=== PATIENT | female | born 1945 | race Caucasian/White ===

== ENCOUNTER 2016-09-04 17:59 | Emergency (ER) | payer MEDICARE, MEDICAID ==
[~2016-09-04] VITALS: Ht 154.9 cm; Wt 79.4 kg
[~2016-09-04 17:59] MED LIST: AMIT50TA3 PO; ARIP10TA2 PO; ARPZ10T PO; ASCO500C14 PO; BUDE6HFA IH; BUPR150T6 PO; CA C1TAB79 PO; CHOL200018 PO; CIPR500T4 PO; CITA20TA12 PO; CITRACAL PO; CPR250T PO; CTLP20T PO; DICY10CA26 PO; DIPH25TA82 PO; DOXY100C2 PO; DRNB2.5C PO; FOLI1TAB24 PO; GBPN400C PO; LEVO500T69 PO; LISI10TA2 PO; LISI40TA PO; LNS30CCR; LORA10TA7 PO; LVT.05T PO; MELA3TAB46 PO; MELATONIN PO; METR500T PO; MGX400T PO; MPR22T TOP; MPR22TI TOP; MUPI22OI TP; OMEP20TA2 PO; ONDA-42 PO; ONDN4T PO; OSCAL PO; OXYC-103 PO; OXYC-12 PO; PNT40TEC PO; PROP1TAB2; PROP1TAB77; RIVA1PAT TD; SENN1TAB76 PO; SULF1TAB7; TRAM-21 PO; TRAM50TA2 PO; VITA1CAP21 PO; VITA1TAB13 PO; ZLP10T PO; [UNRECOGNIZED DRUG - OTHER] PO
--- OUTSIDE RECORDS SUMMARY | 2016-09-04 18:04 | XMS REPORT | Continuity of Care Document ---
Author Author [facility] Organization [facility] Address Unknown Phone Unavailable Care Team Providers Care Scrap Drop Engineer Name Role Phone Lis Moreno PCP [phone] Source Comments Some departments are not documenting in the electronic medical record. If you do not see the information that you expected, contact Release of Information in the Health Information Management department at [phone] for further assistance in locating additional records.[facility] Active Allergies and Adverse Reactions Allergen Noted Date Severity Reactions Comments Codeine 08/30/2013 UNKNOWN Penicillins 08/30/2013 UNKNOWN Current Medications Prescription Sig. Disp. Refills Start End Date Status Date budesonide/formoterol Inhale 2 Puffs by mouth Active (SYMBICORT) 160/4.5 mcg twice daily. HFAA inhalation citalopram (CELEXA) 20 mg Take 20 mg by mouth Active tablet daily. levothyroxine (SYNTHROID) Take 50 mcg by mouth Active 50 mcg tablet every morning. vitamins, B complex tab Take 1 Tab by mouth Active daily. traMADol (ULTRAM) 50 mg Take 100 mg by mouth four Active tablet times daily. folic acid (FOLVITE) 1 mg Take 1 Tab by mouth 09/20/19 Active tablet daily. 14 megestrol (MEGACE) 40 Take 10 mL by mouth 1 09/20/19 Active mg/mL oral suspension daily. 14 ascorbic acid (CECON) 500 Take 5 mL by mouth daily. 09/20/19 Active mg/5 mL syrp oral syrup 14 polyethylene glycol 3350 Take 17 g by mouth daily. 09/20/19 Active (GLYCOLAX; MIRALAX) 17 14 gram/dose powder senna/docusate Take 1 Tab by mouth twice 09/20/19 Active (SENOKOT-S) 8.6/50 mg daily. 14 tablet buPROPion (WELLBUTRIN) 75 Take 1 Tab by mouth twice 09/20/19 Active mg tablet daily. [address](+) Take 1 Cap by mouth twice 90 Cap 09/20/19 Active (PRILOSEC) 20 mg capsule daily. 14 oxyCODone-acetaminophen Take 1-2 Tabs by mouth 30 Tab 0 09/20/19 Active (PERCOCET; ENDOCET; every 6 hours as needed 14 ROXICET) 5-325 mg tablet for Pain Earliest Fill Date: 09/20/13 Max 12 tabs/day melatonin 10 mg cap Take 1 Cap by mouth at Active bedtime daily. Active Problems Problem Noted Date Anemia associated with acute blood loss 09/01/2013 Acute lower GI bleeding 09/01/2013 Diverticulitis of colon with perforation 08/30/2013 Anemia 08/30/2013 SEPSIS 08/30/2013 Social History Tobacco Use Types Packs/Day Years Used Date Never Smoker Smokeless Tobacco: Never Used Alcohol Use Drinks/Week oz/Week Comments No Last Filed Vital Signs Vital Sign Reading Time Taken Blood Pressure 140/88 10/04/2013 8:37 AM CDT Pulse 110 10/04/2013 8:37 AM CDT Temperature 36.7 C (98.1 F) 10/04/2013 8:37 AM CDT Respiratory Rate 16 10/04/2013 8:37 AM CDT Height 1.549 m (5' 1") 10/04/2013 8:37 AM CDT Weight 76.204 kg (168 lb) 10/04/2013 8:37 AM CDT Body Mass Index 31.76 10/04/2013 8:37 AM CDT Oxygen Saturation 96% 09/20/2013 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
--- NOTE | 2016-09-04 18:37 | ED Lower Extremity ---
General Chief Complaint: Lower Extremity Stated Complaint: LEFT LEG SWELLING Source: patient, family (DAUGHTER) History of Present Illness Time seen by provider: 18:28 Initial Comments PT C/O SUDDEN ONSET OF LEFT LEG AND FOOT SWELLING AND PAIN ON Friday08/29/16 NO KNOWN INJURY NO PARESTHESIAS OR MOTOR DEFICITS NO CHEST PAIN OR SHORTNESS OF BREATH NO DIZZINESS OR PALPITATIONS PT HAD A DVT IN SAME LEG SEVERAL YEARS AGO AFTER COLON SURGERY. HAS NOT TAKEN ASPIRIN OR BLOOD THINNERS FOR A LONG TIME STATES THIS IS EXACTLY THE SAME SYMPTOMS NO DIFFERENT TODAY SEEN AT [facility] ON FRIDAY, THE DAY BEFORE ONSET OF SYMPTOMS--FOR ROUTINE EXAM HAS NOT ATTEMPTED TO FOLLOW UP WITH THEM SINCE THEN FOR THIS PROBLEM PT LIVES AT [facility] PCP: [facility] Allergies and Home Medications Allergies Coded Allergies: Penicillins (Verified Allergy, Unknown, 10/27/07) codeine (Verified Allergy, Unknown, 10/27/07) Home Medications Aripiprazole 10 Mg Tablet #0 10 MG PO DAILY Prescribed by: CARINA SERRANO on 05/07/14 1334 Budesonide/Formoterol Fumarate 1 Inhaler Aero #0 2 PUFF IH RTBID Prescribed by: CARINA SERRANO on 05/07/14 1334 Ca Carbonate/Vitamin D3/Vit K 1 Each Tab.chew #0 1 EACH PO QID Prescribed by: CARINA SERRANO on 05/07/14 1334 Citalopram Hydrobromide 20 Mg Tablet #0 20 MG PO DAILY Prescribed by: CARINA SERRANO on 05/07/14 1334 Dronabinol 2.5 Mg Cap #0 2.5 MG PO AC Prescribed by: CARINA SERRANO on 05/07/14 1334 Levothyroxine Sodium 50 Mcg Tablet #0 50 MCG PO DAILY Prescribed by: CARINA SERRANO on 05/07/14 1334 Magnesium Oxide 400 Mg Tab #60 400 MG PO BIDPC Prescribed by: ROS MCKAY on 05/09/14 0839 Melatonin 3 Mg Tab.rapdis #0 6 MG PO HS Prescribed by: CARINA SERRANO on 05/07/14 1334 Pantoprazole Sod 40 Mg Tab #0 40 MG PO BID Prescribed by: CARINA SERRANO on 05/07/14 1334 Tramadol Hcl 50 Mg Tablet #0 50 MG PO Q8H PRN PRN PAIN Prescribed by: CARINA SERRANO on 05/07/14 1334 Constitutional: no symptoms reported Respiratory: no symptoms reportedNo dyspnea on exertion, No orthopnea, No short of breath Cardiovascular: No chest pain, edemaNo palpitations, No syncope Gastrointestinal: no symptoms reported Genitourinary: no symptoms reported Musculoskeletal: see HPI Skin: no symptoms reported Psychiatric/Neurological: No Symptoms Reported Past [id number]-[id number]-[id number] Hx Patient Social History Alcohol Use: Denies Use Recreational Drug Use: No Smoking Status: Never a Smoker Recent Foreign Travel: No Contact w/Someone Who Travel: No Recent Hopitalizations: Yes (CHILD , SCOPE OUT PT) Immunizations Up To Date Tetanus Booster (TDap): Unknown PED Vaccines UTD: No Date of Pneumonia Vaccine: May 28, 2011 Date of Influenza Vaccine: May 08, 2016 Seasonal Allergies Seasonal Allergies: No Surgeries HX Surgeries: Yes (TEETH REMOVAL, COLOSTOMY, PEG TUBE W/ TAKEDOWN) Surgeries: Abdominal, Bowel Surgery Respiratory Hx Respiratory Disorders: Yes Respiratory Disorders: Asthma Cardiovascular Hx Cardiac Disorders: Yes (DVT LEFT LEG POST OP AFTER COLON SURGERY) Cardiac Disorders: Deep Vein Thrombosis Neurological Hx Neurological Disorders: Yes Neurological Disorders: Dementia, Parkinson's Disease Reproductive System Hx Reproductive Disorders: No Genitourinary Hx Genitourinary Disorders: Yes (ACUTE KIDNEY FAILURE) Genitourinary Disorders: Bladder Infection, Renal Failure, UTI-Chronic Gastrointestinal Hx Gastrointestinal Disorders: Yes (ISCHEMIC COLITIS, ADULT FAILURE TO THRIVE) Gastrointestinal Disorders: Colitis, Gastroesophageal Reflux, Diverticulosis Musculoskeletal Hx Musculoskeletal Disorders: Yes (CHRONIC PAIN) Musculoskeletal Disorders: Arthritis, Chronic Back Pain Endocrine Hx Endocrine Disorders: Yes Endocrine Disorders: Hypothyroidsim HEENT HX ENT Disorders: Yes (GLASSES) HEENT Disorders: Cataract Hearing Impairment: Denies Cancer Hx Cancer: No Psychosocial Hx Psychiatric Problems: Yes Behavioral Health Disorders: Sleep Difficulties, Bipolar, Depression Integumentary HX Skin/Integumentary Disorder: No Blood Transfusions Hx Blood Disorders: Yes (Anemia) Family Medical History Family Medial History: Congenital disease 19 MOTHER Family history: Arthritis Hypertension 19 MOTHER Malignant neoplasm of lung 09 BROTHER No Family History of: Cancer Seizure disorder Physical Exam Vital Signs Vital Sign - Last 12Hours 09/04/16 18:26 Temp 97.5 Pulse 76 Resp 20 B/P 143/81 Pulse Ox 95 O2 Delivery Room Air Capillary Refill : General Appearance: WD/WN no apparent distress HEENT: PERRL/EOMI other (POOR DENTITION, MULTIPLE MISSING TEETH AND REMAINING TEETH WITH EXTENSIVE DECAY) Neck: normal inspection Cardiovascular: regular rate, rhythm no murmur Respiratory: normal breath sounds no respiratory distress no accessory muscle use Gastrointestinal: non tender soft Back: no CVA tenderness Legs: right leg normal inspection, left leg other (3+ EDEMA TO LEFT LEG AND FOOT AND SLIGHT ERYTHEMA AND WARMTH, AND TENDERNESS IN POPLITEAL AREA. 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 nml as tested no motor/sensory deficits alert normal mood/affect oriented x 3 other (RESTING TREMORS) Skin: normal color warm/dry Progress/Results/Core Measures Results/Orders Lab Results Laboratory Tests Test 09/04/16 18:22 Range/Units Activated Partial Thromboplast Time 32 24-35 SEC Alanine Aminotransferase (ALT/SGPT) 6 0-55 U/L Albumin 4.2 3.2-4.5 G/DL Alkaline Phosphatase 121 40-136 U/L Anion Gap 13 5-14 MMOL/L Aspartate Amino Transf (AST/SGOT) 13 5-34 U/L B-Type Natriuretic Peptide 86.7 <100.0 PG/ML BUN/Creatinine Ratio 20 Basophils # (Auto) 0.0 0.0-0.1 10^3/uL Basophils (%) (Auto) 0 0-10 % Blood Urea Nitrogen 26 H 7-18 MG/DL Calcium Level 8.9 8.5-10.1 MG/DL Carbon Dioxide Level 22 21-32 MMOL/L Chloride Level 108 H 98-107 MMOL/L Creatinine 1.28 0.60-1.30 MG/DL Eosinophils # (Auto) 0.4 H 0.0-0.3 10^3/uL Eosinophils (%) (Auto) 3 0-10 % Estimat Glomerular Filtration Rate 41 Glucose Level 103 70-105 MG/DL Hematocrit 37 35-52 % Hemoglobin 11.9 11.5-16.0 G/DL INR Comment 1.0 0.8-1.4 Lymphocytes # (Auto) 2.2 1.0-4.0 X 10^3 Lymphocytes (%) (Auto) 19 12-44 % Mean Corpuscular Hemoglobin 30 25-34 PG Mean Corpuscular Hemoglobin Concent 32 32-36 G/DL Mean Corpuscular Volume 92 80-99 FL Mean Platelet Volume 11.0 H 7.4-10.4 FL Monocytes # (Auto) 1.1 H 0.0-1.0 X 10^3 Monocytes (%) (Auto) 10 0-12 % Neutrophils # (Auto) 7.9 H 1.8-7.8 X 10^3 Neutrophils (%) (Auto) 68 42-75 % Platelet Count 255 130-400 10^3/uL Potassium Level 4.6 3.6-5.0 MMOL/L Prothrombin Time 12.4 12.2-14.7 SEC Red Blood Count 4.02 L 4.35-5.85 10^6/uL Red Cell Distribution Width 13.6 10.0-14.5 % Sodium Level 143 135-145 MMOL/L Total Bilirubin 0.4 0.1-1.0 MG/DL Total Protein 7.4 6.4-8.2 G/DL White Blood Count 11.7 H 4.3-11.0 10^3/uL My Orders Orders-JAMMIE HAIDER DO Saline Lock/Iv-Start (09/04/16 18:33) Monitor-Rhythm Ecg Trace Only (09/04/16 18:33) BNP (09/04/16 18:33) Cbc With Automated Diff (09/04/16 18:33) Comprehensive Metabolic Panel (09/04/16 18:33) Protime With Inr (09/04/16 18:33) Partial Thromboplastin Time (09/04/16 18:33) Us Venous Lower Ext Lt (09/04/16 18:33) Saline Lock/Iv-Start (09/04/16 19:23) Ns Iv 1000 Ml (Sodium Chloride 0.9%) (09/04/16 19:23) Enoxaparin Injection (Lovenox Injection) (09/04/16 20:00) Medications Given in ED Current Medications Medications Dose Ordered Sig/Jaylen Route Start Time Stop Time Status Last Admin Dose Admin Enoxaparin Sodium 80 mg ONCE ONCE SC 09/04/16 20:00 09/04/16 20:01 DC 09/04/16 20:23 80 MG Sodium Chloride 1,000 ml @ 0 mls/hr Q0M ONCE IV 09/04/16 19:23 09/04/16 19:24 DC 09/04/16 19:31 0 MLS/HR Vital Signs/I&O Vital Sign - Last 12Hours 09/04/16 09/04/16 18:26 20:28 Temp 97.5 Pulse 76 73 Resp 20 18 B/P 143/81 Pulse Ox 95 95 O2 Delivery Room Air Progress Note : Progress Note NO DETERIORATION IN PT'S CONDITION DURING ER STAY Diagnostic Imaging Comments ULTRASOUND/VENOUS DOPPLER--NO DVT, BUT TECH REPORTS SLOW FLOW AT VERY PROXIMAL ASPECT OF STUDY. Departure Communication Progress Notes 1941--SPOKE WITH DR. HERNANDEZ (COVERING FOR [facility] INPATIENTS )--DUE TO LACK OF MEDICAL BEDS, WILL TREAT EMPIRICALLY WITH LOVENOX HERE IN ER, [facility] HAVE [facility] FOR ADDITIONAL LOVENOX, RECHECK LAB/RENAL FUNCTION AND HOPEFULLY WILL BE ABLE TO ORDER OUTPATIENT ABDOMEN/PELVIS CT WITH IV CONTRAST TO EVALUATE STRUCTURES / VESSELS ABOVE LEVEL OF GROIN. 1944--SPOKE WITH DR. TAYLOR, SHE AGREES WITH PLAN OF CARE AND WILL ARRANGE FOR THE ABOVE TO BE DONE. Impression Impression: Primary Impression: Pain and swelling of left lower leg Additional Impression: Renal insufficiency Disposition: 03 XFER SNF Condition: Stable Departure-Patient Inst. Referrals: [facility] Patient Instructions: Deep Vein Thrombosis (Blood Clots in the Legs) (DC) Add. Discharge Instructions: [facility] IN THE MORNING FOR ANOTHER LOVENOX INJECTION AND REPEAT LAB AND ADDITIONAL TESTING RETURN TO ER IF YOU HAVE CHEST PAIN OR SHORTNESS OF BREATH CONTINUE ALL YOUR REGULAR MEDICATIONS All discharge instructions reviewed with patient and/or family. Voiced understanding. JAMMIE HAIDER DO Sep 04, 2016 6:37 pm
[2016-09-04 18:48] LABS: BASOPHILS % (AUTO) 0 % (0-10); EOSINOPHILS # (AUTO) 0.4 10^3/uL (0.0-0.3); EOSINOPHILS % (AUTO) 3 % (0-10); LYMPHOCYTES # (AUTO) 2.2 X 10^3 (1.0-4.0); LYMPHOCYTES % (AUTO) 19 % (12-44); MEAN CORPUSCULAR HEMOGLOBIN 30 PG (25-34); MEAN CORPUSCULAR HGB CONC 32 G/DL (32-36); MEAN CORPUSCULAR VOLUME 92 FL (80-99); MONOCYTES # (AUTO) 1.1 X 10^3 (0.0-1.0); MONOCYTES % (AUTO) 10 % (0-12); NEUTROPHILS # (AUTO) 7.9 X 10^3 (1.8-7.8); NEUTROPHILS % (AUTO) 68 % (42-75); PLATELET COUNT 255 10^3/uL (130-400); RED BLOOD COUNT 4.02 10^6/uL (4.35-5.85); RED CELL DISTRIBUTION WIDTH 13.6 % (10.0-14.5); WHITE BLOOD COUNT 11.7 10^3/uL (4.3-11.0)
[2016-09-04 18:51] LABS: PROTHROMBIN TIME PATIENT 12.4 SEC (12.2-14.7)
[2016-09-04 19:00] LABS: ALBUMIN 4.2 G/DL (3.2-4.5); BILIRUBIN,TOTAL 0.4 MG/DL (0.1-1.0); CALCIUM 8.9 MG/DL (8.5-10.1); CREATININE SERUM 1.28 MG/DL (0.60-1.30); POTASSIUM 4.6 MMOL/L (3.6-5.0); TOTAL PROTEIN 7.4 G/DL (6.4-8.2)
[2016-09-04] MEDS ORDERED: NS IV 1000 ML 1,000 ML IV ONE (19:23)
--- NOTE | 2016-09-04 19:37 | Diagnostic Imaging Report ---
PROCEDURE: US left lower extremity venous. TECHNIQUE: Multiple real-time grayscale images were obtained over the left lower extremity in various projections. Additional duplex Doppler and color Doppler images were also obtained. INDICATION: Left lower extremity swelling, history of DVT in 2014. COMPARISON STUDY: Lower extremity ultrasound from 2014. FINDINGS: Left lower extremity venous Doppler demonstrates resolution of the previous DVT. No areas of stenosis are present. There are no fluid collections. IMPRESSION: There has been interval resolution of the left lower extremity thrombus. Dictated by: Dictated on workstation # [id number]
[2016-09-04] MEDS ORDERED: ENOXAPARIN 80 MG/0.8 ML (LOVENOX) SYR SC ONE (20:00)
[2016-09-04 20:28] VITALS: BP 141/82
== END 2016-09-04 20:28 ==
LOC: EDUNIT# 17:59 → ER 18:01
DX: R22.42 Localized swelling, mass and lump, left lower limb (principal); G20 Parkinson's disease; F03.90 Unspecified dementia, unspecified severity, without behavioral disturbance, psychotic disturbance, mood disturbance, and anxiety; Z79.899 Other long term (current) drug therapy; Z86.718 Personal history of other venous thrombosis and embolism
CPT/HCPCS: 36415; 80053; 83880; 85025; 85610; 85730; 93041; 96365; 96372

== ENCOUNTER 2016-09-05 15:39 | Emergency (ER) | payer MEDICARE, MEDICAID ==
[~2016-09-05] VITALS: Ht 154.9 cm; Wt 79.4 kg
--- OUTSIDE RECORDS SUMMARY | 2016-09-05 15:44 | XMS REPORT | Continuity of Care Document ---
Author Author [facility] Organization [facility] Address Unknown Phone Unavailable Care Team Providers Care Hose Stripper Name Role Phone Lis Moreno PCP [phone] Source Comments Some departments are not documenting in the electronic medical record. 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
--- NOTE | 2016-09-05 15:51 | ED Neurological Problem ---
General Stated Complaint: SYNCOPE Source: patient Exam Limitations: no limitations History of Present Illness Time seen by provider: 15:37 Initial Comments Here by EMS with probable syncopal episode at assisted living facility today. Patient reports that she was lying down on getting up she felt dizzy and then blacked out. She was assisted to the floor. Patient had repeat episode of unresponsiveness and was incontinent of urine. EMS was summoned. They were able to change the patient's clothes by the time EMS arrived and patient was essentially resolved at that time. On EMS arrival, patient had no significant symptoms and negative stroke evaluation per EMS. On presentation to the ER, patient had no complaints. Recently seen for swelling in her legs and has further evaluation set up for tomorrow. Denies current complaint and is answering questions appropriately. She does admit that she is having some weakness on standing especially if moving too fast. Timing/Duration: 1/2 hour Severity: moderate Associated Symptoms: No nausea/vomiting, weakness Allergies and Home Medications Allergies Coded Allergies: Penicillins (Verified Allergy, Unknown, 10/27/07) codeine (Verified Allergy, Unknown, 10/27/07) Home Medications Aripiprazole 10 Mg Tablet #0 10 MG PO DAILY Prescribed by: CARINA SERRANO on 05/07/14 1334 Budesonide/Formoterol Fumarate 1 Inhaler Aero #0 2 PUFF IH RTBID Prescribed by: CARINA SERRANO on 05/07/14 1334 Ca Carbonate/Vitamin D3/Vit K 1 Each Tab.chew #0 1 EACH PO QID Prescribed by: CARINA SERRANO on 05/07/14 1334 Citalopram Hydrobromide 20 Mg Tablet #0 20 MG PO DAILY Prescribed by: CARINA SERRANO on 05/07/14 1334 Dronabinol 2.5 Mg Cap #0 2.5 MG PO AC Prescribed by: CARINA SERRANO on 05/07/14 1334 Levothyroxine Sodium 50 Mcg Tablet #0 50 MCG PO DAILY Prescribed by: CARINA SERRANO on 05/07/14 1334 Magnesium Oxide 400 Mg Tab #60 400 MG PO BIDPC Prescribed by: ROS MCKAY on 05/09/14 0839 Melatonin 3 Mg Tab.rapdis #0 6 MG PO HS Prescribed by: CARINA SERRANO on 05/07/14 1334 Pantoprazole Sod 40 Mg Tab #0 40 MG PO BID Prescribed by: CARINA SERRANO on 05/07/14 1334 Tramadol Hcl 50 Mg Tablet #0 50 MG PO Q8H PRN PRN PAIN Prescribed by: CARINA SERRANO on 05/07/14 1334 Constitutional: see HPINo chills, No fever Eyes: No Symptoms Reported Ears, Nose, Mouth, Throat: no symptoms reported Respiratory: no symptoms reported Cardiovascular: see HPI edemaNo palpitations, syncope Gastrointestinal: No abdominal pain, No nausea, No vomiting Genitourinary: no symptoms reported Musculoskeletal: no symptoms reported Skin: no symptoms reported Psychiatric/Neurological: No Symptoms Reported All Other Systems Reviewed Negative Unless Noted: Yes Past Olliuek-Pgxbsz-Ljldqv Hx Patient Social History Recent Hopitalizations: Yes (CHILD , SCOPE OUT PT) Immunizations Up To Date Tetanus Booster (TDap): Unknown PED Vaccines UTD: No Date of Pneumonia Vaccine: May 28, 2011 Date of Influenza Vaccine: May 08, 2016 Seasonal Allergies Seasonal Allergies: No Surgeries HX Surgeries: Yes (TEETH REMOVAL, COLOSTOMY, PEG TUBE W/ TAKEDOWN) Surgeries: Abdominal, Bowel Surgery Respiratory Hx Respiratory Disorders: Yes Respiratory Disorders: Asthma Cardiovascular Hx Cardiac Disorders: Yes (DVT LEFT LEG POST OP AFTER COLON SURGERY) Cardiac Disorders: Deep Vein Thrombosis Neurological Hx Neurological Disorders: Yes Neurological Disorders: Dementia, Parkinson's Disease Reproductive System Hx Reproductive Disorders: No Genitourinary Hx Genitourinary Disorders: Yes (ACUTE KIDNEY FAILURE) Genitourinary Disorders: Bladder Infection, Renal Failure, UTI-Chronic Gastrointestinal Hx Gastrointestinal Disorders: Yes (ISCHEMIC COLITIS, ADULT FAILURE TO THRIVE) Gastrointestinal Disorders: Colitis, Gastroesophageal Reflux, Diverticulosis Musculoskeletal Hx Musculoskeletal Disorders: Yes (CHRONIC PAIN) Musculoskeletal Disorders: Arthritis, Chronic Back Pain Endocrine Hx Endocrine Disorders: Yes Endocrine Disorders: Hypothyroidsim HEENT HX ENT Disorders: Yes (GLASSES) HEENT Disorders: Cataract Hearing Impairment: Denies Cancer Hx Cancer: No Psychosocial Hx Psychiatric Problems: Yes Behavioral Health Disorders: Sleep Difficulties, Bipolar, Depression Integumentary HX Skin/Integumentary Disorder: No Blood Transfusions Hx Blood Disorders: Yes (Anemia) Reviewed Nursing Assessment Reviewed/Agree w Nursing PMH: Yes Family Medical History Family Medial History: Congenital disease 19 MOTHER Family history: Arthritis Hypertension 19 MOTHER Malignant neoplasm of lung 09 BROTHER Physical Exam Vital Signs Vital Sign - Last 12Hours 09/05/16 15:40 Temp 97.1 Pulse 67 Resp 25 B/P 170/101 Pulse Ox 95 O2 Delivery Room Air Capillary Refill : General Appearance: WD/WN no apparent distress HEENT: PERRL/EOMI pharynx normal Neck: full range of motion supple Respiratory: lungs clear normal breath sounds Cardiovascular: regular rate, rhythm no murmur Gastrointestinal: non tender soft Back: normal inspection no CVA tenderness no vertebral tenderness Extremities: non-tender pedal edema (left lower extremity edema greater than right.) Neurologic/Psychiatric: alert oriented x 3 Crainal Nerves: normal hearing normal speech PERRL Coordination/Gait: normal finger to nose Motor/Sensory: no motor deficit no sensory deficit no pronator drift Skin: normal color warm/dry Progress/Results/Core Measures Results/Orders Lab Results Laboratory Tests Test 09/05/16 16:45 09/05/16 17:37 Range/Units Activated Partial Thromboplast Time 32 24-35 SEC Alanine Aminotransferase (ALT/SGPT) 9 0-55 U/L Albumin 4.0 3.2-4.5 G/DL Alkaline Phosphatase 105 40-136 U/L Anion Gap 6 5-14 MMOL/L Aspartate Amino Transf (AST/SGOT) 13 5-34 U/L BUN/Creatinine Ratio 16 Band Neutrophils 0 % Basophils # (Auto) 0.0 0.0-0.1 10^3/uL Basophils % (Manual) 0 % Basophils (%) (Auto) 0 0-10 % Blood Morphology Comment NORMAL Blood Urea Nitrogen 20 H 7-18 MG/DL Calcium Level 8.8 8.5-10.1 MG/DL Carbon Dioxide Level 26 21-32 MMOL/L Chloride Level 108 H 98-107 MMOL/L Creatinine 1.27 0.60-1.30 MG/DL D-Dimer 0.45 0.00-0.49 UG/ML Eosinophils # (Auto) 0.2 0.0-0.3 10^3/uL Eosinophils % (Manual) 2 % Eosinophils (%) (Auto) 2 0-10 % Estimat Glomerular Filtration Rate 41 Glucose Level 113 H 70-105 MG/DL Hematocrit 35 35-52 % Hemoglobin 11.4 L 11.5-16.0 G/DL INR Comment 1.0 0.8-1.4 Lymphocytes # (Auto) 1.4 1.0-4.0 X 10^3 Lymphocytes % (Manual) 13 % Lymphocytes (%) (Auto) 13 12-44 % Mean Corpuscular Hemoglobin 30 25-34 PG Mean Corpuscular Hemoglobin Concent 32 32-36 G/DL Mean Corpuscular Volume 91 80-99 FL Mean Platelet Volume 10.8 H 7.4-10.4 FL Monocytes # (Auto) 0.9 0.0-1.0 X 10^3 Monocytes % (Manual) 11 % Monocytes (%) (Auto) 9 0-12 % Neutrophils # (Auto) 7.6 1.8-7.8 X 10^3 Neutrophils % (Manual) 74 % Neutrophils (%) (Auto) 75 42-75 % Platelet Count 230 130-400 10^3/uL Potassium Level 4.5 3.6-5.0 MMOL/L Prothrombin Time 12.6 12.2-14.7 SEC Red Blood Count 3.85 L 4.35-5.85 10^6/uL Red Cell Distribution Width 13.5 10.0-14.5 % Sodium Level 140 135-145 MMOL/L Total Bilirubin 0.4 0.1-1.0 MG/DL Total Protein 6.8 6.4-8.2 G/DL Toxic Granulation 1+ Troponin I < 0.30 <0.30 NG/ML White Blood Count 10.1 4.3-11.0 10^3/uL Urine Bacteria NONE /HPF Urine Bilirubin NEGATIVE NEGATIVE Urine Casts NONE /LPF Urine Clarity CLEAR Urine Color YELLOW Urine Crystals NONE /LPF Urine Culture Indicated NO Urine Glucose (UA) NEGATIVE NEGATIVE Urine Ketones NEGATIVE NEGATIVE Urine Leukocyte Esterase 1+ H NEGATIVE Urine Mucus NEGATIVE /LPF Urine Nitrite NEGATIVE NEGATIVE Urine Protein NEGATIVE NEGATIVE Urine RBC NONE /HPF Urine RBC (Auto) NEGATIVE NEGATIVE Urine Specific [place] 1.010 L 1.016-1.022 Urine Squamous Epithelial Cells 0-2 /HPF Urine Urobilinogen NORMAL NORMAL MG/DL Urine WBC 2-5 /HPF Urine pH 8 5-9 My Orders Orders-DILLAN SINGH MD Cbc With Automated Diff (09/05/16 15:44) Protime With Inr (09/05/16 15:44) Partial Thromboplastin Time (09/05/16 15:44) Comprehensive Metabolic Panel (09/05/16 15:44) Fibrin Degradation Products (09/05/16 15:44) Troponin I (09/05/16 15:44) Ua Culture If Indicated (09/05/16:44) Chest 1 View, Ap/Pa Only (09/05/16 15:44) Ekg Tracing (09/05/16 15:44) Nothing By Mouth (09/05/16 Dinner) Accucheck Stat ONCE (09/05/16 15:44) Saline Lock/Iv-Start (09/05/16 15:44) Vital Signs-Stroke Q1H (09/05/16 15:44) Ct Head Wo-R/O Stroke (09/05/16 15:44) O2 (09/05/16 15:44) Intake & Output 06,14,22 (09/05/16 15:44) Monitor-Rhythm Ecg Trace Only (09/05/16 15:44) Dysphagia Screening Tool (09/05/16 15:44) Manual Differential (09/05/16 16:45) Vital Signs/I&O Vital Sign - Last 12Hours 09/05/16 15:40 Temp 97.1 Pulse 67 Resp 25 B/P 170/101 Pulse Ox 95 O2 Delivery Room Air Progress Note : Progress Note Seen and evaluated on arrival by EMS. IV, labs, CTA, EKG and chest x-ray ordered. UA ordered. Stroke scale done by me is 0. Patient has no complaints currently. She states that she has been having some issues with weakness on standing but feels great right now. Patient was seen last night for concerns of swallowing a left leg. That has not changed. She does have evaluation tomorrow for CT scan to evaluate vascular structures. 1820 Overall she is doing well. There is no significant findings and d-dimer is negative. I did discuss at length with the patient and family regarding last night's visit and today's visit. She does have follow-up tomorrow as discussed. She is overall improved now. She was able to get up and transfer to wheelchair and to bathroom without difficulty. In talking with patient and family, they would like to go back to assisted living tonight and continue follow-up as scheduled. This does seem like a reasonable plan given the negative findings currently and no significant adverse events during monitored. At discharge, she was able to transfer to chair without any significant difficulty and only minimal assist. Discharge back to assisted living facility with return precautions. Patient verbalize understanding instructions and agreement with plan. ECG Initial ECG Impression Date: Sep 05, 2016 Initial ECG Impression Time: 15:53 Initial ECG Rate: 76 Initial ECG Rhythm: Normal Sinus Comment Sinus rhythm with leftward axis. No evidence of ST elevation OR. Overall similar appearance to 05/07/14. Interpreted by me. Diagnostic Imaging Diagonstic Imaging: CT Plain Films/CT/US/NM/MRI: head Comments NAME: ALFONSO [facility]GU[facility] REC#: [id number] PT STATUS: REG ER : 1945 PHYSICIAN: DILLAN SINGH MD ADMIT DATE: 09/05/16/ER Signed Date of Exam: 09/05/16 CT HEAD WO-R/O STROKE EXAM: CT head. TECHNIQUE: Noncontrast axial images of the brain were obtained. INDICATION: Unwitnessed fall. FINDINGS: There is no intracranial hemorrhage, edema or mass effect. The brain parenchyma appears unremarkable. No hydrocephalus. The visualized portions of the orbits and paranasal sinuses appear unremarkable. IMPRESSION: Unremarkable study. Dictated by: Dictated on workstation # [id number] Dict: 09/05/16 1629 Trans: 09/05/16 1632 [facility] [id number] Interpreted by: STONE WALLACE MD Electronically signed by:STONE WALLACE MD 09/05/16 1635 Diagonstic Imaging: Xray Plain Films/CT/US/NM/MRI: chest Comments NAME: ALFONSO NGUYEN [facility] REC#: [id number] PT STATUS: REG ER : 1945 PHYSICIAN: DILLAN SINGH MD ADMIT DATE: 09/05/16/ER Signed Date of Exam: 09/05/16 CHEST 1 VIEW, AP/PA ONLY INDICATION: Syncope. EXAMINATION: Single view of the chest was obtained. COMPARISON: 05/07/2014. FINDINGS: Heart size is stable. No focal consolidation. No failure pattern, effusion or pneumothorax. Some minimal atelectatic changes in the medial right lung base. IMPRESSION: Likely slight right basilar atelectasis. No acute cardiopulmonary abnormality identified and no substantial change from priors. Dictated by: Dictated on workstation # [id number] Dict: 09/05/16 1631 Trans: 09/05/16 165 [facility] [id number] Interpreted by: JULIETH RUIZ Electronically signed by:JULIETH RUIZ 09/05/165 Departure Impression Impression: Primary Impression: Syncope Qualified Code: R55 - Syncope and collapse Disposition: 01 HOME, SELF-CARE Condition: Improved Departure-Patient Inst. Decision time for Depature: 18:49 Referrals: [facility] (PCP/Family) Primary Care Physician Patient Instructions: Syncope (Fainting) (DC) Add. Discharge Instructions: Continue home meds as directed. Drink plenty of fluids. Follow-up with your doctor tomorrow for recheck. Keep appointments tomorrow as scheduled. Return for worse pain, fever, vomiting, weakness, breathing problems, chest pain or other concerns as needed. It is very important that you transition slowly from lying to sitting and from sitting to standing. DILLAN SINGH MD Sep 05, 2016 15:51
--- NOTE | 2016-09-05 16:35 | Diagnostic Imaging Report ---
EXAM: CT head. TECHNIQUE: Noncontrast axial images of the brain were obtained. INDICATION: Unwitnessed fall. FINDINGS: There is no intracranial hemorrhage, edema or mass effect. The brain parenchyma appears unremarkable. No hydrocephalus. The visualized portions of the orbits and paranasal sinuses appear unremarkable. IMPRESSION: Unremarkable study. Dictated by: Dictated on workstation # [id number]
--- NOTE | 2016-09-05 16:35 | Diagnostic Imaging Report ---
INDICATION: Syncope. EXAMINATION: Single view of the chest was obtained. COMPARISON: 05/07/2014. FINDINGS: Heart size is stable. No focal consolidation. No failure pattern, effusion or pneumothorax. Some minimal atelectatic changes in the medial right lung base. IMPRESSION: Likely slight right basilar atelectasis. No acute cardiopulmonary abnormality identified and no substantial change from priors. Dictated by: Dictated on workstation # [id number]
[2016-09-05 16:55] LABS: BASOPHILS % (AUTO) 0 % (0-10); EOSINOPHILS # (AUTO) 0.2 10^3/uL (0.0-0.3); EOSINOPHILS % (AUTO) 2 % (0-10); LYMPHOCYTES # (AUTO) 1.4 X 10^3 (1.0-4.0); LYMPHOCYTES % (AUTO) 13 % (12-44); MEAN CORPUSCULAR HEMOGLOBIN 30 PG (25-34); MEAN CORPUSCULAR HGB CONC 32 G/DL (32-36); MEAN CORPUSCULAR VOLUME 91 FL (80-99); MEAN PLATELET VOLUME 10.8 FL (7.4-10.4); MONOCYTES # (AUTO) 0.9 X 10^3 (0.0-1.0); MONOCYTES % (AUTO) 9 % (0-12); NEUTROPHILS # (AUTO) 7.6 X 10^3 (1.8-7.8); NEUTROPHILS % (AUTO) 75 % (42-75); PLATELET COUNT 230 10^3/uL (130-400); RED BLOOD COUNT 3.85 10^6/uL (4.35-5.85); RED CELL DISTRIBUTION WIDTH 13.5 % (10.0-14.5); WHITE BLOOD COUNT 10.1 10^3/uL (4.3-11.0)
[2016-09-05 17:04] LABS: PROTHROMBIN TIME PATIENT 12.6 SEC (12.2-14.7)
[2016-09-05 17:12] LABS: ALANINE AMINOTRANSFERASE 9 U/L (0-55); ANION GAP 6 MMOL/L (5-14); ASPARTATE AMINO TRANSFERASE 13 U/L (5-34); BILIRUBIN,TOTAL 0.4 MG/DL (0.1-1.0); BLOOD UREA NITROGEN 20 MG/DL (7-18); BUN/CREATININE RATIO 16; CALCIUM 8.8 MG/DL (8.5-10.1); CARBON DIOXIDE 26 MMOL/L (21-32); CHLORIDE 108 MMOL/L (98-107); CREATININE SERUM 1.27 MG/DL (0.60-1.30); GFR ESTIMATED 41; GLUCOSE 113 MG/DL (70-105); POTASSIUM 4.5 MMOL/L (3.6-5.0); SODIUM 140 MMOL/L (135-145); TOTAL PROTEIN 6.8 G/DL (6.4-8.2)
[2016-09-05 17:17] LABS: TROPONIN I < 0.30 NG/ML (<0.30)
[2016-09-05 17:25] LABS: NEUTROPHILS % (MANUAL) 74 %
[2016-09-05 17:26] LABS: BAND NEUTROPHILS 0 %; BASOPHILS % (MANUAL) 0 %; EOSINOPHILS % (MANUAL) 2 %; LYMPHOCYTES % (MANUAL) 13 %
[2016-09-05 17:46] LABS: BILIRUBIN,URINE NEGATIVE (NEGATIVE); KETONES,URINE NEGATIVE (NEGATIVE); LEUKOCYTE ESTERASE ,URINE 1+ (NEGATIVE); NITRITE,URINE NEGATIVE (NEGATIVE); PH,URINE 8 (5-9); PROTEIN,URINE NEGATIVE (NEGATIVE); UROBILINOGEN,URINE NORMAL (NORMAL)
[2016-09-05 17:54] LABS: SQUAMOUS EPITHELIAL CELL,UR 0-2 /HPF
[2016-09-05 19:00] VITALS: BP 156/89
== END 2016-09-05 19:00 ==
LOC: EDUNIT# 15:39 → ER 15:40
DX: R55 Syncope and collapse (principal); R53.1 Weakness; G20 Parkinson's disease; F03.90 Unspecified dementia, unspecified severity, without behavioral disturbance, psychotic disturbance, mood disturbance, and anxiety; Z79.899 Other long term (current) drug therapy
CPT/HCPCS: 36415; 70450; 71010; 80053; 81000; 84484; 85007; 85027; 85379; 85610; 85730; 93005; 93041

== ENCOUNTER → 2018-02-11 | Outpatient (CLI) | payer MEDICARE, MEDICAID ==
[~2018-02-11] MED LIST changes: +ALLO100T PO; +ASPI-586 PO; +BUDE10.2 IH; +CALC625T PO; +CARB1TAB PO; +CITA20TA9 PO; +DONE10TA12 PO; +FURO40TA4 PO; +IBUP-1779 PO; +LEVO75TA6 PO; +MAG30ORA2 PO; +MAGN400T39 PO; +MIRA25TA PO; +OMEP20TA33 PO; +POTA-51 PO; +PRAM0.5T2 PO; +ROPI1TAB40 PO; +RPN.25T PO; +SENN1TAB93 PO; +TRAZ-189 PO; +[UNRECOGNIZED DRUG - CODE] PO
--- NOTE | 2018-02-11 12:56 | Diagnostic Imaging Report ---
PROCEDURE: US Abdomen, limited. TECHNIQUE: Multiple realtime grayscale images were obtained over the abdomen in various projections. INDICATION: Epigastric mass. COMPARISON: None available. FINDINGS: In the midline epigastric region, there is a heterogeneous isoechoic mass located beneath the rectus abdominis muscles. This mass may be secondary to abdominal wall hernia containing peritoneal fat. IMPRESSION: Area of palpable concern in the epigastric region may correspond to a fat-containing ventral (epigastric) hernia. CT of the abdomen and pelvis without contrast could better characterize this hernia. Dictated by: Dictated on workstation # [id number]
== END ==
LOC: RAD 11:23
PROVIDERS: ATTEND Nurse Practitioner Family
DX: R19.06 Epigastric swelling, mass or lump (principal)
CPT/HCPCS: 76705

== ENCOUNTER 2018-03-11 13:40 | Outpatient (CLI) | payer MEDICARE, MEDICAID ==
[~2018-03-11] VITALS: Ht 154.9 cm; Wt 91.2 kg
[~2018-03-11 13:40] MED LIST changes: -ALLO100T PO; -ASPI-586 PO; -BUDE10.2 IH; -CALC625T PO; -CARB1TAB PO; -CITA20TA9 PO; -DONE10TA12 PO; -FURO40TA4 PO; -IBUP-1779 PO; -LEVO75TA6 PO; -MAG30ORA2 PO; -MAGN400T39 PO; -MIRA25TA PO; -OMEP20TA33 PO; -POTA-51 PO; -PRAM0.5T2 PO; -ROPI1TAB40 PO; -RPN.25T PO; -SENN1TAB93 PO; -TRAZ-189 PO; -[UNRECOGNIZED DRUG - CODE] PO
[2018-03-11 13:50] VITALS: BP 160/79
[2018-03-11 14:23] LABS: BASOPHILS % (AUTO) 0 % (0-10); EOSINOPHILS # (AUTO) 0.2 10^3/uL (0.0-0.3); EOSINOPHILS % (AUTO) 2 % (0-10); HEMATOCRIT 37 % (35-52); HEMOGLOBIN 11.7 G/DL (11.5-16.0); LYMPHOCYTES # (AUTO) 1.8 X 10^3 (1.0-4.0); LYMPHOCYTES % (AUTO) 20 % (12-44); MEAN CORPUSCULAR HEMOGLOBIN 27 PG (25-34); MEAN CORPUSCULAR HGB CONC 32 G/DL (32-36); MEAN CORPUSCULAR VOLUME 86 FL (80-99); MONOCYTES # (AUTO) 0.8 X 10^3 (0.0-1.0); MONOCYTES % (AUTO) 8 % (0-12); NEUTROPHILS # (AUTO) 6.6 X 10^3 (1.8-7.8); NEUTROPHILS % (AUTO) 70 % (42-75); PLATELET COUNT 282 10^3/uL (130-400); RED BLOOD COUNT 4.27 10^6/uL (4.35-5.85); RED CELL DISTRIBUTION WIDTH 13.9 % (10.0-14.5); WHITE BLOOD COUNT 9.4 10^3/uL (4.3-11.0)
[2018-03-11] MEDS ORDERED: BUDE10.2 IH (14:29)
[2018-03-11] MEDS ORDERED: POTA-51 PO (14:29)
[2018-03-11] MEDS ORDERED: MAGN400T39 PO (14:29)
[2018-03-11] MEDS ORDERED: PRAM0.5T2 PO (14:29)
[2018-03-11] MEDS ORDERED: CARB1TAB PO (14:29)
[2018-03-11] MEDS ORDERED: LEVO75TA6 PO (14:29)
[2018-03-11] MEDS ORDERED: ROPI1TAB40 PO (14:29)
[2018-03-11] MEDS ORDERED: [UNRECOGNIZED DRUG - CODE] PO (14:29)
[2018-03-11] MEDS ORDERED: DONE10TA12 PO (14:29)
[2018-03-11] MEDS ORDERED: FURO40TA4 PO (14:29)
[2018-03-11] MEDS ORDERED: CITA20TA9 PO (14:29)
[2018-03-11] MEDS ORDERED: CALC625T PO (14:29)
[2018-03-11] MEDS ORDERED: TRAM50TA2 PO (14:29)
[2018-03-11] MEDS ORDERED: ASPI-586 PO (14:29)
[2018-03-11] MEDS ORDERED: LORA10TA7 PO (14:29)
[2018-03-11] MEDS ORDERED: ALLO100T PO (14:29)
[2018-03-11] MEDS ORDERED: OMEP20TA33 PO (14:29)
[2018-03-11] MEDS ORDERED: MIRA25TA PO (14:29)
[2018-03-11] MEDS ORDERED: TRAZ-189 PO (14:29)
[2018-03-11] MEDS ORDERED: RPN.25T PO (14:29)
[2018-03-11] MEDS ORDERED: IBUP-1779 PO (14:29)
[2018-03-11] MEDS ORDERED: SENN1TAB93 PO (14:30)
[2018-03-11] MEDS ORDERED: MAG30ORA2 PO (14:30)
[2018-03-11 14:40] LABS: CALCIUM 9.1 MG/DL (8.5-10.1); CREATININE SERUM 1.23 MG/DL (0.60-1.30); POTASSIUM 3.9 MMOL/L (3.6-5.0)
--- NOTE | 2018-03-13 00:16 | OPERATIVE REPORT ---
DATE OF SERVICE: 03/11/2018 ATTENDING PRIMARY CARE PHYSICIAN: Dr. Sheridan. PREOPERATIVE DIAGNOSIS: Ventral abdominal incisional hernia. POSTOPERATIVE DIAGNOSIS: Incarcerated ventral abdominal incisional hernia with small bowel and dense adhesions. PROCEDURE: Exploratory laparotomy, lysis of adhesions, small bowel resection, primary repair of ventral abdominal incisional hernia. SURGEON: Elaine Flores MD. LINEN AIDE: Carl Kc APRN. ANESTHESIA: General endotracheal. ESTIMATED BLOOD LOSS: 400 mL. FINDINGS: Incarcerated ventral abdominal incisional hernia with dense adhesions. During the dissection, two enterotomies were identified, one was large and greater than 50 percent in diameter and another smaller lesion approximately 5 cm distal. There were dense adhesions and we proceeded with lysis of adhesions, resection of the two enterotomies en bloc and primary anastomosis as well as primary repair of the ventral abdominal incisional hernia. DISPOSITION: The patient tolerated the procedure well. INDICATIONS: The patient is a 73-year-old female known to us. She developed abdominal pain and blood per rectum. She has undergone a previous colonoscopy. In 2007, she was found to have some mild inflammatory changes of the descending colon and biopsies were taken consistent with colitis. She was found to have a contained perforation with significant abdominal pain in 06/2013 and underwent an anterior sigmoid colon resection, Sumit's pouch as well as colostomy. Since that time, she had improved and was tolerating a diet. She is a [employer] and does not want to receive any blood products. She wanted to continue with surgery. On 03/20/2014, she underwent a diagnostic laparoscopy, extensive lysis of adhesion. Due to venous bleeding, I was decided to proceed with an open procedure. We also needed to take down the splenic flexure to have enough length to anastomose the rectal stump. She was seen in the office and reported a palpable bulge in the epigastric region to her primary care physician. An ultrasound was performed, which did show a hernia. In the office, she was found to have a significant sized hernia identified, which was tender to palpation. DESCRIPTION OF PROCEDURE: The patient was brought to the operating room, laid supine on the table. After adequate IV pain and sedative medications and general endotracheal intubation, the abdomen was prepped and draped in standard surgical fashion. A 0.5% Marcaine with epinephrine was used to anesthetize the overlying skin in the previous midline laparotomy incision. A vertical skin incision made in the epigastric region using a 15 blade. Subcutaneous tissue was then dissected down using electrocautery until the hernia sac was identified. The hernia sac was then completely dissected out using blunt dissection as well as electrocautery until we reached the fascial edges and cleared off an area of fascia using electrocautery as well as blunt dissection. The hernia sac was quite large. The defect itself was approximately 5 cm in size; however, the hernia sac was larger. The hernia sac was then opened using Metzenbaum scissors. We then proceeded with extensive lysis of adhesions of small bowel that was incarcerated within the hernia sac. There was also small bowel interloop adhesions as well as towards the anterior abdominal wall. During this process of extensive lysis of adhesions to free the small bowel off the abdominal wall, an enterotomy was identified. This was greater than 50% of the circumferential luminal diameter of the small bowel. Another small enterotomy was identified approximately 5 cm distal. These were contained with Yobani clamps and we then proceeded with continued dissection using electrocautery as well as blunt dissection and Metzenbaum scissors. Good hemostasis was observed. We then proceeded with small bowel resection en bloc of the two enterotomy sites. A small opening was made in the mesentery using electrocautery and the proximal and distal ends were stapled and transected using JARRED 55 mm stapler with blue loads. The mesentery was then excised using electrocautery with visualization of good hemostasis. We then proceeded with side to side anastomosis using a JARRED 55 mm stapler. Buttress sutures were placed in the corners using 3-0 silk sutures. The open end was then reapproximated using 3-0 silk sutures and this end was then stapled using the same JARRED 55 mm stapler with a blue load. Good hemostasis was observed. The small bowel was then placed back into the peritoneal cavity. Good hemostasis was observed and the peritoneal cavity was then irrigated with 2 liters of warm saline and suctioned out. We then proceeded with primary repair of the ventral abdominal incisional hernia. We extended the fascial incision inferior. We then proceeded with dissection of the fascia laterally creating bilateral flaps of fascia until there was no tension. We then proceeded with a primary closure of her starting approximately using a #1 looped PDS suture and taking large fascial bites and then proceeding with the same suture inferior and tying this in the middle with no tension identified. Subcutaneous tissue was then reapproximated using 3-0 Vicryl interrupted suture. Skin was closed using trent. Wound was then cleaned and covered with sterile gauze. The patient tolerated the procedure well. We will admit her to the floor. We will proceed with a clear liquid diet as well as DVT prophylaxis with early ambulation, calf SCDs. She is also a [employer] and does not wish any blood products. Once she has more significant bowel function, we will advance her diet as tolerated. We will also proceed with pain control with IV pain medication as well as oral when she is tolerating this. Job ID: [id number] DocumentID: [id number] Dictated Date: 03/12/2018 15:58:[address] Date: 03/13/2018 00:15:58 Dictated By: ELAINE FLORES MD MTDD
== END 2018-03-11 14:20 | disposition home or self-care (01) ==
LOC: PREOP 13:40
PROVIDERS: ATTEND Surgery
DX: Z01.812 Encounter for preprocedural laboratory examination (principal); Z11.2 Encounter for screening for other bacterial diseases; K43.2 Incisional hernia without obstruction or gangrene
CPT/HCPCS: 36415; 80048; 85025; 87081

== ENCOUNTER 2018-03-20 16:26 | Inpatient (IN) | payer MEDICARE, MEDICAID ==
[~2018-03-20] VITALS: Ht 157.5 cm; Wt 90.2 kg
[~2018-03-20 16:26] MED LIST changes: +ALLO100T PO; +ASPI-586 PO; +BUDE10.2 IH; +CALC625T PO; +CARB1TAB PO; +CITA20TA9 PO; +DONE10TA12 PO; +FURO40TA4 PO; +HYDR-34 PO; +IBUP-1779 PO; +LEVO75TA6 PO; +MAG30ORA2 PO; +MAGN400T39 PO; +MIRA25TA PO; +OMEP20TA33 PO; +POTA-51 PO; +PRAM0.5T2 PO; +ROPI1TAB40 PO; +RPN.25T PO; +SENN1TAB93 PO; +TRAZ-189 PO; +[UNRECOGNIZED DRUG - CODE] PO
--- OUTSIDE RECORDS SUMMARY | 2018-03-20 16:32 | XMS REPORT ---
Author Author MARLON NELSON [facility] Address [address] [place] [address] Care Team Providers Care Stitch Bonding Machine Operator Name Role Phone MARLON NELSON Unavailable PROBLEMS Type Condition ICD9-CM Code GFI93-CO Code Onset Dates Condition Status SNOMED Code Problem Acquired hypothyroidism E03.9 Active 446935704 Problem Colostomy status Z93.3 Active 589971716 Problem Seizures R56.9 Active 25972763 Problem Gastroesophageal reflux disease without esophagitis K21.9 Active 891111688 Problem Chronic obstructive pulmonary disease, unspecified COPD type J44.9 Active 77792008 Problem Essential hypertension I10 Active 79704649 Problem Dysthymia F34.1 Active 52509431 Problem Primary insomnia F51.01 Active 4381677 Problem Other chronic pain G89.29 Active 20099258 Problem Dementia without behavioral disturbance, unspecified dementia type F03.90 Active 80790710 Problem Dementia associated with other underlying disease without behavioral disturbance F02.80 Active 516788134 Problem Anxiety F41.9 Active 72484329 Problem Parkinsons disease G20 Active 29289938 ALLERGIES No Information ENCOUNTERS Encounter Location Date Diagnosis [facility] [address] [id number] Feb, [facility] [address], [place] [address] Jan, [facility] [id number], [place] [address] Jan, Other chronic pain G89.29 [facility] [address] [place] [address] Jan, [facility] [address], [place] [address] Jan, [facility] [address], [place] [address] Jan, Epigastric mass R19.06 [facility] [id number] [place] [address] Dec, Other chronic pain G89.29 [facility] [address] [place] [address] November, Other chronic pain G89.29 [facility] [id number] [place] [address] November, [facility] [id number] [place] [address] November, Other chronic pain G89.29 [facility] [address] [place] [address] Oct, Bronchitis J40 and Parkinsons disease G20 [facility] [address] [place] [address] Oct, Bronchitis J40 [facility] [address] [place] [address] Oct, [facility] [id number] [place] [address] Oct, Other chronic pain G89.29 [facility] [id number] [place] [id number] Sep, Other chronic pain G89.29 [facility] [address] [place] [address] Aug, Acute pain of right ear H92.01 [facility] [id number] [place] [id number] Aug, Other chronic pain G89.29 [facility] [address] [place] [address] Jul, Acquired hypothyroidism E03.9 ; Localized edema R60.0 ; Weight gain R63.5 and Primary insomnia F51.01 [facility] [id number] [place] [id number] Jul, Other chronic pain G89.29 [facility] [address] [id number] [id number] Jun, Other chronic pain G89.29 [facility] [address] [id number] [id number] May, Other chronic pain G89.29 [facility] [address] [id number] [id number] Apr, Other chronic pain G89.29 [facility] [address] [id number] [id number] Apr, Bronchitis J40 [facility] [employer] [facility] [address] [facility] [place] [address] 10 Apr, 2017 Callus L84 and Parkinsons disease G20 [facility] [id number] [id number] Apr, [facility] [id number] [id number] Mar, Other chronic pain G89.29 [facility] [address] [id number] [id number] Feb, [facility] [id number] [id number] Feb, Other chronic pain G89.29 [facility] [address] [facility] [id number], [place] [address] Jan, Acquired hypothyroidism E03.9 [facility] [address] [id number] [id number] Jan, Other chronic pain G89.29 [facility] [address] [id number] [id number] Dec, Other chronic pain G89.29 [facility] [id number] [address] Dec, [facility] [id number] [place] [address] Dec, [facility] [address] [place] [address] Dec, Seborrheic keratoses L82.1 and Trochanteric bursitis, right hip M70.61 [facility] [address] [facility] [id number], [place] [address] Dec, [facility] [address] [facility] [id number] [place] [address] Dec, Other chronic pain G89.29 [facility] [address] [facility] [id number], [place] [address] November, [facility] [address] [facility] [id number] [place] [address] November, [facility] [id number] [place] [id number] November, Other chronic pain G89.29 [facility] [id number] [id number] Oct, [facility] [address] [facility] [id number], [place] [address] Oct, Edema, unspecified type R60.9 [facility] [address] [id number] [id number] Oct, Other chronic pain G89.29 [facility] [address] [facility] [id number], [place] [address] Oct, Acquired hypothyroidism E03.9 [facility] [address] [id number] [id number] Sep, [facility] [address] [id number] [id number] Sep, Other chronic pain G89.29 [facility] [address] [place] [address] Sep, Cramp of both lower extremities R25.2 ; Acquired hypothyroidism E03.9 and Parkinsons disease G20 [facility] [address] [id number] [id number] Sep, [facility] [id number] [place] [address] Aug, [facility] [id number] [place] [address] Aug, [facility] [address] [place] [address] Aug, Leg edema, left R60.0 [facility] [id number] [place] [address] Aug, [facility] [id number] [place] [address] Aug, Acute deep vein thrombosis (DVT) of femoral vein, unspecified laterality I82.419 [facility] [id number] [place] [address] Aug, [facility] [id number] [place] [address] Aug, Other chronic pain G89.29 [facility] [id number] [place] [address] Aug, [facility] [id number] [place] [address]96[address] Aug, Bronchitis J40 ; Primary insomnia F51.01 ; Parkinsons disease G20 ; Anxiety F41.9 and Other chronic pain G89.29 [facility] [id number] [place] [id number] Jul, Dementia without behavioral disturbance, unspecified dementia type F03.90 ; Anxiety F41.9 ; Low back pain M54.5 and Other chronic pain G89.29 [facility] [address] [place] [address] Jul, [facility] [id number] [place] [address] Jul, [facility] [place] [facility] [address] [id number] [id number] Jul, [facility] [address] [facility] [id number], [place] [address] Jul, [facility] [address] [facility] [id number], [place] [address] Jun, [facility] [address] [facility] [id number], [place] [address] Jun, [facility] [address] [place] [address] Jun, Parkinsons disease G20 [facility] [address], [place] [address] May, [facility] [address], [place] [address] Apr, [facility] [address], [place] [address] Apr, [facility] [address] [place] [address] Apr, Parkinsons disease G20 [facility] [id number], [place] [address] Mar, [facility] [address] [place] [address] Feb, Dementia without behavioral disturbance, unspecified dementia type F03.90 and Parkinsons disease G20 [facility] [id number], [place] [address] Feb, IMMUNIZATIONS No Known Immunizations SOCIAL HISTORY Never Assessed REASON FOR VISIT Controlled Med Refill 12/24/17 PLAN OF CARE VITAL SIGNS MEDICATIONS Medication Instructions Dosage Frequency Start Date End Date Duration Status Tramadol HCl 50 mg Orally 2 times a day 1 tablet 12h 28 days Active RESULTS No Results PROCEDURES No Known procedures INSTRUCTIONS MEDICATIONS ADMINISTERED No Known Medications MEDICAL (GENERAL) HISTORY Type Description Date Medical History Diverticulosis Medical History Osteoarthritis Medical History GERD Medical History Hypothyroidism Medical History COPD Medical History Hypertension Medical History Depression Medical History Vitamin D deficiency Medical History Parkinsons Disease Medical History Epilepsy Medical History Constipation Medical History Colostomy status Medical History Dysthymia Medical History Essential hypertension Medical History Acquired hypothyroidism Medical History Dementia associated with other underlying disease without behavioral disturbance Medical History Gastroesophageal reflux disease without esophagitis Medical History Seizures Medical History Chronic obstructive pulmonary disease, unspecified COPD type Surgical History cholecystectomy Surgical History colostomy bag Surgical History bowel resection Hospitalization History surgeries
--- OUTSIDE RECORDS SUMMARY | 2018-03-20 16:32 | XMS REPORT | Clinical Summary ---
Author Author [facility] Organization [facility] Address Unknown Phone Unavailable Care Team Providers Care People Greeter Name Role Phone Lis Moreno MD PCP Erma Whitfield RN Unavailable Unavailable Liz Israel DO Unavailable Ruth Ann Ly RN Unavailable Unavailable Irina Ochoa RN Unavailable Unavailable Jc Steve MD Unavailable Source Comments Some departments are not documenting in the electronic medical record. If you do not see the information that you expected, contact Release of Information in the Health Information Management department at [phone] for further assistance in locating additional records.[facility] Allergies Active Allergy Reactions Severity Noted Date Comments Codeine UNKNOWN 08/30/2013 Penicillins UNKNOWN 08/30/2013 Current Medications Prescription Sig. Disp. Refills Start [...] of colon with perforation 08/30/2013 Anemia 08/30/2013 Sepsis 08/30/2013 Family History Medical History Relation Name Comments Diverticulitis Relation Name Status Comments Social History Tobacco Use Types Packs/Day Years Used Date Never Smoker Smokeless Tobacco: Never Used Alcohol Use Drinks/Week oz/Week Comments No Sex Assigned at Date Recorded Not on file Last Filed Vital Signs Vital Sign Reading Time Taken Blood Pressure 140/88 10/04/2013 8:37 AM CDT Pulse 110 10/04/2013 8:37 AM CDT Temperature 36.7 C (98.1 F) 10/04/2013 8:37 AM CDT Respiratory Rate 16 10/04/2013 8:37 AM CDT Oxygen Saturation 96% 09/20/2013 7:30 AM SAFETY PROFESSIONAL Inhaled Oxygen - - Concentration Weight 76.2 kg (168 lb) 10/04/2013 8:37 AM CDT Height 154.9 cm (5' 1") 10/04/2013 8:37 AM CDT Body Mass Index 31.74 10/04/2013 8:37 AM CDT Plan of Treatment Health Maintenance Due Date Last Done Comments PHYSICAL (COMPREHENSIVE) 1950 EXAM PERTUSSIS VACCINE 1954 TETANUS VACCINE 01/30/1960 COLORECTAL CANCER 1993 SCREENING SHINGLES RECOMBINANT 1993 VACCINE (1 of 2) OSTEOPOROSIS SCREENING 01/30/2008 PNEUMONIA (PCV13/PPSV23) 01/30/2008 VACCINES (1 of 2 - PCV13) INFLUENZA VACCINE 04/27/2018 Results Not on filefrom Last 3 Months
--- OUTSIDE RECORDS SUMMARY | 2018-03-20 16:41 | XMS REPORT | Continuity of Care Document ---
Author Author [facility] Organization [facility] Address Unknown Phone Unavailable Allergies Active Description Code Type Severity Reaction Onset Reported/Identified Relationship to Patient Clinical Status Yes codeine [id number] Drug Allergy Unknown N/A 10/27/2007 Yes Penicillins [id number] Drug Allergy Unknown N/A 10/27/2007 Medications There is no data. Problems Date Dx Coded Attending Type Code Diagnosis Diagnosed By 12/13/2009 Ot 455.0 12/13/2009 Ot 455.3 12/13/2009 Ot 569.89 12/13/2009 Ot 789.09 12/13/2009 Ot V16.0 12/13/2009 Ot V64.3 12/21/2010 Ot 721.3 12/21/2010 Ot 722.52 12/21/2010 Ot V57.1 04/08/2013 GABBIE GAYLE DROP HAMMER SETTER UP Ot 276.51 DEHYDRATION 04/08/2013 GABBIE GAYLE DROP HAMMER SETTER UP Ot 535.50 UNSP GASTRITIS GASTRODUODENITIS W/O ME 04/08/2013 GABBIE GAYLE DROP HAMMER SETTER UP Ot 562.11 DIVERTICULITIS COLON (W/O MENT OF HEMORR 04/08/2013 GABBIE GAYLE DROP HAMMER SETTER UP Ot 599.0 URIN TRACT INFECTION NOS 04/08/2013 GABBIE GAYLE DROP HAMMER SETTER UP Ot 787.02 NAUSEA ALONE 04/18/2013 TEJASNDER DO, ROS S Ot 041.19 BACTERIAL INFECTION DUE TO OTHER STAPHYL 04/18/2013 ORENDER DO, ROS S Ot 244.9 HYPOTHYROIDISM NOS 04/18/2013 TEJASNDER DO, ROS S Ot 276.51 DEHYDRATION 04/18/2013 ORENDER DO, ROS S Ot 276.8 HYPOPOTASSEMIA 04/18/2013 TEJASNDJENNIFER CHEN, ROS S Ot 311 DEPRESSIVE DISORDER NEC 04/18/2013 NELY CHEN, ROS S Ot 403.90 HYPTNSV CHR KID DIS, UNSPEC, W CHR KD ST 04/18/2013 ORENDER DO, ROS S Ot 493.00 EXTRINSIC ASTHMA, NOS 04/18/2013 ORENDER DO, ROS S Ot 530.81 ESOPHAGEAL REFLUX 04/18/2013 ORENDER DO, ROS S Ot 562.11 DIVERTICULITIS COLON (W/O MENT OF HEMORR 04/18/2013 ORENDER DO, ROS S Ot 564.1 IRRITABLE BOWEL SYNDROME 04/18/2013 ORENDER DO, ROS S Ot 585.9 CHRONIC KIDNEY DISEASE, UNSPECIFIED 04/18/2013 ORENDER DO, ROS S Ot 593.9 RENAL URETERAL DIS NOS 04/18/2013 ORENDER DO, ROS S Ot 599.0 URIN TRACT INFECTION NOS 04/18/2013 ORENDER DO, ROS S Ot 715.90 OSTEOARTHROS NOS-UNSPEC 04/18/2013 ORENDER DO, ROS S Ot 722.52 LUMB/LUMBOSAC DISC DEGEN 04/18/2013 ORENDER DO, ROS S Ot 780.52 INSOMNIA, UNSPECIFIED 04/18/2013 ORENDER DO, ROS S Ot V12.29 PERSONAL HX OF OTH ENDOCRINE, METABOLIC 08/30/2013 ORENDER DO, ROS S Ot 238.71 ESSENTIAL THROMBOCYTHEMIA 08/30/2013 ORENDER DO, ROS S Ot 244.9 HYPOTHYROIDISM NOS 08/30/2013 ORENDER DO, ROS S Ot 273.8 DIS PLAS PROTEIN MET NEC 08/30/2013 ORENDER DO, ROS S Ot 275.2 DIS MAGNESIUM METABOLISM 08/30/2013 ORENDER DO, ROS S Ot 276.51 DEHYDRATION 08/30/2013 ORENDER DO, ROS S Ot 276.8 HYPOPOTASSEMIA 08/30/2013 ORENDER DO, ROS S Ot 285.9 ANEMIA NOS 08/30/2013 ORENDER DO, ROS S Ot 311 DEPRESSIVE DISORDER NEC 08/30/2013 ORENDER DO, ROS S Ot 403.90 HYPTNSV CHR KID DIS, UNSPEC, W CHR KD ST 08/30/2013 ORENDER DO, ROS S Ot 493.90 ASTHMA, UNSPECIFIED 08/30/2013 ORENDER DO, ROS S Ot 512.1 IATROGENIC PNEUMOTHORAX 08/30/2013 ROS MCKAY DO S Ot 530.81 ESOPHAGEAL REFLUX 08/30/2013 ROS MCKAY DO S Ot 560.9 INTESTINAL OBSTRUCT NOS 08/30/2013 ROS MCKAY DO S Ot 562.11 DIVERTICULITIS COLON (W/O MENT OF HEMORR 08/30/2013 ROS MCKAY DO S Ot 564.00 UNSPEC CONSTIPATION 08/30/2013 ROS MCKAY DO S Ot 564.1 IRRITABLE BOWEL SYNDROME 08/30/2013 ROS MCKAY DO S Ot 569.5 INTESTINAL ABSCESS 08/30/2013 ROS MCKAY DO S Ot 584.5 ACUTE KIDNEY FAILURE WITH LESION OF TUBU 08/30/2013 ROS MCKAY DO S Ot 585.9 CHRONIC KIDNEY DISEASE, UNSPECIFIED 08/30/2013 ROS MCKAY DO S Ot 599.0 URIN TRACT INFECTION NOS 08/30/2013 ROS MCKAY DO S Ot 722.52 LUMB/LUMBOSAC DISC DEGEN 01/05/2014 ROS MCKAY DO S Ot V44.3 COLOSTOMY STATUS 01/05/2014 ROS MCKAY DO S Ot V67.9 FOLLOW-UP EXAM NOS 03/16/2014 JAMMIE HAIDER DO Ot 701.5 ABNORMAL GRANULATION NEC 03/16/2014 JAMMIE HAIDER DO Ot V44.1 GASTROSTOMY STATUS 03/17/2014 JUAN CARLOS PEDRAZA, LAY Bonilla Ot V55.1 ATTEN TO GASTROSTOMY 04/05/2014 ELAINE FLORES MD Ot 244.9 HYPOTHYROIDISM NOS 04/05/2014 ELAINE FLORES MD Ot 276.52 HYPOVOLEMIA 04/05/2014 ELAINE FLORES MD Ot 276.8 HYPOPOTASSEMIA 04/05/2014 ELAINE FLORES MD Ot 285.1 AC POSTHEMORRHAG ANEMIA 04/05/2014 ELAINE FLORES MD Ot 311 DEPRESSIVE DISORDER NEC 04/05/2014 ELAINE FLORES MD Ot 403.90 HYPTNSV CHR KID DIS, UNSPEC, W CHR KD ST 04/05/2014 ELAINE FLORES MD Ot 453.41 ACUTE VENOUS EMBOLISM THROMBOSIS DEEP 04/05/2014 ELAINE FLORES MD Ot 458.29 OTHER IATROGENIC HYPOTENSION 04/05/2014 ELAINE FLORES MD Ot 530.81 ESOPHAGEAL REFLUX 04/05/2014 ELAINE FLORES MD Ot 562.10 DIVERTICULOSIS COLON (W/O MENT OF HEMORR 04/05/2014 ELAINE FLORES MD Ot 568.0 PERITONEAL FEOFEUKNH-VXJI-NB/INF 04/05/2014 ELAINE FLORES MD Ot 585.9 CHRONIC KIDNEY DISEASE, UNSPECIFIED 04/05/2014 ELAINE FLORES MD Ot 716.90 ARTHROPATHY NOS-UNSPEC 04/05/2014 ELAINE FLORES MD Ot 785.0 TACHYCARDIA NOS 04/05/2014 ELAINE FLORES MD Ot V12.3 HX-BLOOD DISEASES 04/05/2014 ELAINE FLORES MD, Ot V45.72 ACQRD ABSENCE INTESTINE - LARGE/SMALL 04/05/2014 ELAINE FLORES MD, Ot V55.3 ATTEN TO COLOSTOMY 04/05/2014 ELAINE FLORES MD Ot V64.41 LAPAROSCOPIC SURGICAL PROC CONVERTED TO 04/20/2014 REMEDIOS MCKAY DOLINE S Ot 244.9 HYPOTHYROIDISM NOS 04/20/2014 REMEDIOS MCKAY DOLINE S Ot 272.4 HYPERLIPIDEMIA NEC/NOS 04/20/2014 ESSIE MCKAY DOQUELINE S Ot 285.9 ANEMIA NOS 04/20/2014 ESSIE MCKAY DOQUELINE S Ot 294.20 DEMENTIA, UNSPECIFIED, WITHOUT BEHAVIORA 04/20/2014 REMEDIOS MCKAY DOLINE S Ot 311 DEPRESSIVE DISORDER NEC 04/20/2014 ESSIE MCKAY DOQUELINE S Ot 403.90 HYPTNSV CHR KID DIS, UNSPEC, W CHR KD ST 04/20/2014 ESSIE MCKAY DOQUELINE S Ot 530.81 ESOPHAGEAL REFLUX 04/20/2014 ESSIE MCKAY DOQUELINE S Ot 536.8 STOMACH FUNCTION DIS NEC 04/20/2014 ESSIE MCKAY DOQUELINE S Ot 585.9 CHRONIC KIDNEY DISEASE, UNSPECIFIED 04/20/2014 ESSIE MCKAY DOQUELINE S Ot 599.0 URIN TRACT INFECTION NOS 04/20/2014 ROS MCKAY DO S Ot 682.2 CELLULITIS OF TRUNK 04/20/2014 ROS MCKAY DO S Ot 716.90 ARTHROPATHY NOS-UNSPEC 04/20/2014 ROS MCKAY DO Ot 783.0 ANOREXIA 04/20/2014 ROS MCKAY DO S Ot V12.51 HX-VENOUS THROMBOSIS EMBOLISM 04/20/2014 ROS MCKAY DO S Ot V57.89 REHABILITATION PROC NEC 04/20/2014 ROS MCKAY DO S Ot V58.75 AFTERCARE POST SURGERY TEETH,ORAL CAVITY 05/09/2014 ROS MCKAY DO S Ot 244.9 HYPOTHYROIDISM NOS 05/09/2014 ROS MCKAY DO S Ot 275.2 DIS MAGNESIUM METABOLISM 05/09/2014 ROS MCKAY DO S Ot 285.9 ANEMIA NOS 05/09/2014 ROS MCKAY DO S Ot 294.20 DEMENTIA, UNSPECIFIED, WITHOUT BEHAVIORA 05/09/2014 ROS MCKAY DO S Ot 296.80 BIPOLAR DISORDER, UNSPECIFIED 05/09/2014 ROS MCKAY DO S Ot 345.90 EPILEPSY UNSPEC W/O MENTION INTRACTABLE 05/09/2014 ROS MCKAY DO S Ot 366.9 CATARACT NOS 05/09/2014 ROS MCKAY DO S Ot 530.81 ESOPHAGEAL REFLUX 05/09/2014 ROS MCKAY DO S Ot 562.10 DIVERTICULOSIS COLON (W/O MENT OF HEMORR 05/09/2014 ROS MCKAY DO S Ot 593.9 RENAL URETERAL DIS NOS 05/09/2014 ROS MCKAY DO S Ot 716.90 ARTHROPATHY NOS-UNSPEC 05/09/2014 ROS MCKAY DO S Ot 724.5 BACKACHE NOS 05/09/2014 ROS MCKAY DO Ot V04.81 ND FOR PROPHYLACTIC VACCIN AND INOCULATI 05/09/2014 ROS MCKAY DO Ot V13.02 PERSONAL HISTORY, URINARY (TRACT) INFECT 06/17/2014 Ot 787.91 06/17/2014 Ot 789.00 06/17/2014 Ot 414.00 06/17/2014 Ot 574.20 06/17/2014 Ot 787.91 06/17/2014 Ot 574.20 06/17/2014 Ot 824.0 06/17/2014 Ot E000.8 06/17/2014 Ot E030 06/17/2014 Ot E887 06/17/2014 Ot 562.10 06/17/2014 Ot 573.8 06/17/2014 Ot 787.91 06/17/2014 Ot V81.5 06/17/2014 Ot 719.46 06/17/2014 Ot 244.9 06/17/2014 Ot 593.9 06/17/2014 Ot 719.45 06/17/2014 Ot 719.45 06/17/2014 Ot 724.2 06/17/2014 Ot 722.52 06/17/2014 Ot 786.2 06/17/2014 Ot 244.9 06/17/2014 Ot 268.9 06/17/2014 Ot 272.4 06/17/2014 Ot 285.9 06/17/2014 Ot 780.4 06/17/2014 Ot 780.79 06/17/2014 Ot 790.29 06/17/2014 Ot 786.2 06/17/2014 Ot 786.2 06/17/2014 Ot 244.9 06/17/2014 Ot 272.4 06/17/2014 Ot 593.9 06/17/2014 Ot 733.90 06/17/2014 ERNAER DOESSIEROS S Ot 433.30 06/17/2014 [facility] DO, ROS S Ot 435.9 06/17/2014 [facility] DO, ROS S Ot 780.4 06/17/2014 [facility] DOESSIEROS S Ot 780.97 06/17/2014 NKECHI MATHIS Ot 786.2 06/17/2014 [facility] DOESSIEROS S Ot 482.9 06/17/2014 [facility] V58.69 06/17/2014 NELY DOESSIEROS S Ot V58.83 06/17/2014 ELAINE FLORES MD Ot 557.9 06/17/2014 ELAINE FLORES MD Ot V72.63 06/17/2014 ELAINE FLORES MD Ot V72.83 06/17/2014 ELAINE FLORES MD Ot V74.8 06/17/2014 [facility] V58.69 06/17/2014 TEJASNDER , ROS S Ot V58.83 11/01/2015 Ot 719.46 11/01/2015 Ot 244.9 11/01/2015 Ot 593.9 11/01/2015 Ot 719.45 11/01/2015 Ot 719.45 11/01/2015 Ot 724.2 11/01/2015 Ot 722.52 11/01/2015 Ot 786.2 11/01/2015 Ot 244.9 11/01/2015 Ot 268.9 11/01/2015 Ot 272.4 11/01/2015 Ot 285.9 11/01/2015 Ot 780.4 11/01/2015 Ot 780.79 11/01/2015 Ot 790.29 11/01/2015 Ot 786.2 11/01/2015 Ot 786.2 11/01/2015 Ot 244.9 11/01/2015 Ot 272.4 11/01/2015 Ot 593.9 11/01/2015 Ot 733.90 11/01/2015 TEJASNDER DO, ROS S Ot 433.30 11/01/2015 [facility] 435.9 [facility]/01/[facility] 780.4 11/01/[facility] 780.97 11/01/2015 NKECHI MATHIS Ot 786.2 11/01/2015 [facility] DO, ROS S Ot 482.9 11/01/2015 [facility] DO, ROS S Ot V58.69 11/01/2015 [facility] DO, ROS S Ot V58.83 11/01/2015 MARK PEDRAZA, ELAINE Ot 557.9 11/01/2015 MARK PEDRAZA, ELAINE Ot V72.63 11/01/2015 MARK PEDRAZA, ELAINE Ot V72.83 11/01/2015 MARK PEDRAZA, ELAINE Ot V74.8 09/04/2016 JAMMIE HAIDER DO Ot F03.90 UNSPECIFIED DEMENTIA WITHOUT BEHAVIORAL 09/04/2016 JAMMIE HAIDER DO Ot G20 PARKINSON'S DISEASE 09/04/2016 MELIZA DO, JAMMIE K Ot R22.42 LOCALIZED SWELLING, MASS AND LUMP, LEFT 09/04/2016 MELIZA JAMMIE CHEN K Ot Z79.899 OTHER [employer]ODUCTION ASSOCIATE (CURRENT) DRUG THERAPY 09/04/2016 MELIZA JAMMIE CHEN K Ot Z86.718 PERSONAL HISTORY OF OTHER VENOUS THROMBO 09/05/2016 MELIZA CLAIR CHENA K Ot F03.90 UNSPECIFIED DEMENTIA WITHOUT BEHAVIORAL 09/05/2016 MELIZA CLAIR CHENA K Ot G20 PARKINSON'S DISEASE 09/05/2016 MELIZA JAMMIE CHEN K Ot R22.42 LOCALIZED SWELLING, MASS AND LUMP, LEFT 09/05/2016 MELIZA JAMMIE CHEN K Ot Z79.899 OTHER [employer] ASSOCIATE (CURRENT) DRUG THERAPY 09/05/2016 MELIZA JAMMIE CHEN K Ot Z86.718 PERSONAL HISTORY OF OTHER VENOUS THROMBO 09/05/2016 DILLAN SINGH MD Ot F03.90 UNSPECIFIED DEMENTIA WITHOUT BEHAVIORAL 09/05/2016 DILLAN SINGH MD, Ot G20 PARKINSON'S DISEASE 09/05/2016 DILLAN SINGH MD Ot R53.1 WEAKNESS 09/05/2016 DILLAN SINGH MD, Ot R55 SYNCOPE AND COLLAPSE 09/05/2016 DILLAN SINGH MD, Ot Z79.899 OTHER [facility] (CURRENT) DRUG THERAPY 09/06/2016 MELIZA DO JAMMIE K Ot F03.90 UNSPECIFIED DEMENTIA WITHOUT BEHAVIORAL 09/06/2016 MELIZA CLAIR CHENA K Ot G20 PARKINSON'S DISEASE 09/06/2016 MELIZA JAMMIE CHEN K Ot R22.42 LOCALIZED SWELLING, MASS AND LUMP, LEFT 09/06/2016 MELIZA CLAIR CHENA K Ot Z79.899 OTHER [employer] ASSOCIATE (CURRENT) DRUG THERAPY 09/06/2016 MELIZA DO JAMMIE K Ot Z86.718 PERSONAL HISTORY OF OTHER VENOUS THROMBO 09/06/2016 DILLAN SINGH MD Ot F03.90 UNSPECIFIED DEMENTIA WITHOUT BEHAVIORAL 09/06/2016 DILLAN SINGH MD Ot G20 PARKINSON'S DISEASE 09/06/2016 DILLAN SINGH MD Ot R53.1 WEAKNESS 09/06/2016 DILLAN SINGH MD Ot R55 SYNCOPE AND COLLAPSE 09/06/2016 DILLAN SINGH MD, Ot Z79.899 OTHER [facility] (CURRENT) DRUG THERAPY 09/06/2016 DILLAN SINGH MD Ot F03.90 UNSPECIFIED DEMENTIA WITHOUT BEHAVIORAL 09/06/2016 DILLAN SINGH MD, Ot G20 PARKINSON'S DISEASE 09/06/2016 DILLAN SINGH MD Ot R53.1 WEAKNESS 09/06/2016 DILLAN SINGH MD, Ot R55 SYNCOPE AND COLLAPSE 09/06/2016 DILLAN SINGH MD, Ot Z79.899 OTHER [facility] (CURRENT) DRUG THERAPY 09/11/2016 MELIZA DO JAMMIE K Ot F03.90 UNSPECIFIED DEMENTIA WITHOUT BEHAVIORAL 09/11/2016 MELIZA JAMMIE K Ot G20 PARKINSON'S DISEASE 09/11/2016 MELIZA JAMMIE K Ot R22.42 LOCALIZED SWELLING, MASS AND LUMP, LEFT 09/11/2016 MELIZA DO JAMMIE K Ot Z79.899 OTHER [employer] ASSOCIATE (CURRENT) DRUG THERAPY 09/11/2016 MELIZA CHEN JAMMIE K Ot Z86.718 PERSONAL HISTORY OF OTHER VENOUS THROMBO 09/11/2016 DILLAN SINGH MD Ot F03.90 UNSPECIFIED DEMENTIA WITHOUT BEHAVIORAL 09/11/2016 DILLAN SINGH MD, Ot G20 PARKINSON'S DISEASE 09/11/2016 DILLAN SINGH MD, Ot R53.1 WEAKNESS 09/11/2016 DILLAN SINGH MD, Ot R55 SYNCOPE AND COLLAPSE 09/11/2016 DILLAN SINGH MD, Ot Z79.899 OTHER [facility] (CURRENT) DRUG THERAPY 06/18/2017 MORIS RUFFIN 296.33 MAJOR DEPRESSIVE DISORDER, RECURRENT EPISODE, SEVERE DEGREE, WITHOUT MENTION OF PSYCHOTIC BEHAVIOR 06/18/2017 MORIS RUFFIN F33.2 MAJOR DEPRESSV DISORDER, RECURRENT SEVERE W/O PSYCH FEATURES 02/11/2018 ROS MCKAY DO Ot 433.30 MULT BILTRAL ARTERY OCCLUSION WO CEREBRA 02/11/2018 ROS MCKAY DO Ot 435.9 TRANS CEREB ISCHEMIA NOS 02/11/2018 ROS MCKAY DO Ot 780.4 DIZZINESS AND GIDDINESS 02/11/2018 ROS MCKAY DO Ot 780.97 ALTERED MENTAL STATUS 02/11/2018 NKECHI MATHIS REPORT PROGRAMMER Ot 786.2 COUGH 02/11/2018 ORENDER DO, ROS S Ot 482.9 BACTERIAL PNEUMONIA NOS 02/11/2018 ORENDER DO, ROS S Ot V58.69 OTH MED,LT,CURRENT USE 02/11/2018 ORENDER DO, ROS S Ot V58.83 ENCOUNTER FOR THERAPEUTIC DRUG MONITORIN 02/11/2018 ELAINE FLORES MD Ot 557.9 VASC INSUFF INTEST NOS 02/11/2018 ELAINE FLORES MD Ot V72.63 PRE-PROCEDURAL LABORATORY EXAMINATION 02/11/2018 ELAINE FLORES MD Ot V72.83 EXAM PRE-OPERATIVE NEC 02/11/2018 ELAINE FLORES MD Ot V74.8 SCREEN-BACTERIAL DIS NEC 02/12/2018 АНДРЕЙ SINGH APRN Ot R19.06 EPIGASTRIC SWELLING, MASS OR LUMP 03/11/2018 Ot K43.2 INCISIONAL HERNIA WITHOUT OBSTRUCTION OR 03/11/2018 Ot Z01.812 ENCOUNTER FOR PREPROCEDURAL LABORATORY E 03/11/2018 Ot Z11.2 ENCOUNTER FOR SCREENING FOR OTHER BACTER Procedures Code Description Performed By Performed On 34.04 INSERT INTERCOSTAL CATH 08/18/2013 38.93 VENOUS CATHETERIZATION NEC 08/18/2013 45.75 OPEN AND OTHER LEFT HEMICOLECTOMY 08/18/2013 46.10 COLOSTOMY NOS 08/18/2013 99.15 PARENTERAL INFUSION OF CONCENTRATED NUT. 08/18/2013 38.93 VENOUS CATHETERIZATION NEC 03/24/2014 46.52 LG BOWEL STOMA CLOSURE 03/24/2014 54.51 LAPAROSCOP LYSIS-PERITONEAL ADHES 03/24/2014 38.7 PLICATION OF VENA CAVA 04/01/2014 Results Test Result Range Complete blood count (CBC) with automated white blood cell (WBC) differential - 09/04/16 18:22 Blood leukocytes automated count (number/volume) 11.7 10*3/uL 4.3-11.0 Blood erythrocytes automated count (number/volume) 4.02 10*6/uL 4.35-5.85 Venous blood hemoglobin measurement (mass/volume) 11.9 g/dL 11.5-16.0 Blood hematocrit (volume fraction) 37 % 35-52 Automated erythrocyte mean corpuscular volume 92 [foz_us] 80-99 Automated erythrocyte mean corpuscular hemoglobin (mass per erythrocyte) 30 pg 25-34 Automated erythrocyte mean corpuscular hemoglobin concentration measurement ( mass/volume) 32 g/dL 32-36 Automated erythrocyte distribution width ratio 13.6 % 10.0-14.5 Automated blood platelet count (count/volume) 255 10*3/uL 130-400 Automated blood platelet mean volume measurement 11.[address] [[address] [facility]_us] 7.4-10.4 Automated blood neutrophils/100 leukocytes 68 % 42-75 Automated blood lymphocytes/100 leukocytes 19 % 12-44 Blood monocytes/100 leukocytes 10 % 0-12 Automated blood eosinophils/100 leukocytes 3 % 0-10 Automated blood basophils/100 leukocytes 0 % 0-10 Blood neutrophils automated count (number/volume) 7.9 10*3 1.8-7.8 Blood lymphocytes automated count (number/volume) 2.2 10*3 1.0-4.0 Blood monocytes automated count (number/volume) 1.1 10*3 0.0-1.0 Automated eosinophil count 0.4 10*3/uL 0.0-0.3 Automated blood basophil count (count/volume) 0.0 10*3/uL 0.0-0.1 PT panel in platelet poor plasma by coagulation assay - 09/04/16 18:22 Prothrombin time (PT) in platelet poor plasma by coagulation assay 12.4 s 12.2-14.7 INR in platelet poor plasma or blood by coagulation assay 1.0 0.8-1.4 Activated partial thromboplastin time (aPTT) in platelet poor plasma bycoagulation assay - 09/04/16 18:22 Activated partial thromboplastin time (aPTT) in platelet poor plasma bycoagulation assay 32 s 24-35 Comprehensive metabolic panel - 09/04/16 18:22 Serum or plasma sodium measurement (moles/volume) 143 mmol/L 135-145 Serum or plasma potassium measurement (moles/volume) 4.6 mmol/L 3.6-5.0 Serum or plasma chloride measurement (moles/volume) 108 mmol/L 98-107 Carbon dioxide 22 mmol/L 21-32 Serum or plasma anion gap determination (moles/volume) 13 mmol/L 5-14 Serum or plasma urea nitrogen measurement (mass/volume) 26 mg/dL 7-18 Serum or plasma creatinine measurement (mass/volume) 1.28 mg/dL 0.60-1.30 Serum or plasma urea nitrogen/creatinine mass ratio 20 NRG Serum or plasma creatinine measurement with calculation of estimated glomerular filtration rate 41 NRG Serum or plasma glucose measurement (mass/volume) 103 mg/dL 70-105 Serum or plasma calcium measurement (mass/volume) 8.9 mg/dL 8.5-10.1 Serum or plasma total bilirubin measurement (mass/volume) 0.4 mg/dL 0.1-1.0 Serum or plasma alkaline phosphatase measurement (enzymatic activity/volume) 121 U/L 40-136 Serum or plasma aspartate aminotransferase measurement (enzymatic activity/ volume) 13 U/L 5-34 Serum or plasma alanine aminotransferase measurement (enzymatic activity/volume ) 6 U/L 0-55 Serum or plasma protein measurement (mass/volume) 7.4 g/dL 6.4-8.2 Serum or plasma albumin measurement (mass/volume) 4.2 g/dL 3.2-4.5 Serum or plasma lithium measurement (moles/volume) - 09/04/16 18:22 BNP level 86.7 pg/mL <100.0 Complete blood count (CBC) with automated white blood cell (WBC) differential - 09/05/16 16:45 Blood leukocytes automated count (number/volume) 10.1 10*3/uL 4.3-11.0 Blood erythrocytes automated count (number/volume) 3.85 10*6/uL 4.35-5.85 Venous blood hemoglobin measurement (mass/volume) 11.4 g/dL 11.5-16.0 Blood hematocrit (volume fraction) 35 % 35-52 Automated erythrocyte mean corpuscular volume 91 [foz_us] 80-99 Automated erythrocyte mean corpuscular hemoglobin (mass per erythrocyte) 30 pg 25-34 Automated erythrocyte mean corpuscular hemoglobin concentration measurement ( mass/volume) 32 g/dL 32-36 Automated erythrocyte distribution width ratio 13.5 % 10.0-14.5 Automated blood platelet count (count/volume) 230 10*3/uL 130-400 Automated blood platelet mean volume measurement 10.8 [foz_us] 7.4-10.4 Automated blood neutrophils/100 leukocytes 75 % 42-75 Automated blood lymphocytes/100 leukocytes 13 % 12-44 Blood monocytes/100 leukocytes 9 % 0-12 Automated blood eosinophils/100 leukocytes 2 % 0-10 Automated blood basophils/100 leukocytes 0 % 0-10 Blood neutrophils automated count (number/volume) 7.6 10*3 1.8-7.8 Blood lymphocytes automated count (number/volume) 1.4 10*3 1.0-4.0 Blood monocytes automated count (number/volume) 0.9 10*3 0.0-1.0 Automated eosinophil count 0.2 10*3/uL 0.0-0.3 Automated blood basophil count (count/volume) 0.0 10*3/uL 0.0-0.1 PT panel in platelet poor plasma by coagulation assay - 09/05/16 16:45 Prothrombin time (PT) in platelet poor plasma by coagulation assay 12.6 s 12.2-14.7 INR in platelet poor plasma or blood by coagulation assay 1.0 0.8-1.4 Activated partial thromboplastin time (aPTT) in platelet poor plasma bycoagulation assay - 09/05/16 16:45 Activated partial thromboplastin time (aPTT) in platelet poor plasma bycoagulation assay 32 s 24-35 Fibrin D-dimer FEU measurement in platelet poor plasma (mass/volume) - 16:45 Fibrin D-dimer FEU measurement in platelet poor plasma (mass/volume) 0.45 ug/mL 0.00-0.49 Comprehensive metabolic panel - 09/05/16 16:45 Serum or plasma sodium measurement (moles/volume) 140 mmol/L 135-145 Serum or plasma potassium measurement (moles/volume) 4.5 mmol/L 3.6-5.0 Serum or plasma chloride measurement (moles/volume) 108 mmol/L 98-107 Carbon dioxide 26 mmol/L 21-32 Serum or plasma anion gap determination (moles/volume) 6 mmol/L 5-14 Serum or plasma urea nitrogen measurement (mass/volume) 20 mg/dL 7-18 Serum or plasma creatinine measurement (mass/volume) 1.27 mg/dL 0.60-1.30 Serum or plasma urea nitrogen/creatinine mass ratio 16 NRG Serum or plasma creatinine measurement with calculation of estimated glomerular filtration rate 41 NRG Serum or plasma glucose measurement (mass/volume) 113 mg/dL 70-105 Serum or plasma calcium measurement (mass/volume) 8.8 mg/dL 8.5-10.1 Serum or plasma total bilirubin measurement (mass/volume) 0.4 mg/dL 0.1-1.0 Serum or plasma alkaline phosphatase measurement (enzymatic activity/volume) 105 U/L 40-136 Serum or plasma aspartate aminotransferase measurement (enzymatic activity/ volume) 13 U/L 5-34 Serum or plasma alanine aminotransferase measurement (enzymatic activity/volume ) 9 U/L 0-55 Serum or plasma protein measurement (mass/volume) 6.8 g/dL 6.4-8.2 Serum or plasma albumin measurement (mass/volume) 4.0 g/dL 3.2-4.5 Serum or plasma troponin i.cardiac measurement (mass/volume) - 09/05/16 16:45 Serum or plasma troponin i.cardiac measurement (mass/volume) < ng/ mL <0.30 Blood manual differential performed detection - 09/05/16 16:45 Blood monocytes/100 leukocytes 11 % NRG Manual blood segmented neutrophils/100 leukocytes 74 % NRG Blood band neutrophils/100 leukocytes 0 % NRG Manual blood lymphocytes/100 leukocytes 13 % NRG Manual eosinophils/100 leukocytes in nose 2 % NRG Manual blood basophils/100 leukocytes 0 % NRG Blood erythrocyte morphology finding identification NORMAL NRG Blood toxic granules detection by light microscopy 1+ NRG Complete urinalysis with reflex to culture - 09/05/16 17:37 Urine color determination YELLOW NRG Urine clarity determination CLEAR NRG Urine pH measurement by test strip 8 5-9 Specific gravity of urine by test strip 1.010 1.016- 1.022 Urine protein assay by test strip, semi-quantitative NEGATIVE NEGATIVE Urine glucose detection by automated test strip NEGATIVE NEGATIVE Erythrocytes detection in urine sediment by light microscopy NEGATIVE NEGATIVE Urine ketones detection by automated test strip NEGATIVE NEGATIVE Urine nitrite detection by test strip NEGATIVE NEGATIVE Urine total bilirubin detection by test strip NEGATIVE NEGATIVE Urine urobilinogen measurement by automated test strip (mass/volume) NORMAL NORMAL Urine leukocyte esterase detection by dipstick 1+ NEGATIVE Automated urine sediment erythrocyte count by microscopy (number/high power field) NONE NRG Automated urine sediment leukocyte count by microscopy (number/high power field ) [HPF] NRG Bacteria detection in urine sediment by light microscopy NONE NRG Squamous epithelial cells detection in urine sediment by light microscopy 0-2 NRG Crystals detection in urine sediment by light microscopy NONE NRG Casts detection in urine sediment by light microscopy NONE NRG Mucus detection in urine sediment by light microscopy NEGATIVE NRG Complete urinalysis with reflex to culture NO NRG Encounters ACCT No. Visit Date/Time Discharge Status Pt. Type Provider Facility Loc./Unit Complaint [id number] 02/11/2018 11:23:00 02/11/2018 23:59:59 CLS Outpatient АНДРЕЙ SINGH APRN [facility] RAD EPIGASTRIC MASS [id number] 09/05/2016 15:40:00 09/05/2016 19:00:00 DIS Emergency DILLAN SINGH MD [facility] ER SYNCOPE [id number] 09/04/2016 18:01:00 09/04/2016 20:28:00 DIS Emergency JAMMIE HAIDER DO [facility] ER LEFT LEG SWELLING [id number] 05/07/2014 03:40:00 05/09/2014 13:10:00 DIS Inpatient ROS MCKAY DO [facility] 4TH NEW ONSET SEIZURE; SEVERE HYPOMAGNESEMIA;RENAL INSU [id number] 04/05/2014 08:44:00 04/20/2014 13:30:00 DIS Inpatient ROS MCKAY DO [facility] SURGICAL SWB-OSTOMY REVERSAL,DVT, ANEMIA [id number] 03/24/2014 05:57:00 04/05/2014 08:39:00 DIS Inpatient ELAINE FLORES MD [facility] SURGICAL ISCHEMIC COLITIS [id number] 03/17/2014 19:48:00 03/17/2014 23:15:00 DIS Emergency LAY RANGEL MD [facility] ER PEG TUBE FELL OUT [id number] 03/16/2014 00:01:00 03/16/2014 00:50:00 DIS Emergency JAMMIE HAIDER DO [facility] ER FEEDING TUBE RUBING ON SKIN,SORE-PAINFUL [id number] 03/15/2014 11:12:00 03/15/2014 23:59:59 CLS Outpatient ELAINE FLORES MD [facility] PREOP ISCHEMIC COLITIS [id number] 01/05/2014 12:45:00 01/05/2014 13:50:00 DIS Outpatient ROS MCKAY DO Mariely [facility] WOUNDCARE STOMA CARE [id number] 09/30/2013 08:34:00 09/30/2013 23:59:59 CLS Outpatient ROS MCKAY DO [facility] VANCO TREATMENT [id number] 09/23/2013 09:15:00 09/23/2013 23:59:59 CLS Outpatient NELY CHEN ROS Schuster [facility] VANCOMYACIN THERAPY [id number] 07/27/2013 20:10:00 08/30/2013 00:10:00 DIS Inpatient NELY CHEN ROS Mariely [facility] SURGICAL ACUTE DIVERTICULITIS [id number] 06/29/2013 10:28:00 06/29/2013 23:59:59 CLS Outpatient NKECHI MATHIS [facility] RAD COUGH [id number] 06/02/2013 09:58:00 06/02/2013 23:59:59 CLS Outpatient NELY CHEN ROS Schuster [facility] RAD DIZZINESS,MENTAL STATUS CHANGE, TIA [id number] 04/14/2013 15:38:00 04/18/2013 17:00:00 DIS Inpatient NELY CHEN ROS S [facility] SURGICAL UTI,DEHYDRATION [id number] 04/08/2013 11:35:00 04/08/2013 15:17:00 DIS Emergency GABBIE GAYLE APRN [facility] ER NAUSEA/ACID REFLUX [id number] 03/13/2018 08:45:00 ACT Inpatient ELAINE FLORES MD [facility] 4TH ABDOMINAL VENTRAL INCISIONAL HERNIA [id number] 03/11/2018 13:40:00 Document Registration [id number] 06/17/2014 08:23:00 Document Registration [id number] 06/17/2014 08:23:00 Document Registration [id number] 06/17/2014 08:23:00 Document Registration [id number] 08/07/2012 07:50:00 Document Registration [id number] 07/29/2012 16:14:00 Document Registration [id number] 06/30/2012 11:46:00 Document Registration [id number] 02/06/2012 07:51:00 Document Registration [id number] 01/04/2011 13:43:00 Document Registration [id number] 12/21/2010 10:47:00 Document Registration [id number] 11/14/2010 09:56:00 Document Registration [id number] 11/07/2010 13:41:00 Document Registration [id number] 10/08/2010 08:18:00 Document Registration [id number] 06/26/2010 08:43:00 Document Registration [id number] 01/04/2010 08:33:00 Document Registration [id number] 12/13/2009 06:45:00 Document Registration [id number] 06/01/2009 09:10:00 Document Registration [id number] 01/26/2009 08:43:00 Document Registration [id number] 01/25/2009 07:27:00 Document Registration [id number] 01/24/2009 16:54:00 Document Registration [id number] 02/11/2018 10:10:00 02/11/2018 23:59:59 CLS Outpatient MARLON NELSON APRN [facility] [id number] 02/03/2017 09:39:00 06/18/2017 14:29:00 DIS Outpatient MORIS RUFFIN
[2018-03-20] MEDS ORDERED: ONDANSETRON 4 MG/2 ML (SDV) Z0FRAN IVP ONE (16:45)
[2018-03-20 16:52] LABS: BASOPHILS # (AUTO) 0.1 10^3/uL (0.0-0.1); BASOPHILS % (AUTO) 0 % (0-10); EOSINOPHILS # (AUTO) 0.2 10^3/uL (0.0-0.3); EOSINOPHILS % (AUTO) 1 % (0-10); HEMATOCRIT 26 % (35-52); HEMOGLOBIN 8.5 G/DL (11.5-16.0); LYMPHOCYTES # (AUTO) 1.3 X 10^3 (1.0-4.0); LYMPHOCYTES % (AUTO) 5 % (12-44); MEAN CORPUSCULAR HEMOGLOBIN 29 PG (25-34); MEAN CORPUSCULAR HGB CONC 32 G/DL (32-36); MEAN CORPUSCULAR VOLUME 88 FL (80-99); MEAN PLATELET VOLUME 10.4 FL (7.4-10.4); MONOCYTES # (AUTO) 1.9 X 10^3 (0.0-1.0); MONOCYTES % (AUTO) 7 % (0-12); NEUTROPHILS % (AUTO) 88 % (42-75); PLATELET COUNT 473 10^3/uL (130-400); RED BLOOD COUNT 2.97 10^6/uL (4.35-5.85); RED CELL DISTRIBUTION WIDTH 13.9 % (10.0-14.5); WHITE BLOOD COUNT 28.4 10^3/uL (4.3-11.0)
--- NOTE | 2018-03-20 16:56 | ED General ---
General Chief Complaint: General Problems/Pain Stated Complaint: POST OP/NOT EATING OR DRINKING Source of Information: Patient Exam Limitations: No Limitations History of Present Illness Date Seen by Provider: Mar 20, 2018 Time Seen by Provider: 16:53 Initial Comments To ER with reports of poor food and fluid intake since surgery. She had incarcerated ventral hernia surgery with bowel resection on 03/13/18. She was in the hospital for 3 days and discharged on 03/16/18. She was noted to be a bit anemic on discharge hemoglobin of 7.6, however she is Mandaeism and does not want blood transfusion. She does report nausea and persistent pain in the abdomen. She has had a bowel movement this been a bit looser than she would expect. She reports fever up to 100 today. She's had a little bit of shortness of breath and cough. Timing/Duration: 3-4 Days Severity: Moderate Associated Systoms: Cough, Fever/Chills (100 max), Loss of Appetite, Nausea/ Vomiting (nausea but no vomiting) Allergies and Home Medications Allergies Coded Allergies: Penicillins (Verified Allergy, Unknown, 10/27/07) codeine (Verified Allergy, Unknown, 10/27/07) Home Medications Allopurinol 100 Mg Tablet, 100 MG PO DAILY, (Reported) Aspirin 81 Mg Tablet.dr, 81 MG PO DAILY, (Reported) Budesonide/Formoterol Fumarate 10.2 Gm Hfa.aer.ad, 2 PUFF IH BID, (Reported) Calcium Polycarbophil 625 Mg Tablet, 2 TAB PO BID, (Reported) Carbidopa/Levodopa 1 Each Tablet.er, 1 TAB PO 0800,1700, (Reported) Citalopram Hydrobromide 20 Mg Tablet, 20 MG PO DAILY, (Reported) Donepezil HCl 10 Mg Tablet, 10 MG PO HS, (Reported) Furosemide 40 Mg Tablet, 40 MG PO DAILY, (Reported) Guaifenesin/Dextromethorphan 177 Ml Liquid, 20 ML PO Q4H PRN for COUGH, ( Reported) Hydrocodone Bit/Acetaminophen 1 Ea Tablet, 1-2 EA PO Q4H PRN for PAIN-MODERATE Prescribed by: KATI HERNANDEZ on 03/16/18 1010 Levothyroxine Sodium 75 Mcg Tablet, 75 MCG PO DAILY, (Reported) Loratadine 10 Mg Tablet, 10 MG PO DAILY, (Reported) Mag Hydrox/Al Hydrox/Simeth 30 Ml Oral.susp, 10 ML PO Q12H PRN for INDIGESTION, (Reported) Magnesium Oxide 400 Mg Tablet, 400 MG PO BID, (Reported) Mirabegron 25 Mg Tab.er.24h, 25 MG PO DAILY, (Reported) Omeprazole Magnesium 20 Mg Tablet.dr, 20 MG PO DAILY, (Reported) Potassium Chloride 20 Meq Tablet.er, 20 MEQ PO DAILY, (Reported) Pramipexole Di-HCl 0.5 Mg Tablet, 0.5 MG PO BID, (Reported) Ropinirole HCl 1 Mg Tablet, 1 MG PO 0800,1200,2000, (Reported) Ropinirole HCl 0.25 Mg Tab, 0.25 MG PO HS, (Reported) TAKES ALONG WITH 1MG TABLET Sennosides/Docusate Sodium 1 Each Tablet, 1 EACH PO DAILY PRN for CONSTIPATION- 1ST LINE, (Reported) Tramadol HCl 50 Mg Tablet, 50 MG PO BID, (Reported) Trazodone HCl 50 Mg Tablet, 25 MG PO HS, (Reported) take 1/2 of 50mg tab Patient Home Medication List Home Medication List Reviewed: Yes Review of Systems Review of Systems Constitutional: see HPI, fever, malaise, weakness EENTM: see HPI Respiratory: no symptoms reported Cardiovascular: no symptoms reported Gastrointestinal: abdominal pain, nausea Genitourinary: no symptoms reported Musculoskeletal: no symptoms reported Skin: no symptoms reported Psychiatric/Neurological: No Symptoms Reported Past Kxbbcdr-Gkaguf-Espler Hx Patient Social History Alcohol Use: Denies Use Number of Drinks Today: Alcohol Beverage of Choice: Wine Recreational Drug Use: No Smoking Status: Never a Smoker 2nd Hand Smoke Exposure: No Recent Hopitalizations: No Immunizations Up To Date Tetanus Booster (TDap): Unknown PED Vaccines UTD: No Date of Pneumonia Vaccine: May 28, 2011 Date of Influenza Vaccine: Apr 27, 2017 Seasonal Allergies Seasonal Allergies: No Past Medical History Surgeries: Yes (TEETH REMOVAL, COLOSTOMY, PEG TUBE W/ TAKEDOWN HERNIA) Abdominal, Bowel Surgery Respiratory: Yes Asthma Cardiac: Yes (DVT LEFT LEG POST OP AFTER COLON SURGERY) Deep Vein Thrombosis Neurological: Yes Dementia, Parkinson's Disease Reproductive Disorders: No Bladder Infection, Renal Failure, UTI-Chronic Gastrointestinal: Yes (ISCHEMIC COLITIS, ADULT FAILURE TO THRIVE) Abdominal Hernia, Colitis, Gastroesophageal Reflux, Diverticulosis Musculoskeletal: Yes Arthritis, Chronic Back Pain Endocrine: Yes Hypothyroidsim Cataract Hearing Impairment: Denies Cancer: No Psychosocial: Yes Sleep Difficulties, Bipolar, Depression Integumentary: No Blood Disorders: Yes (Anemia) Family Medical History Congenital disease 19 MOTHER Family history: Arthritis Hypertension 19 MOTHER Malignant neoplasm of lung 09 BROTHER No Family History of: Cancer Seizure disorder Physical Exam Vital Signs Vital Signs - First Documented 03/20/18 16:26 Temp 97.6 Pulse 95 Resp 18 B/P (MAP) 131/64 (86) Pulse Ox 90 O2 Delivery Room Air Capillary Refill : Height, Weight, BMI Height: 5'1.00" Weight: 201lbs. 0.0oz. 91.355398rg; 38.0 BMI Method:Estimated General Appearance: No Apparent Distress, WD/WN Eyes: Bilateral Eye Normal Inspection, Bilateral Eye PERRL, Bilateral Eye EOMI HEENT: PERRL/EOMI, TMs Normal Neck: Full Range of Motion, Normal Inspection Respiratory: No Accessory Muscle Use, No Respiratory Distress, Decreased Breath Sounds (a bit diminished throughout) Cardiovascular: Regular Rate, Rhythm, Normal Peripheral Pulses Gastrointestinal: Normal Bowel Sounds, Non Tender, Soft, Other (midline abdominal incision without surrounding erythema or ecchymosis. There is a dressing in place with half-dollar sized area saturated with blood.) Extremity: Normal Capillary Refill, Normal Inspection, Other (1-2+ pitting edema bilateral lower extremities which the patient and her daughter states is unchanged from baseline) Neurologic/Psychiatric: Alert, Oriented x3 Skin: Normal Color, Warm/Dry Focused Exam Lactate Level 03/20/18 18:19: Lactic Acid Level Laboratory Tests Test 03/20/18 18:19 Progress/Results/Core Measures Suspected Sepsis SIRS Temperature: Pulse: Respiratory Rate: Laboratory Tests 03/20/18 16:43: White Blood Count 28.4H Blood Pressure / Mean: 03/20/18 18:19: Laboratory Tests 03/20/18 16:43: Creatinine 1.14, Platelet Count 473H, Total Bilirubin 1.1H Results/Orders Lab Results Laboratory Tests Test 03/20/18 16:43 03/20/18 17:44 03/20/18 18:19 Range/Units White Blood Count 28.4 H 4.3-11.0 10^3/uL Red Blood Count 2.97 L 4.35-5.85 10^6/uL Hemoglobin 8.5 L 11.5-16.0 G/DL Hematocrit 26 L 35-52 % Mean Corpuscular Volume 88 80-99 FL Mean Corpuscular Hemoglobin 29 25-34 PG Mean Corpuscular Hemoglobin Concent 32 32-36 G/DL Red Cell Distribution Width 13.9 10.0-14.5 % Platelet Count 473 H 130-400 10^3/uL Mean Platelet Volume 10.4 7.4-10.4 FL Neutrophils (%) (Auto) 88 H 42-75 % Lymphocytes (%) (Auto) 5 L 12-44 % Monocytes (%) (Auto) 7 0-12 % Eosinophils (%) (Auto) 1 0-10 % Basophils (%) (Auto) 0 0-10 % Neutrophils # (Auto) 25.0 H 1.8-7.8 X 10^3 Lymphocytes # (Auto) 1.3 1.0-4.0 X 10^3 Monocytes # (Auto) 1.9 H 0.0-1.0 X 10^3 Eosinophils # (Auto) 0.2 0.0-0.3 10^3/uL Basophils # (Auto) 0.1 0.0-0.1 10^3/uL Neutrophils % (Manual) 87 % Lymphocytes % (Manual) 11 % Monocytes % (Manual) 1 % Eosinophils % (Manual) 1 % Basophils % (Manual) 0 % Band Neutrophils 0 % Anisocytosis SLIGHT Spherocytes SLIGHT Sodium Level 137 135-145 MMOL/L Potassium Level 3.9 3.6-5.0 MMOL/L Chloride Level 97 L 98-107 MMOL/L Carbon Dioxide Level 28 21-32 MMOL/L Anion Gap 12 5-14 MMOL/L Blood Urea Nitrogen 14 7-18 MG/DL Creatinine 1.14 0.60-1.30 MG/DL Estimat Glomerular Filtration Rate 46 BUN/Creatinine Ratio 12 Glucose Level 183 H 70-105 MG/DL Calcium Level 8.7 8.5-10.1 MG/DL Corrected Calcium 9.3 8.5-10.1 MG/DL Total Bilirubin 1.1 H 0.1-1.0 MG/DL Aspartate Amino Transf (AST/SGOT) 13 5-34 U/L Alanine Aminotransferase (ALT/SGPT) 12 0-55 U/L Alkaline Phosphatase 89 40-136 U/L B-Type Natriuretic Peptide 282.5 H <100.0 PG/ML Total Protein 6.7 6.4-8.2 GM/DL Albumin 3.2 3.2-4.5 GM/DL Lipase 24 8-78 U/L Urine Color YELLOW Urine Clarity SLIGHTLY CLOUDY Urine pH 6.5 5-9 Urine Specific [place] 1.010 L 1.016-1.022 Urine Protein 2+ H NEGATIVE Urine Glucose (UA) NEGATIVE NEGATIVE Urine Ketones NEGATIVE NEGATIVE Urine Nitrite POSITIVE H NEGATIVE Urine Bilirubin 1+ H NEGATIVE Urine Urobilinogen 4 H NORMAL MG/DL Urine Leukocyte Esterase 3+ H NEGATIVE Urine RBC (Auto) 4+ H NEGATIVE Urine RBC 2-5 H /HPF Urine WBC TNTC H /HPF Urine Squamous Epithelial Cells 2-5 /HPF Urine Crystals NONE /LPF Urine Bacteria LARGE H /HPF Urine Casts NONE /LPF Urine Mucus NEGATIVE /LPF Urine Culture Indicated YES My Orders Orders - GABBIE GAYLE [address] [employer] Cbc With Automated Diff (03/20/18 16:45) Comprehensive Metabolic Panel (03/20/18 16:45) Lipase (03/20/18 16:45) Ua Culture If Indicated (03/20/18 16:45) Iv Heplock-Insert (Order) (03/20/18 16:45) Ondansetron Injection (Zofran Injectio (03/20/18 16:45) Ekg Tracing (03/20/18 16:52) BNP (03/20/18 16:52) Chest 1 View, Ap/Pa Only (03/20/18 16:52) Fentanyl Injection (Sublimaze Injection (03/20/18 17:00) Manual Differential (03/20/18 16:43) Ns Iv 500 Ml (Sodium Chloride 0.9%) (03/20/18 17:00) Ct Abdomen/Pelvis W (03/20/18 17:03) Blood Culture (03/20/18 17:10) Lactic Acid Analyzer (03/20/18 17:10) Iohexol Injection (Omnipaque 350 Mg/Ml 1 (03/20/18 17:15) Sodium Chloride Flush (Catheter Flush Sy (03/20/18 17:15) Ns (Ivpb) (Sodium Chloride 0.9%) (03/20/18 17:15) Pharmacy Communication (Pharmacy Communi (03/20/18 17:15) Urine Culture (03/20/18 17:44) Ceftriaxone For Iv Use (Rocephin For I (03/20/18 18:15) Medications Given in ED Current Medications Medications Dose Ordered Sig/Jaylen Route Start Time Stop Time Status Last Admin Dose Admin Fentanyl Citrate 50 mcg ONCE ONCE IVP 03/20/18 17:00 03/20/18 17:01 DC 03/20/18 17:52 50 MCG Iohexol 100 ml ONCE ONCE IV 03/20/18 17:15 03/20/18 17:16 DC 03/20/18 17:26 100 ML Ondansetron HCl 4 mg ONCE ONCE IVP 03/20/18 16:45 03/20/18 16:47 DC 03/20/18 17:49 4 MG Sodium Chloride 10 ml NEEDED PRN IV 03/20/18 17:15 03/20/18 17:26 10 ML Sodium Chloride 250 ml ONCE ONCE IV 03/20/18 17:15 03/20/18 17:16 DC 03/20/18 17:26 80 ML Vital Signs/I&O 03/20/18 16:26 Temp 97.6 Pulse 95 Resp 18 B/P (MAP) 131/64 (86) Pulse Ox 90 O2 Delivery Room Air Capillary Refill : Diagnostic Imaging Diagonstic Imaging: Xray Plain Films/CT/US/NM/MRI: chest Comments NAME: ALFONSO NGUYEN [facility] REC#: [id number] PT STATUS: REG ER : 1945 PHYSICIAN: GABBIE GAYLE APRN ADMIT DATE: 03/20/18/ER Draft Date of Exam:03/20/18 CHEST 1 VIEW, AP/PA ONLY INDICATION: Chest pain. COMPARISON: 09/05/2016. EXAMINATION: Single frontal view of the chest was obtained. FINDINGS: Normal heart size and pulmonary vascularity. The lungs show low inspiratory volumes, but otherwise clear. No large pleural effusion or pneumothorax is seen. The visualized osseous structures show no acute abnormalities. IMPRESSION: No acute cardiopulmonary process. Dictated on workstation # [id number] Dict: 03/20/181722 Trans: 03/20/[address] [facility] [id number] Interpreted by: LUCINA ASKEW MD Electronically signed by: NAME: ALFONSO NGUYEN [facility] REC#: [id number] PT STATUS: REG ER : 1945 PHYSICIAN: GABBIE GAYLE APRN ADMIT DATE: 03/20/18/ER Signed Date of Exam:03/20/18 CT ABDOMEN/PELVIS W PROCEDURE: CT abdomen and pelvis with contrast. TECHNIQUE: Multiple contiguous axial images were obtained through the abdomen and pelvis after administration of intravenous contrast. INDICATION: Abdominal pain, anorexia after hernia repair. FINDINGS: Lung bases are clear. Liver appears normal. Gallbladder is surgically absent. There is a small amount of fluid over the dome of the liver. The pancreas appears normal. There is some small calcified granulomas in the spleen. Kidneys and adrenals appear normal. There is an IVC filter in place. Uterus is present. There are postop changes from anastomotic bowel surgery at the rectosigmoid junction. There are postop changes from a ventral hernia repair with induration in the subcutaneous fat and some gas bubbles in the subcutaneous fat as well. The integrity of the hernia repair is inconclusive from these images. IMPRESSION: There is some gas in the subcutaneous soft tissues beneath the ventral abdominal incision. There is no discrete abscess. Dictated by: Dictated on workstation # [id number] Dict: 03/20/18 1732 Trans: 03/20/18 1749 [id number] Interpreted by: DILLAN SWANSON MD Electronically signed by: DILLAN SWANSON MD 03/20/18 1749 Departure Communication (Admissions) Time/Spoke to Admitting Phy: 18:[address] Page who is ribbon tier for [facility]. Will admit, rocephin, and consult to Dr Chen. Time/Spoke to Consulting Phy: 18:33 I was unable to contact Dr. Chen. I did contact Dr. Moya who is actually on- call for surgery this weekend. He can see her tomorrow. Her vitals are stable and we do have IV access. I believe this to be sepsis from UTI rather than postoperative complication I discussed CODE STATUS with the patient and her daughter. She does not want to be intubated or on a ventilator or have CPR or defibrillation this is necessary We will make her DO NOT RESUSCITATE status. Impression Primary Impression: Urinary tract infection Additional Impression: Sepsis Disposition: ADMITTED INPATIENT Condition: Improved Admissions Decision to Admit Reason: Admit from ER (General) Decision to Admit/Date: Mar 20, 2018 Time/Decision to Admit Time: 18:14 Departure-Patient Inst. Referrals: CHRISTIAN CHAVEZ MD (PCP/Family) Primary Care Physician GABBIE GAYLE APRN Mar 20, 2018 16:56
[2018-03-20] MEDS ORDERED: fentaNYL INJECTION 100 MCG/2 ML AMP IVP ONE (17:00)
[2018-03-20] MEDS ORDERED: NS IV 500 ML 500 ML IV SCH (17:00)
[2018-03-20 17:07] LABS: BAND NEUTROPHILS 0 %; BASOPHILS % (MANUAL) 0 %; EOSINOPHILS % (MANUAL) 1 %; LYMPHOCYTES % (MANUAL) 11 %; MONOCYTES % (MANUAL) 1 %; NEUTROPHILS % (MANUAL) 87 %
[2018-03-20 17:08] LABS: ANISOCYTOSIS SLIGHT; SPHEROCYTES SLIGHT
[2018-03-20 17:12] LABS: ALBUMIN 3.2 GM/DL (3.2-4.5); BILIRUBIN,TOTAL 1.1 MG/DL (0.1-1.0); CALCIUM 8.7 MG/DL (8.5-10.1); CREATININE SERUM 1.14 MG/DL (0.60-1.30); POTASSIUM 3.9 MMOL/L (3.6-5.0); TOTAL PROTEIN 6.7 GM/DL (6.4-8.2)
[2018-03-20] MEDS ORDERED: IOHEXOL 350 MG/ML 100 ML (OMNIPAQUE 350) VIAL IV ONE (17:15)
[2018-03-20] MEDS ORDERED: NS 250 ML (IVPB) BAG IV ONE (17:15)
[2018-03-20] MEDS ORDERED: CATHETER FLUSH 10 ML SYR IV PRN ×2 (17:15→19:15)
--- NOTE | 2018-03-20 17:25 | Diagnostic Imaging Report ---
INDICATION: Chest pain. COMPARISON: 09/05/2016. EXAMINATION: Single frontal view of the chest was obtained. FINDINGS: Normal heart size and pulmonary vascularity. The lungs show low inspiratory volumes, but otherwise clear. No large pleural effusion or pneumothorax is seen. The visualized osseous structures show no acute abnormalities. IMPRESSION: No acute cardiopulmonary process. Dictated by: Dictated on workstation # [id number]
--- NOTE | 2018-03-20 17:49 | Diagnostic Imaging Report ---
PROCEDURE: CT abdomen and pelvis with contrast. TECHNIQUE: Multiple contiguous axial images were obtained through the abdomen and pelvis after administration of intravenous contrast. INDICATION: Abdominal pain, anorexia after hernia repair. FINDINGS: Lung bases are clear. Liver appears normal. Gallbladder is surgically absent. There is a small amount of fluid over the dome of the liver. The pancreas appears normal. There is some small calcified granulomas in the spleen. Kidneys and adrenals appear normal. There is an IVC filter in place. Uterus is present. There are postop changes from anastomotic bowel surgery at the rectosigmoid junction. There are postop changes from a ventral hernia repair with induration in the subcutaneous fat and some gas bubbles in the subcutaneous fat as well. The integrity of the hernia repair is inconclusive from these images. IMPRESSION: There is some gas in the subcutaneous soft tissues beneath the ventral abdominal incision. There is no discrete abscess. Dictated by: Dictated on workstation # [id number]
[2018-03-20 17:51] LABS: CLARITY,URINE SLIGHTLY CLOUDY; COLOR,URINE YELLOW; GLUCOSE, URINE (UA) NEGATIVE (NEGATIVE); KETONES,URINE NEGATIVE (NEGATIVE); LEUKOCYTE ESTERASE ,URINE 3+ (NEGATIVE); NITRITE,URINE POSITIVE (NEGATIVE); PH,URINE 6.5 (5-9); PROTEIN,URINE 2+ (NEGATIVE); UROBILINOGEN,URINE 4 MG/DL (NORMAL)
[2018-03-20 17:58] LABS: BILIRUBIN,URINE 1+ (NEGATIVE)
[2018-03-20 18:00] LABS: BACTERIA,URINE LARGE /HPF; WBC,URINE TNTC /HPF
[2018-03-20] MEDS ORDERED: cefTRIAXone FOR IV USE 1,000 MG in NS (IVPB) 50 ML IV ONE (18:15)
[2018-03-20 19:10] VITALS: BP 149/77
[2018-03-20] MEDS ORDERED: RECEIVED CONTRAST (Hold Metformin) IV SCH (19:30)
[2018-03-20] MEDS: metroNIDAZOLE 500 MG/100 ML IVPB (PRE-MIX) IV SCH (20:04)
[2018-03-20] MEDS: NS IV 1000 ML 1,000 ML IV SCH (20:04)
[2018-03-21] VITALS: BP 132/61
[2018-03-21] MEDS: metroNIDAZOLE 500 MG/100 ML IVPB (PRE-MIX) IV SCH ×3 (03:49→19:00)
[2018-03-21 04:00] VITALS: BP 120/60
[2018-03-21] MEDS ORDERED: TRAM50TA2 PO (04:43)
[2018-03-21] MEDS ORDERED: ONDA4TAB10 SL (05:11)
[2018-03-21 05:49] LABS: BASOPHILS % (AUTO) 0 % (0-10); EOSINOPHILS # (AUTO) 0.4 10^3/uL (0.0-0.3); EOSINOPHILS % (AUTO) 2 % (0-10); HEMATOCRIT 22 % (35-52); LYMPHOCYTES # (AUTO) 1.2 X 10^3 (1.0-4.0); LYMPHOCYTES % (AUTO) 5 % (12-44); MEAN CORPUSCULAR HEMOGLOBIN 28 PG (25-34); MEAN CORPUSCULAR HGB CONC 32 G/DL (32-36); MEAN CORPUSCULAR VOLUME 89 FL (80-99); MEAN PLATELET VOLUME 10.1 FL (7.4-10.4); MONOCYTES # (AUTO) 1.9 X 10^3 (0.0-1.0); MONOCYTES % (AUTO) 8 % (0-12); NEUTROPHILS # (AUTO) 18.9 X 10^3 (1.8-7.8); NEUTROPHILS % (AUTO) 85 % (42-75); PLATELET COUNT 376 10^3/uL (130-400); RED BLOOD COUNT 2.49 10^6/uL (4.35-5.85); RED CELL DISTRIBUTION WIDTH 13.9 % (10.0-14.5); WHITE BLOOD COUNT 22.3 10^3/uL (4.3-11.0)
[2018-03-21 06:16] LABS: ALBUMIN 2.7 GM/DL (3.2-4.5); BILIRUBIN,TOTAL 0.8 MG/DL (0.1-1.0); CALCIUM 8.1 MG/DL (8.5-10.1); POTASSIUM 3.5 MMOL/L (3.6-5.0); TOTAL PROTEIN 5.4 GM/DL (6.4-8.2)
[2018-03-21 08:00] VITALS: BP 126/58
[2018-03-21] MEDS: cefTRIAXone 1 GM/NS 50 ML IVPB IV SCH ×2 (08:16)
[2018-03-21 12:00] VITALS: BP 128/59
--- NOTE | 2018-03-21 13:51 | Consultation ---
History of Present Illness History of Present Illness Patient Consulted On(henrique/time) 03/21/18 13:50 Time Seen by Provider: 12:08 History of Present Illness Surgery asked to consult regarding abdominal pain and recent surgery. HPI per ED: To ER with reports of poor food and fluid intake since surgery. She had incarcerated ventral hernia surgery with bowel resection on 03/13/18. She was in the hospital for 3 days and discharged on 03/16/18. She was noted to be a bit anemic on discharge hemoglobin of 7.6, however she is Alevism and does not want blood transfusion. She does report nausea and persistent pain in the abdomen. She has had a bowel movement this been a bit looser than she would expect. She reports fever up to 100 today. She's had a little bit of shortness of breath and cough. Timing/Duration: 3-4 Days Severity: Moderate Associated Systoms: Cough, Fever/Chills (100 max), Loss of Appetite, Nausea/ Vomiting (nausea but no vomiting) When seen today she has a food tray in front of her but has not eaten much. She describes abdominal pain; mostly at incision site and rates it as a 5-6 out of 10. She states she is not really hungry and this has been going on probably since her surgery. Allergies and Home Medications Allergies Coded Allergies: Penicillins (Verified Allergy, Unknown, Pt has received Cefazolin & Ceftriaxone in the past w/o issu, 03/20/18) codeine (Verified Allergy, Unknown, Pt has received Lortab in the past, ) Home Medications Allopurinol 100 Mg Tablet, 100 MG PO DAILY, (Reported) Aspirin 81 Mg Tablet.dr, 81 MG PO DAILY, (Reported) Budesonide/Formoterol Fumarate 10.2 Gm Hfa.aer.ad, 2 PUFF IH BID, (Reported) Calcium Polycarbophil 625 Mg Tablet, 2 TAB PO BID, (Reported) Carbidopa/Levodopa 1 Each Tablet.er, 1 TAB PO 0800,1700, (Reported) Citalopram Hydrobromide 20 Mg Tablet, 20 MG PO DAILY, (Reported) Donepezil HCl 10 Mg Tablet, 10 MG PO HS, (Reported) Furosemide 40 Mg Tablet, 40 MG PO DAILY, (Reported) Guaifenesin/Dextromethorphan 177 Ml Liquid, 20 ML PO Q4H PRN for COUGH, ( Reported) Levothyroxine Sodium 75 Mcg Tablet, 75 MCG PO DAILY, (Reported) Loratadine 10 Mg Tablet, 10 MG PO DAILY, (Reported) Mag Hydrox/Al Hydrox/Simeth 30 Ml Oral.susp, 10 ML PO Q12H PRN for INDIGESTION, (Reported) Magnesium Oxide 400 Mg Tablet, 400 MG PO BID, (Reported) Mirabegron 25 Mg Tab.er.24h, 25 MG PO DAILY, (Reported) Omeprazole Magnesium 20 Mg Tablet.dr, 20 MG PO DAILY, (Reported) Ondansetron HCl 4 Mg Tablet, 4 MG SL Q8H PRN for NAUSEA/VOMITING, (Reported) Potassium Chloride 20 Meq Tablet.er, 20 MEQ PO DAILY, (Reported) Pramipexole Di-HCl 0.5 Mg Tablet, 0.5 MG PO BID, (Reported) Ropinirole HCl 1 Mg Tablet, 1 MG PO 0800,1200,2000, (Reported) Ropinirole HCl 0.25 Mg Tab, 0.25 MG PO HS, (Reported) TAKES ALONG WITH 1MG TABLET Sennosides/Docusate Sodium 1 Each Tablet, 1 EACH PO DAILY PRN for CONSTIPATION- 1ST LINE, (Reported) Tramadol HCl 50 Mg Tablet, 50 MG PO BID, (Reported) Tramadol HCl 50 Mg Tablet, 50 MG PO Q6H PRN for PAIN-BREAKTHROUGH, (Reported) Trazodone HCl 50 Mg Tablet, 25 MG PO HS, (Reported) take 1/2 of 50mg tab Patient Home Medication List Home Medication List Reviewed: Yes Past [id number]-Fqvkxv Hx Patient Social History Alcohol Use: Denies Use Number of Drinks Today: Recreational Drug Use: No Smoking Status: Never a Smoker 2nd Hand Smoke Exposure: No Recent Foreign Travel: No Contact w/Someone Who Travel: No Recent Infectious Disease Expo: No Recent Hopitalizations: No Physical Abuse Screen: No Sexual Abuse: No Immunizations Up To Date Tetanus Booster (TDap): Unknown PED Vaccines UTD: No Date of Pneumonia Vaccine: May 28, 2011 Date of Influenza Vaccine: Apr 27, 2017 Seasonal Allergies Seasonal Allergies: No Surgeries History of Surgeries: Yes (TEETH REMOVAL, COLOSTOMY, PEG TUBE W/ TAKEDOWN HERNIA) Surgeries: Abdominal, Bowel Surgery Respiratory History of Respiratory Disorde: Yes Respiratory Disorders: Asthma Cardiovascular History of Cardiac Disorders: Yes (DVT LEFT LEG POST OP AFTER COLON SURGERY) Cardiac Disorders: Deep Vein Thrombosis Neurological History of Neurological Disord: Yes Neurological Disorders: Dementia, Parkinson's Disease Reproductive System Hx Reproductive Disorders: No Genitourinary Genitourinary Disorders: Bladder Infection, Renal Failure, UTI-Chronic Gastrointestinal History of Gastrointestinal Di: Yes (ISCHEMIC COLITIS, ADULT FAILURE TO THRIVE) Gastrointestinal Disorders: Abdominal Hernia, Colitis, Gastroesophageal Reflux , Diverticulosis Musculoskeletal History of Musculoskeletal Dis: Yes Musculoskeletal Disorders: Arthritis, Chronic Back Pain Endocrine History of Endocrine Disorders: Yes Endocrine Disorders: Hypothyroidsim HEENT HEENT Disorders: Cataract Hearing Impairment: Denies Cancer History of Cancer: No Psychosocial History of Psychiatric Problem: Yes Behavioral Health Disorders: Sleep Difficulties, Bipolar, Depression Integumentary History of Skin or Integumenta: No Blood Transfusions History of Blood Disorders: Yes (Anemia) Family Medical History Significant Family History: Hypertension Family Medial History: Congenital disease 19 MOTHER Family history: Arthritis Hypertension 19 MOTHER Malignant neoplasm of lung 09 BROTHER No Family History of: Cancer Seizure disorder Review of Systems-General Constitutional: chills, diaphoresis, malaise, weakness EENTM: No blurred vision, No double vision, No mouth pain, No mouth swelling, No epistaxis Respiratory: cough, dyspnea on exertion; No hemoptysis, No phlegm Gastrointestinal: abdominal pain; No jaundice; loss of appetite, nausea; No vomiting Genitourinary: dysuria, frequency; No hematuria; incontinence : No Musculoskeletal: back pain, joint pain, muscle pain, muscle stiffness Skin: No change in color, No change in hair/nails Psychiatric/Neurological: Depressed, Emotional Problems, Tremors Other pt denies history of abnormal bruising or bleeding, she does have history of DVT Physical Exam-General Problems Physical Exam Vital Signs Vital Signs - First Documented 03/20/18 03/20/18 16:26 19:05 Temp 97.6 Pulse 95 Resp 18 B/P (MAP) 131/64 (86) Pulse Ox 90 O2 Delivery Room Air O2 Flow Rate 2.00 Capillary Refill : Less Than 3 Seconds General Appearance: mild distress, obese Eyes: Bilateral Eye PERRL, Bilateral Eye EOMI HEENT: pharynx normal; No scleral icterus (R), No scleral icterus (L) Neck: supple, normal inspection Respiratory: chest non-tender, lungs clear, normal breath sounds, no respiratory distress, no accessory muscle use Cardiovascular: regular rate, rhythm, no murmur Gastrointestinal: soft, abnormal bowel sounds (decreased), guarding (voluntary) , tenderness (diffusely, but mostly at incision) Extremities: no pedal edema, no calf tenderness, normal capillary refill Neurologic/Psychiatric: audiology assistant II-XII nml as tested, alert, depressed affect Skin: normal color, warm/dry Lymphatic: no adenopathy (neck, axilla or groin) Data Review Labs Laboratory Tests 03/20/18 16:43: White Blood Count 28.4H, Red Blood Count 2.97L, Hemoglobin 8.5L, Hematocrit 26L , Mean Corpuscular Volume 88, Mean Corpuscular Hemoglobin 29, Mean Corpuscular Hemoglobin Concent 32, Red Cell Distribution Width 13.9, Platelet Count 473H, Mean Platelet Volume 10.4, Neutrophils (%) (Auto) 88H, Lymphocytes (%) (Auto) 5L , Monocytes (%) (Auto) 7, Eosinophils (%) (Auto) 1, Basophils (%) (Auto) 0, Neutrophils # (Auto) 25.0H, Lymphocytes # (Auto) 1.3, Monocytes # (Auto) 1.9H, Eosinophils # (Auto) 0.2, Basophils # (Auto) 0.1, Neutrophils % (Manual) 87, Lymphocytes % (Manual) 11, Monocytes % (Manual) 1, Eosinophils % (Manual) 1, Basophils % (Manual) 0, Band Neutrophils 0, Anisocytosis SLIGHT, Spherocytes SLIGHT, Sodium Level 137, Potassium Level 3.9, Chloride Level 97L, Carbon Dioxide Level 28, Anion Gap 12, Blood Urea Nitrogen 14, Creatinine 1.14, Estimat Glomerular Filtration Rate 46, BUN/Creatinine Ratio 12, Glucose Level 183H, Calcium Level 8.7, Corrected Calcium 9.3, Total Bilirubin 1.1H, Aspartate Amino Transf (AST/SGOT) 13, Alanine Aminotransferase (ALT/SGPT) 12, Alkaline Phosphatase 89, B-Type Natriuretic Peptide 282.5H, Total Protein 6.7, Albumin 3.2, Lipase 24 03/20/18 17:44: Urine Color YELLOW, Urine Clarity SLIGHTLY CLOUDY, Urine pH 6.5, Urine Specific [place] 1.010L, Urine Protein 2+H, Urine Glucose (UA) NEGATIVE, Urine Ketones NEGATIVE, Urine Nitrite POSITIVEH, Urine Bilirubin 1+H, Urine Urobilinogen 4H, Urine Leukocyte Esterase 3+H, Urine RBC (Auto) 4+H, Urine RBC 2-5H, Urine WBC TNTCH, Urine Squamous Epithelial Cells 2-5, Urine Crystals NONE, Urine Bacteria LARGEH, Urine Casts NONE, Urine Mucus NEGATIVE, Urine Culture Indicated YES 03/20/18 18:19: Lactic Acid Level 1.29 03/21/18 05:32: White Blood Count 22.3H, Red Blood Count 2.49L, Hemoglobin 7.0L, Hematocrit 22L , Mean Corpuscular Volume 89, Mean Corpuscular Hemoglobin 28, Mean Corpuscular Hemoglobin Concent 32, Red Cell Distribution Width 13.9, Platelet Count 376, Mean Platelet Volume 10.1, Neutrophils (%) (Auto) 85H, Lymphocytes (%) (Auto) 5L , Monocytes (%) (Auto) 8, Eosinophils (%) (Auto) 2, Basophils (%) (Auto) 0, Neutrophils # (Auto) 18.9H, Lymphocytes # (Auto) 1.2, Monocytes # (Auto) 1.9H, Eosinophils # (Auto) 0.4H, Basophils # (Auto) 0.0, Sodium Level 137, Potassium Level 3.5L, Chloride Level 101, Carbon Dioxide Level 27, Anion Gap 9, Blood Urea Nitrogen 13, Creatinine 1.00, Estimat Glomerular Filtration Rate 54, BUN/ Creatinine Ratio 13, Glucose Level 136H, Calcium Level 8.1L, Corrected Calcium 9.1, Total Bilirubin 0.8, Aspartate Amino Transf (AST/SGOT) 9, Alanine Aminotransferase (ALT/SGPT) 7, Alkaline Phosphatase 82, Total Protein 5.4L, Albumin 2.7L Assessment/Plan Assessment/Plan Assessment/Plan Malnutrition with probable Dehydration secondary to decreased appetite Hypokalemia Anemia Leukocytosis UTI - ?? cause of leukocytosis Plan is K+ replacement, encourage PO and place on Ensure to increase protein. Will await blood and urine cultures; for now appears to be on appropriate ABX. CT did show some fluid in the abdomen and she has some subcutaneous air; but this is most likely post-surgical, no discrete abscess identified. Will monitor labs. Maximum medical care; nothing surgical at this time, but I will follow along closely. Pt is also getting IV fluids for dehydration. Clinical Quality Measures DVT/VTE Risk/Contraindication: Risk Factor Score Per Nursin RFS Level Per Nursing on Admit: 4+=Very High GIOVANNI SHAFER DO Mar 21, 2018 13:51
[2018-03-21] MEDS: HYDROcodone/APAP 5 MG/325 MG (LORTAB) TAB PO PRN (14:14)
[2018-03-21] MEDS: POTASSIUM CL 10MEQ/50ML IVPB 50 ML IV SCH ×2 (14:24→15:46)
[2018-03-21] MEDS: NS IV 1000 ML 1,000 ML IV SCH ×2 (14:25→20:46)
[2018-03-21 16:00] VITALS: BP 120/58
[2018-03-21] MEDS ORDERED: ANTACID SUSP 30 ML UDC (MYLANTA) PO PRN (17:15)
[2018-03-21] MEDS: MAGNESIUM OXIDE (MAG-OX)400 MG TAB PO SCH (19:00)
[2018-03-21] MEDS: SINEMET CR 50/200 (CARBIDOPA/LEVODOPA SA) TAB PO SCH (19:00)
[2018-03-21] MEDS ORDERED: RT-ADVAIR HFA 115/21 MCG PER PUFF IH SCH (20:00)
[2018-03-21 20:15] VITALS: BP 114/53
[2018-03-21] MEDS: rOPINIRole 0.25 MG (REQUIP) TAB PO SCH (20:33)
[2018-03-21] MEDS: rOPINIRole 1 MG (REQUIP) TABLET PO SCH (20:33)
[2018-03-21] MEDS: PRAMIPEXOLE 0.5 MG TAB (MIRAPEX) PO SCH (20:34)
[2018-03-21] MEDS: DONEPEZIL 10 MG (ARICEPT) TAB PO SCH (20:34)
[2018-03-21] MEDS: traZODone 50 MG (DESYREL) TAB PO SCH (20:34)
[2018-03-21] MEDS: ENOXAPARIN 40 MG/0.4 ML (LOVENOX) SYR SQ SCH (20:36)
--- NOTE | 2018-03-21 21:46 | History & Physicial (CHS) ---
HPI History of Present Illness: This is a 73 yo female admitted with complaints of abdominal pain and poor oral intake. Pt had ventral hernia repair and bowel resection by Dr. Chen on . Pt reports since GA on 03/16 she has had poor oral intake and abdominal pain. Pt is a poor historian and unable to obtain additional details at this time. Source: patient Exam Limitations: clinical condition Date seen by provider: Mar 21, 2018 Time Seen by Provider: 11:30 Attending Physician Natalie Page DO PCP Alon Sheridan MD Consult Date of Admission Mar 21, 2018 at 15:30 Home Medications Home Medications Reviewed patient Home Medication Reconciliation performed by pharmacy medication reconciliations medic technician and/or nursing. Patients Allergies have been reviewed. Allergies Coded Allergies: Penicillins (Verified Allergy, Unknown, Pt has received Cefazolin & Ceftriaxone in the past w/o issu, 03/20/18) codeine (Verified Allergy, Unknown, Pt has received Lortab in the past, ) PDC-Hpekkd-Dohemm Hx Patient Social History Alcohol Use: Denies Use Recreational Drug Use: No Smoking Status: Never a Smoker 2nd Hand Smoke Exposure: No Recent Foreign Travel: No Contact w/other who traveled: No Recent Hopitalizations: No Recent Infectious Disease Expo: No Physical Abuse Screen: No Sexual Abuse: No Immunizations Up To Date Tetanus Booster (TDap): Unknown Date of Pneumonia Vaccine: May 28, 2011 Date of Influenza Vaccine: Apr 27, 2017 Past Medical History Parkinsons Disease Anxiety COPD Dementia HTN Hypothyroidism Chronic Pain Insomnia GERD Seizure Disorder Family Medical History Significant Family History: Hypertension Family History: Congenital disease 19 MOTHER Family history: Arthritis Hypertension 19 MOTHER Malignant neoplasm of lung 09 BROTHER No Family History of: Cancer Seizure disorder Review of Systems (CHC) Constitutional: see HPI Reviewed Test Results Reviewed Test Results Lab Laboratory Tests 03/20/18 16:43: White Blood Count 28.4H, Red Blood Count 2.97L, Hemoglobin 8.5L, Hematocrit 26L , Mean Corpuscular Volume 88, Mean Corpuscular Hemoglobin 29, Mean Corpuscular Hemoglobin Concent 32, Red Cell Distribution Width 13.9, Platelet Count 473H, Mean Platelet Volume 10.4, Neutrophils (%) (Auto) 88H, Lymphocytes (%) (Auto) 5L , Monocytes (%) (Auto) 7, Eosinophils (%) (Auto) 1, Basophils (%) (Auto) 0, Neutrophils # (Auto) 25.0H, Lymphocytes # (Auto) 1.3, Monocytes # (Auto) 1.9H, Eosinophils # (Auto) 0.2, Basophils # (Auto) 0.1, Neutrophils % (Manual) 87, Lymphocytes % (Manual) 11, Monocytes % (Manual) 1, Eosinophils % (Manual) 1, Basophils % (Manual) 0, Band Neutrophils 0, Anisocytosis SLIGHT, Spherocytes SLIGHT, Sodium Level 137, Potassium Level 3.9, Chloride Level 97L, Carbon Dioxide Level 28, Anion Gap 12, Blood Urea Nitrogen 14, Creatinine 1.14, Estimat Glomerular Filtration Rate 46, BUN/Creatinine Ratio 12, Glucose Level 183H, Calcium Level 8.7, Corrected Calcium 9.3, Total Bilirubin 1.1H, Aspartate Amino Transf (AST/SGOT) 13, Alanine Aminotransferase (ALT/SGPT) 12, Alkaline Phosphatase 89, B-Type Natriuretic Peptide 282.5H, Total Protein 6.7, Albumin 3.2, Lipase 24 03/20/18 17:44: Urine Color YELLOW, Urine Clarity SLIGHTLY CLOUDY, Urine pH 6.5, Urine Specific [place] 1.010L, Urine Protein 2+H, Urine Glucose (UA) NEGATIVE, Urine Ketones NEGATIVE, Urine Nitrite POSITIVEH, Urine Bilirubin 1+H, Urine Urobilinogen 4H, Urine Leukocyte Esterase 3+H, Urine RBC (Auto) 4+H, Urine RBC 2-5H, Urine WBC TNTCH, Urine Squamous Epithelial Cells 2-5, Urine Crystals NONE, Urine Bacteria LARGEH, Urine Casts NONE, Urine Mucus NEGATIVE, Urine Culture Indicated YES 03/20/18 18:19: Lactic Acid Level 1.29 03/21/18 05:32: White Blood Count 22.3H, Red Blood Count 2.49L, Hemoglobin 7.0L, Hematocrit 22L , Mean Corpuscular Volume 89, Mean Corpuscular Hemoglobin 28, Mean Corpuscular Hemoglobin Concent 32, Red Cell Distribution Width 13.9, Platelet Count 376, Mean Platelet Volume 10.1, Neutrophils (%) (Auto) 85H, Lymphocytes (%) (Auto) 5L , Monocytes (%) (Auto) 8, Eosinophils (%) (Auto) 2, Basophils (%) (Auto) 0, Neutrophils # (Auto) 18.9H, Lymphocytes # (Auto) 1.2, Monocytes # (Auto) 1.9H, Eosinophils # (Auto) 0.4H, Basophils # (Auto) 0.0, Sodium Level 137, Potassium Level 3.5L, Chloride Level 101, Carbon Dioxide Level 27, Anion Gap 9, Blood Urea Nitrogen 13, Creatinine 1.00, Estimat Glomerular Filtration Rate 54, BUN/ Creatinine Ratio 13, Glucose Level 136H, Calcium Level 8.1L, Corrected Calcium 9.1, Total Bilirubin 0.8, Aspartate Amino Transf (AST/SGOT) 9, Alanine Aminotransferase (ALT/SGPT) 7, Alkaline Phosphatase 82, Total Protein 5.4L, Albumin 2.7L Physical Exam-([facility]) Physical Exam Vital Signs VS - Last 72 Hours, by Label 03/20/18 03/20/18 03/20/18 03/20/18 16:26 18:54 19:05 19:10 Temp 97.6 98.7 Pulse 95 88 88 Resp 18 18 18 B/P (MAP) 131/64 (86) 137/59 149/77 (101) Pulse Ox 90 98 97 O2 Delivery Room Air Nasal Cannula Nasal Cannula O2 Flow Rate 2.00 1.00 03/20/18 03/20/18 03/20/18 03/20/18 19:10 19:41 19:46 19:48 Temp 98.7 Pulse 88 90 Resp 18 B/P (MAP) 149/77 (101) Pulse Ox 97 91 O2 Delivery Nasal Cannula Room Air Room Air O2 Flow Rate 1.00 03/21/18 03/21/18 03/21/18 03/21/18 00:00 01:00 04:00 07:00 Temp 99.3 99.3 Pulse 97 95 92 83 Resp 18 20 B/P (MAP) 132/61 (84) 120/60 (80) Pulse Ox 87 94 O2 Delivery Nasal Cannula Nasal Cannula O2 Flow Rate 2.00 03/21/18 03/21/18 03/21/18 03/21/18 08:00 08:00 12:00 13:00 Temp 98.4 98.3 Pulse 91 91 89 Resp 20 20 B/P (MAP) 126/58 (80) 128/59 (82) Pulse Ox 93 92 O2 Delivery Nasal Cannula Nasal Cannula Nasal Cannula O2 Flow Rate 2.00 0.50 0.50 03/21/18 03/21/18 16:00 19:00 Temp 99.8 Pulse 90 87 Resp 20 B/P (MAP) 120/58 (78) Pulse Ox 91 O2 Delivery Nasal Cannula O2 Flow Rate 0.50 Capillary Refill : Less Than 3 Seconds General Appearance: WD/WN, no apparent distress Respiratory: lungs clear, normal breath sounds Cardiovascular: regular rate, rhythm Gastrointestinal: abnormal bowel sounds (decreased), distended; No guarding, No rebound Neurologic/Psychiatric: alert, normal mood/affect Skin: normal color, warm/dry Assessment/Plan Assessment/Plan Admission Status: Inpatient Order (span 2 midnights) Reason for Inpatient Admission: Poor oral intake and UTI w/ multiple co-morbid conditions will require more than 2 midnights to treat Assessment & Plan 1. Malnutrition with probable Dehydration secondary to decreased po intake since recent abdominal surgery; s/p ventral hernia repair w/ bowel resection of incarcerated bowel on 03/13/18 - Surgery consults - see by Dr. Moya - no evidence of abscess - currently on Rocephin and Flagyl 2. Hypokalemia 3. 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 Leukocytosis - secondary to UTI vs recent surgery 5. UTI - urine culture pending; currently on Rocephin Clinical Quality Measures DVT/VTE Risk/Contraindication: Risk Factor Score Per Nursin RFS Level Per Nursing on Admit: 4+=Very High NATALIE PAGE DO Mar 21, 2018 21:46
[2018-03-22] VITALS: BP 113/55
[2018-03-22] MEDS: metroNIDAZOLE 500 MG/100 ML IVPB (PRE-MIX) IV SCH ×2 (03:12→11:44)
[2018-03-22] MEDS: NS IV 1000 ML 1,000 ML IV SCH ×2 (03:12→20:10)
[2018-03-22 04:42] VITALS: BP 128/62
[2018-03-22] MEDS: HYDROcodone/APAP 5 MG/325 MG (LORTAB) TAB PO PRN (04:56)
[2018-03-22 06:20] LABS: BASOPHILS % (AUTO) 0 % (0-10); EOSINOPHILS % (AUTO) 5 % (0-10); HEMATOCRIT 22 % (35-52); LYMPHOCYTES # (AUTO) 1.5 X 10^3 (1.0-4.0); LYMPHOCYTES % (AUTO) 7 % (12-44); MEAN CORPUSCULAR HGB CONC 32 G/DL (32-36); MEAN CORPUSCULAR VOLUME 90 FL (80-99); MEAN PLATELET VOLUME 10.7 FL (7.4-10.4); MONOCYTES # (AUTO) 1.9 X 10^3 (0.0-1.0); MONOCYTES % (AUTO) 9 % (0-12); NEUTROPHILS # (AUTO) 17.2 X 10^3 (1.8-7.8); NEUTROPHILS % (AUTO) 79 % (42-75); PLATELET COUNT 356 10^3/uL (130-400); RED BLOOD COUNT 2.41 10^6/uL (4.35-5.85); RED CELL DISTRIBUTION WIDTH 13.9 % (10.0-14.5); WHITE BLOOD COUNT 21.7 10^3/uL (4.3-11.0)
[2018-03-22 06:23] LABS: MEAN CORPUSCULAR HEMOGLOBIN 29 PG (25-34)
[2018-03-22 06:41] LABS: ALANINE AMINOTRANSFERASE < 6 U/L (0-55); ALBUMIN 2.5 GM/DL (3.2-4.5); ALKALINE PHOSPHATASE 83 U/L (40-136); BILIRUBIN,TOTAL 0.5 MG/DL (0.1-1.0); BUN/CREATININE RATIO 12; CALCIUM 7.9 MG/DL (8.5-10.1); CARBON DIOXIDE 23 MMOL/L (21-32); CHLORIDE 103 MMOL/L (98-107); CREATININE SERUM 0.93 MG/DL (0.60-1.30); GFR ESTIMATED 59; GLUCOSE 116 MG/DL (70-105); POTASSIUM 3.6 MMOL/L (3.6-5.0); SODIUM 137 MMOL/L (135-145); TOTAL PROTEIN 5.4 GM/DL (6.4-8.2)
[2018-03-22] MEDS: LEVOTHYROXINE 75 MCG (LEVOTHROID) TABLET PO SCH (06:47)
[2018-03-22] MEDS: FUROSEMIDE 40 MG (LASIX) TAB PO SCH (06:47)
[2018-03-22] MEDS: KCL 20 MEQ TAB (K-DUR) PO SCH (06:47)
[2018-03-22] MEDS: PANTOPRAZOLE 20 MG TABLET (PROTONIX) PO SCH (06:47)
[2018-03-22 08:00] VITALS: BP 125/58
[2018-03-22] MEDS ORDERED: NON-FORMULARY MEDICATION 1 EA EA (Mirabegron (Myrbetriq) 25 MG) PO SCH (09:00)
[2018-03-22] MEDS: PRAMIPEXOLE 0.5 MG TAB (MIRAPEX) PO SCH ×2 (09:50→20:10)
[2018-03-22] MEDS: SINEMET CR 50/200 (CARBIDOPA/LEVODOPA SA) TAB PO SCH ×2 (09:50→17:09)
[2018-03-22] MEDS: ALLOPURINOL 100 MG (ZYLOPRIM) TAB PO SCH (09:51)
[2018-03-22] MEDS: ASPIRIN 81 MG CHEW (CHILDREN'S ASA) PO SCH (09:51)
[2018-03-22] MEDS: MAGNESIUM OXIDE (MAG-OX)400 MG TAB PO SCH ×2 (09:51→17:09)
[2018-03-22] MEDS: LORATADINE (CLARITIN) 10 MG TAB PO SCH (09:51)
[2018-03-22] MEDS: rOPINIRole 1 MG (REQUIP) TABLET PO SCH ×3 (09:51→20:10)
[2018-03-22] MEDS: cefTRIAXone 1 GM/NS 50 ML IVPB IV SCH ×2 (09:51)
[2018-03-22 11:38] VITALS: BP 127/59
--- NOTE | 2018-03-22 11:41 | Progress Note (SOAP) ---
Subjective Subjective/Events-last exam Pt more alert this am; sitting up in chair, asking about DC. Reports a little improvement in appetite and abdominal pain. Review of Systems Date Seen by Provider: Mar 22, 2018 Time Seen by Provider: 10:55 Focused Exam Lactate Level 03/20/18 18:19: Lactic Acid Level 1.29 Objective Exam Last Set of Vital Signs Vital Signs Date Time Temp Pulse Resp B/P (MAP) Pulse Ox O2 Delivery O2 Flow Rate FiO2 03/22/18 09:40 Nasal Cannula 2.00 03/22/18 08:00 97.8 74 20 125/58 (80) 97 Capillary Refill : Less Than 3 SecondsLess Than 3 Seconds I&O Intake and Output 03/22/18 00:00 Intake Total 930 ml Balance 930 ml Intake Oral 780 ml IV Total 150 ml # Voids 1 # Bowel Movements 3 General: Alert, Oriented X3, Cooperative Lungs: Clear to Auscultation Heart: Regular Rate Abdomen: Normal Bowel Sounds, Other (mild ttp) Psych/Mental Status: Mood NL Results/Procedures Lab Laboratory Tests 03/22/18 05:49: Glucometer 130H 03/22/18 05:50: White Blood Count 21.7H, Red Blood Count 2.41L, Hemoglobin 7.0L, Hematocrit 22L , Mean Corpuscular Volume 90, Mean Corpuscular Hemoglobin 29, Mean Corpuscular Hemoglobin Concent 32, Red Cell Distribution Width 13.9, Platelet Count 356, Mean Platelet Volume 10.7H, Neutrophils (%) (Auto) 79H, Lymphocytes (%) (Auto) 7L, Monocytes (%) (Auto) 9, Eosinophils (%) (Auto) 5, Basophils (%) (Auto) 0, Neutrophils # (Auto) 17.2H, Lymphocytes # (Auto) 1.5, Monocytes # (Auto) 1.9H, Eosinophils # (Auto) 1.0H, Basophils # (Auto) 0.0, Sodium Level 137, Potassium Level 3.6, Chloride Level 103, Carbon Dioxide Level 23, Anion Gap 11, Blood Urea Nitrogen 11, Creatinine 0.93, Estimat Glomerular Filtration Rate 59, BUN/ Creatinine Ratio 12, Glucose Level 116H, Calcium Level 7.9L, Corrected Calcium 9.1, Total Bilirubin 0.5, Aspartate Amino Transf (AST/SGOT) 9, Alanine Aminotransferase (ALT/SGPT) < 6, Alkaline Phosphatase 83, Total Protein 5.4L, Albumin 2.5L Microbiology 03/20/18 Blood Culture - Preliminary, Resulted No growth 03/20/18 Urine Culture - Final, Complete Klebsiella pneumoniae Assessment/Plan Assessment/Plan Assessment & Plan 1. Malnutrition with probable Dehydration secondary to decreased po intake since recent abdominal surgery; s/p ventral hernia repair w/ bowel resection of incarcerated bowel on 03/13/18 - Surgery consult - seen by Dr. Moya - no evidence of abscess - currently on Rocephin and Flagyl 03/22 - taking Ensure shake 2. Hypokalemia RESOLVED 3. Anemia - Hb 7.0 - Pt is Anabaptism and declines blood products 03/22 - Hb stable 4. Leukocytosis - secondary to UTI vs recent surgery 03/22 - wbc slowly trending down today 21.7 5. UTI - urine culture pending; currently on Rocephin 03/22 - urine culture growing Klebsiella - sensitive to Rocephin; blood cx negative - hx of VRE in 2013 - no evidence on current urine culture, can remove isolation Disp: anticipate DC home on po antibiotics tomorrow or next day if continued clinical improvement Clinical Quality Measures DVT/VTE Risk/Contraindication: Risk Factor Score Per Nursin RFS Level Per Nursing on Admit: 4+=Very High DAMON CHÁVEZ DO Mar 22, 2018 11:41
--- NOTE | 2018-03-22 14:10 | Progress Note ---
Subjective Time Seen by Provider: 12:26 Subjective/Events-last exam Pt seen and examined, she looks much better than yesterday. She states she feels better and she is eating today. She reports that her pain is controlled and denies N/V. Review of Systems General: No Chills, No Night Sweats Pulmonary: No Dyspnea, No Cough Cardiovascular: No: Chest Pain Gastrointestinal: Abdominal Pain (minimal); No: Nausea, Vomiting Focused Exam Lactate Level 03/20/18 18:19: Lactic Acid Level 1.29 Objective Exam Vital Signs Date Time Temp Pulse Resp B/P (MAP) Pulse Ox O2 Delivery O2 Flow Rate FiO2 03/22/18 13:00 82 03/22/18 11:38 97.6 71 18 127/59 (81) 97 Nasal Cannula 2.00 03/22/18 09:40 Nasal Cannula 2.00 03/22/18 08:00 Nasal Cannula 2.00 03/22/18 08:00 97.8 74 20 125/58 (80) 97 Nasal Cannula 2.00 03/22/18 07:00 74 03/22/18 06:20 97.1 03/22/18 04:56 100.5 03/22/18 04:42 100.5 81 18 128/62 (84) 96 Nasal Cannula 2.00 03/22/18 01:00 81 03/22/18 00:00 98.5 82 18 113/55 (74) 94 Nasal Cannula 2.00 03/21/18 20:30 Nasal Cannula 2.00 03/21/18 20:15 98.9 91 24 114/53 (73) 90 Nasal Cannula 0.50 03/21/18 19:00 87 03/21/18 16:00 99.8 90 20 120/58 (78) 91 Nasal Cannula 0.50 I & O 03/22/18 07:00 Intake Total 1980 ml Balance 1980 ml Capillary Refill : Less Than 3 SecondsLess Than 3 Seconds General Appearance: No Apparent Distress, WD/WN HEENT: PERRL/EOMI, TMs Normal Neck: Full Range of Motion, Normal Inspection Respiratory: No Accessory Muscle Use, No Respiratory Distress, Decreased Breath Sounds (a bit diminished throughout) Cardiovascular: Regular Rate, Rhythm, Normal Peripheral Pulses Gastrointestinal: abnormal bowel sounds (decreased); No guarding, No rebound; other (incision is c/d/i) Extremity: Normal Capillary Refill, Normal Inspection, Other (1-2+ pitting edema bilateral lower extremities which the patient and her daughter states is unchanged from baseline) Neurologic/Psychiatric: Alert, Oriented x3 Skin: Normal Color, Warm/Dry Results Lab Laboratory Tests 03/22/18 05:49: Glucometer 130H 03/22/18 05:50: White Blood Count 21.7H, Red Blood Count 2.41L, Hemoglobin 7.0L, Hematocrit 22L , Mean Corpuscular Volume 90, Mean Corpuscular Hemoglobin 29, Mean Corpuscular Hemoglobin Concent 32, Red Cell Distribution Width 13.9, Platelet Count 356, Mean Platelet Volume 10.7H, Neutrophils (%) (Auto) 79H, Lymphocytes (%) (Auto) 7L, Monocytes (%) (Auto) 9, Eosinophils (%) (Auto) 5, Basophils (%) (Auto) 0, Neutrophils # (Auto) 17.2H, Lymphocytes # (Auto) 1.5, Monocytes # (Auto) 1.9H, Eosinophils # (Auto) 1.0H, Basophils # (Auto) 0.0, Sodium Level 137, Potassium Level 3.6, Chloride Level 103, Carbon Dioxide Level 23, Anion Gap 11, Blood Urea Nitrogen 11, Creatinine 0.93, Estimat Glomerular Filtration Rate 59, BUN/ Creatinine Ratio 12, Glucose Level 116H, Calcium Level 7.9L, Corrected Calcium 9.1, Total Bilirubin 0.5, Aspartate Amino Transf (AST/SGOT) 9, Alanine Aminotransferase (ALT/SGPT) < 6, Alkaline Phosphatase 83, Total Protein 5.4L, Albumin 2.5L Microbiology 03/20/18 Blood Culture - Preliminary, Resulted No growth 03/20/18 Urine Culture - Final, Complete Klebsiella pneumoniae Assessment/Plan Assessment/Plan Assessment/Plan Malnutrition with probable Dehydration secondary to decreased appetite Hypokalemia -resolved Anemia Leukocytosis - slowly improving UTI - ?? cause of leukocytosis Will continue to encourage PO and place on Ensure to increase protein. Blood cultures were negative, Urine came back positive for K. Pneumonia - sensitive to the Rocephin. CT did show some fluid in the abdomen and she has some subcutaneous air; but this is most likely post-surgical, no discrete abscess identified. Will monitor labs. Maximum medical care; nothing surgical at this time, but I will follow along closely. Pt is also getting IV fluids for dehydration. Pt looks like she is improving because she is alert and talkative with more color today. Clinical Quality Measures DVT/VTE Risk/Contraindication: Risk Factor Score Per Nursin RFS Level Per Nursing on Admit: 4+=Very High GIOVANNI SHAFER DO Mar 22, 2018 14:10
[2018-03-22] MEDS: ONDANSETRON 4 MG/2 ML (SDV) Z0FRAN IV PRN ×2 (15:45→20:20)
[2018-03-22 16:00] VITALS: BP 135/60
[2018-03-22] MEDS: ADVAIR HFA 115/21 MCG INHALER 8 GM IH SCH (19:13)
[2018-03-22] MEDS: rOPINIRole 0.25 MG (REQUIP) TAB PO SCH (20:10)
[2018-03-22] MEDS: DONEPEZIL 10 MG (ARICEPT) TAB PO SCH (20:10)
[2018-03-22] MEDS: traZODone 50 MG (DESYREL) TAB PO SCH (20:10)
[2018-03-22 20:23] VITALS: BP 139/63
[2018-03-22] MEDS: ENOXAPARIN 40 MG/0.4 ML (LOVENOX) SYR SQ SCH (20:37)
[2018-03-23] VITALS (7 sets, daily range): BP systolic 111–134; BP diastolic 53–63
[2018-03-23 05:48] LABS: BASOPHILS # (AUTO) 0.1 10^3/uL (0.0-0.1); BASOPHILS % (AUTO) 0 % (0-10); EOSINOPHILS # (AUTO) 1.4 10^3/uL (0.0-0.3); EOSINOPHILS % (AUTO) 7 % (0-10); HEMATOCRIT 23 % (35-52); LYMPHOCYTES # (AUTO) 1.4 X 10^3 (1.0-4.0); LYMPHOCYTES % (AUTO) 7 % (12-44); MEAN CORPUSCULAR HGB CONC 31 G/DL (32-36); MEAN CORPUSCULAR VOLUME 90 FL (80-99); MEAN PLATELET VOLUME 10.5 FL (7.4-10.4); MONOCYTES % (AUTO) 9 % (0-12); NEUTROPHILS # (AUTO) 16.3 X 10^3 (1.8-7.8); NEUTROPHILS % (AUTO) 77 % (42-75); PLATELET COUNT 397 10^3/uL (130-400); RED BLOOD COUNT 2.52 10^6/uL (4.35-5.85); RED CELL DISTRIBUTION WIDTH 13.9 % (10.0-14.5); WHITE BLOOD COUNT 21.1 10^3/uL (4.3-11.0)
[2018-03-23 05:50] LABS: MEAN CORPUSCULAR HEMOGLOBIN 28 PG (25-34)
[2018-03-23 06:10] LABS: BAND NEUTROPHILS 12 %; BUN/CREATININE RATIO 12; CARBON DIOXIDE 25 MMOL/L (21-32); CHLORIDE 102 MMOL/L (98-107); CREATININE SERUM 0.86 MG/DL (0.60-1.30); EOSINOPHILS % (MANUAL) 5 %; GFR ESTIMATED > 60; GLUCOSE 104 MG/DL (70-105); LYMPHOCYTES % (MANUAL) 10 %; METAMYELOCYTES % 2 %; MONOCYTES % (MANUAL) 4 %; NEUTROPHILS % (MANUAL) 67 %; POTASSIUM 3.7 MMOL/L (3.6-5.0); SODIUM 135 MMOL/L (135-145)
[2018-03-23 06:11] LABS: ANISOCYTOSIS MODERATE; HYPOCHROMASIA MODERATE; POLYCHROMASIA SLIGHT; TEAR DROP CELLS SLIGHT
[2018-03-23] MEDS: ONDANSETRON 4 MG/2 ML (SDV) Z0FRAN IV PRN (06:26)
[2018-03-23] MEDS: LEVOTHYROXINE 75 MCG (LEVOTHROID) TABLET PO SCH (06:26)
[2018-03-23] MEDS: KCL 20 MEQ TAB (K-DUR) PO SCH (06:26)
[2018-03-23] MEDS: FUROSEMIDE 40 MG (LASIX) TAB PO SCH (06:26)
[2018-03-23] MEDS: PANTOPRAZOLE 20 MG TABLET (PROTONIX) PO SCH (06:26)
[2018-03-23] MEDS: cefTRIAXone 1 GM/NS 50 ML IVPB IV SCH ×2 (08:24)
[2018-03-23] MEDS: PRAMIPEXOLE 0.5 MG TAB (MIRAPEX) PO SCH ×2 (08:24→20:28)
[2018-03-23] MEDS: ASPIRIN 81 MG CHEW (CHILDREN'S ASA) PO SCH (08:25)
[2018-03-23] MEDS: rOPINIRole 1 MG (REQUIP) TABLET PO SCH ×3 (08:25→20:28)
[2018-03-23] MEDS: LORATADINE (CLARITIN) 10 MG TAB PO SCH (08:25)
[2018-03-23] MEDS: SINEMET CR 50/200 (CARBIDOPA/LEVODOPA SA) TAB PO SCH ×2 (08:25→17:24)
[2018-03-23] MEDS: MAGNESIUM OXIDE (MAG-OX)400 MG TAB PO SCH ×2 (08:25→17:24)
[2018-03-23] MEDS: ALLOPURINOL 100 MG (ZYLOPRIM) TAB PO SCH (08:25)
[2018-03-23] MEDS: NS IV 1000 ML 1,000 ML IV SCH ×2 (08:26→23:21)
[2018-03-23] MEDS ORDERED: OMEP20CA12 PO (09:18)
[2018-03-23] MEDS: ADVAIR HFA 115/21 MCG INHALER 8 GM IH SCH ×2 (10:48→20:10)
[2018-03-23 11:32] LABS: BILIRUBIN,URINE NEGATIVE (NEGATIVE); CLARITY,URINE CLEAR; COLOR,URINE YELLOW; GLUCOSE, URINE (UA) NEGATIVE (NEGATIVE); KETONES,URINE NEGATIVE (NEGATIVE); LEUKOCYTE ESTERASE ,URINE 3+ (NEGATIVE); NITRITE,URINE NEGATIVE (NEGATIVE); PH,URINE 7 (5-9); PROTEIN,URINE NEGATIVE (NEGATIVE); UROBILINOGEN,URINE NORMAL (NORMAL)
[2018-03-23 11:45] LABS: BACTERIA,URINE NEGATIVE /HPF; RBC,URINE 0-2 /HPF
--- NOTE | 2018-03-23 12:07 | Progress Note (SOAP) ---
Subjective Subjective/Events-last exam Patient states that she is feeling better this AM. Improved appetite. + bowel movements. More drainage thru wound today Review of Systems Date Seen by Provider: Mar 23, 2018 Time Seen by Provider: 10:00 Pulmonary: No Dyspnea Cardiovascular: No: Chest Pain, Palpitations Gastrointestinal: No: Nausea, Vomiting Genitourinary: No Dysuria, No Frequency Focused Exam Lactate Level 03/20/18 18:19: Lactic Acid Level 1.29 Objective Exam Last Set of Vital Signs Vital Signs Date Time Temp Pulse Resp B/P (MAP) Pulse Ox O2 Delivery O2 Flow Rate FiO2 03/23/18 10:48 94 Nasal Cannula 2.00 03/23/18 08:00 98.1 75 20 125/60 (81) Capillary Refill : Less Than 3 SecondsLess Than 3 Seconds I&O Intake and Output 03/23/18 00:00 Intake Total 4550 ml Balance 4550 ml Intake Oral 2300 ml IV Total 2250 ml # Voids 4 General: Alert, Oriented X3 HEENT: Atraumatic Lungs: Clear to Auscultation, Normal Air Movement Heart: Regular Rate, No Murmurs Abdomen: Normal Bowel Sounds, Soft, No Tenderness, No Hepatosplenomegaly, No Masses Extremities: No Edema, No Tenderness/Swelling Skin: Other (+ erythema and purulent drainage) Results/Procedures Lab Laboratory Tests 03/23/18 05:05: White Blood Count 21.1H, Red Blood Count 2.52L, Hemoglobin 7.0L, Hematocrit 23L , Mean Corpuscular Volume 90, Mean Corpuscular Hemoglobin 28, Mean Corpuscular Hemoglobin Concent 31L, Red Cell Distribution Width 13.9, Platelet Count 397, Mean Platelet Volume 10.5H, Neutrophils (%) (Auto) 77H, Lymphocytes (%) (Auto) 7L, Monocytes (%) (Auto) 9, Eosinophils (%) (Auto) 7, Basophils (%) (Auto) 0, Neutrophils # (Auto) 16.3H, Lymphocytes # (Auto) 1.4, Monocytes # (Auto) 2.0H, Eosinophils # (Auto) 1.4H, Basophils # (Auto) 0.1, Neutrophils % (Manual) 67, Lymphocytes % (Manual) 10, Monocytes % (Manual) 4, Eosinophils % (Manual) 5, Metamyelocytes % 2, Band Neutrophils 12, Polychromasia SLIGHT, Hypochromasia MODERATE, Anisocytosis MODERATE, Tear Drop Cells SLIGHT, Sodium Level 135, Potassium Level 3.7, Chloride Level 102, Carbon Dioxide Level 25, Anion Gap 8, Blood Urea Nitrogen 10, Creatinine 0.86, Estimat Glomerular Filtration Rate > 60 , BUN/Creatinine Ratio 12, Glucose Level 104, Calcium Level 8.0L 03/23/18 11:20: Urine Color YELLOW, Urine Clarity CLEAR, Urine pH 7, Urine Specific [place] 1.005L, Urine Protein NEGATIVE, Urine Glucose (UA) NEGATIVE, Urine Ketones NEGATIVE, Urine Nitrite NEGATIVE, Urine Bilirubin NEGATIVE, Urine Urobilinogen NORMAL, Urine Leukocyte Esterase 3+H, Urine RBC (Auto) 1+H, Urine RBC 0-2, Urine WBC 5-10H, Urine Squamous Epithelial Cells 5-10, Urine Crystals NONE, Urine Bacteria NEGATIVE, Urine Casts NONE, Urine Mucus NEGATIVE, Urine Culture Indicated YES Microbiology 03/20/18 Blood Culture - Preliminary, Resulted No growth 03/20/18 Urine Culture - Final, Complete Klebsiella pneumoniae Assessment/Plan Assessment/Plan Assessment & Plan 1. Malnutrition with probable Dehydration secondary to decreased po intake since recent abdominal surgery; s/p ventral hernia repair w/ bowel resection of incarcerated bowel on 03/13/18 - Surgery consult - seen by Dr. Moya - no evidence of abscess - currently on Rocephin and Flagyl 03/22 - taking Ensure shake 03/23: Appetite improving, Continue to encourage PO diet 2. Hypokalemia RESOLVED 3. Anemia - Hb 7.0 - Pt is Yarsanism and declines blood products 03/22 - Hb stable 03/23: Consider IV iron 4. Leukocytosis - secondary to UTI vs recent surgery 03/22 - wbc slowly trending down today 21.7 5. 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 Debility 03/23: IRF Consult Disp: Will get IRF referral Clinical Quality Measures DVT/VTE Risk/Contraindication: Risk Factor Score Per Nursin RFS Level Per Nursing on Admit: 4+=Very High MEKA CROWE MD Mar 23, 2018 12:07
--- NOTE | 2018-03-23 17:44 | Progress Note (SOAP) ---
Subjective Date Seen by Provider: Mar 23, 2018 Time Seen by Provider: 17:00 Subjective/Events-last exam doing better today. wound opened with large liquefied hematoma/seroma. fascia intact. wound packed. Focused Exam Lactate Level 03/20/18 18:19: Lactic Acid Level 1.29 Objective Exam Vital Signs Date Time Temp Pulse Resp B/P (MAP) Pulse Ox O2 Delivery O2 Flow Rate FiO2 03/23/18 15:47 96.9 70 16 134/63 (86) 91 03/23/18 13:00 70 03/23/18 12:00 97.5 71 20 123/60 (81) 95 Nasal Cannula 2.00 03/23/18 10:48 94 Nasal Cannula 2.00 03/23/18 08:25 Nasal Cannula 2.00 03/23/18 08:00 98.1 75 20 125/60 (81) 94 Nasal Cannula 2.00 03/23/18 07:00 75 03/23/18 03:37 98.2 72 18 128/59 (82) 96 Nasal Cannula 2.00 03/23/18 01:00 72 03/23/18 00:26 97.8 78 20 121/53 (75) 96 Nasal Cannula 2.00 03/22/18 20:23 98.9 77 20 139/63 (88) 96 Nasal Cannula 2.00 03/22/18 20:10 Nasal Cannula 2.00 03/22/18 19:16 93 Nasal Cannula 2.00 03/22/18 19:01 89 I & O 03/23/18 07:00 Intake Total 3280 ml Balance 3280 ml Capillary Refill : Less Than 3 SecondsLess Than 3 Seconds General Appearance: No Apparent Distress HEENT: PERRL/EOMI Neck: Full Range of Motion Respiratory: Chest Non Tender, Lungs Clear, Normal Breath Sounds Cardiovascular: Regular Rate, Rhythm Gastrointestinal: normal bowel sounds, soft, other (wound opened with large hematoma/seroma, intact fascia) Extremity: Normal Capillary Refill Neurologic/Psychiatric: Alert, Oriented x3 Skin: Normal Color Lymphatic: No Adenopathy Results Lab Laboratory Tests 03/23/18 05:05: White Blood Count 21.1H, Red Blood Count 2.52L, Hemoglobin 7.0L, Hematocrit 23L , Mean Corpuscular Volume 90, Mean Corpuscular Hemoglobin 28, Mean Corpuscular Hemoglobin Concent 31L, Red Cell Distribution Width 13.9, Platelet Count 397, Mean Platelet Volume 10.5H, Neutrophils (%) (Auto) 77H, Lymphocytes (%) (Auto) 7L, Monocytes (%) (Auto) 9, Eosinophils (%) (Auto) 7, Basophils (%) (Auto) 0, Neutrophils # (Auto) 16.3H, Lymphocytes # (Auto) 1.4, Monocytes # (Auto) 2.0H, Eosinophils # (Auto) 1.4H, Basophils # (Auto) 0.1, Neutrophils % (Manual) 67, Lymphocytes % (Manual) 10, Monocytes % (Manual) 4, Eosinophils % (Manual) 5, Metamyelocytes % 2, Band Neutrophils 12, Polychromasia SLIGHT, Hypochromasia MODERATE, Anisocytosis MODERATE, Tear Drop Cells SLIGHT, Sodium Level 135, Potassium Level 3.7, Chloride Level 102, Carbon Dioxide Level 25, Anion Gap 8, Blood Urea Nitrogen 10, Creatinine 0.86, Estimat Glomerular Filtration Rate > 60 , BUN/Creatinine Ratio 12, Glucose Level 104, Calcium Level 8.0L 03/23/18 11:20: Urine Color YELLOW, Urine Clarity CLEAR, Urine pH 7, Urine Specific [place] 1.005L, Urine Protein NEGATIVE, Urine Glucose (UA) NEGATIVE, Urine Ketones NEGATIVE, Urine Nitrite NEGATIVE, Urine Bilirubin NEGATIVE, Urine Urobilinogen NORMAL, Urine Leukocyte Esterase 3+H, Urine RBC (Auto) 1+H, Urine RBC 0-2, Urine WBC 5-10H, Urine Squamous Epithelial Cells 5-10, Urine Crystals NONE, Urine Bacteria NEGATIVE, Urine Casts NONE, Urine Mucus NEGATIVE, Urine Culture Indicated YES Microbiology 03/20/18 Blood Culture - Preliminary, Resulted No growth 03/23/18 Urine Culture - Preliminary, Resulted Sent To [facility] Assessment/Plan Assessment/Plan Assess & Plan/Chief Complaint s/p ventral abdominal incisional hernia repair with dehydration and UTI. wound opened and explored with intact fascia, large liquefied hematoma/seroma identified and evacuated and packed. continue abx and wound care. SS for placement Clinical Quality Measures DVT/VTE Risk/Contraindication: Risk Factor Score Per Nursin RFS Level Per Nursing on Admit: 4+=Very High ELAINE FLORES MD Mar 23, 2018 5:44 pm
[2018-03-23] MEDS: DONEPEZIL 10 MG (ARICEPT) TAB PO SCH (20:28)
[2018-03-23] MEDS: rOPINIRole 0.25 MG (REQUIP) TAB PO SCH (20:28)
[2018-03-23] MEDS: ENOXAPARIN 40 MG/0.4 ML (LOVENOX) SYR SQ SCH (20:29)
[2018-03-23] MEDS: traZODone 50 MG (DESYREL) TAB PO SCH (20:29)
[2018-03-24 04:00] VITALS: BP 120/58
[2018-03-24] MEDS: FUROSEMIDE 40 MG (LASIX) TAB PO SCH (06:01)
[2018-03-24] MEDS: KCL 20 MEQ TAB (K-DUR) PO SCH (06:01)
[2018-03-24] MEDS: PANTOPRAZOLE 20 MG TABLET (PROTONIX) PO SCH (06:01)
[2018-03-24] MEDS: LEVOTHYROXINE 75 MCG (LEVOTHROID) TABLET PO SCH (06:01)
[2018-03-24 06:14] LABS: BASOPHILS % (AUTO) 0 % (0-10); EOSINOPHILS # (AUTO) 1.3 10^3/uL (0.0-0.3); EOSINOPHILS % (AUTO) 7 % (0-10); HEMATOCRIT 22 % (35-52); LYMPHOCYTES # (AUTO) 1.4 X 10^3 (1.0-4.0); LYMPHOCYTES % (AUTO) 8 % (12-44); MEAN CORPUSCULAR HEMOGLOBIN 28 PG (25-34); MEAN CORPUSCULAR HGB CONC 31 G/DL (32-36); MEAN CORPUSCULAR VOLUME 89 FL (80-99); MEAN PLATELET VOLUME 10.6 FL (7.4-10.4); MONOCYTES # (AUTO) 1.7 X 10^3 (0.0-1.0); MONOCYTES % (AUTO) 9 % (0-12); NEUTROPHILS # (AUTO) 13.8 X 10^3 (1.8-7.8); NEUTROPHILS % (AUTO) 76 % (42-75); PLATELET COUNT 424 10^3/uL (130-400); RED BLOOD COUNT 2.52 10^6/uL (4.35-5.85); RED CELL DISTRIBUTION WIDTH 13.6 % (10.0-14.5); WHITE BLOOD COUNT 18.2 10^3/uL (4.3-11.0)
[2018-03-24 06:33] LABS: ALANINE AMINOTRANSFERASE < 6 U/L (0-55); ALBUMIN 2.5 GM/DL (3.2-4.5); ALKALINE PHOSPHATASE 74 U/L (40-136); BILIRUBIN,TOTAL 0.4 MG/DL (0.1-1.0); BUN/CREATININE RATIO 10; CALCIUM 7.9 MG/DL (8.5-10.1); CARBON DIOXIDE 24 MMOL/L (21-32); CHLORIDE 102 MMOL/L (98-107); CREATININE SERUM 0.91 MG/DL (0.60-1.30); GFR ESTIMATED 60; GLUCOSE 126 MG/DL (70-105); POTASSIUM 3.8 MMOL/L (3.6-5.0); SODIUM 136 MMOL/L (135-145); TOTAL PROTEIN 5.3 GM/DL (6.4-8.2)
[2018-03-24] MEDS: ADVAIR HFA 115/21 MCG INHALER 8 GM IH SCH ×2 (07:28→19:01)
[2018-03-24 08:00] VITALS: BP 135/65
[2018-03-24] MEDS: ALLOPURINOL 100 MG (ZYLOPRIM) TAB PO SCH (08:08)
[2018-03-24] MEDS: ASPIRIN 81 MG CHEW (CHILDREN'S ASA) PO SCH (08:08)
[2018-03-24] MEDS: MAGNESIUM OXIDE (MAG-OX)400 MG TAB PO SCH ×2 (08:08→17:12)
[2018-03-24] MEDS: LORATADINE (CLARITIN) 10 MG TAB PO SCH (08:08)
[2018-03-24] MEDS: rOPINIRole 1 MG (REQUIP) TABLET PO SCH ×3 (08:08→20:30)
[2018-03-24] MEDS: SINEMET CR 50/200 (CARBIDOPA/LEVODOPA SA) TAB PO SCH ×2 (08:09→17:12)
[2018-03-24] MEDS: cefTRIAXone 1 GM/NS 50 ML IVPB IV SCH ×2 (08:09)
[2018-03-24] MEDS: PRAMIPEXOLE 0.5 MG TAB (MIRAPEX) PO SCH ×2 (08:14→20:30)
--- NOTE | 2018-03-24 11:41 | Progress Note (SOAP) ---
Subjective Subjective/Events-last exam States that she is doing better. Tolerating PO diet. + BM overnight and this AM. Denies any N/V. Review of Systems Date Seen by Provider: Mar 24, 2018 Time Seen by Provider: 10:15 Pulmonary: Dyspnea; No Cough Cardiovascular: No: Chest Pain, Palpitations Gastrointestinal: Abdominal Pain; No: Nausea, Vomiting Genitourinary: Frequency Objective Exam Last Set of Vital Signs Vital Signs Date Time Temp Pulse Resp B/P (MAP) Pulse Ox O2 Delivery O2 Flow Rate FiO2 03/24/18 08:00 90 Room Air 1.00 03/24/18 08:00 97.7 68 16 135/65 (88) Capillary Refill : Less Than 3 SecondsLess Than 3 Seconds I&O Intake and Output 03/24/18 00:00 Intake Total 3340 ml Output Total 1350 ml Balance 1990 ml Intake Oral 1340 ml IV Total 2000 ml Output Urine Total 1350 ml # Voids 1 # Bowel Movements 3 General: Alert, Oriented X3 HEENT: Mucous Memb Moist/[place] Lungs: Clear to Auscultation, Normal Air Movement Heart: Regular Rate, No Murmurs Abdomen: Normal Bowel Sounds, Soft, Other (Mild ttp around wound, minimal drainage) Extremities: No Tenderness/Swelling Neuro: Normal Speech, Cranial Nerves 3-12 NL Results/Procedures Lab Laboratory Tests 03/24/18 05:44: White Blood Count 18.2H, Red Blood Count 2.52L, Hemoglobin 7.0L, Hematocrit 22L , Mean Corpuscular Volume 89, Mean Corpuscular Hemoglobin 28, Mean Corpuscular Hemoglobin Concent 31L, Red Cell Distribution Width 13.6, Platelet Count 424H, Mean Platelet Volume 10.6H, Neutrophils (%) (Auto) 76H, Lymphocytes (%) (Auto) 8L, Monocytes (%) (Auto) 9, Eosinophils (%) (Auto) 7, Basophils (%) (Auto) 0, Neutrophils # (Auto) 13.8H, Lymphocytes # (Auto) 1.4, Monocytes # (Auto) 1.7H, Eosinophils # (Auto) 1.3H, Basophils # (Auto) 0.0, Sodium Level 136, Potassium Level 3.8, Chloride Level 102, Carbon Dioxide Level 24, Anion Gap 10, Blood Urea Nitrogen 9, Creatinine 0.91, Estimat Glomerular Filtration Rate 60, BUN/ Creatinine Ratio 10, Glucose Level 126H, Calcium Level 7.9L, Corrected Calcium 9.1, Total Bilirubin 0.4, Aspartate Amino Transf (AST/SGOT) 9, Alanine Aminotransferase (ALT/SGPT) < 6, Alkaline Phosphatase 74, Total Protein 5.3L, Albumin 2.5L Microbiology 03/20/18 Blood Culture - Preliminary, Resulted No growth 03/23/18 Urine Culture - Final, Complete Yeast species Assessment/Plan Assessment/Plan Assessment & Plan 1. Malnutrition with probable Dehydration secondary to decreased po intake since recent abdominal surgery; s/p ventral hernia repair w/ bowel resection of incarcerated bowel on 03/13/18 - Surgery consult - seen by Dr. Moya - no evidence of abscess - currently on Rocephin and Flagyl 03/22 - taking Ensure shake 03/23: Appetite improving, Continue to encourage PO diet 03/24: Tolerating PO diet 2. Hypokalemia RESOLVED 3. Anemia - Hb 7.0 - Pt is Denominational and declines blood products 03/22 - Hb stable 03/23: Consider IV iron 4. Leukocytosis - secondary to UTI vs recent surgery 03/22 - wbc slowly trending down today 21.7 03/24: Improving 5. 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 Debility 03/23: IRF Consult Disp: Awaiting IRF consult, SNF placement if not candidate, patient agrees and would like [facility] Clinical Quality Measures DVT/VTE Risk/Contraindication: Risk Factor Score Per Nursin RFS Level Per Nursing on Admit: 4+=Very High MEKA CROWE MD Mar 24, 2018 11:40
[2018-03-24] MEDS: NS IV 1000 ML 1,000 ML IV SCH (11:52)
[2018-03-24 12:00] VITALS: BP 130/60
[2018-03-24] MEDS ORDERED: FLUCONAZOLE 200 MG/100 ML 100 ML IV NR (12:00)
--- NOTE | 2018-03-24 12:52 | Progress Note (SOAP) ---
Subjective Date Seen by Provider: Mar 24, 2018 Time Seen by Provider: 12:00 Subjective/Events-last exam doing well. wound clean/dry with good granulation bed and intact fascia. tolerating diet. Objective Exam Vital Signs Date Time Temp Pulse Resp B/P (MAP) Pulse Ox O2 Delivery O2 Flow Rate FiO2 03/24/18 08:00 90 Room Air 1.00 03/24/18 08:00 97.7 68 16 135/65 (88) 90 Room Air 03/24/18 07:28 98 Nasal Cannula 1.00 03/24/18 07:00 69 03/24/18 04:00 97.3 74 20 120/58 (78) 95 Nasal Cannula 2.00 03/24/18 01:00 71 03/23/18 23:21 97.0 76 18 111/56 (74) 95 Nasal Cannula 2.00 03/23/18 20:11 94 Nasal Cannula 2.00 03/23/18 19:53 97.4 78 18 131/60 (83) 96 Nasal Cannula 2.00 03/23/18 18:59 75 03/23/18 15:47 96.9 70 16 134/63 (86) 91 03/23/18 13:00 70 I & O 03/24/18 07:00 Intake Total 3490 ml Output Total 1550 ml Balance 1940 ml Capillary Refill : Less Than 3 SecondsLess Than 3 Seconds General Appearance: No Apparent Distress HEENT: PERRL/EOMI Neck: Full Range of Motion Respiratory: Chest Non Tender, Lungs Clear, Normal Breath Sounds Cardiovascular: Regular Rate, Rhythm Gastrointestinal: normal bowel sounds, non tender, soft Extremity: Normal Capillary Refill Neurologic/Psychiatric: Alert, Oriented x3 Skin: Normal Color Lymphatic: No Adenopathy Results Lab Laboratory Tests 03/24/18 05:44: White Blood Count 18.2H, Red Blood Count 2.52L, Hemoglobin 7.0L, Hematocrit 22L , Mean Corpuscular Volume 89, Mean Corpuscular Hemoglobin 28, Mean Corpuscular Hemoglobin Concent 31L, Red Cell Distribution Width 13.6, Platelet Count 424H, Mean Platelet Volume 10.6H, Neutrophils (%) (Auto) 76H, Lymphocytes (%) (Auto) 8L, Monocytes (%) (Auto) 9, Eosinophils (%) (Auto) 7, Basophils (%) (Auto) 0, Neutrophils # (Auto) 13.8H, Lymphocytes # (Auto) 1.4, Monocytes # (Auto) 1.7H, Eosinophils # (Auto) 1.3H, Basophils # (Auto) 0.0, Sodium Level 136, Potassium Level 3.8, Chloride Level 102, Carbon Dioxide Level 24, Anion Gap 10, Blood Urea Nitrogen 9, Creatinine 0.91, Estimat Glomerular Filtration Rate 60, BUN/ Creatinine Ratio 10, Glucose Level 126H, Calcium Level 7.9L, Corrected Calcium 9.1, Total Bilirubin 0.4, Aspartate Amino Transf (AST/SGOT) 9, Alanine Aminotransferase (ALT/SGPT) < 6, Alkaline Phosphatase 74, Total Protein 5.3L, Albumin 2.5L Microbiology 03/20/18 Blood Culture - Preliminary, Resulted No growth 03/23/18 Urine Culture - Final, Complete Yeast species Assessment/Plan Assessment/Plan Assess & Plan/Chief Complaint s/p ventral abdominal incisional hernia repair with dehydration and UTI. wound opened and explored with intact fascia, large liquefied hematoma/seroma identified and evacuated and packed. continue abx and wound care. added diflucan for yeast. SS for placement Clinical Quality Measures DVT/VTE Risk/Contraindication: Risk Factor Score Per Nursin RFS Level Per Nursing on Admit: 4+=Very High ELAINE FLORES MD Mar 24, 2018 12:51 pm
[2018-03-24] MEDS ORDERED: PIPERACILLIN/TAZO 4.5 GM/D5W 100 ML IV NR ×2 (13:15)
--- NOTE | 2018-03-24 15:03 | Physical Therapy Evaluation ---
PT Evaluation-General Medical Diagnosis Admission Date Mar 21, 2018 at 15:30 Medical Diagnosis: UTI/s/p ventral hernia repair, dehydration Onset Date: Mar 21, 2018 Therapy Diagnosis Therapy Diagnosis: generalized weakness/debility Height/Weight Height (Feet): 5 Height (Inches): 2.00 Weight (Pounds): 198 Weight (Ounces): 12.8 Precautions Precautions/Isolations: Fall Prevention, Standard Precautions Weight Bear Status Right Lower Extremity: Right Full Weight Bearing Left Lower Extremity: Left Full Weight Bearing Referral Physician: Gwendolyn Reason for Referral: Evaluation/Treatment Medical History Pertinent Medical History: COPD, Dementia, GERD, HTN, Hypothroidism, Parkinson' s Current History s/p hernia repair 03/13/18/poor appetite Social History Home: Assisted Living Prior/[facility] Prior Level of Function Functional [place] Measure 0=Not Assessed/NA 4=Minimal Assistance 1=Total Assistance 5=Supervision or Setup 2=Maximal Assistance 6=Modified [place] 3=Moderate Assistance 7=Complete [place] Bed Mobility: 6 Transfers (B,C,W/C) (FIM): 6 Gait: 6 PT Evaluation-Current Subjective Patient agrees to PT. No c/o Pain Numeric Pain Scale: 0-No Pain Location: No Pain Reported Objective Patient Orientation: Person, Time, Situation Problem Solving: Fair Attachments: IV ROM/Strength ROM Lower Extremities bilateral LE WNL Strength Lower Extremities 4-/5 grossly bilaterally Integumentary/Posture Integumentary refer to nursing notes Bowel Incontinence: No Bladder Incontinence: Yes Posture WFL Neuromuscular (Tone, Coordination, Reflexes) grossly intact Sensory Vision: Wears Glasses Hearing: Impaired Sensation Right Lower Extremit: Impaired Sensation Left Lower Extremity: Impaired Transfers Functional [place] Measure 0=Not Assessed/NA 4=Minimal Assistance 1=Total Assistance 5=Supervision or Setup 2=Maximal Assistance 6=Modified [place] 3=Moderate Assistance 7=Complete [place] Transfers (B, C, W/C) (FIM): 5 Scootin Rollin Supine to/from Sit: 5 Sit to/from Stand: 5 Gait Mode of Locomotion: Walk Anticipated Mode of Locomotion: Walk Gait (FIM): 5 Distance (FIM): 3=150 ft Distance: 250' Gait Level of Assist: 5 Gait Assistive Device: FWW Comments/Gait Description slow, steady, functional Balance Sitting Static: Normal Sitting Dynamic: Normal Standing Static: Normal Standing Dynamic: Normal Assessment/Needs 73 y.o. female, will be seen short term by skilled PT to address functional strength and mobility to improve current LOF. Patient plans on returning to [place] from hospital. Rehab Potential: Fair PT Price Clerk Goals Residential Goals PT Residential Goals Time Frame: Apr 04, 2018 Transfers (B,C,W/C) (FIM): 6 Gait (FIM): 6 Gait distance (FIM): 3=150 ft Gait Level of Assist: 6 Gait Assistive Device: FWW PT Plan Problem List Problem List: Activity Tolerance Treatment/Plan Treatment Plan: Continue Plan of Care Treatment Plan: Bed Mobility, Education, Functional Activity Long, Functional Strength, Gait, Safety, Therapeutic Exercise, Transfers Treatment Duration: Apr 04, 2018 Frequency: 6 times per week Estimated Hrs Per Day: .25 hour per day Patient and/or Family Agrees t: Yes Discharge Recommendations Therapy D/C Recommendations: Physical Therapy Home Care Time/GCodes Time In: 1401 Time Out: 1424 Total Billed Treatment Time: 23 Total Billed Treatment 1 visit EVModC 23 min G Codes Necessary: No SANDHYA SULLIVAN PT Mar 24, 2018 15:03
[2018-03-24 16:00] VITALS: BP 132/62
[2018-03-24 16:33] VITALS: BP 132/62
[2018-03-24] MEDS: PIPERACILLIN SODIUM/TAZOBACTAM 4.5 GM in D5W 100 ML IVPB 100 ML IV SCH (18:13)
[2018-03-24 19:44] VITALS: BP 114/56
[2018-03-24] MEDS: rOPINIRole 0.25 MG (REQUIP) TAB PO SCH (20:30)
[2018-03-24] MEDS: ENOXAPARIN 40 MG/0.4 ML (LOVENOX) SYR SQ SCH (20:30)
[2018-03-24] MEDS: traZODone 50 MG (DESYREL) TAB PO SCH (20:31)
[2018-03-24] MEDS: DONEPEZIL 10 MG (ARICEPT) TAB PO SCH (20:31)
[2018-03-25 00:05] VITALS: BP 115/56
[2018-03-25] MEDS: NS IV 1000 ML 1,000 ML IV SCH (03:30)
[2018-03-25] MEDS: PIPERACILLIN SODIUM/TAZOBACTAM 4.5 GM in D5W 100 ML IVPB 100 ML IV SCH ×2 (03:30→12:19)
[2018-03-25 04:55] VITALS: BP 128/64
[2018-03-25] MEDS: PANTOPRAZOLE 20 MG TABLET (PROTONIX) PO SCH (06:29)
[2018-03-25] MEDS: LEVOTHYROXINE 75 MCG (LEVOTHROID) TABLET PO SCH (06:29)
[2018-03-25] MEDS: FUROSEMIDE 40 MG (LASIX) TAB PO SCH (06:30)
[2018-03-25] MEDS: KCL 20 MEQ TAB (K-DUR) PO SCH (06:30)
[2018-03-25] MEDS: ADVAIR HFA 115/21 MCG INHALER 8 GM IH SCH (07:35)
[2018-03-25] MEDS: ONDANSETRON 4 MG/2 ML (SDV) Z0FRAN IV PRN (07:40)
[2018-03-25 08:00] VITALS: BP 156/70
[2018-03-25] MEDS: SINEMET CR 50/200 (CARBIDOPA/LEVODOPA SA) TAB PO SCH (08:59)
[2018-03-25] MEDS: ASPIRIN 81 MG CHEW (CHILDREN'S ASA) PO SCH (08:59)
[2018-03-25] MEDS: LORATADINE (CLARITIN) 10 MG TAB PO SCH (08:59)
[2018-03-25] MEDS: PRAMIPEXOLE 0.5 MG TAB (MIRAPEX) PO SCH (08:59)
[2018-03-25] MEDS: rOPINIRole 1 MG (REQUIP) TABLET PO SCH ×2 (08:59→12:23)
[2018-03-25] MEDS: ALLOPURINOL 100 MG (ZYLOPRIM) TAB PO SCH (08:59)
[2018-03-25] MEDS: MAGNESIUM OXIDE (MAG-OX)400 MG TAB PO SCH (08:59)
[2018-03-25] MEDS ORDERED: FLUCONAZOLE 100 MG/50 ML IVPB IV SCH ×2 (09:00)
--- NOTE | 2018-03-25 11:33 | Physical Therapy Daily Note ---
PT Daily Note-Current Subjective Pt in recliner pre tx, agrees to PT, pain 4/10 in abdomen. Appearance Pt in bed post tx, w/ phone, call light, and tray all needs met Mental Status Patient Orientation: Person, Place, Time Attachments: IV Transfers Functional [place] Measure 0=Not Assessed/NA 4=Minimal Assistance 1=Total Assistance 5=Supervision or Setup 2=Maximal Assistance 6=Modified [place] 3=Moderate Assistance 7=Complete IndependenceIRFPAI Quality Coding Scale 6 Independent with activity with or without an assistive device 5 Patient requires set up or clean up by helper. Patient completes activity by themselves 4 Supervision or touching assist (CGA). Theodore provide cues , steadying assist 3 The helper provides less than half the effort to complete the activity 2 The helper provides more than half the effort to complete the activity 1 Dependent. The helper does all the effort to complete an activity 7 Patient refused to complete or attempt activity 9 The patient did not perform the activity before the current illness or injury 88 Not attempted due to Medical conditions or safety concerns Transfers (B, C, W/C) (FIM): 3 Scootin Supine to/from Sit: 3 Sit to/from Stand: 4 sit<->stand CGA, supine->sit Supa w/ getting legs into bed Weight Bearing Right Lower Extremity: Right Full Weight Bearing Left Lower Extremity: Left Full Weight Bearing Gait Training Gait (FIM): 5 Distance: 400' Gait Level of Assist: 5 Gait Persons Needed: 1 Gait Assistive Device: FWW Pt ambulates 400' slowly but safely w/ SBA using FWW. Exercises Seated Therapy Exercises: Ankle pumps, Long arc quads, Hip flexion Seated Reps: 20 Treatments gait training and mobility, functional strengthening Assessment Current Status: Fair Progress increased endurance and ambulation distance from 250' to 400' PT Insurance Administrator Goals Fdc Goals PT Insurance Administrator Goals Time Frame: Apr 04, 2018 Transfers (B,C,W/C) (FIM): 6 Gait (FIM): 6 Gait distance (FIM): 3=150 ft Gait Level of Assist: 6 Gait Assistive Device: FWW PT Plan Problem List Problem List: Activity Tolerance, Functional Strength, Safety, Balance, Gait, Transfer, Bed Mobility Treatment/Plan Treatment Plan: Continue Plan of Care Treatment Plan: Bed Mobility, Education, Functional Activity Long, Functional Strength, Gait, Safety, Therapeutic Exercise, Transfers Treatment Duration: Apr 04, 2018 Frequency: 6 times per week Estimated Hrs Per Day: .25 hour per day Patient and/or Family Agrees t: Yes Safety Risks/Education Patient Education: Gait Training, Transfer Techniques, Correct Positioning, Safety Issues Teaching Recipient: Patient Teaching Methods: Demonstration, Discussion Response to Teaching: Reinforcement Needed Time/GCodes Time In: 1110 Time Out: 1130 Total Billed Treatment Time: 20 Total Billed Treatment 1 visit GT 15' EX 5' LESIA WELLS PT Mar 25, 2018 11:33
--- NOTE | 2018-03-25 13:57 | Discharge Summary ---
Diagnosis/Chief Complaint Date of Admission Mar 21, 2018 at 3:30 pm Date of Discharge 03/25/18 Admission Diagnosis Admission Diagnosis Malnutrition Hypokalemia Leukocytosis UTI Debility s/p Ventral hernia repair Discharge Diagnosis See Above Chief Complaint/HPI Chief Complaint/HPI This is a 73 yo female admitted with complaints of abdominal pain and poor oral intake. Pt had ventral hernia repair and bowel resection by Dr. Chen on . Pt reports since DC on 03/16 she has had poor oral intake and abdominal pain. Pt is a poor historian and unable to obtain additional details at this time. Discharge Summary-Simple/Stand Consultations General Surgery: Dr Chen Discharge Physical Examination Allergies: Coded Allergies: Penicillins (Verified Allergy, Unknown, Pt has received Cefazolin & Ceftriaxone in the past w/o issu, 03/20/18) codeine (Verified Allergy, Unknown, Pt has received Lortab in the past, ) Vitals & I&Os Vital Sign - Last 12Hours Date Time Temp Pulse Resp B/P (MAP) Pulse Ox O2 Delivery O2 Flow Rate FiO2 03/25/18 08:10 93 Room Air 03/25/18 08:00 98.1 78 18 156/70 (98) 03/24/18 20:00 2.00 Intake and Output 03/25/18 00:00 Intake Total 1142 ml Output Total 1500 ml Balance -358 ml General Appearance: Alert, Oriented X3 HEENT: Mucous Memb Moist/[place] Respiratory: Clear to Auscultation Cardiovascular: Regular Rate, No Murmurs Abdominal: Normal Bowel Sounds, Other (mild ttp, incisional pain) Extremities: Other (1+ edema bilaterally) Psych/Mental Status: Mental Status NL, Mood NL Hospital Course See final discharge diagnosis. Discussion & Recommendations 73 yo F that was admitted for malnutrition and UTI following ventral hernia repair. Patient was started on fluids and antibiotics. Dr Chen followed patient throughout admission. Patient tolerated PO diet when following bland diet. It was recommended that she go to SNF to recover from surgery and patient agreed with discharge plan. Discharge Condition at discharge Stable Instructions to patient/family Please see electronic discharge instructions given to patient. Discharge Medications Reviewed and agree with Discharge Medication list on patient's Discharge Instruction sheet Clinical Quality Measures DVT/VTE Risk/Contraindication: Risk Factor Score Per Nursin RFS Level Per Nursing on Admit: 4+=Very High GAULT,MEKA R MD Mar 25, 2018 13:57
[2018-03-25] MEDS ORDERED: CLIN300C11 PO (14:02)
--- NOTE | 2018-03-25 14:06 | Discharge Inst-Skilled Nursing ---
Discharge Inst-Skilled NF Patient Instructions Patient Problems: Malnutrition Dehydration UTI Normocytic Anemia Goal: - Improve nutrition - Decrease fall risk - Improve ambulation Consult/Follow Up/Orders Follow up appt.: Lianna Whyte will see you at [facility] Skilled NF Admit to: Via [facility]dugo Certifications SNF I certify that SNF services are required to be given on an inpatient basis because of the above named patient's need for senior care care on a continuing basis for the conditions(s) for which he/she was receiving inpatient hospital services prior to his/her transfer to the SNF. Usp Facility Order: Nursing Services, [employer] V[employer] Supervisor-Evaluate & Treat, Physical Therapy-Evaluate & Treat, Wound Care-Eval/Treat Discharge Diet: ADA Diet Daily Activity as Tolerated: Yes New & Resume Previous Orders New & Resume Previous Orders - Wound care per Dr Chen Discharge Medications New, Converted or Re-Newed RX: Other New Medications: Clindamycin HCl (Clindamycin HCl) 300 Mg Capsule 300 MG PO BID, #14 CAP Continued Medications: Allopurinol (Allopurinol) 100 Mg Tablet 100 MG PO DAILY, TAB Aspirin (Aspir 81) 81 Mg Tablet.dr 81 MG PO DAILY, TAB Budesonide/Formoterol Fumarate (Symbicort 160-4.5 Mcg Inhaler) 10.2 Gm Hfa.aer.ad 2 PUFF IH BID, INHALER Calcium Polycarbophil (Fibercon) 625 Mg Tablet 2 TAB PO BID, TAB Carbidopa/Levodopa (Sinemet Cr 50-200 Tablet) 1 Each Tablet.er 1 TAB PO 0800,1700, TAB Citalopram Hydrobromide (Citalopram HBr) 20 Mg Tablet 20 MG PO DAILY, TAB Donepezil HCl (Aricept) 10 Mg Tablet 10 MG PO HS, TAB Furosemide (Furosemide) 40 Mg Tablet 40 MG PO DAILY, TAB Guaifenesin/Dextromethorphan (Mucus Relief Dm Max Liquid) 177 Ml Liquid 20 ML PO Q4H PRN for COUGH, EA Levothyroxine Sodium (Levothyroxine Sodium) 75 Mcg Tablet 75 MCG PO DAILY, TAB Loratadine (Loratadine) 10 Mg Tablet 10 MG PO DAILY, TAB Mag Hydrox/Al Hydrox/Simeth (Mylanta Suspension) 30 Ml Oral.susp 10 ML PO Q12H PRN for INDIGESTION, ML Magnesium Oxide (Magnesium) 400 Mg Tablet 400 MG PO BID, TAB Mirabegron (Myrbetriq) 25 Mg Tab.er.24h 25 MG PO DAILY, TAB Omeprazole (Omeprazole) 20 Mg Capsule.dr 20 MG PO DAILY, CAP Ondansetron HCl (Ondansetron HCl) 4 Mg Tablet 4 MG SL Q8H PRN for NAUSEA/VOMITING-1ST LINE Potassium Chloride (Potassium Chloride) 20 Meq Tablet.er 20 MEQ PO DAILY, TAB Pramipexole Di-HCl (Mirapex) 0.5 Mg Tablet 0.5 MG PO BID, TAB Ropinirole HCl (Requip) 1 Mg Tablet 1 MG PO 0800,1200,2000, TAB Ropinirole HCl (Requip) 0.25 Mg Tab 0.25 MG PO HS, TAB TAKES ALONG WITH 1MG TABLET Sennosides/Docusate Sodium (Senna-Docusate Sodium Tablet) 1 Each Tablet 1 TAB PO DAILY PRN for CONSTIPATION-1ST LINE, TAB Trazodone HCl (Trazodone HCl) 50 Mg Tablet 25 MG PO HS, TAB take 1/2 of 50mg tab Discontinued Medications: Tramadol HCl (Tramadol HCl) 50 Mg Tablet 50 MG PO BID, TAB Tramadol HCl (Tramadol HCl) 50 Mg Tablet 50 MG PO Q6H PRN for PAIN-BREAKTHROUGH Meka Crowe Mar 25, 2018 14:04 MEKA CROWE MD Mar 25, 2018 2:06 pm
[2018-03-25 15:00] VITALS: BP 156/70
--- NOTE | 2018-03-27 11:43 | Physician Query Clarification ---
PQ-Debridement Admission/Discharge Admission Date: Mar 21, 2018 at 15:30 Discharge Date: Mar 25, 2018 at 14:52 PHYSICIAN RESPONSE QUESTION: Please clarify the depth of the hematoma Please clarify if the hematoma was drained or removed PQ Debridement : Date of debridement: Mar 23, 2018 Level: Subcutaneous Tissue Type: Excisional In responding to this query, please exercise your independent professional judgment. The purpose of this communication is to more accurately reflect the complexity of your patients condition. The fact that a question is asked does not imply that any particular answer is desired or expected. Thank you for your timely response to this clarification. Requestors name: Anya Yen THIS PHYSICIAN QUERY FORM IS A PERMANENT PART OF THE MEDICAL RECORD KIMMY YEN Mar 27, 2018 11:43 ELAINE FLORES MD Mar 27, 2018 13:38
--- NOTE | 2018-03-31 10:59 | Physician Query Clarification ---
PQ-Link Manifestation-Etiology Admission/Discharge Admission Date: Mar 21, 2018 at 15:30 Discharge Date: Mar 25, 2018 at 14:52 The medical record reflects the following clinical scenario: History/Risk Factors: s/p abdominal surgery, UTI Clinical Findings: pain at incision, UTI due to klebsiella and lee Treatment: IV Rocephin, IV Diflucan, Evacuation liquifying hematoma/seroma Question: Can you specify if the abdominal pain is due to/associated with postop hematoma/seroma or the UTI? Please document a response below PHYSICIAN RESPONSE Manifestation due to/assoic: Yes Explanation of clincal finding Abdominal pain was likely due to seroma In responding to this query, please exercise your independent professional judgment. The purpose of this communication is to more accurately reflect the complexity of your patients condition. The fact that a question is asked does not imply that any particular answer is desired or expected. Thank you for your timely response to this clarification. Requestors name: Charlene THIS PHYSICIAN QUERY FORM IS A PERMANENT PART OF THE MEDICAL RECORD CHARLENE STARK Mar 31, 2018 10:59 MEKA CROWE MD Apr 08, 2018 15:28
== END 2018-03-25 14:52 | DRG 920 ==
LOC: EDUNIT# 16:26 → ER 16:27 → UNDOADMOB 18:44 → 4TH 18:44 → INTOOBSV 03-21 15:30 → OBSVTOIN 03-21 15:30 → 4TH 03-23 15:46 → UNDODISIN 03-25 14:52
PROVIDERS: ADMIT Family Medicine; ATTEND Family Medicine
PROC: 0JC80ZZ Extirpation of Matter from Abdomen Subcutaneous Tissue and Fascia, Open Approach (ICD-10-PCS; principal; 2018-03-23)
DX: K91.872 Postprocedural seroma of a digestive system organ or structure following a digestive system procedure (principal); K91.870 Postprocedural hematoma of a digestive system organ or structure following a digestive system procedure; E46 Unspecified protein-calorie malnutrition; E86.0 Dehydration; B37.49 Other urogenital candidiasis; N39.0 Urinary tract infection, site not specified; B96.1 Klebsiella pneumoniae [K. pneumoniae] as the cause of diseases classified elsewhere; E87.6 Hypokalemia; D64.9 Anemia, unspecified; R62.7 Adult failure to thrive; Z66 Do not resuscitate; I10 Essential (primary) hypertension; J44.9 Chronic obstructive pulmonary disease, unspecified; G20 Parkinson's disease; F03.90 Unspecified dementia, unspecified severity, without behavioral disturbance, psychotic disturbance, mood disturbance, and anxiety; K21.9 Gastro-esophageal reflux disease without esophagitis; K57.90 Diverticulosis of intestine, part unspecified, without perforation or abscess without bleeding; M19.91 Primary osteoarthritis, unspecified site; M54.9 Dorsalgia, unspecified; E03.9 Hypothyroidism, unspecified; F31.9 Bipolar disorder, unspecified; F41.9 Anxiety disorder, unspecified; G47.00 Insomnia, unspecified; G40.909 Epilepsy, unspecified, not intractable, without status epilepticus; G89.29 Other chronic pain; R53.81 Other malaise; Z87.19 Personal history of other diseases of the digestive system; Z98.890 Other specified postprocedural states; Z86.718 Personal history of other venous thrombosis and embolism
CPT/HCPCS: 36415; 71045; 74177; 80048; 80053; 81000; 82962; 83605; 83690; 83880; 85007; 85025; 85027; 87040; 87077; 87088; 87186; 93005; 94640; 94664; 94760; 96361; 96374; 96375; G0378

== ENCOUNTER → 2018-04-06 | Outpatient (CLI) | payer MEDICARE, MEDICAID ==
[~2018-04-06] MED LIST changes: +CLIN300C11 PO; +OMEP20CA12 PO; +ONDA4TAB10 SL
== END ==
LOC: WOUNDCARE 08:18
PROVIDERS: ATTEND Surgery
DX: L98.492 Non-pressure chronic ulcer of skin of other sites with fat layer exposed (principal); T81.31XA Disruption of external operation (surgical) wound, not elsewhere classified, initial encounter; L03.311 Cellulitis of abdominal wall; E66.01 Morbid (severe) obesity due to excess calories; F03.90 Unspecified dementia, unspecified severity, without behavioral disturbance, psychotic disturbance, mood disturbance, and anxiety
CPT/HCPCS: 11042

== ENCOUNTER → 2018-04-13 | Outpatient (CLI) | payer MEDICARE, MEDICAID | LOC: WOUNDCARE 08:26 | PROVIDERS: ATTEND Surgery | DX: L98.492 Non-pressure chronic ulcer of skin of other sites with fat layer exposed (principal); T81.31XA Disruption of external operation (surgical) wound, not elsewhere classified, initial encounter; L03.311 Cellulitis of abdominal wall; F03.90 Unspecified dementia, unspecified severity, without behavioral disturbance, psychotic disturbance, mood disturbance, and anxiety; E66.01 Morbid (severe) obesity due to excess calories; Z68.37 Body mass index [BMI] 37.0-37.9, adult | CPT/HCPCS: 11042; 87070; 87075; 87077; 87186; 87205 ==

== ENCOUNTER → 2018-04-20 | Outpatient (CLI) | payer MEDICARE, MEDICAID | LOC: WOUNDCARE 08:31 | PROVIDERS: ATTEND Surgery | DX: T81.31XA Disruption of external operation (surgical) wound, not elsewhere classified, initial encounter (principal); L98.492 Non-pressure chronic ulcer of skin of other sites with fat layer exposed; L03.311 Cellulitis of abdominal wall; F03.90 Unspecified dementia, unspecified severity, without behavioral disturbance, psychotic disturbance, mood disturbance, and anxiety; E66.01 Morbid (severe) obesity due to excess calories; Z68.37 Body mass index [BMI] 37.0-37.9, adult | CPT/HCPCS: 15271 ==

== ENCOUNTER → 2018-04-27 | Outpatient (CLI) | payer MEDICARE, MEDICAID | LOC: WOUNDCARE 08:32 | PROVIDERS: ATTEND Surgery | DX: L98.492 Non-pressure chronic ulcer of skin of other sites with fat layer exposed (principal); T81.31XA Disruption of external operation (surgical) wound, not elsewhere classified, initial encounter; E66.01 Morbid (severe) obesity due to excess calories | CPT/HCPCS: 15271 ==

== ENCOUNTER → 2018-05-04 | Outpatient (CLI) | payer MEDICARE, MEDICAID | LOC: WOUNDCARE 08:41 | PROVIDERS: ATTEND Surgery | DX: L98.492 Non-pressure chronic ulcer of skin of other sites with fat layer exposed (principal); T81.31XA Disruption of external operation (surgical) wound, not elsewhere classified, initial encounter; E66.01 Morbid (severe) obesity due to excess calories; Z68.37 Body mass index [BMI] 37.0-37.9, adult | CPT/HCPCS: 15271 ==

== ENCOUNTER → 2018-05-11 | Outpatient (CLI) | payer MEDICARE, MEDICAID | LOC: WOUNDCARE 08:27 | PROVIDERS: ATTEND Surgery | DX: L98.492 Non-pressure chronic ulcer of skin of other sites with fat layer exposed (principal); T81.31XA Disruption of external operation (surgical) wound, not elsewhere classified, initial encounter; E66.01 Morbid (severe) obesity due to excess calories; Z68.37 Body mass index [BMI] 37.0-37.9, adult | CPT/HCPCS: 99212 ==

== ENCOUNTER 2018-06-02 17:01 | Emergency (ER) | payer MEDICARE, MEDICAID ==
[~2018-06-02] VITALS: Ht 154.9 cm; Wt 82.1 kg
[2018-06-02] MEDS ORDERED: LACTATED RINGERS 1,000 ML IV ONE (18:06)
--- NOTE | 2018-06-02 18:27 | ED Abdominal Pain ---
General Chief Complaint: Abdominal/GI Problems Stated Complaint: ABD PAIN Nursing Triage Note: PT AMBULATES INTO THE ED, STATES SHE HAS HAD ABDOMINAL PAIN FOR THE LAST 2-3 DAYS THAT INCREASES WITH MEALS. STATES HER LAST BM WAS THIS AM AND THAT IT WAS VERY HARD IN CONSISTENCY Sepsis Screen: No Definite Risk Source of Information: Patient, Family (DAUGHTER) History of Present Illness Date Seen by Provider: Jun 02, 2018 Time Seen by Provider: 17:55 Initial Comments PT ARRIVES VIA POV FROM [facility] C/O DIFFUSE UPPER ABDOMINAL PAIN AND BLOATING FOR A COUPLE OF DAYS PAIN IS CONSTANT AND IS MUCH WORSE WITH EATING NO PROBLEMS DRINKING LIQUIDS ATE BREAKFAST AT 0700 TODAY, BUT DOES NOT REMEMBER WHAT SHE ATE. NO PROBLEMS URINATING AND IS VOIDING A NORMAL AMOUNT HAS HAD NAUSEA AND VOMITED A COUPLE OF TIMES, IS NOT NAUSEATED NOW HAS HAD CONSTIPATION AND HAD A HARD STOOL THIS AM NO FEVER HAD VENTRAL INCISIONAL HERNIA REPAIR IN FEBRUARY, THEN RE-HOSPITALIZED FOR UTI PCP: DR. CHAVEZ SURGEON: DR. FLORES Allergies and Home Medications Allergies Coded Allergies: Penicillins (Verified Allergy, Unknown, Pt has received Cefazolin & Ceftriaxone in the past w/o issu, 03/20/18) codeine (Verified Allergy, Unknown, Pt has received Lortab in the past, ) Home Medications Allopurinol 100 Mg Tablet, 100 MG PO DAILY, (Reported) Aspirin 81 Mg Tablet.dr, 81 MG PO DAILY, (Reported) Budesonide/Formoterol Fumarate 10.2 Gm Hfa.aer.ad, 2 PUFF IH BID, (Reported) Calcium Polycarbophil 625 Mg Tablet, 2 TAB PO BID, (Reported) Carbidopa/Levodopa 1 Each Tablet.er, 1 TAB PO 0800,1700, (Reported) Citalopram Hydrobromide 20 Mg Tablet, 20 MG PO DAILY, (Reported) Clindamycin HCl 300 Mg Capsule, 300 MG PO BID Prescribed by: MEKA CROWE on 03/25/18 1402 Donepezil HCl 10 Mg Tablet, 10 MG PO HS, (Reported) Furosemide 40 Mg Tablet, 40 MG PO DAILY, (Reported) Guaifenesin/Dextromethorphan 177 Ml Liquid, 20 ML PO Q4H PRN for COUGH, ( Reported) Levothyroxine Sodium 75 Mcg Tablet, 75 MCG PO DAILY, (Reported) Loratadine 10 Mg Tablet, 10 MG PO DAILY, (Reported) Mag Hydrox/Al Hydrox/Simeth 30 Ml Oral.susp, 10 ML PO Q12H PRN for INDIGESTION, (Reported) Magnesium Oxide 400 Mg Tablet, 400 MG PO BID, (Reported) Mirabegron 25 Mg Tab.er.24h, 25 MG PO DAILY, (Reported) Omeprazole 20 Mg Capsule.dr, 20 MG PO DAILY, (Reported) Ondansetron HCl 4 Mg Tablet, 4 MG SL Q8H PRN for NAUSEA/VOMITING-1ST LINE, ( Reported) Potassium Chloride 20 Meq Tablet.er, 20 MEQ PO DAILY, (Reported) Pramipexole Di-HCl 0.5 Mg Tablet, 0.5 MG PO BID, (Reported) Ropinirole HCl 1 Mg Tablet, 1 MG PO 0800,1200,1999, (Reported) Ropinirole HCl 0.25 Mg Tab, 0.25 MG PO HS, (Reported) TAKES ALONG WITH 1MG TABLET Sennosides/Docusate Sodium 1 Each Tablet, 1 TAB PO DAILY PRN for CONSTIPATION- 1ST LINE, (Reported) Trazodone HCl 50 Mg Tablet, 25 MG PO HS, (Reported) take 1/2 of 50mg tab Patient Home Medication List Home Medication List Reviewed: Yes Review of Systems Review of Systems Constitutional: no symptoms reported; No chills, No diaphoresis, No fever Respiratory: No Symptoms Reported Cardiovascular: No Symptoms Reported Gastrointestinal: See HPI, Abdominal Pain, Constipated, Nausea, Vomiting Genitourinary: No Symptoms Reported Musculoskeletal: no symptoms reported; No back pain Skin: no symptoms reported Psychiatric/Neurological: No Symptoms Reported Endocrine: No Symptoms Reported Hematologic/Lymphatic: No Symptoms Reported Past [id number] Hx Patient Social History Alcohol Use: Denies Use Number of Drinks Today: Recreational Drug Use: No Smoking Status: Never a Smoker 2nd Hand Smoke Exposure: No Recent Foreign Travel: No Contact w/Someone Who Travel: No Recent Infectious Disease Expo: No Recent Hopitalizations: Yes (FEBRUARY 2018 FOR HERNIA REPAIR AND UTI) Immunizations Up To Date Tetanus Booster (TDap): Unknown PED Vaccines UTD: No Date of Pneumonia Vaccine: May 28, 2011 Date of Influenza Vaccine: Apr 27, 2017 Seasonal Allergies Seasonal Allergies: No Past Medical History Surgeries: Yes (TEETH REMOVAL, COLOSTOMY, PEG TUBE W/ TAKEDOWN; VENTRAL / INCISIONAL HERNIA REPAIR 02/2018) Abdominal, Bowel Surgery, Gallbladder Respiratory: Yes Asthma Cardiac: Yes (DVT LEFT LEG POST OP AFTER COLON SURGERY) Deep Vein Thrombosis Neurological: Yes (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) Dementia, Parkinson's Disease : No Reproductive Disorders: No 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 BUYER History: Menopausal Genitourinary: Yes (OVERACTIVE BLADDER, INCONTINENCE) Bladder Infection, Renal Failure, UTI-Chronic Gastrointestinal: Yes (ISCHEMIC COLITIS, ADULT FAILURE TO THRIVE; HERNIA REPAIR ) Abdominal Hernia, Colitis, Gastroesophageal Reflux, Diverticulosis Musculoskeletal: Yes (RESTLESS LEGS) Arthritis, Chronic Back Pain, Gout Endocrine: Yes (HYPOMAGNESEMIA) Hypothyroidsim HEENT: Yes Cataract Hearing Impairment: Denies Cancer: No Psychosocial: Yes Sleep Difficulties, Anxiety, Bipolar, Depression Integumentary: No Blood Disorders: Yes (ANEMIA) Family Medical History Congenital disease 19 MOTHER Family history: Arthritis Hypertension 19 MOTHER Malignant neoplasm of lung 09 BROTHER No Family History of: Cancer Seizure disorder Hypertension Physical Exam Vital Signs Vital Signs - First Documented 06/02/18 17:18 Temp 96.9 Pulse 84 Resp 20 B/P (MAP) 151/71 (97) Pulse Ox 94 O2 Delivery Room Air Capillary Refill : Less Than 3 Seconds Height/Weight/BMI Height: 5'1.00" Weight: 181lbs. 12.8oz. 82.742818vg; 36.4 BMI Method:Stated General Appearance: WD/WN, no apparent distress HEENT: other (POOR DENTITION--MSSING TEETH AND REMAINING TEETH WITH EXTENSIVE DECAY) Neck: normal inspection Respiratory: normal breath sounds, no respiratory distress, no accessory muscle use Cardiovascular: regular rate, rhythm, no murmur Gastrointestinal: normal bowel sounds, soft, no organomegaly, no pulsatile mass ; No distended, No guarding, No rebound; tenderness (DIFFUSE UPPER ABDOMINAL TENDERNESS), hernia (VENTRAL HERNIA) Extremities: normal inspection, normal capillary refill Back: no CVA tenderness Neurologic/Psychiatric: 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 NO SURROUNDING INFLAMMATION. ) Progress/Results/Core Measures Results/Orders Lab Results Laboratory Tests Test 06/02/18 18:20 06/02/18 18:55 Range/Units White Blood Count 11.6 H 4.3-11.0 10^3/uL Red Blood Count 4.28 L 4.35-5.85 10^6/uL Hemoglobin 11.2 L 11.5-16.0 G/DL Hematocrit 36 35-52 % Mean Corpuscular Volume 85 80-99 FL Mean Corpuscular Hemoglobin 26 25-34 PG Mean Corpuscular Hemoglobin Concent 31 L 32-36 G/DL Red Cell Distribution Width 14.4 10.0-14.5 % Platelet Count 327 130-400 10^3/uL Mean Platelet Volume 10.4 7.4-10.4 FL Neutrophils (%) (Auto) 68 42-75 % Lymphocytes (%) (Auto) 20 12-44 % Monocytes (%) (Auto) 8 0-12 % Eosinophils (%) (Auto) 4 0-10 % Basophils (%) (Auto) 0 0-10 % Neutrophils # (Auto) 8.0 H 1.8-7.8 X 10^3 Lymphocytes # (Auto) 2.3 1.0-4.0 X 10^3 Monocytes # (Auto) 0.9 0.0-1.0 X 10^3 Eosinophils # (Auto) 0.5 H 0.0-0.3 10^3/uL Basophils # (Auto) 0.0 0.0-0.1 10^3/uL Prothrombin Time 14.0 12.2-14.7 SEC INR Comment 1.1 0.8-1.4 Activated Partial Thromboplast Time 31 24-35 SEC Sodium Level 138 135-145 MMOL/L Potassium Level 4.4 3.6-5.0 MMOL/L Chloride Level 103 98-107 MMOL/L Carbon Dioxide Level 23 21-32 MMOL/L Anion Gap 12 5-14 MMOL/L Blood Urea Nitrogen 31 H 7-18 MG/DL Creatinine 1.56 H 0.60-1.30 MG/DL Estimat Glomerular Filtration Rate 32 BUN/Creatinine Ratio 20 Glucose Level 109 H 70-105 MG/DL Calcium Level 9.6 8.5-10.1 MG/DL Corrected Calcium 9.5 8.5-10.1 MG/DL Magnesium Level 2.1 1.8-2.4 MG/DL Total Bilirubin 0.4 0.1-1.0 MG/DL Aspartate Amino Transf (AST/SGOT) 14 5-34 U/L Alanine Aminotransferase (ALT/SGPT) < 6 0-55 U/L Alkaline Phosphatase 116 40-136 U/L Total Protein 7.8 6.4-8.2 GM/DL Albumin 4.1 3.2-4.5 GM/DL Amylase Level 104 25-125 U/L Lipase 141 H 8-78 U/L Urine Color YELLOW Urine Clarity CLEAR Urine pH 5 5-9 Urine Specific [place] 1.015 L 1.016-1.022 Urine Protein NEGATIVE NEGATIVE Urine Glucose (UA) NEGATIVE NEGATIVE Urine Ketones NEGATIVE NEGATIVE Urine Nitrite NEGATIVE NEGATIVE Urine Bilirubin NEGATIVE NEGATIVE Urine Urobilinogen NORMAL NORMAL MG/DL Urine Leukocyte Esterase 2+ H NEGATIVE Urine RBC (Auto) NEGATIVE NEGATIVE Urine RBC NONE /HPF Urine WBC 5-10 H /HPF Urine Squamous Epithelial Cells RARE /HPF Urine Crystals NONE /LPF Urine Bacteria FEW H /HPF Urine Casts NONE /LPF Urine Mucus NO /LPF Urine Culture Indicated YES My Orders Orders - JAMMIE HAIDER DO Saline Lock/Iv-Start (06/02/18 18:06) Amylase (06/02/18 18:06) Cbc With Automated Diff (06/02/18 18:06) Comprehensive Metabolic Panel (06/02/18 18:06) Lipase (06/02/18 18:06) Protime With Inr (06/02/18 18:06) Partial Thromboplastin Time (06/02/18 18:06) Ua Culture If Indicated (06/02/18 18:06) Saline Lock/Iv-Start (06/02/18 18:06) Lactated Ringers (Lr 1000 Ml Iv Solution (06/02/18 18:06) Magnesium (06/02/18 18:09) Ct Abdomen/Pelvis Wo (06/02/18 18:51) Acute Abd Series (06/02/18 18:51) Urine Culture (06/02/18 18:55) Dicyclomine Capsule (Bentyl Capsule) (06/02/18 19:45) Hyoscyamine Sl Tablet (Levsin Sl Tablet) (06/02/18 19:45) Pantoprazole Injection (Protonix Injecti (06/02/18 19:45) Rocephin 1g/Ns Iv (06/02/18 19:45) Medications Given in ED Current Medications Medications Dose Ordered Sig/Jaylen Route Start Time Stop Time Status Last Admin Dose Admin Lactated Ringer's 1,000 ml @ 0 mls/hr Q0M ONCE IV 06/02/18 18:06 06/02/18 18:08 DC 06/02/18 19:24 0 MLS/HR Vital Signs/I&O 06/02/18 17:18 Temp 96.9 Pulse 84 Resp 20 B/P (MAP) 151/71 (97) Pulse Ox 94 O2 Delivery Room Air Blood Pressure Mean: 97 Diagnostic Imaging Comments ACUTE ABDOMEN XRAYS--MODERATE AMOUNT OF STOOL IN DESCENDING COLON AND RECTUM, BUT NO OBSTRUCTION/TRANSITION POINT CT ABDOMEN/PELVIS--CONTINUED PROTRUSION OF ANTERIOR ABDOMINAL WALL /VENTRAL HERNIA WITHOUT INCARCERATION OR OBSTRUCTION. PER RADIOLOGIST REPORTS AT 1935 Reviewed: Reviewed by Me Departure Impression Primary Impression: Urinary tract infection Additional Impressions: Upper abdominal pain Recurrent ventral hernia Mild dehydration Disposition: HOME, SELF-CARE Condition: Stable Departure-Patient Inst. Referrals: CHRISTIAN CHAVEZ MD (PCP/Family) Primary Care Physician ELAINE FLORES MD Patient Instructions: Abdominal Hernia (DC), Acute Abdomen (Belly Pain), Adult (DC), Dehydration, Adult (DC), Urinary Tract Infection, Adult (DC) Add. Discharge Instructions: CLEAR LIQUIDS--WATER, BROTH, JELLO, GATORADE BLAND DIET--TOAST, SALINES, RICE, APPLESAUCE TAKE YOUR REGULAR MEDICATIONS PRESCRIBED, EXCEPT INCREASE YOUR OMEPRAZOLE TO 40 MG DAILY TAKE STOOL SOFTENER TWICE A DAY EVERY DAY FOLLOW UP WITH DR. FLORES THIS WEEK FOR ABDOMINAL PAIN AND HERNIA FOLLOW UP WITH YOUR FAMILY THIS WEEK TO RECHECK URINE. RETURN TO ER IF SYMPTOMS WORSEN All discharge instructions reviewed with patient and/or family. Voiced understanding. Scripts Nitrofurantoin Monohyd/M-Cryst (Macrobid 100 mg Capsule) 100 Mg Capsule 100 MG PO BID, #20 CAP Prov: MELIZACLAIRA K DO 06/02/18 Hyoscyamine Sulfate (Levsin-Sl) 0.125 Mg Tab.subl 1-2 TAB SL Q4H for Abdominal Pain, #10 TAB Prov: MELIZACLAIRA K DO 06/02/18 Dicyclomine HCl (Dicyclomine HCl) 10 Mg Capsule 10 MG PO Q6H for Abdominal Pain, #20 CAP Prov: JAMMIE HAIDER DO 06/02/18 Sucralfate (Carafate) 1 Gm Tablet 1 GM PO QIDACHS, #60 TAB Prov: JAMMIE HAIDER DO 06/02/18 JAMMIE HAIDER DO Jun 02, 2018 18:27
[2018-06-02 18:28] LABS: BASOPHILS % (AUTO) 0 % (0-10); EOSINOPHILS # (AUTO) 0.5 10^3/uL (0.0-0.3); EOSINOPHILS % (AUTO) 4 % (0-10); HEMATOCRIT 36 % (35-52); HEMOGLOBIN 11.2 G/DL (11.5-16.0); LYMPHOCYTES # (AUTO) 2.3 X 10^3 (1.0-4.0); LYMPHOCYTES % (AUTO) 20 % (12-44); MEAN CORPUSCULAR HEMOGLOBIN 26 PG (25-34); MEAN CORPUSCULAR HGB CONC 31 G/DL (32-36); MEAN CORPUSCULAR VOLUME 85 FL (80-99); MEAN PLATELET VOLUME 10.4 FL (7.4-10.4); MONOCYTES # (AUTO) 0.9 X 10^3 (0.0-1.0); MONOCYTES % (AUTO) 8 % (0-12); NEUTROPHILS % (AUTO) 68 % (42-75); PLATELET COUNT 327 10^3/uL (130-400); RED BLOOD COUNT 4.28 10^6/uL (4.35-5.85); RED CELL DISTRIBUTION WIDTH 14.4 % (10.0-14.5); WHITE BLOOD COUNT 11.6 10^3/uL (4.3-11.0)
[2018-06-02 18:37] LABS: INR 1.1 (0.8-1.4)
[2018-06-02 18:47] LABS: ALANINE AMINOTRANSFERASE < 6 U/L (0-55); ALBUMIN 4.1 GM/DL (3.2-4.5); ALKALINE PHOSPHATASE 116 U/L (40-136); AMYLASE 104 U/L (25-125); BILIRUBIN,TOTAL 0.4 MG/DL (0.1-1.0); BUN/CREATININE RATIO 20; CALCIUM 9.6 MG/DL (8.5-10.1); CARBON DIOXIDE 23 MMOL/L (21-32); CHLORIDE 103 MMOL/L (98-107); CREATININE SERUM 1.56 MG/DL (0.60-1.30); GFR ESTIMATED 32; GLUCOSE 109 MG/DL (70-105); LIPASE 141 U/L (8-78); MAGNESIUM 2.1 MG/DL (1.8-2.4); POTASSIUM 4.4 MMOL/L (3.6-5.0); SODIUM 138 MMOL/L (135-145); TOTAL PROTEIN 7.8 GM/DL (6.4-8.2)
[2018-06-02 19:08] LABS: BILIRUBIN,URINE NEGATIVE (NEGATIVE); CLARITY,URINE CLEAR; COLOR,URINE YELLOW; GLUCOSE, URINE (UA) NEGATIVE (NEGATIVE); KETONES,URINE NEGATIVE (NEGATIVE); LEUKOCYTE ESTERASE ,URINE 2+ (NEGATIVE); NITRITE,URINE NEGATIVE (NEGATIVE); PH,URINE 5 (5-9); PROTEIN,URINE NEGATIVE (NEGATIVE); UROBILINOGEN,URINE NORMAL (NORMAL)
[2018-06-02 19:17] LABS: BACTERIA,URINE FEW /HPF; SQUAMOUS EPITHELIAL CELL,UR RARE /HPF
--- NOTE | 2018-06-02 19:23 | Diagnostic Imaging Report ---
PROCEDURE: CT abdomen and pelvis without contrast. TECHNIQUE: Multiple contiguous axial images were obtained through the abdomen and pelvis without the use of intravenous contrast. INDICATION: Left upper quadrant abdominal pain with nausea and emesis for [address] images of the abdomen and pelvis are obtained with comparison made to study of 03/20/2018. Unenhanced images of the liver and spleen reveal occasional calcified granulomas without other focal lesion. Gallbladder surgically absent. There is no evidence of pancreatic or adrenal gland lesion. There is fluid distention of the duodenum with questionable mild mural thickening. There has been reduction in fluid and inflammation in the anterior abdomen including anterior abdominal wall. There is continued protrusion of the anterior abdominal wall with omentum and small and large bowel extending into the defect, however, there is no evidence of obstruction or incarceration. Surgical anastomosis in the left midabdomen is not significantly changed. Unenhanced images of the bladder are unremarkable. The appendix is nonvisualized and likely surgically absent. No organized fluid collection is seen to represent an abscess. There is lumbar spondylosis and inferior vena caval filter is in place. IMPRESSION: Continued protrusion of the anterior abdominal wall without eric incarceration or obstruction. There is no significant small or large bowel dilatation apart from the descending duodenum which is nonspecific. Otherwise no acute abnormality is seen. Dictated by: Dictated on workstation # [id number]
--- NOTE | 2018-06-02 19:32 | Diagnostic Imaging Report ---
INDICATION: Abdominal pain with nausea and emesis Supine and upright views of the abdomen are obtained with single view of the chest. Comparison is made to the study of 03/20/2018. Heart size is at upper limits of normal with probable mild atelectasis and/or scarring in the lingula. There are surgical clips in the upper abdomen with inferior vena cava filter noted. Overall bowel gas pattern is unremarkable. Surgical suture is seen in the left midabdomen and near the rectum. There is moderate amount of stool in the distal colon and rectum. Note is made of chronic appearing compression fracture of L2 vertebral body. IMPRESSION: Moderate amount of stool at the distal colon and rectum, however, no definite transition point is seen to indicate an obstruction. Otherwise, no acute abnormality is detected. Dictated by: Dictated on workstation # [id number]
[2018-06-02] MEDS ORDERED: PANTOPRAZOLE 40 MG (PROTONIX) VIAL IV ONE (19:45)
[2018-06-02] MEDS ORDERED: cefTRIAXone FOR IV USE 1,000 MG in NS (IVPB) 50 ML IV ONE (19:45)
[2018-06-02] MEDS ORDERED: DICYCLOMINE 10 MG (BENTYL) CAP PO ONE (19:45)
[2018-06-02] MEDS ORDERED: HYOSCYAMINE 0.125 MG (LEVSIN) TAB PO ONE (19:45)
[2018-06-02] MEDS ORDERED: NITR-65 PO (19:48)
[2018-06-02] MEDS ORDERED: DICY10CA12 PO (19:48)
[2018-06-02] MEDS ORDERED: SUCR1TAB36 PO (19:48)
[2018-06-02] MEDS ORDERED: HYOS0.1283 SL (19:48)
[2018-06-02 21:09] VITALS: BP 147/75
== END 2018-06-02 21:12 | disposition home or self-care (01) ==
LOC: EDUNIT# 17:01 → ER 17:02
DX: N39.0 Urinary tract infection, site not specified (principal); K43.2 Incisional hernia without obstruction or gangrene; E86.0 Dehydration; J45.909 Unspecified asthma, uncomplicated; G20 Parkinson's disease; F02.80 Dementia in other diseases classified elsewhere, unspecified severity, without behavioral disturbance, psychotic disturbance, mood disturbance, and anxiety; K21.9 Gastro-esophageal reflux disease without esophagitis; E03.9 Hypothyroidism, unspecified; F31.9 Bipolar disorder, unspecified; F41.9 Anxiety disorder, unspecified; Z80.1 Family history of malignant neoplasm of trachea, bronchus and lung; Z86.718 Personal history of other venous thrombosis and embolism; Z88.0 Allergy status to penicillin; Z88.5 Allergy status to narcotic agent; Z79.82 Long term (current) use of aspirin; Z93.3 Colostomy status; Z98.890 Other specified postprocedural states
CPT/HCPCS: 36415; 74022; 74176; 80053; 81000; 82150; 83690; 83735; 85025; 85610; 85730; 87077; 87088; 87186; 96361; 96365; 96375

== ENCOUNTER 2018-08-05 05:31 | Outpatient (CLI) | payer MEDICARE, MEDICAID ==
[~2018-08-05] VITALS: Ht 154.9 cm; Wt 82.1 kg
[~2018-08-05 05:31] MED LIST changes: +DICY10CA12 PO; +HYOS0.1283 SL; +NITR-65 PO; +SUCR1TAB36 PO
[2018-08-05] MEDS ORDERED: OMEP40CA36 PO (13:13)
[2018-08-05] MEDS ORDERED: OXYC-471 PO (13:13)
[2018-08-05] MEDS ORDERED: OXYC1TAB16 PO (13:13)
[2018-08-05] MEDS ORDERED: TRAM50TA2 PO (13:13)
== END 2018-08-05 11:03 | disposition home or self-care (01) ==
LOC: PREOP 05:31
PROVIDERS: ATTEND Surgery
DX: Z01.818 Encounter for other preprocedural examination (principal)

== ENCOUNTER 2018-08-06 11:23 | Day surgery (SDC) | payer MEDICARE, MEDICAID ==
--- NOTE | 2018-08-05 13:22 | NUR ---
UPDATED MED REC WITH ORDERS REPORT FROM [place]
[~2018-08-06] VITALS: Ht 154.9 cm; Wt 82.1 kg
[~2018-08-06 11:23] MED LIST changes: +OMEP40CA36 PO; +OXYC-471 PO; +OXYC1TAB16 PO
--- OUTSIDE RECORDS SUMMARY | 2018-08-06 11:28 | XMS REPORT ---
Author Author MARLON NELSON [facility] Address [address] [place] [address] Care Team Providers Care Ordnance Equipment Worker Name Role Phone MARLON NELSNO Unavailable PROBLEMS Type Condition ICD9-CM Code DPN73-GE Code Onset Dates Condition Status SNOMED Code Problem Colostomy status Z93.3 Active 215229424 Problem Parkinsons disease G20 Active 18426744 Problem Dementia associated with other underlying disease without behavioral disturbance F02.80 Active 916274112 Problem Full incontinence of feces R15.9 Active 27771672 Problem Unspecified urinary incontinence R32 Active 91855514 Problem Other chronic pain G89.29 Active 53908619 Problem Anxiety F41.9 Active 69944881 Problem Poor appetite R63.0 Active 80101903 Problem Primary insomnia F51.01 Active 2756642 Problem Gastroesophageal reflux disease without esophagitis K21.9 Active 443709330 Problem Essential hypertension I10 Active 37364248 Problem Dysthymia F34.1 Active 17178710 Problem Chronic obstructive pulmonary disease, unspecified COPD type J44.9 Active 75995534 Problem Acquired hypothyroidism E03.9 Active 214561360 Problem Major depression, recurrent, chronic F33.9 Active 03710298 Problem Seizures R56.9 Active 13386199 ALLERGIES No Information ENCOUNTERS Encounter Location Date Diagnosis [facility] [address] [address] May, Other chronic pain G89.29 [facility] [address] [place] [address] May, Acute cystitis without hematuria N30.00 and Recurrent ventral hernia K43.2 [facility] [address], [place] [address] May, [facility] [address], [place] [address] Apr, [facility] [id number] [place] [address]68- 3[address] Apr, Other chronic pain G89.29 [facility] [address] [place] [address] 16 Apr, 2018 Full incontinence of feces R15.9 and Unspecified urinary incontinence R32 [facility] [id number] [place] [address]- [address]2 Apr, [facility] [id number] [place] [address] 76775- 4796 Apr, [facility] [id number] [place] [address] 82839- 5173 Mar, [facility] [id number] [place] [address] 53266- 6531 Mar, [facility] [id number] [place] [address] 11442- 8032 Mar, [facility] [id number] [place] [address] 14144- 8411 Mar, Other chronic pain G89.29 [facility] [id number] [place] [address] 86665- 6515 Mar, [facility] [id number] [place] [address] 21411- 1739 Mar, [facility] [id number] [place] [address] 30232- 5572 Mar, [facility] [address] [place] [id number] Mar, Personal history of other diseases of the digestive system Z87.19 ; Other specified postprocedural states Z98.890 ; Weakness R53.1 and Poor appetite R63.0 [facility] [id number] [place] [address] 40857[address] 7283 Feb, [facility] [id number] [place] [address] 81155- 0612 Feb, Other chronic pain G89.29 [facility] [id number] [place] [address] 11064- 9329 Feb, [facility] [id number] [place] [address] 88712- 7514 Feb, [facility] [id number] [place] [address] 13615- 2412 Feb, [facility] [address] [address] Feb, Other chronic pain G89.29 [facility] [address] [address] Feb, Personal history of other diseases of the digestive system Z87.19 ; Other specified postprocedural states Z98.890 and Nausea R11.0 [facility] [id number] [place] [id number] Feb, Dental examination Z01.20 [facility] [id number] [place] [address] 63486- 2664 Jan, [facility] [id number] [place] [address] 29314- 0389 Jan, Other chronic pain G89.29 [facility] [id number] [place] [address] 89540- 5248 Jan, [facility] [id number] [place] [address] 33390- 2431 Jan, [facility] [id number] [place] [address]87 [address]8585 Jan, Epigastric mass R19.06 [facility] [id number] [place] [address] 04371- 0649 Dec, Other chronic pain G89.29 [facility] [id number] [place] [address] 42161- 9543 November, Other chronic pain G89.29 [facility] [address] [facility] [id number] [address] November, [facility] [address] [facility] [id number] November, Other chronic pain G89.29 [employer] [address] [place] [address] Oct, Bronchitis J40 and Parkinsons disease G20 [facility] [address] [place] [address] Oct, Bronchitis J40 [facility] [address] [facility] [id number], [place] [address] Oct, [facility] [address], [place] [address] Oct, Other chronic pain G89.29 [facility] [id number] [id number] Sep, Other chronic pain G89.29 [facility] [address] [place] [address] Aug, Acute pain of right ear H92.01 [facility] [id number] [id number] Aug, Other chronic pain G89.29 [facility] [address] [place] [address] Jul, Acquired hypothyroidism E03.9 ; Localized edema R60.0 ; Weight gain R63.5 and Primary insomnia F51.01 [facility] [address] [id number] [id number] Jul, Other chronic pain G89.29 [facility] [id number] [id number] Jun, Other chronic pain G89.29 [facility] [address] [id number] [id number] May, Other chronic pain G89.29 [facility] [address] [id number][place] [id number] 18 Apr, 2017 Other chronic pain G89.29 [facility] [address] [id number] [id number] 16 Apr, 2017 Bronchitis J40 [facility] [address] [place] [address] 10 Apr, 2017 Callus L84 and Parkinsons disease G20 [facility] [address] [id number] [id number] Apr, [facility] [address] [id number][place] [id number] Mar, Other chronic pain G89.29 [facility] [address] [id number][place] [id number] Feb, [facility] [id number] [id number] Feb, Other chronic pain G89.29 [facility] [address] [facility] [id number], [place] [address] Jan, Acquired hypothyroidism E03.9 [facility] [address] [id number] [id number] Jan, Other chronic pain G89.29 [facility] [address] [id number], [place] [id number] Dec, Other chronic pain G89.29 [facility] [address] [facility] [id number], [place] [address] 14 Dec, 2016 [facility] [address] [facility] [id number], [place] [address] 13 Dec, 2016 [facility] [address] [place] [address] 08 Dec, 2016 Seborrheic keratoses L82.1 and Trochanteric bursitis, right hip M70.61 [facility] [address] [facility] [id number][place] 07 Dec, 2016 [facility] [address] [id number], [place] [address] Dec, Other chronic pain G89.29 [facility] [address] [facility] [id number][place] [address] November, [facility] [address] [facility] [id number], [place] [address] November, [facility] [id number] [id number] November, Other chronic pain G89.29 [facility] [id number], [place] [id number] Oct, [facility] [address] [address] Oct, Edema, unspecified type R60.9 [facility] [address] [id number] [id number] Oct, Other chronic pain G89.29 [facility] [address] [id number], [place] [address] 4989 Oct, Acquired hypothyroidism E03.9 [facility] [id number], [place] [id number] Sep, [facility] [id number], [place] [id number] Sep, Other chronic pain G89.29 [facility] [address] [place] [address] Sep, Cramp of both lower extremities R25.2 ; Acquired hypothyroidism E03.9 and Parkinsons disease G20 [facility] [address] [id number], [place] [id number] Sep, [facility] [address] [facility] [id number], [place] [address] Aug, [facility] [address] [id number] Aug, [facility] [address] [place] [address] Aug, Leg edema, left R60.0 [facility] [id number] [place] [address] 25285- 0291 Aug, [facility] [id number] [place] [address] 86060- 0422 Aug, Acute deep vein thrombosis (DVT) of femoral vein, unspecified laterality I82.419 [facility] [id number] [place] [address] 43622- 7520 Aug, [facility] [id number] [place] [address] 76872- 3217 Aug, Other chronic pain G89.29 [facility] [id number] [place] [address] 25181- 1443 Aug, [facility] [id number] [place] [address] 76160- 8585 Aug, Bronchitis J40 ; Primary insomnia F51.01 ; Parkinsons disease G20 ; Anxiety F41.9 and Other chronic pain G89.29 [facility] [id number] [place] [id number] Jul, Dementia without behavioral disturbance, unspecified dementia type F03.90 ; Anxiety F41.9 ; Low back pain M54.5 and Other chronic pain G89.29 [facility] [id number] [place] [address] 90936- 2555 Jul, [facility] [id number] [place] [address] 68148- 1826 Jul, [facility] [id number] [place] [address] [id number] Jul, [facility] [id number] [place] [address] 71510- 3130 Jul, [facility] [id number] [place] [address] 46591- 6285 Jun, [facility] [address] [facility] [id number], [place] [address]- 8846 Jun, [facility] [address] [place] [address] Jun, Parkinsons disease G20 [facility] [address] [facility] [id number], [place] [address]- 0454 May, [facility] [address] [facility] [id number], [place] [address]- 3217 Apr, [facility] [address] [facility] [id number], [place] [address]- 6721 Apr, [facility] [address] [place] [address] Apr, Parkinsons disease G20 [facility] [address] [facility] [id number], [place] [address]- 4227 Mar, [facility] [address] [place] [address] Feb, Dementia without behavioral disturbance, unspecified dementia type F03.90 and Parkinsons disease G20 [facility] [address] [id number], [place] [address]46 Feb, IMMUNIZATIONS No Known Immunizations SOCIAL HISTORY Never Assessed REASON FOR VISIT Controlled Med Refill 06/17 PLAN OF CARE VITAL SIGNS MEDICATIONS Medication [...] Chronic obstructive pulmonary disease, unspecified COPD type Medical History Back trouble Surgical History cholecystectomy Surgical History colostomy bag Surgical History bowel resection Hospitalization History surgeries
--- OUTSIDE RECORDS SUMMARY | 2018-08-06 11:28 | XMS REPORT ---
Author Author MARLON NELSON [facility] Address [address] [place] [address] Care Team Providers Care Vacuum Frame Operator Name Role Phone MARLON NELSON Unavailable PROBLEMS Type Condition ICD9-CM Code [id number] Code Onset Dates Condition Status SNOMED Code Problem Colostomy status Z93.3 Active 028342890 Problem Parkinsons disease G20 Active 60191077 Problem Dementia associated with other underlying disease without behavioral disturbance F02.80 Active 573653313 Problem Full incontinence of feces R15.9 Active 15381479 Problem Unspecified urinary incontinence R32 Active 53507096 Problem Other chronic pain G89.29 Active 07547571 Problem Anxiety F41.9 Active 48821250 Problem Poor appetite R63.0 Active 50004155 Problem Primary insomnia F51.01 Active 5885419 Problem Gastroesophageal reflux disease without esophagitis K21.9 Active 644859514 Problem Essential hypertension I10 Active 39377256 Problem Dysthymia F34.1 Active 28925017 Problem Chronic obstructive pulmonary disease, unspecified COPD type J44.9 Active 12871028 Problem Acquired hypothyroidism E03.9 Active 787885899 Problem Major depression, recurrent, chronic F33.9 Active 13037104 Problem Seizures R56.9 Active 87925826 ALLERGIES No Information ENCOUNTERS Encounter Location Date Diagnosis [facility] [place] [id number] [address] May, [facility] [place] [address] [id number], [place] [address] May, Other chronic pain G89.29 [facility] [address] [place] [address] 13 May, 2018 Acute cystitis without hematuria N30.00 and Recurrent ventral hernia K43.2 [facility] [place] [address] [address] May, [facility] [place] [address] [place] [address] Apr, [facility] [place] [id number] [place] [address] Apr, Other chronic pain G89.29 [facility] [address] [place] [address] Apr, Full incontinence of feces R15.9 and Unspecified urinary incontinence R32 [facility] [place] [id number] [place] [address] Apr, [facility] [place] [id number] [place] [address] Apr, [facility] [place] [id number] [place] [address] Mar, [facility] [place] [id number] [place] [address] 32[address] Mar, [facility] [place] [id number] [place] [address] Mar, [facility] [place] [id number] [place] [address]99[address] Mar, Other chronic pain G89.29 [facility] [place] [id number] [place] [address]40[address] Mar, [facility] [place] [address] [place] [address] Mar, [facility] [place] [address] [place] [address] Mar, [email or web address] [address] [place] [id number] 04 Mar, 2018 Personal history of other diseases of the digestive system Z87.19 ; Other specified postprocedural states Z98.890 ; Weakness R53.1 and Poor appetite R63.0 [facility] [place] [address] [place] [address]79[address] Feb, [facility] [place] [address] [place] [address] 95[address] Feb, Other chronic pain G89.29 [facility] [place] [id number] [place] [address] 39[address] Feb, [facility] [place] [id number] [place] [address] 88722[address] 67[address] Feb, [facility] [place] [id number] [place] [address] 03452[address] 48[address] Feb, [facility] [place] [id number] [place] [address]897[address] 64[address] Feb, Other chronic pain G89.29 [facility] [place] [id number] [place] [address]85[address] Feb, Personal history of other diseases of the digestive system Z87.19 ; Other specified postprocedural states Z98.890 and Nausea R11.0 [facility] [address] [place] [id number] Feb, Dental examination Z01.20 [facility] [place] [id number] [place] [address] Jan, [facility] [place] [address] [place] [address]70[address] 4[address] Jan, Other chronic pain G89.29 [facility] [place] [id number] [place] [address]86[address] 25[address] Jan, [facility] [place] [id number] [place] [address]10[address] 8977 Jan, [facility] [id number] [place] [address] Jan, Epigastric mass R19.06 [facility] [place] [address] [place] [address] 91641- 5[address] Dec, Other chronic pain G89.29 [facility] [place] [address] [facility] [id number] [address] November, Other chronic pain G89.29 [facility] [place] [address], [place] [address] November, [facility] [place] [address], [place] [address] November, Other chronic pain G89.29 [facility] [address] [place] [address] Oct, Bronchitis J40 and Parkinsons disease G20 [facility] [address] [place] [address] Oct, Bronchitis J40 [facility] [place] [address], [place] [address] Oct, [facility] [place] [address] [place] [address]1992[address] 9[address] Oct, Other chronic pain G89.29 [facility] [id number] [place] [id number] Sep, Other chronic pain G89.29 [facility] [address] [place] [address] Aug, Acute pain of right ear H92.01 [facility] [id number] [address] Aug, Other chronic pain G89.29 [facility] [address] [place] [address] Jul, Acquired hypothyroidism E03.9 ; Localized edema R60.0 ; Weight gain R63.5 and Primary insomnia F51.01 [facility] [id number] [id number] Jul, Other chronic pain G89.29 [facility] [id number] [id number] Jun, Other chronic pain G89.29 [facility] [id number] [address] May, Other chronic pain G89.29 [facility] [address] [id number] [id number] Apr, Other chronic pain G89.29 [facility] [address] [id number] [address] Apr, Bronchitis J40 [facility] [address] [place] [address] 10 Apr, 2017 Callus L84 and Parkinsons disease G20 [facility] [address] [id number] [id number] Apr, [facility] [id number] [address] Mar, Other chronic pain G89.29 [facility] [id number] [id number] Feb, [facility] [id number] [address] Feb, Other chronic pain G89.29 [facility] [place] [address] [facility] [id number], [place] [address] Jan, Acquired hypothyroidism E03.9 [facility] [id number] [address] Jan, Other chronic pain G89.29 [facility] [address] [id number] [address] Dec, Other chronic pain G89.29 [facility] [place] [address] [facility] [id number], [place] [address] Dec, [facility] [place] [address] [id number], [place] [address] Dec, [facility] [address] [place] [address] 08 Dec, 2016 Seborrheic keratoses L82.1 and Trochanteric bursitis, right hip M70.61 [facility] [place] [address], [place] [address] Dec, [facility] [place] [address] [place] [address]100[address] 5546 Dec, Other chronic pain G89.29 [facility] [place] [address] [address] November, [facility] [place] [address] [place] [address] 214807- 7905 November, [facility] [id number] [place] [address] [id number] November, Other chronic pain G89.29 [facility] [id number] [place] [address] [id number] Oct, [facility] [place] [id number] [place] [address] [id number][address] 1188 Oct, Edema, unspecified type R60.9 [facility] [id number] [place] [id number] Oct, Other chronic pain G89.29 [facility] [place] [address] [place] [address] 45897[address] 7368 Oct, Acquired hypothyroidism E03.9 [facility] [address] [id number] [id number] Sep, [facility] [id number] [place] [address] [id number] Sep, Other chronic pain G89.29 [facility] [address] [place] [address] Sep, Cramp of both lower extremities R25.2 ; Acquired hypothyroidism E03.9 and Parkinsons disease G20 [facility] [id number] [id number] Sep, [facility] [place] [address] [address] Aug, [facility] [place] [address] [id number], [place] [address] Aug, [facility] [address] [place] [address] Aug, Leg edema, left R60.0 [facility] [place] [id number] [place] [address] 77397- 7266 Aug, [facility] [place] [id number] [place] [address] 76487- 7124 Aug, Acute deep vein thrombosis (DVT) of femoral vein, unspecified laterality I82.419 [facility] [place] [id number] [place] [address] 92451- 6212 Aug, [facility] [place] [id number] [place] [address] 45300- 6981 Aug, Other chronic pain G89.29 [facility] [place] [id number] [place] [address] 30861- 8445 Aug, [facility] [place] [id number] [place] [address] 43761- 4361 Aug, Bronchitis J40 ; Primary insomnia F51.01 ; Parkinsons disease G20 ; Anxiety F41.9 and Other chronic pain G89.29 [facility] [id number] [place] [address] [id number] Jul, Dementia without behavioral disturbance, unspecified dementia type F03.90 ; Anxiety F41.9 ; Low back pain M54.5 and Other chronic pain G89.29 [facility] [place] [address] [place] [address] 78580- 8314 Jul, [facility] [place] [id number] [place] [address] 56800- 2756 Jul, [facility] [id number] [place] [address] [id number] Jul, [facility] [place] [id number] [place] [address] 37031- 6604 Jul, [facility] [place] [address] [facility] [id number], [place] [address] Jun, [facility] [place] [address] [facility] [id number], [place] [address] Jun, [facility] [address] [place] [address] Jun, Parkinsons disease G20 [facility] [place] [address] [facility] [id number], [place] [address] May, [facility] [place] [address] [facility] [id number], [place] [address] Apr, [facility] [place] [address] [facility] [id number], [place] [address] Apr, [facility] [address] [place] [address] Apr, Parkinsons disease G20 [facility] [place] [address], [place] [address] Mar, [facility] [address] [place] [address] Feb, Dementia without behavioral disturbance, unspecified dementia type F03.90 and Parkinsons disease G20 [facility] [place] [address] [facility] [id number], [place] [address] Feb, IMMUNIZATIONS No Known Immunizations SOCIAL HISTORY Never Assessed REASON FOR VISIT Refill request PLAN OF CARE VITAL SIGNS MEDICATIONS Unknown Medications RESULTS No Results PROCEDURES No Known procedures [...]
--- OUTSIDE RECORDS SUMMARY | 2018-08-06 11:28 | XMS REPORT | Clinical Summary ---
Author Author [facility] Organization [facility] Address Unknown Phone Unavailable Care Team Providers Care Commercial Trailer Truck Driver Name Role Phone Lis Moreno MD PCP [...] in the Health Information Management department at [phone] for further assistance in locating additional records.[facility] Allergies Comments Active Allergy Reactions Severity Noted Date Codeine UNKNOWN 08/30/2013 Penicillins UNKNOWN 08/30/2013 Medications End Date Status Medication Sig Dispensed Refills Start Date Active budesonide/formoterol Inhale 2 0 (SYMBICORT) 160/4.5 mcg Puffs by HFAA inhalation mouth twice daily. Active citalopram (CELEXA) 20 mg Take 20 mg by 0 tablet mouth daily. Active levothyroxine (SYNTHROID) Take 50 mcg 0 50 mcg tablet by mouth every morning. Active vitamins, B complex tab Take 1 Tab by 0 mouth daily. Active traMADol (ULTRAM) 50 mg Take 100 mg 0 tablet by mouth four times daily. Active folic acid (FOLVITE) 1 mg Take 1 Tab by 0 tablet mouth daily. 4 Active megestrol (MEGACE) 40 Take 10 mL by 1 02/24/201 mg/mL oral suspension mouth daily. 4 Active ascorbic acid (CECON) 500 Take 5 mL by 0 mg/5 mL syrp oral syrup mouth daily. 4 Active polyethylene glycol 3350 Take 17 g by 0 (GLYCOLAX; MIRALAX) 17 mouth daily. 4 gram/dose powder Active senna/docusate Take 1 Tab by 0 (SENOKOT-S) 8.6/50 mg mouth twice 4 tablet daily. Active buPROPion (WELLBUTRIN) 75 Take 1 Tab by 0 mg tablet mouth twice [address] daily[address] Active [address](+) Take 1 Cap by 90 Cap 0 (PRILOSEC) 20 mg capsule mouth twice 4 daily. Active oxyCODone-acetaminophen Take 1-2 Tabs 30 Tab 0 (PERCOCET; ENDOCET; by mouth 4 ROXICET) 5-325 mg tablet every 6 hours as needed for Pain Earliest Fill Date: 09/20/13 Max 12 tabs/day Active melatonin 10 mg cap Take 1 Cap by 0 mouth at bedtime daily. Active Problems Problem Noted Date Anemia associated with acute blood loss 09/01/2013 Acute lower GI bleeding 09/01/2013 Diverticulitis of colon with perforation 08/30/2013 Anemia 08/30/2013 Sepsis 08/30/2013 Family History Medical History Relation Name Comments Diverticulitis Relation Name Status Comments Social History Date Tobacco Use Types Packs/Day Years Used Never Smoker Smokeless Tobacco: Never Used Alcohol Use Drinks/Week oz/Week Comments No Sex Assigned at Date Recorded Not on file Industry Job Start Date Occupation Not on file Not on file Not on file Travel End Travel History Travel Start No recent travel history available. Last Filed Vital Signs Time Taken Vital Sign Reading 10/04/2013 8:37 AM CDT Blood Pressure 140/88 10/04/2013 8:37 AM CDT Pulse 110 10/04/2013 8:37 AM CDT Temperature 36.7 C (98.1 F) 10/04/2013 8:37 AM CDT Respiratory Rate 16 09/20/2013 7:30 AM [employer] Oxygen Saturation 96% - Inhaled Oxygen - Concentration 10/04/2013 8:37 AM CDT Weight 76.2 kg (168 lb) 10/04/2013 8:37 AM CDT Height 154.9 cm (5' 1") 10/04/2013 8:37 AM CDT Body Mass Index 31.74 Plan of Treatment Health Maintenance Due Date Last Done Comments PHYSICAL (COMPREHENSIVE) 1950 EXAM DTAP/TDAP VACCINES (1 - 1961 Tdap) COLORECTAL CANCER 1993 SCREENING SHINGLES RECOMBINANT 1993 VACCINE (1 of 2) OSTEOPOROSIS 01/30/2008 SCREENING/MONITORING PNEUMONIA (PCV13/PPSV23) 01/30/2008 VACCINES (1 of 2 - PCV13) INFLUENZA VACCINE 02/25/2018 Results Not on filefrom Last 3 Months Insurance Payer Benefit Subscriber ID Type Phone Address Plan / Group MEDICARE MEDICARE xxxxxxxxxx Medicare PART A AND B Advance Directives Patient has advance care planning documents, and code status on file. For more information, please contact: [facility] [address] [place] [address] Date Inactivated Comments Code Status Date Activated 09/20/2013 12:40 PM Full Code 08/30/2013 1:26 AM Provider has discussed Code Status No, more discussion w/Patient or Family? needed
--- OUTSIDE RECORDS SUMMARY | 2018-08-06 11:29 | XMS REPORT ---
Author Author MARLON NELSON [facility] Address [address] [place] [address] Care Team Providers Care Skin Care Technician Name Role Phone MARLON NELSON Unavailable PROBLEMS Type Condition ICD9-CM Code GNP31-ZV Code Onset Dates Condition Status SNOMED Code Problem Colostomy status Z93.3 Active 230888671 Problem Parkinsons disease G20 Active 87044508 Problem Dementia associated with other underlying disease without behavioral disturbance F02.80 Active 678205440 Problem Full incontinence of feces R15.9 Active 03773788 Problem Unspecified urinary incontinence R32 Active 47726381 Problem Other chronic pain G89.29 Active 29426643 Problem Anxiety F41.9 Active 66210273 Problem Poor appetite R63.0 Active 31333324 Problem Primary insomnia F51.01 Active 0116794 Problem Gastroesophageal reflux disease without esophagitis K21.9 Active 567558674 Problem Essential hypertension I10 Active 36409143 Problem Dysthymia F34.1 Active 32525157 Problem Chronic obstructive pulmonary disease, unspecified COPD type J44.9 Active 87431228 Problem Acquired hypothyroidism E03.9 Active 310590781 Problem Major depression, recurrent, chronic F33.9 Active 36209213 Problem Seizures R56.9 Active 82423893 ALLERGIES No Information ENCOUNTERS Encounter Location Date Diagnosis [facility] [id number] [address] Apr, [facility] [address] [id number], [place] [address] Apr, Other chronic pain G89.29 [facility] [address] [place] [address] 16 Apr, 2018 Full incontinence of feces R15.9 and Unspecified urinary incontinence R32 [facility] [address] [id number], [place] [address] Apr, [facility] [address] [address] Apr, [facility] [id number] [place] [address]204- 5901 Mar, [facility] [id number] [place] [address] 11898- 2707 Mar, [facility] [id number] [place] [address]01- 7947 Mar, [facility] [id number] [place] [address] 37118- 6807 Mar, Other chronic pain G89.29 [facility] [id number] [place] [address] 00590- 7727 Mar, [facility] [id number] [place] [address] 41401- 7064 Mar, [facility] [id number] [place] [address] 72070- 0593 Mar, [facility] [address] [place] [id number] Mar, Personal history of other diseases of the digestive system Z87.19 ; Other specified postprocedural states Z98.890 ; Weakness R53.1 and Poor appetite R63.0 [facility] [address] [address] Feb, [facility] [id number] [place] [address]37[address] 4470 Feb, Other chronic pain G89.29 [facility] [id number] [place] [address] 00468- 6273 Feb, [facility] [id number] [place] [address] 02517- 0026 Feb, [facility] [address] [address] Feb, [facility] [id number] [place] [address] 09783- 1264 Feb, Other chronic pain G89.29 [facility] [id number] [place] [address] 33721- 0603 Feb, Personal history of other diseases of the digestive system Z87.19 ; Other specified postprocedural states Z98.890 and Nausea R11.0 [facility] [id number] [place] [id number] Feb, Dental examination Z01.20 [facility] [id number] [place] [address] 00135[address] 3292 Jan, [facility] [id number] [place] [address] 41234- 4276 Jan, Other chronic pain G89.29 [facility] [id number] [place] [address] 75506- 1685 Jan, [facility] [id number] [place] [address] 08995- 1727 Jan, [facility] [id number] [place] [address] 47942 [address]2693 Jan, Epigastric mass R19.06 [facility] [id number] [place] [address] 94031- 8771 Dec, Other chronic pain G89.29 [facility] [id number] [place] [address] 00226- 6263 November, Other chronic pain G89.29 [facility] [id number] [place] [address] 08250- 8662 November, [facility] [address] [address] November, Other chronic pain G89.29 [facility] [address] [place] [address] Oct, Bronchitis J40 and Parkinsons disease G20 [facility] [address] [place] [address] Oct, Bronchitis J40 [facility] [address] [id number] [address] Oct, [facility] [address] [id number] [address] Oct, Other chronic pain G89.29 [facility] [address] [id number] [id number] Sep, Other chronic pain G89.29 [facility] [address] [place] [address] Aug, Acute pain of right ear H92.01 [facility] [address] [id number] [id number] Aug, Other chronic pain G89.29 [facility] [address] [place] [address] Jul, Acquired hypothyroidism E03.9 ; Localized edema R60.0 ; Weight gain R63.5 and Primary insomnia F51.01 [facility] [address] [id number] [id number] Jul, Other chronic pain G89.29 [facility] [address] [id number] [id number] Jun, Other chronic pain G89.29 [facility] [address] [id number] [id number] May, Other chronic pain G89.29 [facility] [address] [id number] [id number] Apr, Other chronic pain G89.29 [facility] [address] [id number] [id number] Apr, Bronchitis J40 [facility] [address] [place] [address] Apr, Callus L84 and Parkinsons disease G20 [facility] [address] [id number][place] [id number] Apr, [facility] [address] [id number][place] [id number] Mar, Other chronic pain G89.29 [facility] [address] [id number] [id number] Feb, [facility] [id number] [id number] Feb, Other chronic pain G89.29 [facility] [address] [id number], [place] [address] Jan, Acquired hypothyroidism E03.9 [facility] [id number] [place] [id number] Jan, Other chronic pain G89.29 [facility] [address] [id number] [address] Dec, Other chronic pain G89.29 [facility] [address], [place] [address] Dec, [facility] [address], [place] [address] Dec, [facility] [employer] [address] [place] [address] Dec, Seborrheic keratoses L82.1 and Trochanteric bursitis, right hip M70.61 [facility] [address]65[address], [place] [address] Dec, [facility] [address] [id number], [place] [address] 16[address] Dec, Other chronic pain G89.29 [facility] [address], [place] [address] November, [facility] [address] [id number], [place] [address] November, [facility] [id number] [id number] November, Other chronic pain G89.29 [facility] [id number] [id number] Oct, [facility] [address], [place] [address] Oct, Edema, unspecified type R60.9 [facility] [address] [id number] [id number] Oct, Other chronic pain G89.29 [facility] [address], [place] [address] Oct, Acquired hypothyroidism E03.9 [facility] [id number] [place] [address] [id number] Sep, [facility] [id number] [place] [address] [id number] Sep, Other chronic pain G89.29 [facility] [address] [place] [address] Sep, Cramp of both lower extremities R25.2 ; Acquired hypothyroidism E03.9 and Parkinsons disease G20 [facility] [id number] [id number] Sep, [facility] [address] [address] Aug, [facility] [address] [address] Aug, [facility] [address] [place] [address] Aug, Leg edema, left R60.0 [facility] [address] [address] Aug, [facility] [address] [address] Aug, Acute deep vein thrombosis (DVT) of femoral vein, unspecified laterality I82.419 [facility] [id number] [place] [address] 39842- 6442 Aug, [facility] [id number] [place] [address] 24110- 1886 Aug, Other chronic pain G89.29 [facility] [id number] [place] [address] 84777- 5731 Aug, [facility] [id number] [place] [address] 00022- 8823 Aug, Bronchitis J40 ; Primary insomnia F51.01 ; Parkinsons disease G20 ; Anxiety F41.9 and Other chronic pain G89.29 [facility] [id number] [place] [id number] Jul, Dementia without behavioral disturbance, unspecified dementia type F03.90 ; Anxiety F41.9 ; Low back pain M54.5 and Other chronic pain G89.29 [facility] [id number] [place] [address] 81987- 1207 Jul, [facility] [id number] [place] [address] 88042- 3223 Jul, [facility] [id number] [place] [address] [id number] Jul, [facility] [id number] [place] [address] 21001- 0790 Jul, [facility] [id number] [place] [address] 12029- 1340 Jun, [facility] [id number] [place] [address] 26023- 1838 Jun, [facility] [address] [place] [address] Jun, Parkinsons disease G20 [facility] [address], [place] [address]12 May, [facility] [id number] [place] [address] [id number]- 6546 Apr, [facility] [address] [id number] [place] [address] Apr, [facility] [address] [place] [address] Apr, Parkinsons disease G20 [facility] [address] [id number], [place] [address]40 Mar, [facility] [address] [place] [address] Feb, Dementia without behavioral disturbance, unspecified dementia type F03.90 and Parkinsons disease G20 [facility] [address] [id number] [address] 8[address] Feb, IMMUNIZATIONS No Known Immunizations SOCIAL HISTORY Never Assessed REASON FOR VISIT Controlled Med Refill PLAN OF CARE VITAL SIGNS MEDICATIONS Medication [...]
--- OUTSIDE RECORDS SUMMARY | 2018-08-06 11:29 | XMS REPORT ---
Author Author MARLON NELSON [facility] Address [address] [place] [address] Care Team Providers Care Scarf And Anneal Operator Name Role Phone MARLON NELSNO Unavailable PROBLEMS Type Condition ICD9-CM Code NHY68-HM Code Onset Dates Condition Status SNOMED Code Problem Colostomy status Z93.3 Active 681319057 Problem Parkinsons disease G20 Active 68367612 Problem Dementia associated with other underlying disease without behavioral disturbance F02.80 Active 112393287 Problem Full incontinence of feces R15.9 Active 78728183 Problem Unspecified urinary incontinence R32 Active 24476902 Problem Other chronic pain G89.29 Active 06802482 Problem Anxiety F41.9 Active 34413720 Problem Poor appetite R63.0 Active 10143963 Problem Primary insomnia F51.01 Active 7305845 Problem Gastroesophageal reflux disease without esophagitis K21.9 Active 374891363 Problem Essential hypertension I10 Active 75243922 Problem Dysthymia F34.1 Active 05497537 Problem Chronic obstructive pulmonary disease, unspecified COPD type J44.9 Active 50136006 Problem Acquired hypothyroidism E03.9 Active 480589039 Problem Major depression, recurrent, chronic F33.9 Active 85872819 Problem Seizures R56.9 Active 45801732 ALLERGIES No Information ENCOUNTERS Encounter Location Date Diagnosis [facility] [address] [id number] [address] Apr, [facility] [address] [facility] [id number], [place] [address] Apr, Other chronic pain G89.29 [employer] [facility] [address] [place] [address] 16 Apr, 2018 Full incontinence of feces R15.9 and Unspecified urinary incontinence R32 [facility] [address] [facility] [id number], [place] [address] Apr, [facility] [address], [place] [address] Apr, [facility] [id number] [place] [address] 2749 Mar, [facility] [id number] [place] [address]160- 3872 Mar, [facility] [id number] [place] [address] 4570 Mar, [facility] [id number] [place] [address]180[address] 6110 Mar, Other chronic pain G89.29 [facility] [id number] [place] [address] 7720 Mar, [facility] [id number] [place] [address]- 0313 Mar, [facility] [id number] [place] [address] 1897 Mar, [employer] [facility] [address] [place] [id number] Mar, Personal history of other diseases of the digestive system Z87.19 ; Other specified postprocedural states Z98.890 ; Weakness R53.1 and Poor appetite R63.0 [facility] [address], [place] [address] Feb, [facility] [id number] [place] [address]54- 4853 Feb, Other chronic pain G89.29 [facility] [id number] [place] [address]02- 2965 Feb, [facility] [id number] [place] [address]78- 5013 Feb, [facility] [address], [place] [address] Feb, [facility] [id number] [place] [address]95- 5406 Feb, Other chronic pain G89.29 [facility] [id number] [place] [address] 93548- 1817 Feb, Personal history of other diseases of the digestive system Z87.19 ; Other specified postprocedural states Z98.890 and Nausea R11.0 [facility] [id number] [place] [id number] Feb, Dental examination Z01.20 [facility] [id number] [place] [address] 55838- 2479 Jan, [facility] [id number] [place] [address] 03359- 7619 Jan, Other chronic pain G89.29 [facility] [id number] [place] [address]- 1962 Jan, [facility] [id number] [place] [address] 58448- 9861 Jan, [facility] [id number] [place] [address]9 Jan, Epigastric mass R19.06 [facility] [id number] [place] [address] 08708- 5241 Dec, Other chronic pain G89.29 [facility] [id number] [place] [address]27- 0442 November, Other chronic pain G89.29 [facility] [id number] [place] [address] 88115- 9423 November, [facility] [address] [address] November, Other chronic pain G89.29 [employer] [address] [place] [address] Oct, Bronchitis J40 and Parkinsons disease G20 [facility] [address] [place] [address] Oct, Bronchitis J40 [facility] [address] [facility] [id number] [address] Oct, [facility] [address] [facility] [id number] [address] Oct, Other chronic pain G89.29 [facility] [address] [id number] [id number] Sep, Other chronic pain G89.29 [facility] [address] [place] [address] Aug, Acute pain of right ear H92.01 [facility] [address] [id number] [id number] Aug, Other chronic pain G89.29 [facility] [address] [place] [address] Jul, Acquired hypothyroidism E03.9 ; Localized edema R60.0 ; Weight gain R63.5 and Primary insomnia F51.01 [facility] [address] [id number] [id number] Jul, Other chronic pain G89.29 [facility] [address] [id number] [id number] Jun, Other chronic pain G89.29 [facility] [address] [id number][place] [id number] May, Other chronic pain G89.29 [facility] [address] [id number] [id number] Apr, Other chronic pain G89.29 [facility] [address] [id number][place] [id number] Apr, Bronchitis J40 [employer] [address] [place] [address] Apr, Callus L84 and Parkinsons disease G20 [facility] [address] [id number] [id number] Apr, [facility] [address] [id number][place] [id number] Mar, Other chronic pain G89.29 [facility] [address] [id number], [place] [id number] Feb, [facility] [id number] [id number] Feb, Other chronic pain G89.29 [facility] [address] [facility] [id number], [place] [address] Jan, Acquired hypothyroidism E03.9 [facility] [id number] [place] [id number] Jan, Other chronic pain G89.29 [facility] [address] [id number] [id number] Dec, Other chronic pain G89.29 [facility] [address], [place] [address] Dec, [facility] [address], [place] [address] Dec, [facility] [employer] [facility] [address] [place] [address] Dec, Seborrheic keratoses L82.1 and Trochanteric bursitis, right hip M70.61 [facility] [address], [place] [address] Dec, [facility] [address] [id number], [place] [address] Dec, Other chronic pain G89.29 [facility] [address], [place] [address] November, [facility] [address] [facility] [id number], [place] [address] November, [facility] [id number] [id number] November, Other chronic pain G89.29 [facility] [id number], [place] [id number] Oct, [facility] [address], [place] [address] Oct, Edema, unspecified type R60.9 [facility] [address] [id number] [address] Oct, Other chronic pain G89.29 [facility] [address], [place] [address] Oct, Acquired hypothyroidism E03.9 [facility] [id number] [place] [address] [id number] Sep, [facility] [id number] [place] [id number] Sep, Other chronic pain G89.29 [employer] [facility] [address] [place] [address] Sep, Cramp of both lower extremities R25.2 ; Acquired hypothyroidism E03.9 and Parkinsons disease G20 [facility] [id number] [id number] Sep, [facility] [address]100[place] [address] Aug, [facility] [address] [address] Aug, [employer] [facility] [address] [place] [address] Aug, Leg edema, left R60.0 [facility] [address] [address] Aug, [facility] [address] [address] Aug, Acute deep vein thrombosis (DVT) of femoral vein, unspecified laterality I82.419 [facility] [id number] [place] [address] 10714- 0117 Aug, [facility] [id number] [place] [address] 97694- 7788 Aug, Other chronic pain G89.29 [facility] [id number] [place] [address] 22379- 6416 Aug, [facility] [id number] [place] [address] 28357- 2018 Aug, Bronchitis J40 ; Primary insomnia F51.01 ; Parkinsons disease G20 ; Anxiety F41.9 and Other chronic pain G89.29 [facility] [id number] [place] [id number] Jul, Dementia without behavioral disturbance, unspecified dementia type F03.90 ; Anxiety F41.9 ; Low back pain M54.5 and Other chronic pain G89.29 [facility] [id number] [place] [address] 99695- 5999 Jul, [facility] [id number] [place] [address] 73879- 5832 Jul, [facility] [id number] [place] [address] [id number] Jul, [facility] [id number] [place] [address] 39746- 5407 Jul, [facility] [id number] [place] [address] 91033- 7597 Jun, [facility] [id number] [place] [address] 64998- 8648 Jun, [facility] [address] [place] [address] Jun, Parkinsons disease G20 [facility] [address], [place] [address] May, [facility] [id number] [place] [address] [id number]- 7436 Apr, [facility] [address] [facility] [id number] [place] [address]- 8[address] Apr, [employer] [facility] [address] [place] [address] Apr, Parkinsons disease G20 [facility] [address] [facility] [id number], [place] [address] Mar, [employer] [address] [place] [address] Feb, Dementia without behavioral disturbance, unspecified dementia type F03.90 and Parkinsons disease G20 [facility] [address] [facility] [id number] [address] Feb, IMMUNIZATIONS No Known Immunizations SOCIAL HISTORY Never Assessed REASON FOR VISIT PLAN OF CARE VITAL SIGNS MEDICATIONS Unknown [...]
--- OUTSIDE RECORDS SUMMARY | 2018-08-06 11:29 | XMS REPORT ---
Author Author MARLON NELSON [facility] Address [address] [place] [address] Care Team Providers Care Field Appraiser Name Role Phone MARLON NELSON Unavailable PROBLEMS Type Condition ICD9-CM Code FUE64-UK Code Onset Dates Condition Status SNOMED Code Problem Dementia associated with other underlying disease without behavioral disturbance F02.80 Active 258637595 Problem Dementia without behavioral disturbance, unspecified dementia type F03.90 Active 09514879 Problem Parkinsons disease G20 Active 57773949 Problem Full incontinence of feces R15.9 Active 15894818 Problem Unspecified urinary incontinence R32 Active 11907964 Problem Other chronic pain G89.29 Active 92969135 Problem Anxiety F41.9 Active 75792808 Problem Poor appetite R63.0 Active 59682769 Problem Primary insomnia F51.01 Active 4660912 Problem Colostomy status Z93.3 Active 697020544 Problem Essential hypertension I10 Active 51721968 Problem Dysthymia F34.1 Active 64120749 Problem Gastroesophageal reflux disease without esophagitis K21.9 Active 920148143 Problem Acquired hypothyroidism E03.9 Active 372618405 Problem Chronic obstructive pulmonary disease, unspecified COPD type J44.9 Active 20229842 Problem Seizures R56.9 Active 56989614 ALLERGIES No Information ENCOUNTERS Encounter Location Date Diagnosis On License Of [facility] [address] [place] [address] Apr, Full incontinence of feces R15.9 and Unspecified urinary incontinence R32 [facility] [address] [facility] [id number] [address] Apr, [facility] [address], [place] [address] Apr, [facility] [address] [id number], [place] [address] Mar, [facility] [address], [place] [address] Mar, [facility] [id number] [place] [address] Mar, [facility] [id number] [place] [address] 7566 Mar, Other chronic pain G89.29 [facility] [id number] [place] [address]9740- 9298 Mar, [facility] [id number] [place] [address]46[address] 8408 Mar, [facility] [id number] [place] [address]7469- 0184 Mar, [facility] [address] [place] [id number] Mar, Personal history of other diseases of the digestive system Z87.19 ; Other specified postprocedural states Z98.890 ; Weakness R53.1 and Poor appetite R63.0 [facility] [address] [place] [address]186 Feb, [facility] [id number] [place] [address] 79808- 2566 Feb, Other chronic pain G89.29 [facility] [address], [place] [address] Feb, [facility] [address], [place] [address] Feb, [facility] [address], [place] [address] Feb, [facility] [address] [place] [address] 0106 Feb, Other chronic pain G89.29 [facility] [address] [place] [address] 74239[address] 3677 Feb, Personal history of other diseases of the digestive system Z87.19 ; Other specified postprocedural states Z98.890 and Nausea R11.0 [facility] [id number] [place] [id number] Feb, Dental examination Z01.20 [facility] [id number] [place] [address] Jan, [facility] [address] [address] Jan, Other chronic pain G89.29 [facility] [address] [address] Jan, [facility] [address] [address] Jan, [facility] [id number] [place] [address] Jan, Epigastric mass R19.06 [facility] [id number] [place] [address] 04606[address] 8877 Dec, Other chronic pain G89.29 [facility] [id number] [place] [address] 78524- 4068 November, Other chronic pain G89.29 [facility] [id number] [place] [address] 81712- 6158 November, [facility] [id number] [place] [address] 09845- 7961 November, Other chronic pain G89.29 [facility] [address] [place] [address] Oct, Bronchitis J40 and Parkinsons disease G20 [facility] [address] [place] [address] Oct, Bronchitis J40 [facility] [id number] [place] [address] 51104- 1191 Oct, [facility] [address] [id number], [place] [address] Oct, Other chronic pain G89.29 [facility] [address] [id number] [id number] Sep, Other chronic pain G89.29 [facility] [address] [place] [address] Aug, Acute pain of right ear H92.01 [facility] [address] [id number] [id number] Aug, Other chronic pain G89.29 [facility] [address] [place] [address] Jul, Acquired hypothyroidism E03.9 ; Localized edema R60.0 ; Weight gain R63.5 and Primary insomnia F51.01 [facility] [address] [id number] [id number] Jul, Other chronic pain G89.29 [facility] [address] [id number] [id number] Jun, Other chronic pain G89.29 [facility] [address] [id number] [id number] May, Other chronic pain G89.29 [facility] [address] [id number] [id number] Apr, Other chronic pain G89.29 [facility] [address] [id number] [address] Apr, Bronchitis J40 [facility] [address] [place] [address] Apr, Callus L84 and Parkinsons disease G20 [facility] [address] [id number] [id number] Apr, [facility] [address] [id number] [id number] Mar, Other chronic pain G89.29 [facility] [address] [id number][place] [id number] Feb, [facility] [address] [id number] [id number] Feb, Other chronic pain G89.29 [facility] [address], [place] [address] Jan, Acquired hypothyroidism E03.9 [facility] [id number] [place] [address] [id number] Jan, Other chronic pain G89.29 [facility] [address] [id number] [id number] Dec, Other chronic pain G89.29 [facility] [id number] [place] [address] 13418- 6556 Dec, [facility] [id number] [place] [address] 457816- 1498 Dec, [facility] [address] [place] [address] Dec, Seborrheic keratoses L82.1 and Trochanteric bursitis, right hip M70.61 [facility] [address] Dec, [facility] [address] [address] Dec, Other chronic pain G89.29 [facility] [address], [place] [address] November, [facility] [address] [id number], [place] [address] November, [facility] [id number] [place] [id number] November, Other chronic pain G89.29 [facility] [address] [id number][place] [id number] Oct, [facility] [id number] [place] [address] [id number]- 6913 Oct, Edema, unspecified type R60.9 [facility] [id number] [id number] Oct, Other chronic pain G89.29 [facility] [address], [place] [address] Oct, Acquired hypothyroidism E03.9 [facility] [id number][place] [id number] Sep, [facility] [address] [id number] [id number] Sep, Other chronic pain G89.29 [facility] [address] [place] [address] Sep, Cramp of both lower extremities R25.2 ; Acquired hypothyroidism E03.9 and Parkinsons disease G20 [facility] [id number] [id number] Sep, [facility] [address], [place] [address] Aug, [facility] [id number] [place] [address] 33905- 6686 Aug, [facility] [address] [place] [address] Aug, Leg edema, left R60.0 [facility] [address], [place] [address] Aug, [facility] [address] [id number], [place] [address] 3958 Aug, Acute deep vein thrombosis (DVT) of femoral vein, unspecified laterality I82.419 [facility] [address], [place] [address] 0365 Aug, [facility] [address] [id number], [place] [address] 8210 Aug, Other chronic pain G89.29 [facility] [address] [facility] [id number], [place] [address]- [address]29 Aug, [facility] [id number] [place] [address] 34888- 2161 Aug, Bronchitis J40 ; Primary insomnia F51.01 ; Parkinsons disease G20 ; Anxiety F41.9 and Other chronic pain G89.29 [facility] [id number] [place] [address] [id number] Jul, Dementia without behavioral disturbance, unspecified dementia type F03.90 ; Anxiety F41.9 ; Low back pain M54.5 and Other chronic pain G89.29 [facility] [id number] [place] [address] 63942- 2294 Jul, [facility] [id number] [place] [address] 42526- 4519 Jul, [facility] [id number] [place] [address] [id number] Jul, [facility] [id number] [place] [address] 41825- 9727 Jul, [facility] [id number] [place] [address] 84162- 8606 Jun, [facility] [id number] [place] [address] 00610- 9442 Jun, [facility] [address] [facility] [place] [place] [address] Jun, Parkinsons disease G20 [facility] [address], [place] [address] May, [facility] [id number] [place] [address] 65033- 8940 Apr, [facility] [address], [place] [address]- [address]31 Apr, [facility] [address] [place] [address] Apr, Parkinsons disease G20 [facility] [address] [facility] [id number] [place] [address]- [address] Mar, [facility] [address] [place] [address] Feb, Dementia without behavioral disturbance, unspecified dementia type F03.90 and Parkinsons disease G20 [facility] [address] [facility] [id number] [place] [address]- 8592 Feb, IMMUNIZATIONS No Known Immunizations SOCIAL HISTORY Never Assessed REASON FOR VISIT Requests return call PLAN OF CARE VITAL SIGNS MEDICATIONS No Known Medications RESULTS No Results PROCEDURES No Known [...]
--- OUTSIDE RECORDS SUMMARY | 2018-08-06 11:29 | XMS REPORT ---
Author Author CHRISTIAN CHAVEZ [facility] Address [address] [place] [address] Care Team Providers Care Car Sales Consultant Name Role Phone CHRISTIAN CHAVEZ Unavailable PROBLEMS Type Condition ICD9-CM Code HEJ80-UO Code Onset Dates Condition Status SNOMED Code Problem Colostomy status Z93.3 Active 949485452 Problem Parkinsons disease G20 Active 71996295 Problem Dementia associated with other underlying disease without behavioral disturbance F02.80 Active 280438333 Problem Full incontinence of feces R15.9 Active 53770009 Problem Unspecified urinary incontinence R32 Active 03070369 Problem Other chronic pain G89.29 Active 59504430 Problem Anxiety F41.9 Active 08794156 Problem Poor appetite R63.0 Active 94465559 Problem Primary insomnia F51.01 Active 3185699 Problem Gastroesophageal reflux disease without esophagitis K21.9 Active 915021377 Problem Essential hypertension I10 Active 27459852 Problem Dysthymia F34.1 Active 99555322 Problem Chronic obstructive pulmonary disease, unspecified COPD type J44.9 Active 24898015 Problem Acquired hypothyroidism E03.9 Active 140425705 Problem Major depression, recurrent, chronic F33.9 Active 19467501 Problem Seizures R56.9 Active 02857410 ALLERGIES No Information ENCOUNTERS Encounter Location Date Diagnosis [facility] [address] [facility] [id number] [address] May, [facility] [address] [facility] [id number] [address] Apr, [place] [address] [facility] [id number] [address] Apr, Other chronic pain G89.29 [facility] [address] [place] [address] Apr, Full incontinence of feces R15.9 and Unspecified urinary incontinence R32 [facility] [address] [place] [address]32 Apr, [facility] [id number] [place] [address] 23509- 0549 Apr, [facility] [id number] [place] [address] 79516- 0345 Mar, [facility] [address] [address] Mar, [facility] [id number] [place] [address] 93360- 1993 Mar, [facility] [address] [address] Mar, Other chronic pain G89.29 [facility] [id number] [place] [address] 54182- 1019 Mar, [facility] [id number] [place] [address] 79348- 7711 Mar, [facility] [id number] [place] [address] 48436- 2024 Mar, [facility] [address] [place] [id number] Mar, Personal history of other diseases of the digestive system Z87.19 ; Other specified postprocedural states Z98.890 ; Weakness R53.1 and Poor appetite R63.0 [facility] [address] [place] [address]74[address] 8055 Feb, [facility] [id number] [place] [address] 42690- 7167 Feb, Other chronic pain G89.29 [facility] [id number] [place] [address] 09793- 5526 Feb, [facility] [id number] [place] [address] 26021- 8451 Feb, [facility] [address] [address] Feb, [facility] [id number] [place] [address] 67483- 7521 Feb, Other chronic pain G89.29 [facility] [id number] [place] [address] 29561- 2972 Feb, Personal history of other diseases of the digestive system Z87.19 ; Other specified postprocedural states Z98.890 and Nausea R11.0 [facility] [id number] [place] [id number] Feb, Dental examination Z01.20 [facility] [id number] [place] [address] 80476- 0940 Jan, [facility] [id number] [place] [address] 24305- 9885 Jan, Other chronic pain G89.29 [facility] [id number] [place] [address] 42512- 5297 Jan, [facility] [id number] [place] [address] 70154- 7987 Jan, [facility] [id number] [place] [address] 18288 -3416 Jan, Epigastric mass R19.06 [facility] [id number] [place] [address] 55654- 0801 Dec, Other chronic pain G89.29 [facility] [id number] [place] [address] 97646- 6562 November, Other chronic pain G89.29 [facility] [id number] [place] [address] 87192- 2866 November, [facility] [address] [place] [address] 74331- 9535 November, Other chronic pain G89.29 [facility] [address] [place] [address] Oct, Bronchitis J40 and Parkinsons disease G20 [facility] [address] [place] [address] Oct, Bronchitis J40 [facility] [address] [facility] [id number] [address] Oct, [facility] [address] [facility] [id number] [address] Oct, Other chronic pain G89.29 [facility] [address] [id number] [place] [id number] Sep, Other chronic pain G89.29 [facility] [address] [address] Aug, Acute pain of right ear H92.01 [facility] [address] [id number] [place] [id number] Aug, Other chronic pain G89.29 [facility] [address] [address] Jul, Acquired hypothyroidism E03.9 ; Localized edema R60.0 ; Weight gain R63.5 and Primary insomnia F51.01 [facility] [address] [id number] [place] [id number] Jul, Other chronic pain G89.29 [facility] [address] [id number] [place] [id number] Jun, Other chronic pain G89.29 [facility] [address] [id number] [place] [id number] May, Other chronic pain G89.29 [facility] [address] [id number] [place] [id number] Apr, Other chronic pain G89.29 [facility] [address] [id number] [place] [id number] Apr, Bronchitis J40 [facility] [address] [address] Apr, Callus L84 and Parkinsons disease G20 [facility] [address] [id number] [place] [id number] Apr, [facility] [address] [id number] [place] [id number] Mar, Other chronic pain G89.29 [facility] [address] [id number] [place] [id number] Feb, [facility] [address] [id number] [place] [id number] Feb, Other chronic pain G89.29 [facility] [address] [facility] [id number] [place] [address] Jan, Acquired hypothyroidism E03.9 [facility] [id number] [place] [id number] Jan, Other chronic pain G89.29 [facility] [id number] [place] [id number] Dec, Other chronic pain G89.29 [facility] [address]100[place] [address] 235[address] Dec, [facility] [address]100[place] [address] Dec, [facility] [address] [address] Dec, Seborrheic keratoses L82.1 and Trochanteric bursitis, right hip M70.61 [facility] [address] [place] [id number] [address] Dec, [facility] [address] [id number] [address] 1402 Dec, Other chronic pain G89.29 [facility] [address] [id number] [address] 1995 November, [facility] [address]100[place] [address] November, [facility] [address] [id number] [place] [id number] November, Other chronic pain G89.29 [facility] [address] [id number] [place] [id number] Oct, [facility] [address]100[place] [address] Oct, Edema, unspecified type R60.9 [facility] [address] [id number] [place] [id number] Oct, Other chronic pain G89.29 [facility] [address] [address] Oct, Acquired hypothyroidism E03.9 [facility] [id number] [id number] Sep, [facility] [id number] [place] [id number] Sep, Other chronic pain G89.29 [facility] [address] [place] [address] Sep, Cramp of both lower extremities R25.2 ; Acquired hypothyroidism E03.9 and Parkinsons disease G20 [facility] [id number] [place] [id number] Sep, [facility] [address] [id number] [address]- 2673 Aug, [facility] [address] [id number] [address]- 1404 Aug, [facility] [address] [place] [address] Aug, Leg edema, left R60.0 [facility] [address] [id number] [address]- 8707 Aug, [facility] [address] [id number] [address] 5066 Aug, Acute deep vein thrombosis (DVT) of femoral vein, unspecified laterality I82.419 [facility] [id number] [place] [address] 99098- 7140 Aug, [facility] [id number] [place] [address] 61854- 5067 Aug, Other chronic pain G89.29 [facility] [address] [address]- [address]236 Aug, [facility] [id number] [place] [address] 09997- 3643 Aug, Bronchitis J40 ; Primary insomnia F51.01 ; Parkinsons disease G20 ; Anxiety F41.9 and Other chronic pain G89.29 [facility] [address] [id number] Jul, Dementia without behavioral disturbance, unspecified dementia type F03.90 ; Anxiety F41.9 ; Low back pain M54.5 and Other chronic pain G89.29 [facility] [id number] [place] [address] 76434- 5835 Jul, [facility] [id number] [place] [address] 08361- 5567 Jul, [facility] [id number] [place] [address] [id number] Jul, [facility] [id number] [place] [address] 12715- 2316 Jul, [facility] [id number] [place] [address] 06176- 9437 Jun, [facility] [id number] [place] [address] 33383- 8603 Jun, [facility] [address] [place] [address] Jun, Parkinsons disease G20 [facility] [id number] [place] [address] 25342- 8217 May, [facility] [address] [facility] [id number] [place] [address]- 1253 Apr, [facility] [address] [facility] [id number] [place] [address] Apr, [facility] [address] [place] [address] Apr, Parkinsons disease G20 [place] [address] [facility] [id number] [place] [address] Mar, [facility] [address] [place] [address] Feb, Dementia without behavioral disturbance, unspecified dementia type F03.90 and Parkinsons disease G20 [place] [address] [facility] [id number] [place] [address] 4781 Feb, IMMUNIZATIONS No Known Immunizations SOCIAL HISTORY Never Assessed REASON FOR VISIT Order request PLAN OF CARE VITAL SIGNS MEDICATIONS [...]
--- OUTSIDE RECORDS SUMMARY | 2018-08-06 11:30 | XMS REPORT ---
Author Author MARLON NELSON [facility] Address [address] [place] [address] Care Team Providers Care Neon Sign Erector Name Role Phone MARLON NELSON Unavailable PROBLEMS Type Condition ICD9-CM Code UOE65-SD Code Onset Dates Condition Status SNOMED Code Problem Seizures R56.9 Active 60414584 Problem Dementia associated with other underlying disease without behavioral disturbance F02.80 Active 188486023 Problem Colostomy status Z93.3 Active 785408527 Problem Poor appetite R63.0 Active 97573030 Problem Primary insomnia F51.01 Active 2777303 Problem Dementia without behavioral disturbance, unspecified dementia type F03.90 Active 85271773 Problem Parkinsons disease G20 Active 41513091 Problem Other chronic pain G89.29 Active 69945855 Problem Anxiety F41.9 Active 47448957 Problem Chronic obstructive pulmonary disease, unspecified COPD type J44.9 Active 64448172 Problem Essential hypertension I10 Active 34667509 Problem Dysthymia F34.1 Active 61920753 Problem Gastroesophageal reflux disease without esophagitis K21.9 Active 686487330 Problem Acquired hypothyroidism E03.9 Active 622953252 ALLERGIES No Information ENCOUNTERS Encounter Location Date Diagnosis [facility] [address] [address] Apr, [facility] [id number] [place] [address]71[address] 6037 Mar, [facility] [id number] [place] [address] 10624- 9140 Mar, [facility] [id number] [place] [address]3690- 7808 Mar, [facility] [id number] [place] [address] 22033- 0666 Mar, Other chronic pain G89.29 [facility] [address], [place] [address] Mar, [facility] [id number] [place] [address]271- 1481 Mar, [facility] [id number] [place] [address] 87639- 6188 Mar, Via [facility] [address] [place] [id number] Mar, Personal history of other diseases of the digestive system Z87.19 ; Other specified postprocedural states Z98.890 ; Weakness R53.1 and Poor appetite R63.0 [facility] [id number] [place] [address] 16372- 7408 Feb, [facility] [id number] [place] [address] 05601- 3762 Feb, Other chronic pain G89.29 [facility] [id number] [place] [address] 03937- 7145 Feb, [facility] [id number] [place] [address] 21254- 7941 Feb, [facility] [id number] [place] [address] 88222- 9757 Feb, [facility] [address] [place] [address] 60655- 4379 Feb, Other chronic pain G89.29 [facility] [address] [place] [address] 02618- 7047 Feb, Personal history of other diseases of the digestive system Z87.19 ; Other specified postprocedural states Z98.890 and Nausea R11.0 [facility] [address] [id number] Feb, Dental examination Z01.20 [facility] [address] [place] [address]18- 0465 Jan, [facility] [address], [place] [address] Jan, Other chronic pain G89.29 [facility] [address], [place] [address] Jan, [facility] [address], [place] [address] Jan, [facility] [id number] [place] [address] 94057 [address] Jan, Epigastric mass R19.06 [facility] [id number] [place] [address] 26103- 8335 Dec, Other chronic pain G89.29 [facility] [id number] [place] [address] 84628- 0441 November, Other chronic pain G89.29 [facility] [id number] [place] [address] 53876- 7144 November, [facility] [id number] [place] [address] 88165- 6356 November, Other chronic pain G89.29 [facility] [address] [place] [address] Oct, Bronchitis J40 and Parkinsons disease G20 [facility] [address] [place] [address] Oct, Bronchitis J40 [facility] [address] [place] [address] 99251- 8235 Oct, [facility] [address] [place] [address] 71361- 6062 Oct, Other chronic pain G89.29 [facility] [id number] [place] [id number] Sep, Other chronic pain G89.29 [facility] [address] [place] [address] Aug, Acute pain of right ear H92.01 [facility] [address] [id number] [id number] Aug, Other chronic pain G89.29 [facility] [address] [place] [address] Jul, Acquired hypothyroidism E03.9 ; Localized edema R60.0 ; Weight gain R63.5 and Primary insomnia F51.01 [facility] [address] [id number] [id number] Jul, Other chronic pain G89.29 [facility] [address] [id number] [id number] Jun, Other chronic pain G89.29 [facility] [address] [id number] [id number] May, Other chronic pain G89.29 [facility] [address] [id number] [id number] Apr, Other chronic pain G89.29 [facility] [address] [id number] [id number] Apr, Bronchitis J40 [facility] [address] [place] [address] Apr, Callus L84 and Parkinsons disease G20 [facility] [address] [id number] [id number] Apr, [facility] [address] [id number] [id number] Mar, Other chronic pain G89.29 [facility] [address] [id number] [id number] Feb, [facility] [address] [id number] [id number] Feb, Other chronic pain G89.29 [facility] [address] [facility] [id number], [place] [address] Jan, Acquired hypothyroidism E03.9 [facility] [address] [id number] [address] Jan, Other chronic pain G89.29 [facility] [id number] [place] [id number] Dec, Other chronic pain G89.29 [facility] [address], [place] [address] 14 Dec, 2016 [facility] [id number] [place] [address] 50463- 5842 13 Dec, 2016 [facility] [address] [place] [address] Dec, Seborrheic keratoses L82.1 and Trochanteric bursitis, right hip M70.61 [facility] [address] [address] Dec, [facility] [address] [place] [address] 14247- 3737 Dec, Other chronic pain G89.29 [facility] [address], [place] [address] November, [facility] [id number] [place] [address] [id number]- 8316 November, [facility] [id number] [place] [address] [id number] November, Other chronic pain G89.29 [facility] [id number] [place] [id number] Oct, [facility] [address] [address] Oct, Edema, unspecified type R60.9 [facility] [id number] [place] [id number] Oct, Other chronic pain G89.29 [facility] [address] [address] Oct, Acquired hypothyroidism E03.9 [facility] [id number] [id number] Sep, [facility] [id number] [place] [address] [id number] Sep, Other chronic pain G89.29 [facility] [address] [place] [address] Sep, Cramp of both lower extremities R25.2 ; Acquired hypothyroidism E03.9 and Parkinsons disease G20 [facility] [id number] [place] [address] [id number] Sep, [facility] [id number] [place] [address] 66954- 3243 Aug, [facility] [id number] [place] [address] 52212- 1999 Aug, [facility] [address] [place] [address] Aug, Leg edema, left R60.0 [facility] [id number] [place] [address] 52669- 0253 Aug, [facility] [id number] [place] [address] 77504- 2496 Aug, Acute deep vein thrombosis (DVT) of femoral vein, unspecified laterality I82.419 [facility] [id number] [place] [address] 09938- 4715 Aug, [facility] [id number] [place] [address] 51355- 4689 Aug, Other chronic pain G89.29 [facility] [id number] [place] [address] 60054- 2965 Aug, [facility] [id number] [place] [address] 52920- 7097 Aug, Bronchitis J40 ; Primary insomnia F51.01 ; Parkinsons disease G20 ; Anxiety F41.9 and Other chronic pain G89.29 [facility] [address] [id number] [id number] Jul, Dementia without behavioral disturbance, unspecified dementia type F03.90 ; Anxiety F41.9 ; Low back pain M54.5 and Other chronic pain G89.29 [facility] [address] [facility] [id number], [place] [address] Jul, [facility] [address] [facility] [id number], [place] [address] 4839 Jul, [facility] [address] [id number][place] [id number] Jul, [facility] [address] [facility] [id number], [place] [address] Jul, [facility] [address] [facility] [id number], [place] [address]- 9358 Jun, [facility] [address] [facility] [id number], [place] [address]- 99[address] Jun, [facility] [address] [place] [address] Jun, Parkinsons disease G20 [facility] [address] [facility] [id number], [place] [address]- 6006 May, [facility] [address] [facility] [id number], [place] [address] 9552 Apr, [facility] [address] [facility] [id number], [place] [address]- 4185 Apr, [facility] [address] [place] [address] Apr, Parkinsons disease G20 [facility] [address] [facility] [id number], [place] [address]- 1495 Mar, [facility] [address] [place] [address] Feb, Dementia without behavioral disturbance, unspecified dementia type F03.90 and Parkinsons disease G20 [facility] [address] [facility] [id number] [place] [address] 1394 Feb, IMMUNIZATIONS No Known Immunizations SOCIAL HISTORY Never Assessed REASON FOR VISIT Treatment Update PLAN OF CARE VITAL SIGNS MEDICATIONS Unknown [...]
--- OUTSIDE RECORDS SUMMARY | 2018-08-06 11:30 | XMS REPORT ---
Author Author MARLON NELSON [facility] Address [address] [place] [address] Care Team Providers Care Impregnator Electrolytic Capacitors Name Role Phone MARLON NELSON Unavailable PROBLEMS Type Condition ICD9-CM Code BTL26-QC Code Onset Dates Condition Status SNOMED Code Problem Seizures R56.9 Active 57310996 Problem Dementia associated with other underlying disease without behavioral disturbance F02.80 Active 468172158 Problem Colostomy status Z93.3 Active 535429116 Problem Poor appetite R63.0 Active 27885877 Problem Primary insomnia F51.01 Active 6751901 Problem Dementia without behavioral disturbance, unspecified dementia type F03.90 Active 21478109 Problem Parkinsons disease G20 Active 39974335 Problem Other chronic pain G89.29 Active 73000809 Problem Anxiety F41.9 Active 23693930 Problem Chronic obstructive pulmonary disease, unspecified COPD type J44.9 Active 62445429 Problem Essential hypertension I10 Active 63259911 Problem Dysthymia F34.1 Active 56126971 Problem Gastroesophageal reflux disease without esophagitis K21.9 Active 311868875 Problem Acquired hypothyroidism E03.9 Active 793236454 ALLERGIES No Information ENCOUNTERS Encounter Location Date Diagnosis [facility] [address], [place] [address] Apr, [facility] [id number] [place] [address] 90587- 1178 Mar, [facility] [id number] [place] [address] 58757- 4447 Mar, [facility] [id number] [place] [address] 77257- 4102 Mar, [facility] [address] [place] [address] 22422- 9016 Mar, Other chronic pain G89.29 [facility] [address], [place] [address] 3333 Mar, [facility] [address] [place] [address] 45729- 2076 Mar, [facility] [address] [place] [address] 73557- 3231 Mar, [facility] [address] [place] [id number] Mar, Personal history of other diseases of the digestive system Z87.19 ; Other specified postprocedural states Z98.890 ; Weakness R53.1 and Poor appetite R63.0 [facility] [id number] [place] [address] 79977- 2971 Feb, [facility] [id number] [place] [address] 74393- 3114 Feb, Other chronic pain G89.29 [facility] [id number] [place] [address] 71386- 5966 Feb, [facility] [id number] [place] [address] 15221- 7427 Feb, [facility] [address] [place] [address] 74848- 1830 Feb, [facility] [address] [place] [address] 04210- 1338 Feb, Other chronic pain G89.29 [facility] [address] [place] [address] 09827- 3926 Feb, Personal history of other diseases of the digestive system Z87.19 ; Other specified postprocedural states Z98.890 and Nausea R11.0 [facility] [address] [address] Feb, Dental examination Z01.20 [facility] [address] [place] [address] 98867- 4494 Jan, [facility] [address], [place] [address] 7815 Jan, Other chronic pain G89.29 [facility] [address], [place] [address] 8719 Jan, [facility] [address], [place] [address] 2808 Jan, [facility] [address] [place] [address] 22385 -8314 Jan, Epigastric mass R19.06 [facility] [id number] [place] [address] 36420- 4379 Dec, Other chronic pain G89.29 [facility] [address] [place] [address] 14677- 8932 November, Other chronic pain G89.29 [facility] [address] [place] [address] 36010- 1260 November, [facility] [address] [place] [address] 44132- 2847 November, Other chronic pain G89.29 [facility] [address] [place] [address] Oct, Bronchitis J40 and Parkinsons disease G20 [facility] [address] [place] [address] Oct, Bronchitis J40 [facility] [address] [place] [address] 76344- 6760 Oct, [facility] [address] [place] [address] 25400- 2548 Oct, Other chronic pain G89.29 [facility] [id number] [place] [address] [id number] Sep, Other chronic pain G89.29 [facility] [address] [place] [address] Aug, Acute pain of right ear H92.01 [facility] [address] [id number] [id number] Aug, Other chronic pain G89.29 [facility] [address] [place] [address] Jul, Acquired hypothyroidism E03.9 ; Localized edema R60.0 ; Weight gain R63.5 and Primary insomnia F51.01 [facility] [address] [id number] [id number] Jul, Other chronic pain G89.29 [facility] [address] [id number] [address] Jun, Other chronic pain G89.29 [facility] [address] [id number] [address] May, Other chronic pain G89.29 [facility] [address] [id number] [address] Apr, Other chronic pain G89.29 [facility] [address] [id number] [address] Apr, Bronchitis J40 [facility] [address] [place] [address] Apr, Callus L84 and Parkinsons disease G20 [facility] [address] [id number] [id number] Apr, [facility] [address] [id number] [address] Mar, Other chronic pain G89.29 [facility] [address] [id number] [address] Feb, [facility] [address] [id number] [address] Feb, Other chronic pain G89.29 [facility] [address] [facility] [id number], [place] [address] 0[address] Jan, Acquired hypothyroidism E03.9 [facility] [address] [id number] [id number] Jan, Other chronic pain G89.29 [facility] [id number] [place] [address] [id number] Dec, Other chronic pain G89.29 [facility] [address], [place] [address] 3[address] 14 Dec, 2016 [facility] [id number] [place] [address] 73207- 2635 13 Dec, 2016 [facility] [address] [place] [address] Dec, Seborrheic keratoses L82.1 and Trochanteric bursitis, right hip M70.61 [facility] [address] [address] 9406 Dec, [facility] [address] [place] [address] 16611- 7882 Dec, Other chronic pain G89.29 [facility] [address], [place] [address] 4125 November, [facility] [address] [place] [address] [id number]- 3746 November, [facility] [id number] [place] [address] [id number] November, Other chronic pain G89.29 [facility] [id number] [place] [address] [id number] Oct, [facility] [address] [address] 9802 Oct, Edema, unspecified type R60.9 [facility] [id number] [place] [address] [id number] Oct, Other chronic pain G89.29 [facility] [address] [address] 8501 Oct, Acquired hypothyroidism E03.9 [facility] [id number] [id number] Sep, [facility] [id number] [place] [address] [id number] Sep, Other chronic pain G89.29 [facility] [address] [place] [address] Sep, Cramp of both lower extremities R25.2 ; Acquired hypothyroidism E03.9 and Parkinsons disease G20 [facility] [id number] [place] [address] [id number] Sep, [facility] [id number] [place] [address] 05971- 2707 Aug, [facility] [id number] [place] [address] 27897- 0428 Aug, [facility] [address] [place] [address] Aug, Leg edema, left R60.0 [facility] [id number] [place] [address] 18273- 3445 Aug, [facility] [id number] [place] [address] 48317- 5802 Aug, Acute deep vein thrombosis (DVT) of femoral vein, unspecified laterality I82.419 [facility] [id number] [place] [address] 32272- 8363 Aug, [facility] [id number] [place] [address] 37989- 3029 Aug, Other chronic pain G89.29 [facility] [id number] [place] [address] 40373- 1946 Aug, [facility] [id number] [place] [address] 81000- 1221 Aug, Bronchitis J40 ; Primary insomnia F51.01 ; Parkinsons disease G20 ; Anxiety F41.9 and Other chronic pain G89.29 [facility] [address] [id number][place] [id number] Jul, Dementia without behavioral disturbance, unspecified dementia type F03.90 ; Anxiety F41.9 ; Low back pain M54.5 and Other chronic pain G89.29 [facility] [address] [facility] [id number], [place] [address]- 3595 Jul, [facility] [address] [facility] [id number], [place] [address]- 5712 Jul, [facility] [address] [id number][place] [id number] Jul, [facility] [address] [facility] [id number], [place] [address]- 5231 Jul, [facility] [address] [facility] [id number], [place] [address]- 4662 Jun, [facility] [address] [facility] [id number], [place] [address]- 5396 Jun, [facility] [address] [place] [address] Jun, Parkinsons disease G20 [facility] [address] [facility] [id number], [place] [address]- 2524 May, [facility] [address] [facility] [id number], [place] [address]- 0057 Apr, [facility] [address] [facility] [id number], [place] [address]- 8722 Apr, [facility] [address] [place] [address] Apr, Parkinsons disease G20 [facility] [address] [facility] [id number], [place] [address]- 4435 Mar, [facility] [address] [place] [address] Feb, Dementia without behavioral disturbance, unspecified dementia type F03.90 and Parkinsons disease G20 [facility] [address] [facility] [id number] [place] [address]- 2583 Feb, IMMUNIZATIONS No Known Immunizations SOCIAL HISTORY Never Assessed REASON FOR VISIT PT recert PLAN OF CARE VITAL SIGNS MEDICATIONS Unknown [...]
--- OUTSIDE RECORDS SUMMARY | 2018-08-06 11:30 | XMS REPORT ---
Author Author MARLON NELSON [facility] Address [address] [place] [address] Care Team Providers Care Machine Repairman Name Role Phone MARLON NELSON Unavailable PROBLEMS Type Condition ICD9-CM Code NAS43-GO Code Onset Dates Condition Status SNOMED Code Problem Seizures R56.9 Active 39106452 Problem Dementia associated with other underlying disease without behavioral disturbance F02.80 Active 269538251 Problem Colostomy status Z93.3 Active 020382682 Problem Poor appetite R63.0 Active 39989566 Problem Primary insomnia F51.01 Active 6671711 Problem Dementia without behavioral disturbance, unspecified dementia type F03.90 Active 69987695 Problem Parkinsons disease G20 Active 37458156 Problem Other chronic pain G89.29 Active 55207134 Problem Anxiety F41.9 Active 34786471 Problem Chronic obstructive pulmonary disease, unspecified COPD type J44.9 Active 14260142 Problem Essential hypertension I10 Active 64070512 Problem Dysthymia F34.1 Active 88619392 Problem Gastroesophageal reflux disease without esophagitis K21.9 Active 545635452 Problem Acquired hypothyroidism E03.9 Active 096298033 ALLERGIES No Information ENCOUNTERS Encounter Location Date Diagnosis [facility] [address], [place] [address] 7[address] Apr, [facility] [id number] [place] [address] 90087- 4002 Mar, [facility] [id number] [place] [address] 52359- 2412 Mar, [facility] [id number] [place] [address] 50302- 6284 Mar, [facility] [id number] [place] [address] 17129- 2980 Mar, Other chronic pain G89.29 [facility] [address], [place] [address]- 8594 Mar, [facility] [id number] [place] [address] 07985- 6591 Mar, [facility] [address] [place] [address] 08827- 1120 Mar, [facility] [address] [place] [id number] Mar, Personal history of other diseases of the digestive system Z87.19 ; Other specified postprocedural states Z98.890 ; Weakness R53.1 and Poor appetite R63.0 [facility] [id number] [place] [address] 39485- 9075 Feb, [facility] [id number] [place] [address] 46551- 3647 Feb, Other chronic pain G89.29 [facility] [id number] [place] [address] 31035- 2324 Feb, [facility] [id number] [place] [address] 07920- 8805 Feb, [facility] [id number] [place] [address] 63152- 4721 Feb, [facility] [id number] [place] [address] 69091- 0009 Feb, Other chronic pain G89.29 [facility] [address] [place] [address] 83287- 5153 Feb, Personal history of other diseases of the digestive system Z87.19 ; Other specified postprocedural states Z98.890 and Nausea R11.0 [facility] [address] [id number] Feb, Dental examination Z01.20 [facility] [address] [place] [address] 06609- 4539 Jan, [facility] [address], [place] [address]- 6538 Jan, Other chronic pain G89.29 [facility] [address], [place] [address]- 8879 Jan, [facility] [address], [place] [address]- 7935 Jan, [facility] [id number] [place] [address] 13770 -5363 Jan, Epigastric mass R19.06 [facility] [id number] [place] [address] 57114- 2817 Dec, Other chronic pain G89.29 [facility] [id number] [place] [address] 91984- 0175 November, Other chronic pain G89.29 [facility] [address] [place] [address] 80400- 5105 November, [facility] [id number] [place] [address] 84427- 6714 November, Other chronic pain G89.29 [facility] [facility] [facility] [address] [place] [address] Oct, Bronchitis J40 and Parkinsons disease G20 [facility] [address] [place] [address] Oct, Bronchitis J40 [facility] [id number] [place] [address] 75091- 1131 Oct, [facility] [id number] [place] [address] 58739- 6994 Oct, Other chronic pain G89.29 [facility] [id number] [place] [address] [id number] Sep, Other chronic pain G89.29 [facility] [address] [place] [address] Aug, Acute pain of right ear H92.01 [facility] [address] [id number] [address] Aug, Other chronic pain G89.29 [facility] [address] [place] [address] Jul, Acquired hypothyroidism E03.9 ; Localized edema R60.0 ; Weight gain R63.5 and Primary insomnia F51.01 [facility] [address] [id number] [id number] Jul, Other chronic pain G89.29 [facility] [address] [id number] [address] Jun, Other chronic pain G89.29 [facility] [address] [id number], [place] [address] May, Other chronic pain G89.29 [facility] [address] [id number], [place] [address] Apr, Other chronic pain G89.29 [facility] [address] [id number], [place] [id number] Apr, Bronchitis J40 [facility] [address] [place] [address] Apr, Callus L84 and Parkinsons disease G20 [facility] [address] [id number], [place] [address] Apr, [facility] [address] [id number], [place] [address] Mar, Other chronic pain G89.29 [facility] [address] [id number], [place] [id number] Feb, [facility] [address] [id number][place] [id number] Feb, Other chronic pain G89.29 [facility] [address] [facility] [id number], [place] [address]- 1247 Jan, Acquired hypothyroidism E03.9 [facility] [address] [id number] [address] Jan, Other chronic pain G89.29 [facility] [id number] [place] [address] [id number] Dec, Other chronic pain G89.29 [facility] [address], [place] [address]- 2390 14 Dec, 2016 [facility] [id number] [place] [address] 22515- 9488 13 Dec, 2016 [facility] [address] [place] [address] Dec, Seborrheic keratoses L82.1 and Trochanteric bursitis, right hip M70.61 [facility] [address] [address]- 1719 Dec, [facility] [address] [place] [address] 19924- 2079 Dec, Other chronic pain G89.29 [facility] [address]100[place], [place] [address]- 9404 November, [facility] [id number] [place] [address] [id number]- 4546 November, [facility] [id number] [place] [address] [id number] November, Other chronic pain G89.29 [facility] [id number] [place] [address] [id number] Oct, [facility] [address] [address]- 4607 Oct, Edema, unspecified type R60.9 [facility] [id number] [place] [address] [id number] Oct, Other chronic pain G89.29 [facility] [address] [address]- 4197 Oct, Acquired hypothyroidism E03.9 [facility] [id number][place] [id number] Sep, [facility] [id number] [place] [address] [id number] Sep, Other chronic pain G89.29 [facility] [address] [place] [address] Sep, Cramp of both lower extremities R25.2 ; Acquired hypothyroidism E03.[address] G20 [facility] [id number] [place] [address] [id number] Sep, [facility] [id number] [place] [address] 50210- 1140 Aug, [facility] [id number] [place] [address] 57227- 7095 Aug, [facility] [address] [place] [address] Aug, Leg edema, left R60.0 [facility] [id number] [place] [address] 92666- 0531 Aug, [facility] [id number] [place] [address] 58771- 0575 Aug, Acute deep vein thrombosis (DVT) of femoral vein, unspecified laterality I82.419 [facility] [id number] [place] [address] 50822- 5428 Aug, [facility] [id number] [place] [address] 32412- 3048 Aug, Other chronic pain G89.29 [facility] [id number] [place] [address] 33872- 1677 Aug, [facility] [id number] [place] [address]82 Aug, Bronchitis J40 ; Primary insomnia F51.01 ; Parkinsons disease G20 ; Anxiety F41.9 and Other chronic pain G89.29 [facility] [address] [id number] [id number] Jul, Dementia without behavioral disturbance, unspecified dementia type F03.90 ; Anxiety F41.9 ; Low back pain M54.5 and Other chronic pain G89.29 [facility] [address] [facility] [id number], [place] [address] Jul, [facility] [address] [facility] [id number], [place] [address] Jul, [facility] [address] [id number] [id number] Jul, [facility] [address] [facility] [id number], [place] [address] Jul, [facility] [address] [facility] [id number], [place] [address] Jun, [facility] [address] [facility] [id number], [place] [address] Jun, [facility] [address] [place] [address] Jun, Parkinsons disease G20 [facility] [address] [facility] [id number], [place] [address] May, [facility] [address] [facility] [id number], [place] [address] Apr, [facility] [address] [facility] [id number], [place] [address] Apr, [facility] [address] [place] [address] Apr, Parkinsons disease G20 [facility] [address] [facility] [id number], [place] [address] Mar, [facility] [address] [place] [address] Feb, Dementia without behavioral disturbance, unspecified dementia type F03.90 and Parkinsons disease G20 [facility] [address] [facility] [id number] [place] [address] Feb, IMMUNIZATIONS No Known Immunizations SOCIAL HISTORY Never Assessed REASON FOR VISIT Incontinence Order PLAN OF CARE VITAL SIGNS MEDICATIONS Unknown [...]
--- OUTSIDE RECORDS SUMMARY | 2018-08-06 11:30 | XMS REPORT ---
Author Author MARLON NELSON [facility] Address [address] [place] [address] Care Team Providers Care Embossing Tool Setter Name Role Phone MARLON NELSON Unavailable PROBLEMS Type Condition ICD9-CM Code SGK25-HY Code Onset Dates Condition Status SNOMED Code Problem Seizures R56.9 Active 01710816 Problem Dementia associated with other underlying disease without behavioral disturbance F02.80 Active 676573882 Problem Colostomy status Z93.3 Active 545392476 Problem Poor appetite R63.0 Active 54930739 Problem Primary insomnia F51.01 Active 9754058 Problem Dementia without behavioral disturbance, unspecified dementia type F03.90 Active 71196908 Problem Parkinsons disease G20 Active 85790980 Problem Other chronic pain G89.29 Active 04667628 Problem Anxiety F41.9 Active 04562530 Problem Chronic obstructive pulmonary disease, unspecified COPD type J44.9 Active 65609275 Problem Essential hypertension I10 Active 02485669 Problem Dysthymia F34.1 Active 04282993 Problem Gastroesophageal reflux disease without esophagitis K21.9 Active 490037601 Problem Acquired hypothyroidism E03.9 Active 632058173 ALLERGIES No Information ENCOUNTERS Encounter Location Date Diagnosis [facility] [address] [address] Apr, [facility] [id number] [place] [address]- 2935 Mar, [facility] [id number] [place] [address]- 5692 Mar, [facility] [id number] [place] [address] 10873- 5325 Mar, [facility] [id number] [place] [address]15- 1978 Mar, Other chronic pain G89.29 [facility] [address], [place] [address] Mar, [facility] [id number] [place] [address] 57428- [address]692 Mar, [facility] [id number] [place] [address] 91346- 3554 Mar, [facility] [address] [place] [id number] Mar, Personal history of other diseases of the digestive system Z87.19 ; Other specified postprocedural states Z98.890 ; Weakness R53.1 [address] [facility] [id number] [place] [address] 68[address] Feb, [facility] [id number] [place] [address] 62090- 2916 Feb, Other chronic pain G89.29 [facility] [id number] [place] [address] 15121- 5969 Feb, [facility] [id number] [place] [address]70- 6314 Feb, [facility] [id number] [place] [address] 00696- 9534 Feb, [facility] [id number] [place] [address] 95696- 9385 Feb, Other chronic pain G89.29 [facility] [address] [place] [address] 11571- 9819 Feb, Personal history of other diseases of the digestive system Z87.19 ; Other specified postprocedural states Z98.890 and Nausea R11.0 [facility] [address] [id number] Feb, Dental examination Z01.20 [facility] [id number] [place] [address] 34471- 3141 Jan, [facility] [address], [place] [address] Jan, Other chronic pain G89.29 [facility] [address], [place] [address] Jan, [facility] [address], [place] [address] Jan, [facility] [id number] [place] [address] 23357 -5651 Jan, Epigastric mass R19.06 [facility] [id number] [place] [address] 14049- 7658 Dec, Other chronic pain G89.29 [facility] [id number] [place] [address] 07913- 0833 November, Other chronic pain G89.29 [facility] [id number] [place] [address] 92101- 2509 November, [facility] [id number] [place] [address] 45864- 5907 November, Other chronic pain G89.29 [employer] [address] [place] [address] Oct, Bronchitis J40 and Parkinsons disease G20 [employer] [address] [place] [address] Oct, [address] [facility] [id number] [place] [address] 29937- 0512 Oct, [facility] [id number] [place] [address] 76210- 4568 Oct, Other chronic pain G89.29 [facility] [id number] [place] [address] [id number] Sep, Other chronic pain G89.29 [employer] [address] [place] [address] Aug, Acute pain of right ear H92.01 [facility] [address] [id number] [id number] Aug, Other chronic pain G89.29 [employer] [address] [place] [address] Jul, Acquired hypothyroidism E03.9 ; Localized edema R60.0 ; Weight gain R63.5 and Primary insomnia F51.01 [facility] [address] [id number] [id number] Jul, Other chronic pain G89.29 [facility] [address] [id number] [id number] Jun, Other chronic pain G89.29 [facility] [address] [id number] [id number] May, Other chronic pain G89.29 [facility] [address] [id number] [address] Apr, Other chronic pain G89.29 [facility] [address] [id number] [id number] Apr, Bronchitis J40 [facility] [address] [place] [address] Apr, Callus L84 and Parkinsons disease G20 [facility] [address] [id number] [id number] Apr, [facility] [address] [id number] [id number] Mar, Other chronic pain G89.29 [facility] [address] [id number] [id number] Feb, [facility] [address] [id number] [id number] Feb, Other chronic pain G89.29 [facility] [address] [facility] [id number], [place] [address] Jan, Acquired hypothyroidism E03.9 [facility] [address] [id number] [id number] Jan, Other chronic pain G89.29 [facility] [id number] [place] [id number] Dec, Other chronic pain G89.29 [facility] [address]65[address], [place] [address] 14 Dec, 2016 [facility] [id number] [place] [address] 81878- 1388 13 Dec, 2016 [employer] [address] [place] [address] Dec, Seborrheic keratoses L82.1 and Trochanteric bursitis, right hip M70.61 [facility] [address] [address] Dec, [facility] [id number] [place] [address] 47979- 4515 Dec, Other chronic pain G89.29 [facility] [address], [place] [address] November, [facility] [id number] [place] [address] 48000533- 5936 November, [facility] [id number] [place] [address] [id number] November, Other chronic pain G89.29 [facility] [id number] [place] [address] [id number] Oct, [facility] [address] [address] Oct, Edema, unspecified type R60.9 [facility] [id number] [place] [address] [id number] Oct, Other chronic pain G89.29 [facility] [address] [address] Oct, Acquired hypothyroidism E03.9 [facility] [id number] [id number] Sep, [facility] [id number] [place] [address] [id number] Sep, Other chronic pain G89.29 [employer] [address] [place] [address] Sep, Cramp of both lower extremities R25.2 ; Acquired hypothyroidism E03.9 and Parkinsons disease G20 [facility] [id number] [place] [address] [id number], [facility] [id number] [place] [address] 93274- 3894 Aug, [facility] [id number] [place] [address] 10788- 5828 Aug, [employer] [address] [place] [address] Aug, Leg edema, left R60.0 [facility] [id number] [place] [address] 53497- 7755 Aug, [facility] [id number] [place] [address] 40514- 5224 Aug, Acute deep vein thrombosis (DVT) of femoral vein, unspecified laterality I82.419 [facility] [id number] [place] [address] 30401- 9593 Aug, [facility] [id number] [place] [address] 28275- 3510 Aug, Other chronic pain G89.29 [facility] [id number] [place] [address] 25954- 9640 Aug, [facility] [id number] [place] [address] 82179- 8700 Aug, Bronchitis J40 ; Primary insomnia F51.01 ; Parkinsons disease G20 ; Anxiety F41.9 and Other chronic pain G89.29 [facility] [address] [id number] [id number] Jul, Dementia without behavioral disturbance, unspecified dementia type F03.90 ; Anxiety F41.9 ; Low back pain M54.5 and Other chronic pain G89.29 [facility] [address] [facility] [id number], [place] [address] Jul, [facility] [address] [facility] [id number], [place] [address] Jul, [facility] [address] [id number] [id number] Jul, [facility] [address] [facility] [id number], [place] [address] [address] Jul, [facility] [address] [facility] [id number], [place] [address] Jun, [facility] [address] [facility] [id number], [place] [address]- [address] Jun, [employer] [address] [place] [address] Jun, Parkinsons disease G20 [facility] [address] [facility] [id number], [place] [address] May, [facility] [address] [facility] [id number], [place] [address] [address] Apr, [facility] [address] [facility] [id number], [place] [address] Apr, [employer] [address] [place] [address] Apr, Parkinsons disease G20 [facility] [address] [facility] [id number], [place] [address] 6[address] Mar, [employer] [address] [place] [address] Feb, Dementia without behavioral disturbance, unspecified dementia type F03.90 [address]20 [facility] [address] [facility] [id number] [place] [address] Feb, IMMUNIZATIONS No Known Immunizations SOCIAL HISTORY Never Assessed REASON FOR VISIT Medication refill request PLAN OF CARE VITAL SIGNS MEDICATIONS [...]
--- OUTSIDE RECORDS SUMMARY | 2018-08-06 11:31 | XMS REPORT ---
Author Author MARLON NELSON [facility] Address [address] [place] [address] Care Team Providers Care Aws Consultant Name Role Phone MARLON NELSON Unavailable PROBLEMS Type Condition ICD9-CM Code [id number] Code Onset Dates Condition Status SNOMED Code Problem Seizures R56.9 Active 88007618 Problem Dementia associated with other underlying disease without behavioral disturbance F02.80 Active 903517320 Problem Colostomy status Z93.3 Active 752362465 Problem Poor appetite R63.0 Active 71324732 Problem Primary insomnia F51.01 Active 0376501 Problem Dementia without behavioral disturbance, unspecified dementia type F03.90 Active 27371504 Problem Parkinsons disease G20 Active 86764119 Problem Other chronic pain G89.29 Active 78835643 Problem Anxiety F41.9 Active 82156611 Problem Chronic obstructive pulmonary disease, unspecified COPD type J44.9 Active 42709292 Problem Essential hypertension I10 Active 52900605 Problem Dysthymia F34.1 Active 80991494 Problem Gastroesophageal reflux disease without esophagitis K21.9 Active 970471270 Problem Acquired hypothyroidism E03.9 Active 221533454 ALLERGIES No Information ENCOUNTERS Encounter Location Date Diagnosis [facility] [id number] [address] Mar, [facility] [id number] [place] [address] 29640[address] 0143 Mar, [facility] [id number] [place] [address] 25223- 4695 Mar, [facility] [id number] [place] [address] 97829- 2079 Mar, Other chronic pain G89.29 [facility] [id number] [place] [address] 20725- 7814 Mar, [facility] [id number] [place] [address] 79452- 8747 Mar, [facility] [id number] [place] [address] 14225- 8520 Mar, [facility] [address] [place] [id number] Mar, Personal history of other diseases of the digestive system Z87.19 ; Other specified postprocedural states Z98.890 ; Weakness R53.1 and Poor appetite R63.0 [facility] [id number] [place] [address] 94480- 4307 Feb, [facility] [id number] [place] [address] 88128- 8752 Feb, Other chronic pain G89.29 [facility] [id number] [place] [address] 58007- 3609 Feb, [facility] [id number] [place] [address] 23861- 5404 Feb, [facility] [id number] [place] [address] 50657- 7399 Feb, [facility] [id number] [place] [address] 78954- 8972 Feb, Other chronic pain G89.29 [facility] [id number] [place] [address] 17037- 2949 Feb, Personal history of other diseases of the digestive system Z87.19 ; Other specified postprocedural states Z98.890 and Nausea R11.0 [facility] [id number] [place] [address] [id number] Feb, Dental examination Z01.20 [facility] [id number] [place] [address] 57628- 6524 Jan, [facility] [id number] [place] [address] 14110- 2159 Jan, Other chronic pain G89.29 [facility] [address], [place] [address] Jan, [facility] [address], [place] [address] Jan, [facility] [address], [place] [address] Jan, Epigastric mass R19.06 [facility] [id number] [place] [address] 64375- 3815 Dec, Other chronic pain G89.29 [facility] [id number] [place] [address] 01484- 6849 November, Other chronic pain G89.29 [facility] [id number] [place] [address] 69884- 0483 November, [facility] [id number] [place] [address] 11521- 6052 November, Other chronic pain G89.29 [employer] [facility] [address] [place] [address] Oct, Bronchitis J40 and Parkinsons disease G20 [employer] [facility] [address] [place] [address] Oct, Bronchitis J40 [facility] [address], [place] [address] Oct, [facility] [id number] [place] [address] 64851- 9656 Oct, Other chronic pain G89.29 [facility] [id number] [place] [address] [id number] Sep, Other chronic pain G89.29 [employer] [facility] [address] [place] [address] Aug, Acute pain of right ear H92.01 [facility] [id number] [place] [address] [id number] Aug, Other chronic pain G89.29 [employer] [address] [place] [address] Jul, Acquired hypothyroidism E03.9 ; Localized edema R60.0 ; Weight gain R63.5 and Primary insomnia F51.01 [facility] [address] [id number] [id number] Jul, Other chronic pain G89.29 [facility] [address] [id number] [id number] Jun, Other chronic pain G89.29 [facility] [address] [id number] [id number] May, Other chronic pain G89.29 [facility] [address] [id number] [id number] Apr, Other chronic pain G89.29 [facility] [address] [id number] [id number] Apr, Bronchitis J40 [employer] [address] [place] [address] Apr, Callus L84 and Parkinsons disease G20 [facility] [address] [id number] [id number] Apr, [facility] [address] [id number] [id number] Mar, Other chronic pain G89.29 [facility] [address] [id number] [id number] Feb, [facility] [address] [id number] [id number] Feb, Other chronic pain G89.29 [facility] [address] [facility] [id number], [place] [address] Jan, Acquired hypothyroidism E03.9 [facility] [address] [id number] [id number] Jan, Other chronic pain G89.29 [facility] [id number] [id number] Dec, Other chronic pain G89.29 [facility] [address], [place] [address] 14 Dec, 2016 [facility] [address], [place] [address] 13 Dec, 2016 [facility] [address] [place] [address] Dec, Seborrheic keratoses L82.1 and Trochanteric bursitis, right hip M70.61 [facility] [address], [place] [address] Dec, [facility] [address], [place] [address] 1664 Dec, Other chronic pain G89.29 [facility] [address], [place] [address] 4[address] November, [facility] [address], [place] [address] 8[address] November, [facility] [id number] [place] [address] [id number] November, Other chronic pain G89.29 [facility] [id number] [id number] Oct, [facility] [address], [place] [address] Oct, Edema, unspecified type R60.9 [facility] [id number] [id number] Oct, Other chronic pain G89.29 [facility] [id number] [address] Oct, Acquired hypothyroidism E03.9 [facility] [id number] [id number] Sep, [facility] [id number] [place] [address] [id number] Sep, Other chronic pain G89.29 [employer] [address] [place] [address] Sep, Cramp of both lower extremities R25.2 ; Acquired hypothyroidism E03.9 and Parkinsons disease G20 [facility] [id number] [place] [address] [id number] Sep, [facility] [id number] [place] [address] 45953- 2414 Aug, [facility] [id number] [place] [address] 34574- 1634 Aug, [employer] [address] [place] [address] Aug, Leg edema, left R60.0 [facility] [id number] [place] [address] 87605- 4756 Aug, [facility] [id number] [place] [address] 62712- 2763 Aug, Acute deep vein thrombosis (DVT) of femoral vein, unspecified laterality I82.419 [facility] [id number] [place] [address] 83003- 6947 Aug, [facility] [id number] [place] [address] 91850- 6619 Aug, Other chronic pain G89.29 [facility] [id number] [place] [address] 65584- 0421 Aug, [facility] [id number] [place] [address] 09888- 5958 Aug, Bronchitis J40 ; Primary insomnia F51.01 ; Parkinsons disease G20 ; Anxiety F41.9 and Other chronic pain G89.29 [facility] [id number] [id number] Jul, Dementia without behavioral disturbance, unspecified dementia type F03.90 ; Anxiety F41.9 ; Low back pain M54.5 and Other chronic pain G89.29 [facility] [address] [facility] [id number], [place] [address] Jul, [facility] [address] [facility] [id number], [place] [address] Jul, [facility] [id number] [place] [address] [id number] Jul, [facility] [address] [facility] [id number], [place] [address] 0[address] Jul, [facility] [address] [facility] [id number] [place] [address] 45939- 8511 Jun, [facility] [address] [facility] [id number], [place] [address] Jun, [employer] [address] [place] [address] Jun, Parkinsons disease G20 [facility] [address] [facility] [id number], [place] [address] 0099 May, [facility] [address], [place] [address] Apr, [facility] [id number], [place] [address] 9514 Apr, [employer] [address] [place] [address] Apr, Parkinsons disease G20 [facility] [address] [facility] [id number], [place] [address] 78[address] Mar, [employer] [address] [place] [address] Feb, Dementia without behavioral disturbance, unspecified dementia type F03.90 and Parkinsons disease G20 [facility] [address] [facility] [id number], [place] [address] 0091 Feb, IMMUNIZATIONS No Known Immunizations SOCIAL HISTORY Never Assessed REASON FOR VISIT Wound PLAN OF CARE VITAL SIGNS MEDICATIONS Unknown [...]
--- OUTSIDE RECORDS SUMMARY | 2018-08-06 11:31 | XMS REPORT ---
Author Author MARLON NELSON [facility] Address [address] [place] [address] Care Team Providers Care Record Pressman Name Role Phone MARLON NELSON Unavailable PROBLEMS Type Condition ICD9-CM Code OUL56-BF Code Onset Dates Condition Status SNOMED Code Problem Seizures R56.9 Active 06742677 Problem Dementia associated with other underlying disease without behavioral disturbance F02.80 Active 688680180 Problem Colostomy status Z93.3 Active 000250796 Problem Poor appetite R63.0 Active 74654263 Problem Primary insomnia F51.01 Active 2404606 Problem Dementia without behavioral disturbance, unspecified dementia type F03.90 Active 24599165 Problem Parkinsons disease G20 Active 03224842 Problem Other chronic pain G89.29 Active 85022015 Problem Anxiety F41.9 Active 46948247 Problem Chronic obstructive pulmonary disease, unspecified COPD type J44.9 Active 78445532 Problem Essential hypertension I10 Active 53820769 Problem Dysthymia F34.1 Active 47586124 Problem Gastroesophageal reflux disease without esophagitis K21.9 Active 041743406 Problem Acquired hypothyroidism E03.9 Active 846426796 ALLERGIES No Information ENCOUNTERS Encounter Location Date Diagnosis [facility] [address], [place] [address] Apr, [facility] [id number] [place] [address]1422- 4818 Mar, [facility] [id number] [place] [address] 56891- 4976 Mar, [facility] [id number] [place] [address] 98553- 2698 Mar, [facility] [address] [place] [address] 23768- 5757 Mar, Other chronic pain G89.29 [facility] [address], [place] [address] Mar, [facility] [address] [place] [address] 51138- 9258 Mar, [facility] [address] [place] [address] 69085- 0566 Mar, Via [facility] [address] [place] [id number] Mar, Personal history of other diseases of the digestive system Z87.19 ; Other specified postprocedural states Z98.890 ; Weakness R53.1 and Poor appetite R63.0 [facility] [id number] [place] [address] 75438- 2507 Feb, [facility] [id number] [place] [address] 65288- 5681 Feb, Other chronic pain G89.29 [facility] [id number] [place] [address] 18214- 7239 Feb, [facility] [id number] [place] [address] 05278- 8884 Feb, [facility] [address] [place] [address] 88414- 9797 Feb, [facility] [address] [place] [address] 11152- 8489 Feb, Other chronic pain G89.29 [facility] [address] [place] [address] 15918- 2946 Feb, Personal history of other diseases of the digestive system Z87.19 ; Other specified postprocedural states Z98.890 and Nausea R11.0 [facility] [address] [id number] Feb, Dental examination Z01.20 [facility] [address] [place] [address] 54527- 0050 Jan, [facility] [address], [place] [address] Jan, Other chronic pain G89.29 [facility] [address], [place] [address] Jan, [facility] [address], [place] [address] Jan, [facility] [address] [place] [address] 36107 -7409 Jan, Epigastric mass R19.06 [facility] [id number] [place] [address] 09361- 0246 Dec, Other chronic pain G89.29 [facility] [address] [place] [address] 04191- 3798 November, Other chronic pain G89.29 [facility] [address] [place] [address] 77390- 7522 November, [facility] [address] [place] [address] 48446- 0901 November, Other chronic pain G89.29 [facility] [address] [place] [address] Oct, Bronchitis J40 and Parkinsons disease G20 [facility] [address] [place] [address] Oct, Bronchitis J40 [facility] [address] [place] [address] 48129- 0977 Oct, [facility] [address] [place] [address] 77824- 7803 Oct, Other chronic pain G89.29 [facility] [id number] [place] [id number] Sep, Other chronic pain G89.29 [facility] [address] [place] [address] Aug, Acute pain of right ear H92.01 [facility] [address] [id number] [id number] Aug, Other chronic pain G89.29 [facility] [address] [place] [address] Jul, Acquired hypothyroidism E03.9 ; Localized edema R60.0 ; Weight gain R63.5 and Primary insomnia F51.01 [facility] [address] [id number] [id number] Jul, Other chronic pain G89.29 [facility] [address] [id number] [id number] Jun, Other chronic pain G89.29 [facility] [address] [id number] [id number] May, Other chronic pain G89.29 [facility] [address] [id number] [id number] Apr, Other chronic pain G89.29 [facility] [address] [id number] [id number] Apr, Bronchitis J40 [facility] [address] [place] [address] Apr, Callus L84 and Parkinsons disease G20 [facility] [address] [id number] [id number] Apr, [facility] [address] [id number] [id number] Mar, Other chronic pain G89.29 [facility] [address] [id number] [id number] Feb, [facility] [address] [id number] [id number] Feb, Other chronic pain G89.29 [facility] [address] [facility] [id number], [place] [address] Jan, Acquired hypothyroidism E03.9 [facility] [address] [id number] [id number] Jan, Other chronic pain G89.29 [facility] [id number] [place] [id number] Dec, Other chronic pain G89.29 [facility] [address], [place] [address] 14 Dec, 2016 [facility] [id number] [place] [address] 07705- 4599 13 Dec, 2016 [facility] [address] [place] [address] Dec, Seborrheic keratoses L82.1 and Trochanteric bursitis, right hip M70.61 [facility] [address] [address] Dec, [facility] [address] [place] [address] 38814- 9450 Dec, Other chronic pain G89.29 [facility] [address], [place] [address] 4[address] November, [facility] [address] [place] [address] [id number]- [phone] November, [facility] [id number] [place] [address] [id number] November, Other chronic pain G89.29 [facility] [id number] [place] [address] [id number] Oct, [facility] [address] [address] Oct, Edema, unspecified type R60.9 [facility] [id number] [place] [address] [id number] Oct, Other chronic pain G89.29 [facility] [address] [address] Oct, Acquired hypothyroidism E03.9 [facility] [id number] [id number] Sep, [facility] [id number] [place] [address] [id number] Sep, Other chronic pain G89.29 [facility] [address] [place] [address] Sep, Cramp of both lower extremities R25.2 ; Acquired hypothyroidism E03.9 and Parkinsons disease G20 [facility] [id number] [place] [address] [id number] Sep, [facility] [id number] [place] [address] 99196- 4027 Aug, [facility] [id number] [place] [address] 42178- 4966 Aug, [facility] [address] [place] [address] Aug, Leg edema, left R60.0 [facility] [address] [place] [address] 71501- 2389 Aug, [facility] [id number] [place] [address] 57331- 7184 Aug, Acute deep vein thrombosis (DVT) of femoral vein, unspecified laterality I82.419 [facility] [id number] [place] [address] 29817- 3036 Aug, [facility] [id number] [place] [address] 25163- 7209 Aug, Other chronic pain G89.29 [facility] [id number] [place] [address] 93368- 7076 Aug, [facility] [id number] [place] [address] 83937- 7156 Aug, Bronchitis J40 ; Primary insomnia F51.01 ; Parkinsons disease G20 ; Anxiety F41.9 and Other chronic pain G89.29 [facility] [address] [id number] [id number] Jul, Dementia without behavioral disturbance, unspecified dementia type F03.90 ; Anxiety F41.9 ; Low back pain M54.5 and Other chronic pain G89.29 [facility] [address] [facility] [id number], [place] [address] Jul, [facility] [address] [facility] [id number], [place] [address] 0869 Jul, [facility] [address] [id number] [id number] Jul, [facility] [address] [facility] [id number], [place] [address] 6530 Jul, [facility] [address] [facility] [id number], [place] [address] 8240 Jun, [facility] [address] [facility] [id number], [place] [address] 1311 Jun, [facility] [address] [place] [address] Jun, Parkinsons disease G20 [facility] [address] [facility] [id number], [place] [address]- 9412 May, [facility] [address] [facility] [id number], [place] [address]- 0763 Apr, [facility] [address] [facility] [id number], [place] [address] 2026 Apr, [facility] [address] [place] [address] Apr, Parkinsons disease G20 [facility] [address] [facility] [id number], [place] [address]- 4900 Mar, [facility] [address] [place] [address] Feb, Dementia without behavioral disturbance, unspecified dementia type F03.90 and Parkinsons disease G20 [facility] [address] [facility] [id number] [place] [address] 4[address] Feb, IMMUNIZATIONS No Known Immunizations SOCIAL HISTORY Never Assessed REASON FOR VISIT med list update PLAN OF CARE VITAL SIGNS MEDICATIONS Medication Instructions Dosage Frequency Start Date End Date Duration Status Magnesium Oxide 400 Orally 2 times a day 1 tablet with food 12h Active Mirapex 0.5 Orally 2 times a day 1 tablet 12h Active Symbicort 160-4.5 MCG/ACT Inhalation Twice a day 2 puffs 12h Active Lasix 40 MG Orally Once a day 1 tablet 24h Active Sinemet CR 50-200 Orally Twice a day 1 tablet 12h Active Requip 0.25 Orally Once a day at bedtime. Give with 1mg tab 1 tablet Active Senna Laxative 8.6 MG Orally Once a day 2 tablets at bedtime as needed 24h Active Allopurinol 100 Orally Once a day 1 tablet 24h Active Mucus Relief DM Max 20-400 MG/20ML Orally every 4 hrs 10 ml 4h 30 day (s) Active Loratadine 10 MG Orally Once a day 1 tablet 24h Active Trazodone HCl 50 MG Orally Once a day 0.5 tablet at bedtime 24h Active FiberCon 625 MG Orally twice a day 2 tablets 12h Active Tramadol HCl 50 mg Orally 2 times a day 1 tablet 12h 28 days Active Aspirin EC 81 MG Orally Once a day 1 tablet 24h Active Aricept 10 MG Orally Once a day 1 tablet at bedtime 24h Active Klor-Con M20 20 MEQ Orally Once a day 1 tablet with food 24h 30 day(s ) Active Myrbetriq 25 MG Orally Once a day 1 tablet 24h Active Celexa 20 Orally Once a day 1 tablet 24h Active Synthroid 75 mcg Orally Once a day 1 tablet on an empty stomach in the morning 24h Active Requip 1 Orally Three times a day 1 tablet 8h Active Prilosec 20 TAKE ONE CAPSULE BY MOUTH DAILY 30 Active Ondansetron HCl 4 MG Orally every 8 hours, PRN 1 tablets Feb, Active Mylanta Double-Strength by oral route every 12 hrs as needed 10ml Active RESULTS No Results PROCEDURES No Known [...]
--- OUTSIDE RECORDS SUMMARY | 2018-08-06 11:31 | XMS REPORT ---
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 Name Role Phone MARLON NELSON Unavailable PROBLEMS Type Condition ICD9-CM Code JTC48-QE Code Onset Dates Condition Status SNOMED Code Problem Seizures R56.9 Active 91946103 Problem Dementia associated with other underlying disease without behavioral disturbance F02.80 Active 531576051 Problem Colostomy status Z93.3 Active 338028812 Problem Poor appetite R63.0 Active 85305104 Problem Primary insomnia F51.01 Active 4251472 Problem Dementia without behavioral disturbance, unspecified dementia type F03.90 Active 62979424 Problem Parkinsons disease G20 Active 12204435 Problem Other chronic pain G89.29 Active 24230390 Problem Anxiety F41.9 Active 92116347 Problem Chronic obstructive pulmonary disease, unspecified COPD type J44.9 Active 18810553 Problem Essential hypertension I10 Active 92878140 Problem Dysthymia F34.1 Active 98714321 Problem Gastroesophageal reflux disease without esophagitis K21.9 Active 114505197 Problem Acquired hypothyroidism E03.9 Active 453844732 ALLERGIES No Information ENCOUNTERS Encounter Location Date Diagnosis [facility] [address], [place] [address] Apr, [facility] [id number] [place] [address] 85414- 4417 Mar, [facility] [id number] [place] [address] 93787- 2003 Mar, [facility] [id number] [place] [address] 56567- 2699 Mar, [facility] [id number] [place] [address] 58633- 8862 Mar, Other chronic pain G89.29 [facility] [address], [place] [address] Mar, [facility] [id number] [place] [address] 42342- 7431 Mar, [facility] [address] [place] [address] 69411- 7968 Mar, [facility] [address] [place] [id number] Mar, Personal history of other diseases of the digestive system Z87.19 ; Other specified postprocedural states Z98.890 ; Weakness R53.1 and Poor appetite R63.0 [facility] [id number] [place] [address] 98330- 5210 Feb, [facility] [id number] [place] [address] 99742- 6012 Feb, Other chronic pain G89.29 [facility] [id number] [place] [address] 69647- 0383 Feb, [facility] [id number] [place] [address] 36136- 4571 Feb, [facility] [address] [place] [address] 96848- 3811 Feb, [facility] [address] [place] [address] 49188- 9156 Feb, Other chronic pain G89.29 [facility] [address] [place] [address] 36570- 0588 Feb, Personal history of other diseases of the digestive system Z87.19 ; Other specified postprocedural states Z98.890 and Nausea R11.0 [facility] [address] [id number] Feb, Dental examination Z01.20 [facility] [address] [place] [address] 63143- 3776 Jan, [facility] [address], [place] [address] Jan, Other chronic pain G89.29 [facility] [address], [place] [address] Jan, [facility] [address], [place] [address] Jan, [facility] [address] [place] [address] 06412 -2443 Jan, Epigastric mass R19.06 [facility] [id number] [place] [address] 21690- 1845 Dec, Other chronic pain G89.29 [facility] [address] [place] [address] 06042- 8313 November, Other chronic pain G89.29 [facility] [address] [place] [address] 20866- 5561 November, [facility] [address] [place] [address] 71471- 4677 November, Other chronic pain G89.29 [employer] [address] [place] [address] Oct, Bronchitis J40 and Parkinsons disease G20 [employer] [address] [place] [address] Oct, Bronchitis J40 [facility] [address] [place] [address] 06910- 5739 Oct, [facility] [address] [place] [address] 78225- 6186 Oct, Other chronic pain G89.29 [facility] [id number] [place] [id number] Sep, Other chronic pain G89.29 [employer] [address] [place] [address] Aug, Acute pain of right ear H92.01 [facility] [address] [id number] [id number] Aug, Other chronic pain G89.29 [employer] [address] [place] [address] Jul, Acquired hypothyroidism E03.9 ; Localized edema R60.0 ; Weight gain R63.5 and Primary insomnia F51.01 [facility] [address] [id number] [id number] Jul, Other chronic pain G89.29 [facility] [address] [id number] [id number] Jun, Other chronic pain G89.29 [facility] [address] [id number] [address] May, Other chronic pain G89.29 [facility] [address] [id number] [id number] Apr, Other chronic pain G89.29 [facility] [address] [id number] [id number] Apr, Bronchitis J40 [employer] [address] [place] [address] Apr, Callus L84 and Parkinsons disease G20 [facility] [address] [id number] [id number] Apr, [facility] [address] [id number] [id number] Mar, Other chronic pain G89.29 [facility] [address] [id number] [id number] Feb, [facility] [address] [id number] [id number] Feb, Other chronic pain G89.29 [facility] [address] [facility] [id number], [place] [address] Jan, Acquired hypothyroidism E03.9 [facility] [address] [id number] [id number] Jan, Other chronic pain G89.29 [facility] [id number] [place] [id number] Dec, Other chronic pain G89.29 [facility] [address], [place] [address] 14 Dec, 2016 [facility] [id number] [place] [address] 39286- 4936 13 Dec, 2016 [employer] [address] [place] [address] Dec, Seborrheic keratoses L82.1 and Trochanteric bursitis, right hip M70.61 [facility] [address] [address] Dec, [facility] [address] [place] [address] 70648- 4449 Dec, Other chronic pain G89.29 [facility] [address], [place] [address] 7952 November, [facility] [address] [place] [address] [id number]- 5396 November, [facility] [id number] [place] [address] [id number] November, Other chronic pain G89.29 [facility] [id number] [place] [address] [id number] Oct, [facility] [address] [address] Oct, Edema, unspecified type R60.9 [facility] [id number] [place] [address] [id number] Oct, Other chronic pain G89.29 [facility] [address] [address] Oct, Acquired hypothyroidism E03.9 [facility] [id number] [id number] Sep, [facility] [id number] [place] [address] [id number] Sep, Other chronic pain G89.29 [employer] [address] [place] [address] Sep, Cramp of both lower extremities R25.2 ; Acquired hypothyroidism E03.9 and Parkinsons disease G20 [facility] [id number] [place] [address] [id number] Sep, [facility] [id number] [place] [address] 53783- 9748 Aug, [facility] [id number] [place] [address] 87014- 0338 Aug, [employer] [address] [place] [address] Aug, Leg edema, left R60.0 [facility] [address] [place] [address] 02845- 8753 Aug, [facility] [id number] [place] [address] 98390- 7197 Aug, Acute deep vein thrombosis (DVT) of femoral vein, unspecified laterality I82.419 [facility] [id number] [place] [address] 98411- 6908 Aug, [facility] [id number] [place] [address] 29328- 0392 Aug, Other chronic pain G89.29 [facility] [id number] [place] [address] 92064- 7496 Aug, [facility] [id number] [place] [address] 56200- 7305 Aug, Bronchitis J40 ; Primary insomnia F51.01 ; Parkinsons disease G20 ; Anxiety F41.9 and Other chronic pain G89.29 [facility] [address] [id number] [id number] Jul, Dementia without behavioral disturbance, unspecified dementia type F03.90 ; Anxiety F41.9 ; Low back pain M54.5 and Other chronic pain G89.29 [facility] [address] [facility] [id number], [place] [address] Jul, [facility] [address] [facility] [id number], [place] [address] 6916 Jul, [facility] [address] [id number][place] [id number] Jul, [facility] [address] [facility] [id number], [place] [address]23 Jul, [facility] [address] [facility] [id number], [place] [address] 5600 Jun, [facility] [address] [facility] [id number], [place] [address]- 8271 Jun, [employer] [address] [place] [address] Jun, Parkinsons disease G20 [facility] [address] [facility] [id number], [place] [address] 3[address] May, [facility] [address] [facility] [id number], [place] [address]- 0580 Apr, [facility] [address] [facility] [id number], [place] [address]- 9502 Apr, [employer] [address] [place] [address] Apr, Parkinsons disease G20 [facility] [address] [facility] [id number], [place] [address]- 0265 Mar, [employer] [address] [place] [address] Feb, Dementia without behavioral disturbance, unspecified dementia type F03.90 and Parkinsons disease G20 [facility] [address] [facility] [id number] [place] [address] 8028 Feb, IMMUNIZATIONS No Known Immunizations SOCIAL HISTORY Never Assessed REASON FOR VISIT Medication refill request PLAN OF CARE VITAL SIGNS MEDICATIONS Medication Instructions Dosage Frequency Start Date End Date Duration Status Ondansetron HCl 4 MG Orally every 8 hours, PRN 1 tablets Active RESULTS No Results PROCEDURES No Known [...]
--- OUTSIDE RECORDS SUMMARY | 2018-08-06 11:31 | XMS REPORT ---
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 Role Phone MARLON NELSON Unavailable PROBLEMS Type Condition ICD9-CM Code MGE99-ZV Code Onset Dates Condition Status SNOMED Code Problem Seizures R56.9 Active 65195917 Problem Dementia associated with other underlying disease without behavioral disturbance F02.80 Active 189391665 Problem Colostomy status Z93.3 Active 332649786 Problem Poor appetite R63.0 Active 81807803 Problem Primary insomnia F51.01 Active 3141687 Problem Dementia without behavioral disturbance, unspecified dementia type F03.90 Active 58676333 Problem Parkinsons disease G20 Active 37783930 Problem Other chronic pain G89.29 Active 95244714 Problem Anxiety F41.9 Active 24685075 Problem Chronic obstructive pulmonary disease, unspecified COPD type J44.9 Active 50581016 Problem Essential hypertension I10 Active 39984453 Problem Dysthymia F34.1 Active 81441703 Problem Gastroesophageal reflux disease without esophagitis K21.9 Active 585649805 Problem Acquired hypothyroidism E03.9 Active 712755622 ALLERGIES No Information ENCOUNTERS Encounter Location Date Diagnosis [facility] [address] [address] Apr, [facility] [id number] [place] [address] 84183- 4225 Mar, [facility] [id number] [place] [address] 53709- 1398 Mar, [facility] [id number] [place] [address] 27804- 5559 Mar, [facility] [id number] [place] [address] 28396- 7817 Mar, Other chronic pain G89.29 [facility] [address] [address] Mar, [facility] [id number] [place] [address] 66131- 8041 Mar, [facility] [id number] [place] [address] 73894- 7812 Mar, Via [facility] [address] [place] [id number] Mar, Personal history of other diseases of the digestive system Z87.19 ; Other specified postprocedural states Z98.890 ; Weakness R53.1 and Poor appetite R63.0 [facility] [id number] [place] [address] 87733- 6127 Feb, [facility] [id number] [place] [address] 56174- 2201 Feb, Other chronic pain G89.29 [facility] [id number] [place] [address] 40350- 5651 Feb, [facility] [id number] [place] [address] 87155- 4438 Feb, [facility] [id number] [place] [address] 87988- 1041 Feb, [facility] [id number] [place] [address] 80563- 6131 Feb, Other chronic pain G89.29 [facility] [id number] [place] [address] 03156- 8956 Feb, Personal history of other diseases of the digestive system Z87.19 ; Other specified postprocedural states Z98.890 and Nausea R11.0 [facility] [address] [id number] Feb, Dental examination Z01.20 [facility] [id number] [place] [address] 03121- 5531 Jan, [facility] [address] [address] Jan, Other chronic pain G89.29 [facility] [address] [address] Jan, [facility] [address] [address] Jan, [facility] [id number] [place] [address] 55143 -1709 Jan, Epigastric mass R19.06 [facility] [id number] [place] [address] 16209- 3674 Dec, Other chronic pain G89.29 [facility] [id number] [place] [address] 97338- 9999 November, Other chronic pain G89.29 [facility] [id number] [place] [address] 25281- 7099 November, [facility] [id number] [place] [address] 27357- 9664 November, Other chronic pain G89.29 [employer] [address] [place] [address] Oct, Bronchitis J40 and Parkinsons disease G20 [employer] [address] [place] [address] Oct, Bronchitis J40 [facility] [id number] [place] [address] 44826- 4638 Oct, [facility] [id number] [place] [address] 98952- 7569 Oct, Other chronic pain G89.29 [facility] [id number] [place] [id number] Sep, Other chronic pain G89.29 [employer] [address] [place] [address] Aug, Acute pain of right ear H92.01 [facility] [id number] [id number] Aug, Other chronic pain G89.29 [employer] [address] [place] [address] Jul, Acquired hypothyroidism E03.9 ; Localized edema R60.0 ; Weight gain R63.5 and Primary insomnia F51.01 [facility] [id number] [id number] Jul, Other chronic pain G89.29 [facility] [id number] [id number] Jun, Other chronic pain G89.29 [facility] [id number] [id number] May, Other chronic pain G89.29 [facility] [id number] [id number] Apr, Other chronic pain G89.29 [facility] [id number] [id number] Apr, Bronchitis J40 [employer] [address] [place] [address] Apr, Callus L84 and Parkinsons disease G20 [facility] [id number] [id number] Apr, [facility] [id number] [id number] Mar, Other chronic pain G89.29 [facility] [id number] [id number] Feb, [facility] [id number] [id number] Feb, Other chronic pain G89.29 [facility] [address] [facility] [id number] [place] [address] Jan, Acquired hypothyroidism E03.9 [facility] [id number] [address] Jan, Other chronic pain G89.29 [facility] [id number] [place] [address] [id number] Dec, Other chronic pain G89.29 [facility] [address] [address] 18[address] 14 Dec, 2016 [facility] [id number] [place] [address] 96184- 7015 13 Dec, 2016 [employer] [address] [place] [address] Dec, Seborrheic keratoses L82.1 and Trochanteric bursitis, right hip M70.61 [facility] [address] [address] Dec, [facility] [id number] [place] [address] 47362- 4783 Dec, Other chronic pain G89.29 [facility] [address] [address] 8547 November, [facility] [id number] [place] [address] [id number]- [phone] November, [facility] [id number] [place] [address] [id number] November, Other chronic pain G89.29 [facility] [id number] [place] [address] [id number] Oct, [facility] [address] [address] Oct, Edema, unspecified type R60.9 [facility] [id number] [place] [address] [id number] Oct, Other chronic pain G89.29 [facility] [address] [address] Oct, Acquired hypothyroidism E03.9 [facility] [id number] [id number] Sep, [facility] [id number] [place] [address] [id number] Sep, Other chronic pain G89.29 [employer] [address] [place] [address] Sep, Cramp of both lower extremities R25.2 ; Acquired hypothyroidism E03.9 and Parkinsons disease G20 [facility] [id number] [place] [address] [id number] Sep, [facility] [id number] [place] [address] 20567- 2848 Aug, [facility] [id number] [place] [address] 22248- 3745 Aug, [employer] [address] [place] [address] Aug, Leg edema, left R60.0 [facility] [id number] [place] [address] 67764- 2838 Aug, [facility] [id number] [place] [address] 21022- 7176 Aug, Acute deep vein thrombosis (DVT) of femoral vein, unspecified laterality I82.419 [facility] [id number] [place] [address] 10840- 1467 Aug, [facility] [id number] [place] [address] 58392- 2199 Aug, Other chronic pain G89.29 [facility] [id number] [place] [address] 00223- 9976 Aug, [facility] [id number] [place] [address] 15587- 6352 Aug, Bronchitis J40 ; Primary insomnia F51.01 ; Parkinsons disease G20 ; Anxiety F41.9 and Other chronic pain G89.29 [facility] [id number] [id number] Jul, Dementia without behavioral disturbance, unspecified dementia type F03.90 ; Anxiety F41.9 ; Low back pain M54.5 and Other chronic pain G89.29 [facility] [address] [facility] [id number] [place] [address]- 655[address] Jul, [facility] [address] [facility] [id number] [place] [address]- 5481 Jul, [facility] [id number] [id number] Jul, [facility] [address] [facility] [id number] [place] [address]- 6[address] Jul, [facility] [address] [facility] [id number] [place] [address]- 6835 Jun, [facility] [address] [facility] [id number] [place] [address]- 7712 Jun, [employer] [address] [place] [address] Jun, Parkinsons disease G20 [facility] [address] [facility] [id number] [place] [address]- 6151 May, [facility] [address] [facility] [id number] [place] [address]- 0229 Apr, [facility] [address] [facility] [id number] [place] [address]- 9791 Apr, [employer] [address] [place] [address] Apr, Parkinsons disease G20 [facility] [address] [facility] [id number] [place] [address]- 9477 Mar, [employer] [address] [place] [address] Feb, Dementia without behavioral disturbance, unspecified dementia type F03.90 and Parkinsons disease G20 [facility] [address] [facility] [id number] [address] 1282 Feb, IMMUNIZATIONS No Known Immunizations SOCIAL HISTORY [...]
--- OUTSIDE RECORDS SUMMARY | 2018-08-06 11:32 | XMS REPORT ---
Author Author CHRISTIAN CHAVEZ [facility] Address [address] [place] [address] Care Team Providers Care Plastic Fabricator Name Role Phone CHRISTIAN CHAVEZ Unavailable PROBLEMS Type Condition ICD9-CM Code DEE76-HF Code Onset Dates Condition Status SNOMED Code Problem Seizures R56.9 Active 71365504 Problem Dementia associated with other underlying disease without behavioral disturbance F02.80 Active 165266487 Problem Colostomy status Z93.3 Active 421121215 Problem Poor appetite R63.0 Active 00476802 Problem Primary insomnia F51.01 Active 1599774 Problem Dementia without behavioral disturbance, unspecified dementia type F03.90 Active 66837991 Problem Parkinsons disease G20 Active 49106879 Problem Other chronic pain G89.29 Active 15031281 Problem Anxiety F41.9 Active 82839363 Problem Chronic obstructive pulmonary disease, unspecified COPD type J44.9 Active 30777407 Problem Essential hypertension I10 Active 47828780 Problem Dysthymia F34.1 Active 28459238 Problem Gastroesophageal reflux disease without esophagitis K21.9 Active 712721561 Problem Acquired hypothyroidism E03.9 Active 250602738 ALLERGIES No Information ENCOUNTERS Encounter Location Date Diagnosis [place] [id number] [address] Mar, [facility] [address] [place] [address]235- 4360 Mar, [place] [id number] [place] [address] 94756- 1692 Mar, [facility] [address] [place] [id number] Mar, Personal history of other diseases of the digestive system Z87.19 ; Other specified postprocedural states Z98.890 ; Weakness R53.1 and Poor appetite R63.0 [facility] [address] [address] Feb, [facility] [id number] [place] [address] 80669- 3558 Feb, Other chronic pain G89.29 [facility] [id number] [place] [address] 72576- 3307 Feb, [facility] [id number] [place] [address] 36571- 9947 Feb, [facility] [id number] [place] [address] 03630- 4376 Feb, [facility] [id number] [place] [address] 18256- 4077 Feb, Other chronic pain G89.29 [facility] [id number] [place] [address] 50592- 8396 Feb, Personal history of other diseases of the digestive system Z87.19 ; Other specified postprocedural states Z98.890 and Nausea R11.0 [facility] [address] [place] [address] [id number] Feb, Dental examination Z01.20 [facility] [id number] [place] [address] 95256- 0297 Jan, [facility] [address] [place] [address] 19049- 7029 Jan, Other chronic pain G89.29 [facility] [address] [place] [address] 57074- 2292 Jan, [facility] [id number] [place] [address] 55233- 5581 Jan, [facility] [address] [place] [address] [phone] -[phone] Jan, Epigastric mass R19.06 [facility] [id number] [place] [address] 92152- 4730 Dec, Other chronic pain G89.29 [facility] [address] [facility] [id number] [address] November, Other chronic pain G89.29 [facility] [address] [facility] [id number], [place] [address] November, [facility] [address], [place] [address] November, Other chronic pain G89.29 [facility] [address] [place] [address] Oct, Bronchitis J40 and Parkinsons disease G20 [facility] [address] [place] [address] Oct, Bronchitis J40 [facility] [address], [place] [address] Oct, [facility] [address] [place] [address] 60865- 3133 Oct, Other chronic pain G89.29 [facility] [id number] [id number] Sep, Other chronic pain G89.29 [facility] [address] [place] [address] Aug, Acute pain of right ear H92.01 [facility] [id number][place] [id number] Aug, Other chronic pain G89.29 [facility] [address] [place] [address] Jul, Acquired hypothyroidism E03.9 ; Localized edema R60.0 ; Weight gain R63.5 and Primary insomnia F51.01 [facility] [address] [id number] [id number] Jul, Other chronic pain G89.29 [facility] [id number] [id number] Jun, Other chronic pain G89.29 [facility] [address] [id number][place] [id number] May, Other chronic pain G89.29 [facility] [address] [id number][place] [id number] Apr, Other chronic pain G89.29 [facility] [address] [id number] [id number] Apr, Bronchitis J40 [facility] [address] [place] [address] Apr, Callus L84 and Parkinsons disease G20 [facility] [address] [id number][place] [id number] Apr, [facility] [address] [id number] [id number] Mar, Other chronic pain G89.29 [facility] [address] [id number] [id number] Feb, [facility] [address] [id number][place] [id number] Feb, Other chronic pain G89.29 [facility] [address] [facility] [id number], [place] [address] Jan, Acquired hypothyroidism E03.9 [facility] [address] [id number][place] [id number] Jan, Other chronic pain G89.29 [facility] [address] [id number][place] [id number] Dec, Other chronic pain G89.29 [facility] [address] [facility] [id number], [place] [address] Dec, [facility] [id number], [place] [address] Dec, [facility] [address] [place] [address] 08 Dec, 2016 Seborrheic keratoses L82.1 and Trochanteric bursitis, right hip M70.61 [facility] [address] [address] Dec, [facility] [address] [place] [address] 703500- 2890 Dec, Other chronic pain G89.29 [facility] [address], [place] [address] November, [facility] [address] [place] [address] 447069- 4122 November, [facility] [id number] [place] [address] [id number] November, Other chronic pain G89.29 [facility] [id number] [place] [address] [id number] Oct, [facility] [address] [place] [address] 57444- 3675 Oct, Edema, unspecified type R60.9 [facility] [id number] [place] [address] [id number] Oct, Other chronic pain G89.29 [facility] [address] [place] [address] [phone] 7232 Oct, Acquired hypothyroidism E03.9 [facility] [address] [id number] [id number] Sep, [facility] [id number] [place] [address] [id number] Sep, Other chronic pain G89.29 [employer] [facility] [address] [place] [address] Sep, Cramp of both lower extremities R25.2 ; Acquired hypothyroidism E03.[address] [facility] [id number][place] [id number] Sep, [facility] [address] [place] [address] 10071- 2250 Aug, [facility] [address] [place] [address] 56822- 5771 Aug, [facility] [address] [place] [address] Aug, Leg edema, left R60.0 [facility] [id number] [place] [address] 74963- 3690 Aug, [facility] [id number] [place] [address] 03978- 8048 Aug, Acute deep vein thrombosis (DVT) of femoral vein, unspecified laterality I82.419 [facility] [id number] [place] [address] [phone]- 9319 Aug, [facility] [id number] [place] [address] 95842- 2669 Aug, Other chronic pain G89.29 [facility] [id number] [place] [address] 33599- 0228 Aug, [facility] [id number] [place] [address] 70230- 4470 Aug, Bronchitis J40 ; Primary insomnia F51.01 ; Parkinsons disease G20 ; Anxiety F41.9 and Other chronic pain G89.29 [facility] [id number] [place] [address] [id number] Jul, Dementia without behavioral disturbance, unspecified dementia type F03.90 ; Anxiety F41.9 ; Low back pain M54.5 and Other chronic pain G89.29 [facility] [address], [place] [address] Jul, [facility] [id number] [place] [address] 54322- 4498 Jul, [facility] [id number] [place] [address] [id number] Jul, [facility] [id number] [place] [address] [place] [address] Jul, [facility] [address] [facility] [id number], [place] [address]- 7669 Jun, [facility] [address] [facility] [id number][place] [address]- 0036 Jun, [employer] [address] [place] [address] Jun, Parkinsons disease G20 [facility] [address] [facility] [id number], [place] [address] May, [facility] [address] [facility] [id number], [place] [address]- 3380 Apr, [facility] [address], [place] [address]- 1713 Apr, [employer] [address] [place] [address] Apr, Parkinsons disease G20 [facility] [id number], [place] [address]- 4592 Mar, [employer] [facility] [address] [place] [address] Feb, Dementia without behavioral disturbance, unspecified dementia type F03.90 and Parkinsons disease G20 [facility] [address] [facility] [id number][place] [address] 6070 Feb, IMMUNIZATIONS No Known Immunizations SOCIAL HISTORY [...]
--- OUTSIDE RECORDS SUMMARY | 2018-08-06 11:32 | XMS REPORT ---
Author Author CHRISTIAN CHAVEZ [facility] Address [address] [place] [address] Care Team Providers Care Grant Manager Name Role Phone CHRISTIAN CHAVEZ Unavailable PROBLEMS Type Condition ICD9-CM Code HYD87-QV Code Onset Dates Condition Status SNOMED Code Problem Seizures R56.9 Active 88885766 Problem Dementia associated with other underlying disease without behavioral disturbance F02.80 Active 069258712 Problem Colostomy status Z93.3 Active 069059898 Problem Poor appetite R63.0 Active 92586733 Problem Primary insomnia F51.01 Active 7480645 Problem Dementia without behavioral disturbance, unspecified dementia type F03.90 Active 58908731 Problem Parkinsons disease G20 Active 76812156 Problem Other chronic pain G89.29 Active 52136982 Problem Anxiety F41.9 Active 14084066 Problem Chronic obstructive pulmonary disease, unspecified COPD type J44.9 Active 97096312 Problem Essential hypertension I10 Active 32422649 Problem Dysthymia F34.1 Active 41284009 Problem Gastroesophageal reflux disease without esophagitis K21.9 Active 390473614 Problem Acquired hypothyroidism E03.9 Active 649024432 ALLERGIES No Information ENCOUNTERS Encounter Location Date Diagnosis [facility] [address] [address] Mar, Other chronic pain G89.29 [facility] [address] [address] Mar, [facility] [id number] [place] [address] Mar, [facility] [id number] [place] [address] Mar, Via [facility] [address] [place] [id number] Mar, Personal history of other diseases of the digestive system Z87.19 ; Other specified postprocedural states Z98.890 ; Weakness R53.1 and Poor appetite R63.0 [facility] [id number] [place] [address] Feb, [facility] [id number] [place] [address]83- 8441 Feb, Other chronic pain G89.29 [facility] [id number] [place] [address] 86362- 1642 Feb, [facility] [id number] [place] [address] 71265- 1268 Feb, [facility] [id number] [place] [address] 36283- 2404 Feb, [facility] [id number] [place] [address] 72496- 0568 Feb, Other chronic pain G89.29 [facility] [id number] [place] [address] 35166- 6007 Feb, Personal history of other diseases of the digestive system Z87.19 ; Other specified postprocedural states Z98.890 and Nausea R11.0 [facility] [address] [place] [id number] Feb, Dental examination Z01.20 [facility] [id number] [place] [address] 10135- 8630 Jan, [facility] [id number] [place] [address]99- 0979 Jan, Other chronic pain G89.29 [facility] [id number] [place] [address]31- 6786 Jan, [facility] [address] [address] Jan, [facility] [id number] [place] [address]36 [address] Jan, Epigastric mass R19.06 [facility] [address] [address] Dec, Other chronic pain G89.29 [facility] [address] [address] November, Other chronic pain G89.29 [facility] [address] [address] November, [facility] [address] [facility] [id number] [address] November, Other chronic pain G89.29 [facility] [address] [place] [address] Oct, Bronchitis J40 and Parkinsons disease G20 [facility] [address] [place] [address] Oct, Bronchitis J40 [facility] [address] [address] Oct, [facility] [id number] [place] [address] 09264- 2761 Oct, Other chronic pain G89.29 [facility] [id number] [place] [id number] Sep, Other chronic pain G89.29 [facility] [address] [place] [address] Aug, Acute pain of right ear H92.01 [facility] [address] [id number] [place] [id number] Aug, Other chronic pain G89.29 [facility] [address] [place] [address] Jul, Acquired hypothyroidism E03.9 ; Localized edema R60.0 ; Weight gain R63.5 and Primary insomnia F51.01 [facility] [id number] [place] [id number] Jul, Other chronic pain G89.29 [facility] [address] [id number] [place] [id number] Jun, Other chronic pain G89.29 [facility] [address] [id number] [place] [id number] May, Other chronic pain G89.29 [facility] [address] [id number] [place] [address] Apr, Other chronic pain G89.29 [facility] [address] [id number] [place] [id number] Apr, Bronchitis J40 [facility] [address] [place] [address] Apr, Callus L84 and Parkinsons disease G20 [facility] [address] [id number] [place] [id number] Apr, [facility] [id number] [id number] Mar, Other chronic pain G89.29 [facility] [address] [id number] [place] [id number] Feb, [facility] [id number] [place] [address] Feb, Other chronic pain G89.29 [facility] [address] [facility] [id number] [place] [address] Jan, Acquired hypothyroidism E03.9 [facility] [address] [id number] [place] [id number] Jan, Other chronic pain G89.29 [facility] [address] [id number] [place] [id number] Dec, Other chronic pain G89.29 [facility] [address] [facility] [id number] [place] [address] Dec, [facility] [address] [facility] [id number] [place] [address] Dec, [facility] [address] [place] [address] Dec, Seborrheic keratoses L82.1 and Trochanteric bursitis, right hip M70.61 [facility] [address] [address] Dec, [facility] [address] [address] Dec, Other chronic pain G89.29 [facility] [address] [address] November, [facility] [id number] [place] [address] 30566- 8681 November, [facility] [id number] [place] [id number] November, Other chronic pain G89.29 [facility] [id number] [id number] Oct, [facility] [address] [address] Oct, Edema, unspecified type R60.9 [facility] [id number] [place] [address] [id number] Oct, Other chronic pain G89.29 [facility] [address] [address] Oct, Acquired hypothyroidism E03.9 [facility] [id number] [place] [id number] Sep, [facility] [id number] [place] [address] Sep, Other chronic pain G89.29 [facility] [address] [place] [address] Sep, Cramp of both lower extremities R25.2 ; Acquired hypothyroidism E03.9 and Parkinsons disease G20 [facility] [id number] [place] [id number] Sep, [facility] [id number] [place] [address] 54581- 6935 Aug, [facility] [id number] [place] [address] 46655- 2118 Aug, [facility] [address] [facility] [place] [address] Aug, Leg edema, left R60.0 [facility] [address] [address]- [address] Aug, [facility] [id number] [place] [address] 12484- 6418 Aug, Acute deep vein thrombosis (DVT) of femoral vein, unspecified laterality I82.419 [place] [address] [address]- [address]45 Aug, [facility] [id number] [place] [address] 89752- 3170 Aug, Other chronic pain G89.29 [facility] [id number] [place] [address] 81472- 4032 Aug, [facility] [id number] [place] [address] 82721- 9301 Aug, Bronchitis J40 ; Primary insomnia F51.01 ; Parkinsons disease G20 ; Anxiety F41.9 and Other chronic pain G89.29 [facility] [id number] [place] [address] [id number] Jul, Dementia without behavioral disturbance, unspecified dementia type F03.90 ; Anxiety F41.9 ; Low back pain M54.5 and Other chronic pain G89.29 [facility] [id number] [place] [address] 76663- 4142 Jul, [facility] [id number] [place] [address] 39312- 7101 Jul, [facility] [id number] [place] [id number] Jul, [facility] [address] [facility] [id number] [place] [address]- [address] Jul, [facility] [address] [address] 7[address] Jun, [facility] [id number] [address] Jun, [facility] [address] [place] [address] Jun, Parkinsons disease G20 [facility] [address] [address] May, [facility] [address] [address] 9[address] Apr, [facility] [address] [address] 7507 Apr, [facility] [address] [place] [address] Apr, Parkinsons disease G20 [facility] [address] [address] Mar, [facility] [address] [place] [address] Feb, Dementia without behavioral disturbance, unspecified dementia type F03.90 and Parkinsons disease G20 [facility] [id number] [address] Feb, IMMUNIZATIONS No Known Immunizations SOCIAL HISTORY Never Assessed REASON FOR VISIT orders PLAN OF CARE VITAL SIGNS MEDICATIONS Unknown [...]
--- OUTSIDE RECORDS SUMMARY | 2018-08-06 11:32 | XMS REPORT ---
Author Author MARLON NELSON [facility] Address [address] [place] [address] Care Team Providers Care Fountain Pen Nibs Inspector Name Role Phone MARLON NELSON Unavailable PROBLEMS Type Condition ICD9-CM Code AAC13-EE Code Onset Dates Condition Status SNOMED Code Problem Seizures R56.9 Active 28845035 Problem Dementia associated with other underlying disease without behavioral disturbance F02.80 Active 835040843 Problem Colostomy status Z93.3 Active 273722684 Problem Poor appetite R63.0 Active 13048074 Problem Primary insomnia F51.01 Active 7215225 Problem Dementia without behavioral disturbance, unspecified dementia type F03.90 Active 25660095 Problem Parkinsons disease G20 Active 17832549 Problem Other chronic pain G89.29 Active 86552667 Problem Anxiety F41.9 Active 37510451 Problem Chronic obstructive pulmonary disease, unspecified COPD type J44.9 Active 89859927 Problem Essential hypertension I10 Active 61029882 Problem Dysthymia F34.1 Active 46606812 Problem Gastroesophageal reflux disease without esophagitis K21.9 Active 170388511 Problem Acquired hypothyroidism E03.9 Active 407790607 ALLERGIES No Information ENCOUNTERS Encounter Location Date Diagnosis [facility] [address] [address] Mar, [facility] [address] [place] [address] 67802- 3649 Mar, Other chronic pain G89.29 [facility] [address] [address] Mar, [facility] [address] [address] 6093 Mar, [facility] [address] [place] [address] 97142- 2048 Mar, Via [facility] [address] [place] [id number] Mar, Personal history of other diseases of the digestive system Z87.19 ; Other specified postprocedural states Z98.890 ; Weakness R53.1 and Poor appetite R63.0 [facility] [address] [place] [address] 85623- 5831 Feb, [facility] [id number] [place] [address] 26835- 3524 Feb, Other chronic pain G89.29 [facility] [id number] [place] [address] 20982- 4429 Feb, [facility] [id number] [place] [address] 83761- 6116 Feb, [facility] [id number] [place] [address] 55317- 9125 Feb, [facility] [id number] [place] [address] 03019- 7425 Feb, Other chronic pain G89.29 [facility] [id number] [place] [address] 76362- 4684 Feb, Personal history of other diseases of the digestive system Z87.19 ; Other specified postprocedural states Z98.890 and Nausea R11.0 [facility] [address] [place] [address] [id number] Feb, Dental examination Z01.20 [facility] [address] [place] [address] 89102- 9234 Jan, [facility] [id number] [place] [address] 69484- 5548 Jan, Other chronic pain G89.29 [facility] [address] [place] [address] 15431- 3249 Jan, [facility] [id number] [place] [address] 56445- 1831 Jan, [facility] [id number] [address] Jan, Epigastric mass R19.06 [facility] [address] [address] 9391 Dec, Other chronic pain G89.29 [facility] [address] [address] 7939 November, Other chronic pain G89.29 [facility] [address] [address]- 8626 November, [facility] [address] [place] [address] 36301- 3613 November, Other chronic pain G89.29 [email or web address] [address] [place] [address] Oct, Bronchitis J40 and Parkinsons disease G20 [email or web address] [address] [place] [address] Oct, Bronchitis J40 [facility] [address] [address] 9752 Oct, [facility] [address] [address] 3415 Oct, Other chronic pain G89.29 [facility] [id number] [id number] Sep, Other chronic pain G89.29 [email or web address] [address] [place] [address] Aug, Acute pain of right ear H92.01 [facility] [id number] [place] [address] [phone] Aug, Other chronic pain G89.29 [email or web address] [address] [place] [address] Jul, Acquired hypothyroidism E03.9 ; Localized edema R60.0 ; Weight gain R63.5 and Primary insomnia F51.01 [facility] [address] [id number] [id number] 10 Jul, 2017 Other chronic pain G89.29 [facility] [address] [id number] [place] [id number] Jun, Other chronic pain G89.29 [facility] [address] [id number] [place] [id number] May, Other chronic pain G89.29 [facility] [address] [id number] [place] [id number] Apr, Other chronic pain G89.29 [facility] [address] [id number] [place] [address] Apr, Bronchitis J40 [email or web address] [address] [address] 10 Apr, 2017 Callus L84 and Parkinsons disease G20 [facility] [id number] [place] [id number] Apr, [facility] [id number] [place] [id number] Mar, Other chronic pain G89.29 [facility] [id number] [place] [id number] Feb, [facility] [id number] [place] [id number] Feb, Other chronic pain G89.29 [facility] [address] [id number] [address] 7847 Jan, Acquired hypothyroidism E03.9 [facility] [address] [id number] [place] [address] Jan, Other chronic pain G89.29 [facility] [id number] [place] [id number] Dec, Other chronic pain G89.29 [facility] [address] [facility] [id number] [address] 79[address] Dec, [facility] [address] [address] 4399 Dec, [email or web address] [address] [place] [address] Dec, Seborrheic keratoses L82.1 and Trochanteric bursitis, right hip M70.61 [facility] [address] [address] 3626 Dec, [facility] [address] [place] [address] 19970- 1802 Dec, Other chronic pain G89.29 [facility] [id number] [place] [address] 00907- 4582 November, [facility] [address] [place] [address] 36540473- 4070 November, [facility] [id number] [place] [address] [id number] November, Other chronic pain G89.29 [facility] [id number] [place] [address] [id number] Oct, [facility] [address] [place] [address] 66306- 4516 Oct, Edema, unspecified type R60.9 [facility] [id number] [place] [address] [id number] Oct, Other chronic pain G89.29 [facility] [address] [place] [address] 38052- 7426 Oct, Acquired hypothyroidism E03.9 [facility] [id number] [place] [address] [id number] Sep, [facility] [id number] [place] [address] [id number] Sep, Other chronic pain G89.29 [email or web address] [address] [place] [address] Sep, Cramp of both lower extremities R25.2 ; Acquired hypothyroidism E03.9 and Parkinsons disease G20 [facility] [id number] [place] [address] [id number] Sep, [facility] [id number] [place] [address] 46638- 6358 Aug, [facility] [id number] [place] [address] 19707- 5649 Aug, [facility] [address] [facility] [address] Aug, Leg edema, left R60.0 [facility] [id number] [place] [address] 47091- 3049 Aug, [facility] [id number] [place] [address] 27260- 4575 Aug, Acute deep vein thrombosis (DVT) of femoral vein, unspecified laterality I82.419 [facility] [id number] [place] [address] 06784- 3906 Aug, [facility] [id number] [place] [address] 49204- 2866 Aug, Other chronic pain G89.29 [facility] [id number] [place] [address] 91325- 9523 Aug, [facility] [id number] [place] [address] 67999- 8885 Aug, Bronchitis J40 ; Primary insomnia F51.01 ; Parkinsons disease G20 ; Anxiety F41.9 and Other chronic pain G89.29 [facility] [id number] [place] [address] [id number] Jul, Dementia without behavioral disturbance, unspecified dementia type F03.90 ; Anxiety F41.9 ; Low back pain M54.5 and Other chronic pain G89.29 [facility] [address] [place] [address] 22669- 8239 Jul, [place] [address] [facility] [id number] [address]- 9547 Jul, [facility] [place] [facility] [id number] [id number] Jul, [facility] [address] [facility] [id number] [place] [address]- 8493 Jul, [facility] [address] [address]- 8920 Jun, [facility] [address] [facility] [id number] [place] [address]- 9654 Jun, [email or web address] [address] [place] [address] Jun, Parkinsons disease G20 [facility] [address] [address]- 1477 May, [facility] [address] [address]- 5220 Apr, [facility] [address] [id number] [address]- 3166 Apr, [email or web address] [address] [place] [address] Apr, Parkinsons disease G20 [facility] [id number] [address]- 9577 Mar, [email or web address] [address] [place] [address] Feb, Dementia without behavioral disturbance, unspecified dementia type F03.90 and Parkinsons disease G20 [facility] [id number] [address]- 9084 Feb, IMMUNIZATIONS No Known Immunizations SOCIAL HISTORY Never Assessed REASON FOR VISIT Snf PLAN OF CARE Activity Details Follow Up prn Reason: VITAL SIGNS MEDICATIONS Unknown Medications RESULTS No Results PROCEDURES Procedure Date Ordered Result Body Site Minor complication (15 mins) Mar 31, 2018 INSTRUCTIONS MEDICATIONS ADMINISTERED No Known Medications MEDICAL [...]
--- OUTSIDE RECORDS SUMMARY | 2018-08-06 11:32 | XMS REPORT ---
Author Author MEKA CROWE [facility] Address [address] [place] [address] Care Team Providers Care Lyft Driver Name Role Phone MEKA CROWE Unavailable PROBLEMS Type Condition ICD9-CM Code [id number] Code Onset Dates Condition Status SNOMED Code Problem Seizures R56.9 Active 68551891 Problem Dementia associated with other underlying disease without behavioral disturbance F02.80 Active 842345959 Problem Colostomy status Z93.3 Active 117948323 Problem Poor appetite R63.0 Active 35516263 Problem Primary insomnia F51.01 Active 4293759 Problem Dementia without behavioral disturbance, unspecified dementia type F03.90 Active 24763405 Problem Parkinsons disease G20 Active 97336752 Problem Other chronic pain G89.29 Active 24729975 Problem Anxiety F41.9 Active 10334475 Problem Chronic obstructive pulmonary disease, unspecified COPD type J44.9 Active 83642958 Problem Essential hypertension I10 Active 96667061 Problem Dysthymia F34.1 Active 08057392 Problem Gastroesophageal reflux disease without esophagitis K21.9 Active 589562922 Problem Acquired hypothyroidism E03.9 Active 127644261 ALLERGIES No Information ENCOUNTERS Encounter Location Date Diagnosis [id number] [address] Mar, [facility] [address] [place] [address] 87149- 6065 Mar, [id number] [place] [address] 99399- 5796 Mar, Via [facility] [address] [place] [id number] Mar, Personal history of other diseases of the digestive system Z87.19 ; Other specified postprocedural states Z98.890 ; Weakness R53.1 and Poor appetite R63.0 [facility] [address], [place] [address]- 4441 Feb, [facility] [id number] [place] [address] 95489- 4459 Feb, Other chronic pain G89.29 [facility] [id number] [place] [address] 57196- 2986 Feb, [facility] [id number] [place] [address] 04049- 5209 Feb, [facility] [id number] [place] [address] 28101- 5740 Feb, [facility] [id number] [place] [address] 19720- 7385 Feb, Other chronic pain G89.29 [facility] [id number] [place] [address] 97328- 2867 Feb, Personal history of other diseases of the digestive system Z87.19 ; Other specified postprocedural states Z98.890 and Nausea R11.0 [facility] [address] [place] [address] [id number] Feb, Dental examination Z01.20 [facility] [id number] [place] [address] 54239- 1332 Jan, [facility] [address] [place] [address] 34472- 0625 Jan, Other chronic pain G89.29 [facility] [address] [place] [address] 62448- 5404 Jan, [facility] [id number] [place] [address] 54964- 5007 Jan, [facility] [address] [place] [address] 42392 -1584 Jan, Epigastric mass R19.06 [facility] [id number] [place] [address] 48797- 9445 Dec, Other chronic pain G89.29 [facility] [address] [facility] [id number], [place] [address]- 3674 November, Other chronic pain G89.29 [facility] [address] [facility] [id number], [place] [address]- 4539 November, [facility] [address], [place] [address]- 8292 November, Other chronic pain G89.29 [facility] [address] [place] [address] Oct, Bronchitis J40 and Parkinsons disease G20 [facility] [address] [place] [address] Oct, Bronchitis J40 [facility] [address], [place] [address]- 9431 Oct, [facility] [address] [place] [address] 60558- 7663 Oct, Other chronic pain G89.29 [facility] [id number], [place] [id number] Sep, Other chronic pain G89.29 [facility] [address] [place] [address] Aug, Acute pain of right ear H92.01 [facility] [id number], [place] [id number] Aug, Other chronic pain G89.29 [facility] [address] [place] [address] Jul, Acquired hypothyroidism E03.9 ; Localized edema R60.0 ; Weight gain R63.5 and Primary insomnia F51.01 [facility] [address] [id number] [id number] Jul, Other chronic pain G89.29 [facility] [id number], [place] [id number] Jun, Other chronic pain G89.29 [facility] [address] [id number][place] [id number] May, Other chronic pain G89.29 [facility] [address] [id number][place] [id number] Apr, Other chronic pain G89.29 [facility] [address] [id number][place] [id number] Apr, Bronchitis J40 [facility] [address] [place] [address] Apr, Callus L84 and Parkinsons disease G20 [facility] [address] [id number] [id number] Apr, [facility] [address] [id number], [place] [id number] Mar, Other chronic pain G89.29 [facility] [address] [id number], [place] [id number] Feb, [facility] [address] [id number], [place] [address] Feb, Other chronic pain G89.29 [facility] [address] [facility] [id number], [place] [address]- 1746 Jan, Acquired hypothyroidism E03.9 [facility] [address] [id number], [place] [id number] Jan, Other chronic pain G89.29 [facility] [address] [id number], [place] [address] Dec, Other chronic pain G89.29 [facility] [address] [facility] [id number], [place] [address]- 7237 Dec, [facility] [address] [id number], [place] [address]- 3024 Dec, [facility] [address] [place] [address] 08 Dec, 2016 Seborrheic keratoses L82.1 and Trochanteric bursitis, right hip M70.61 [facility] [address] [address]- 3226 Dec, [facility] [address] [place] [address] 465314- 1653 Dec, Other chronic pain G89.29 [facility] [address]100[place], [place] [address]- 5273 November, [facility] [address] [place] [address] 152007- 2597 November, [facility] [id number] [place] [address] [id number] November, Other chronic pain G89.29 [facility] [id number] [place] [address] [id number] Oct, [facility] [address] [place] [address] 00164- 8752 Oct, Edema, unspecified type R60.9 [facility] [id number] [place] [address] [id number] Oct, Other chronic pain G89.29 [facility] [address] [place] [address] [id number]- 7327 Oct, Acquired hypothyroidism E03.9 [facility] [address] [id number] [id number] Sep, [facility] [id number] [place] [address] [id number] Sep, Other chronic pain G89.29 [facility] [address] [place] [address] Sep, Cramp of both lower extremities R25.2 ; Acquired hypothyroidism E03.9 and Parkinsons disease G20 [facility] [id number], [place] [id number] Sep, [facility] [address] [place] [address] 98402- 3175 Aug, [facility] [address] [place] [address] 29091- 0888 Aug, [facility] [address] [address] Aug, Leg edema, left R60.0 [facility] [id number] [place] [address] 25375- 5403 Aug, [facility] [id number] [place] [address] 65940- 8263 Aug, Acute deep vein thrombosis (DVT) of femoral vein, unspecified laterality I82.419 [facility] [id number] [place] [address] 55330- 6151 Aug, [facility] [id number] [place] [address] 04824- 4148 Aug, Other chronic pain G89.29 [facility] [id number] [place] [address] 97944- 2945 Aug, [facility] [id number] [place] [address] 68497- 4390 Aug, Bronchitis J40 ; Primary insomnia F51.01 ; Parkinsons disease G20 ; Anxiety F41.9 and Other chronic pain G89.29 [facility] [id number] [place] [address] [id number] Jul, Dementia without behavioral disturbance, unspecified dementia type F03.90 ; Anxiety F41.9 ; Low back pain M54.5 and Other chronic pain G89.29 [facility] [id number] [address] Jul, [facility] [id number] [place] [address] Jul, [facility] [id number] [place] [id number] Jul, [facility] [id number] [address] Jul, [facility] [id number], [place] [address] Jun, [facility] [id number], [place] [address] Jun, [employer] [address] [place] [address] Jun, Parkinsons disease G20 [facility] [id number] [place] [address] May, [facility] [id number], [place] [address] Apr, [facility] [id number], [place] [address] Apr, [facility] [address] [place] [address] Apr, Parkinsons disease G20 [facility] [id number], [place] [address] Mar, [employer] [address] [place] [address] Feb, Dementia without behavioral disturbance, unspecified dementia type F03.90 and Parkinsons disease G20 [facility] [id number] [address] Feb, IMMUNIZATIONS No Known Immunizations SOCIAL HISTORY [...]
--- OUTSIDE RECORDS SUMMARY | 2018-08-06 11:33 | XMS REPORT ---
Author Author MARLON NELSON [facility] Address [address] [place] [address] Care Team Providers Care Contact Worker Name Role Phone MARLON NELSON Unavailable PROBLEMS Type Condition ICD9-CM Code KVF06-NR Code Onset Dates Condition Status SNOMED Code Problem Seizures R56.9 Active 81595909 Problem Dementia associated with other underlying disease without behavioral disturbance F02.80 Active 659442051 Problem Colostomy status Z93.3 Active 862652307 Problem Poor appetite R63.0 Active 70367417 Problem Primary insomnia F51.01 Active 1809747 Problem Dementia without behavioral disturbance, unspecified dementia type F03.90 Active 99237809 Problem Parkinsons disease G20 Active 42719253 Problem Other chronic pain G89.29 Active 34497859 Problem Anxiety F41.9 Active 51557570 Problem Chronic obstructive pulmonary disease, unspecified COPD type J44.9 Active 14873971 Problem Essential hypertension I10 Active 17241737 Problem Dysthymia F34.1 Active 81739649 Problem Gastroesophageal reflux disease without esophagitis K21.9 Active 493851709 Problem Acquired hypothyroidism E03.9 Active 673941503 ALLERGIES No Information ENCOUNTERS Encounter Location Date Diagnosis [facility] [place] [address], [place] [address] Mar, [facility] [place] [address], [place] [address] Mar, [facility] [employer] [address] [place] [id number] Mar, Personal history of other diseases of the digestive system Z87.19 ; Other specified postprocedural states Z98.890 ; Weakness R53.1 and Poor appetite R63.0 [facility] [place] [address] [id number], [place] [address] Feb, [facility] [place] [address] [place] [address] 96397- 6761 Feb, Other chronic pain G89.29 [facility] [place] [id number] [place] [address] 98941- 2043 Feb, [facility] [place] [id number] [place] [address] 05339- 0706 Feb, [facility] [place] [id number] [place] [address] 27218- 1771 Feb, [facility] [place] [id number] [place] [address] 62311- 9686 Feb, Other chronic pain G89.29 [facility] [place] [id number] [place] [address] 94636- 5700 Feb, Personal history of other diseases of the digestive system Z87.19 ; Other specified postprocedural states Z98.890 and Nausea R11.0 [facility] [id number] [place] [address] [id number] Feb, Dental examination Z01.20 [facility] [place] [id number] [place] [address] 05186- 4842 Jan, [facility] [place] [id number] [place] [address] 81237- 6349 Jan, Other chronic pain G89.29 [facility] [place] [id number] [place] [address] 06252- 5339 Jan, [facility] [place] [id number] [place] [address] 83644- 3611 Jan, [facility] [id number] [place] [address] 16481 -3222 Jan, Epigastric mass R19.06 [facility] [place] [id number] [place] [address] 15462- 3681 Dec, Other chronic pain G89.29 [facility] [place] [address] [place] [address]- 3187 November, Other chronic pain G89.29 [facility] [place] [address] [id number], [place] [address]- 4837 November, [facility] [place] [id number] [address] 8951 November, Other chronic pain G89.29 [employer] [address] [place] [address] Oct, Bronchitis J40 and Parkinsons disease G20 [employer] [address] [place] [address] Oct, Bronchitis J40 [facility] [place] [address], [place] [address]- 8195 Oct, [facility] [place] [address], [place] [address] 2430 Oct, Other chronic pain G89.29 [facility] [id number] [id number] Sep, Other chronic pain G89.29 [employer] [address] [place] [address] Aug, Acute pain of right ear H92.01 [facility] [id number] [address] Aug, Other chronic pain G89.29 [employer] [address] [place] [address] Jul, Acquired hypothyroidism E03.9 ; Localized edema R60.0 ; Weight gain R63.5 and Primary insomnia F51.01 [facility] [address] [id number] [id number] Jul, Other chronic pain G89.29 [facility] [id number][place] [id number] Jun, Other chronic pain G89.29 [facility] [id number] [id number] May, Other chronic pain G89.29 [facility] [address] [id number] [id number] Apr, Other chronic pain G89.29 [facility] [address] [id number][place] [id number] Apr, Bronchitis J40 [employer] [address] [place] [address] 10 Apr, 2017 Callus L84 and Parkinsons disease G20 [facility] [address] [id number] [id number] Apr, [facility] [address] [id number] [id number] Mar, Other chronic pain G89.29 [facility] [address] [id number] [address] Feb, [facility] [address] [id number] [address] Feb, Other chronic pain G89.29 [facility] [place] [address] [facility] [id number] 6324 Jan, Acquired hypothyroidism E03.9 [facility] [id number] [place] [address] [id number] Jan, Other chronic pain G89.29 [facility] [address] [id number][place] [address] Dec, Other chronic pain G89.29 [facility] [place] [address] [id number] [address]- 4905 Dec, [facility] [place] [address] [facility] [id number][place] [address] 1395 Dec, [employer] [address] [place] [address] 08 Dec, 2016 Seborrheic keratoses L82.1 and Trochanteric bursitis, right hip M70.61 [facility] [place] [address] [id number], [place] [address]- 2783 Dec, [facility] [place] [address] [id number] [address] 9323 Dec, Other chronic pain G89.29 [facility] [place] [address], [place] [address]- 7446 November, [facility] [place] [address], [place] [address]- 1505 November, [facility] [id number] [place] [address] [id number] November, Other chronic pain G89.29 [facility] [id number] [place] [address] [id number] Oct, [facility] [place] [address] [place] [address] 021159- 4950 Oct, Edema, unspecified type R60.9 [facility] [id number] [place] [address] [id number] Oct, Other chronic pain G89.29 [facility] [place] [address], [place] [address]- 3296 Oct, Acquired hypothyroidism E03.9 [facility] [id number] [place] [address] [id number] Sep, [facility] [address] 2073965100[place] [id number] Sep, Other chronic pain G89.29 [facility] [address] [place] [address] Sep, Cramp of both lower extremities R25.2 ; Acquired hypothyroidism E03.9 and Parkinsons disease G20 [facility] [id number] [place] [address] [id number] Sep, [facility] [place] [address]- 9767 Aug, [facility] [place] [address] [place] [address] 56484- 6490 Aug, [facility] [email or web address] [address] [place] [address] Aug, Leg edema, left R60.0 [facility] [place] [id number] [place] [address] 51910- 3329 Aug, [facility] [place] [id number] [place] [address] 86859- 1729 Aug, Acute deep vein thrombosis (DVT) of femoral vein, unspecified laterality I82.419 [facility] [place] [id number] [place] [address] 63984- 2667 Aug, [facility] [place] [id number] [place] [address] 56080- 1593 Aug, Other chronic pain G89.29 [facility] [place] [id number] [place] [address] 06508- 1213 Aug, [facility] [place] [id number] [place] [address] 40424- 5538 Aug, Bronchitis J40 ; Primary insomnia F51.01 ; Parkinsons disease G20 ; Anxiety F41.9 and Other chronic pain G89.29 [facility] [id number] [place] [address] [id number] Jul, Dementia without behavioral disturbance, unspecified dementia type F03.90 ; Anxiety F41.9 ; Low back pain M54.5 and Other chronic pain G89.29 [facility] [place] [id number] [place] [address] 63800- 0915 Jul, [facility] [place] [id number] [place] [address] 02261- 1795 Jul, [facility] [address] [id number] Jul, [facility] [place] [id number] [place] [address] 27943- 0218 Jul, [facility] [place] [address] [place] [address]- 4639 Jun, [facility] [place] [address] [id number], [place] [address]- 9962 Jun, [employer] [address] [place] [address] Jun, Parkinsons disease G20 [facility] [place] [address] [facility] [id number], [place] [address]- 6635 May, [facility] [place] [address], [place] [address]- 1036 Apr, [facility] [place] [address], [place] [address]- 4050 Apr, [employer] [address] [place] [place] [address] Apr, Parkinsons disease G20 [facility] [place] [address], [place] [address]- 6422 Mar, [employer] [address] [place] [place] [address] Feb, Dementia without behavioral disturbance, unspecified dementia type F03.90 and Parkinsons disease G20 [place] [facility] [address] [id number], [place] [address]- 4207 Feb, IMMUNIZATIONS No Known Immunizations SOCIAL HISTORY [...]
--- OUTSIDE RECORDS SUMMARY | 2018-08-06 11:33 | XMS REPORT ---
Author Author MARLON NELSON [facility] Address [address] [place] [address] Care Team Providers Care Gymnastic Teacher Name Role Phone MARLON NELSON Unavailable PROBLEMS Type Condition ICD9-CM Code DXM41-LL Code Onset Dates Condition Status SNOMED Code Problem Seizures R56.9 Active 89615454 Problem Dementia associated with other underlying disease without behavioral disturbance F02.80 Active 616151695 Problem Colostomy status Z93.3 Active 198995960 Problem Poor appetite R63.0 Active 22441613 Problem Primary insomnia F51.01 Active 5587655 Problem Dementia without behavioral disturbance, unspecified dementia type F03.90 Active 92594462 Problem Parkinsons disease G20 Active 30945558 Problem Other chronic pain G89.29 Active 68999939 Problem Anxiety F41.9 Active 32632228 Problem Chronic obstructive pulmonary disease, unspecified COPD type J44.9 Active 87493503 Problem Essential hypertension I10 Active 09462641 Problem Dysthymia F34.1 Active 51912327 Problem Gastroesophageal reflux disease without esophagitis K21.9 Active 846360054 Problem Acquired hypothyroidism E03.9 Active 061432173 ALLERGIES No Information ENCOUNTERS Encounter Location Date Diagnosis [facility] [address]005[address], [place] [address]- 9128 Mar, [facility] [address], [place] [address]- 4620 Mar, [facility] [employer] [address] [place] [id number] Mar, Personal history of other diseases of the digestive system Z87.19 ; Other specified postprocedural states Z98.890 ; Weakness R53.1 and Poor appetite R63.0 [facility] [address] [id number], [place] [address]- 6500 Feb, [facility] [address] [place] [address] 02729- 1437 Feb, Other chronic pain G89.29 [facility] [id number] [place] [address] 64433- 1842 Feb, [facility] [id number] [place] [address] 37456- 0286 Feb, [facility] [id number] [place] [address] 59220- 7633 Feb, [facility] [id number] [place] [address] 22384- 0695 Feb, Other chronic pain G89.29 [facility] [id number] [place] [address] 09257- 9587 Feb, Personal history of other diseases of the digestive system Z87.19 ; Other specified postprocedural states Z98.890 and Nausea R11.0 [facility] [id number] [place] [address] [id number] Feb, Dental examination Z01.20 [facility] [id number] [place] [address] 68909- 6422 Jan, [facility] [id number] [place] [address] 88841- 2933 Jan, Other chronic pain G89.29 [facility] [id number] [place] [address] 73397- 9932 Jan, [facility] [id number] [place] [address] 37321- 7500 Jan, [facility] [id number] [place] [address] 40973 -0273 Jan, Epigastric mass R19.06 [facility] [id number] [place] [address] 89728- 1141 Dec, Other chronic pain G89.29 [facility] [address] [place] [address]- 2234 November, Other chronic pain G89.29 [facility] [address] [id number], [place] [address]- 6567 November, [facility] [address] [id number] [address]- 7240 November, Other chronic pain G89.29 [facility] [address] [place] [address] Oct, Bronchitis J40 and Parkinsons disease G20 [facility] [address] [place] [address] Oct, Bronchitis J40 [facility] [address], [place] [address]- 0346 Oct, [facility] [address], [place] [address]- 4630 Oct, Other chronic pain G89.29 [facility] [id number] [id number] Sep, Other chronic pain G89.29 [facility] [address] [place] [address] Aug, Acute pain of right ear H92.01 [facility] [id number], [place] [id number] Aug, Other chronic pain G89.29 [facility] [address] [place] [address] Jul, Acquired hypothyroidism E03.9 ; Localized edema R60.0 ; Weight gain R63.5 and Primary insomnia F51.01 [facility] [address] [id number][place] [address] Jul, Other chronic pain G89.29 [facility] [id number], [place] [id number] Jun, Other chronic pain G89.29 [facility] [id number], [place] [address] May, Other chronic pain G89.29 [facility] [address] [id number], [place] [id number] Apr, Other chronic pain G89.29 [facility] [address] [id number] [address] Apr, Bronchitis J40 [facility] [address] [place] [address] 10 Apr, 2017 Callus L84 and Parkinsons disease G20 [facility] [address] [id number], [place] [address] Apr, [facility] [address] 3403165100[place] [id number] Mar, Other chronic pain G89.29 [facility] [place] [address] [id number] [id number] Feb, [facility] [place] [address] [id number] [id number] Feb, Other chronic pain G89.29 [facility] [address] [facility] [id number]- 0351 Jan, Acquired hypothyroidism E03.9 [facility] [place] [id number] [place] [address] [id number] Jan, Other chronic pain G89.29 [facility] [place] [address] [id number], [place] [address] Dec, Other chronic pain G89.29 [facility] [address] [id number] 29633695- 8196 Dec, [facility] [address] [facility] [id number], [place] 8[address]278[address]- 7161 Dec, [facility] [address] [place] [address] 08 Dec, 2016 Seborrheic keratoses L82.1 and Trochanteric bursitis, right hip M70.61 [facility] [address] [id number], [place] [address]- 4749 Dec, [facility] [address] [id number]- 4198 Dec, Other chronic pain G89.29 [facility] [address], [place] [address]- 3226 November, [facility] [address]100[place], [place] [address]- 4711 November, [facility] [id number] [place] [address] [id number] November, Other chronic pain G89.29 [facility] [place] [id number] [place] [address] [id number] Oct, [facility] [address] [place] [address] 743666- 2043 Oct, Edema, unspecified type R60.9 [facility] [id number] [place] [address] [id number] Oct, Other chronic pain G89.29 [facility] [address], [place] [address]- 6406 Oct, Acquired hypothyroidism E03.9 [facility] [id number] [place] [id number] Sep, [facility] [address] [id number] [address] Sep, Other chronic pain G89.29 [facility] [address] [place] [address] Sep, Cramp of both lower extremities R25.2 ; Acquired hypothyroidism E03.[address] G20 [facility] [id number] [place] [address] [id number] Sep, [facility] [address]- 4122 Aug, [facility] [address] [place] [address] 04845- 8488 Aug, [facility] [employer] [address] [place] [address] Aug, Leg edema, left R60.0 [facility] [id number] [place] [address] 62159- 5781 Aug, [facility] [id number] [place] [address] 74377- 4015 Aug, Acute deep vein thrombosis (DVT) of femoral vein, unspecified laterality I82.419 [facility] [id number] [place] [address] 32328- 4920 Aug, [facility] [id number] [place] [address] 46950- 5648 Aug, Other chronic pain G89.29 [facility] [id number] [place] [address] 35836- 1104 Aug, [facility] [id number] [place] [address] 63487- [phone] Aug, Bronchitis J40 ; Primary insomnia F51.01 ; Parkinsons disease G20 ; Anxiety F41.9 and Other chronic pain G89.29 [facility] [id number] [place] [id number] Jul, Dementia without behavioral disturbance, unspecified dementia type F03.90 ; Anxiety F41.9 ; Low back pain M54.5 and Other chronic pain G89.29 [facility] [id number] [place] [address] [phone]- [phone] Jul, [facility] [id number] [place] [address] [phone]- [phone] Jul, [facility] [address] [id number] Jul, [facility] [id number] [place] [address] [phone]- [phone] Jul, [facility] [address] [address] [address] Jun, [facility] [id number] [address] Jun, [facility] [address] [place] [address] Jun, Parkinsons disease G20 [facility] [address] [facility] [place] [id number] [address] May, [facility] [address] [address] Apr, [facility] [address] [address] Apr, [facility] [address] [place] [address] Apr, Parkinsons disease G20 [facility] [address] [address] Mar, [facility] [address] [place] [address] Feb, Dementia without behavioral disturbance, unspecified dementia type F03.90 and Parkinsons disease G20 [id number] [address] Feb, IMMUNIZATIONS No Known Immunizations SOCIAL HISTORY Never Assessed REASON FOR VISIT FYI only PLAN OF CARE VITAL SIGNS MEDICATIONS Unknown [...]
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
--- OUTSIDE RECORDS SUMMARY | 2018-08-06 11:33 | XMS REPORT ---
Author Author MARLON NELSON [facility] Address [address] [place] [address] Care Team Providers Care Spiral Winding Machine Helper Name Role Phone MARLON NELSON Unavailable PROBLEMS Type Condition ICD9-CM Code FIZ14-TY Code Onset Dates Condition Status SNOMED Code Problem Seizures R56.9 Active 62331919 Problem Dementia associated with other underlying disease without behavioral disturbance F02.80 Active 589481695 Problem Colostomy status Z93.3 Active 455788667 Problem Poor appetite R63.0 Active 94438443 Problem Primary insomnia F51.01 Active 9135659 Problem Dementia without behavioral disturbance, unspecified dementia type F03.90 Active 65480547 Problem Parkinsons disease G20 Active 89842414 Problem Other chronic pain G89.29 Active 85785238 Problem Anxiety F41.9 Active 48599081 Problem Chronic obstructive pulmonary disease, unspecified COPD type J44.9 Active 64588280 Problem Essential hypertension I10 Active 74392377 Problem Dysthymia F34.1 Active 59467719 Problem Gastroesophageal reflux disease without esophagitis K21.9 Active 193936868 Problem Acquired hypothyroidism E03.9 Active 046822051 ALLERGIES No Information ENCOUNTERS Encounter Location Date Diagnosis [facility] [place] [address] [address] Mar, [facility] [place] [address], [place] [address] Mar, Via [facility] [address] [place] [id number] Mar, Personal history of other diseases of the digestive system Z87.19 ; Other specified postprocedural states Z98.890 ; Weakness R53.1 and Poor appetite R63.0 [facility] [place] [id number], [place] [address] Feb, [facility] [place] [id number] [place] [address] Feb, Other chronic pain G89.29 [facility] [place] [id number] [place] [address] Feb, [facility] [place] [id number] [place] [address]994- [address] Feb, [facility] [place] [id number] [place] [address]38- 4709 Feb, [facility] [place] [id number] [place] [address] 35657- 4389 Feb, Other chronic pain G89.29 [facility] [place] [id number] [place] [address]36- 48[address] Feb, Personal history of other diseases of the digestive system Z87.19 ; Other specified postprocedural states Z98.890 and Nausea R11.0 [facility] [id number] [place] [id number] Feb, Dental examination Z01.20 [facility] [place] [id number] [place] [address] 18333- 9293 Jan, [facility] [place] [id number] [place] [address] 17704- 4583 Jan, Other chronic pain G89.29 [facility] [place] [id number] [place] [address]891- 1525 Jan, [facility] [place] [id number] [place] [address] 67668- [address]758 Jan, [facility] [id number] [place] [address] Jan, Epigastric mass R19.06 [facility] [place] [id number] [place] [address] 76288- 0516 Dec, Other chronic pain G89.29 [facility] [place] [address] [place] [address] November, Other chronic pain G89.29 [facility] [place] [id number] [address] November, [facility] [place] [id number] [address] November, Other chronic pain G89.29 [email or web address] [address] [place] [address] Oct, Bronchitis J40 and Parkinsons disease G20 [email or web address] [address] [place] [address] Oct, Bronchitis J40 [facility] [place] [address], [place] [address] Oct, [facility] [place] [address], [place] [address] Oct, Other chronic pain G89.29 [facility] [id number] [id number] Sep, Other chronic pain G89.29 [email or web address] [address] [place] [address] Aug, Acute pain of right ear H92.01 [facility] [id number] [id number] Aug, Other chronic pain G89.29 [email or web address] [address] [place] [address] Jul, Acquired hypothyroidism E03.9 ; Localized edema R60.0 ; Weight gain R63.5 and Primary insomnia F51.01 [facility] [address] [id number] [id number] Jul, Other chronic pain G89.29 [facility] [id number] [id number] Jun, Other chronic pain G89.29 [facility] [id number] [id number] May, Other chronic pain G89.29 [facility] [address] [id number] [id number] Apr, Other chronic pain G89.29 [facility] [address] [id number] [id number] Apr, Bronchitis J40 [email or web address] [address] [place] [address] 10 Apr, 2017 Callus L84 and Parkinsons disease G20 [facility] [address] [id number] [id number] Apr, [facility] [id number] [address] Mar, Other chronic pain G89.29 [facility] [address] [id number] [id number] Feb, [facility] [address] [id number] [address] Feb, Other chronic pain G89.29 [facility] [place] [address] [facility] [id number] [address] Jan, Acquired hypothyroidism E03.9 [facility] [id number] [place] [id number] Jan, Other chronic pain G89.29 [facility] [address] [id number][place] [address] Dec, Other chronic pain G89.29 [facility] [place] [id number] [address] Dec, [facility] [place] [address] [facility] [id number] [address] Dec, [email or web address] [address] [place] [address] 08 Dec, 2016 Seborrheic keratoses L82.1 and Trochanteric bursitis, right hip M70.61 [facility] [place] [id number], [place] [address] Dec, [facility] [place] [id number] [address] Dec, Other chronic pain G89.29 [facility] [place] [address], [place] [address] November, [facility] [place] [address], [place] [address] November, [facility] [id number] [place] [id number] November, Other chronic pain G89.29 [facility] [id number] [place] [id number] Oct, [facility] [place] [id number] [place] [address]65726- 1993 Oct, Edema, unspecified type R60.9 [facility] [id number] [place] [id number] Oct, Other chronic pain G89.29 [facility] [place] [address], [place] [address] Oct, Acquired hypothyroidism E03.9 [facility] [id number] [place] [address] [id number] Sep, [facility] [address] [id number] [address] Sep, Other chronic pain G89.29 [facility] [employer] [facility] [address] [facility] [address] [place] [address] Sep, Cramp of both lower extremities R25.2 ; Acquired hypothyroidism E03.9 and Parkinsons disease G20 [facility] [id number] [place] [address] [id number] Sep, [facility] [place] [address] [address] Aug, [facility] [place] [id number] [place] [address] 59864- 1320 Aug, [facility] [employer] [address] [place] [address] Aug, Leg edema, left R60.0 [facility] [place] [id number] [place] [address]7364- 1183 Aug, [facility] [place] [id number] [place] [address] 84115- 6245 Aug, Acute deep vein thrombosis (DVT) of femoral vein, unspecified laterality I82.419 [facility] [place] [id number] [place] [address] 91021- 0528 Aug, [facility] [place] [id number] [place] [address] 82940- 4764 Aug, Other chronic pain G89.29 [facility] [place] [id number] [place] [address] 54732- 8016 Aug, [facility] [place] [id number] [place] [address] 45975- 5852 Aug, Bronchitis J40 ; Primary insomnia F51.01 ; Parkinsons disease G20 ; Anxiety F41.9 and Other chronic pain G89.29 [facility] [id number] [place] [address] [id number] Jul, Dementia without behavioral disturbance, unspecified dementia type F03.90 ; Anxiety F41.9 ; Low back pain M54.5 and Other chronic pain G89.29 [facility] [place] [id number] [place] [address] 83541- 3783 Jul, [facility] [place] [id number] [place] [address] 49591- 1425 Jul, [facility] [address] [id number] Jul, [facility] [place] [id number] [place] [address] 44506- 0870 Jul, [facility] [place] [address] 23492[place], [place] [address] Jun, [facility] [place] [address] [facility] [id number] [address] Jun, [email or web address] [address] [place] [address] Jun, Parkinsons disease G20 [facility] [place] [address] [facility] [id number], [place] [address] May, [facility] [place] [address], [place] [address] 1254 Apr, [facility] [place] [address], [place] [address] 6[address] Apr, [email or web address] [address] [place] [address] Apr, Parkinsons disease G20 [facility] [place] [address], [place] [address] Mar, [email or web address] [address] [place] [address] Feb, Dementia without behavioral disturbance, unspecified dementia type F03.90 and Parkinsons disease G20 [id number] [address] Feb, IMMUNIZATIONS No Known Immunizations SOCIAL HISTORY Never Assessed REASON FOR VISIT Requests return call PLAN OF CARE VITAL SIGNS MEDICATIONS Unknown [...]
--- OUTSIDE RECORDS SUMMARY | 2018-08-06 11:34 | XMS REPORT ---
Author Author MARLON NELSON Organization [facility] Address [address] [place] [address] Care Team Providers Care Clinical Assistant Name Role Phone MARLON NELSON Unavailable PROBLEMS Type Condition ICD9-CM Code QUI40-FG Code Onset Dates Condition Status SNOMED Code Problem Seizures R56.9 Active 62146750 Problem Dementia associated with other underlying disease without behavioral disturbance F02.80 Active 721651811 Problem Colostomy status Z93.3 Active 687540558 Problem Poor appetite R63.0 Active 42142994 Problem Primary insomnia F51.01 Active 6956399 Problem Dementia without behavioral disturbance, unspecified dementia type F03.90 Active 40713547 Problem Parkinsons disease G20 Active 89159991 Problem Other chronic pain G89.29 Active 79220604 Problem Anxiety F41.9 Active 25012079 Problem Chronic obstructive pulmonary disease, unspecified COPD type J44.9 Active 33382611 Problem Essential hypertension I10 Active 99077168 Problem Dysthymia F34.1 Active 31199298 Problem Gastroesophageal reflux disease without esophagitis K21.9 Active 540054522 Problem Acquired hypothyroidism E03.9 Active 503490046 ALLERGIES No Information ENCOUNTERS Encounter Location Date Diagnosis [facility] [address] [id number], [place] [address] Mar, Via [facility] [employer] [address] [place] [id number] Mar, Personal history of other diseases of the digestive system Z87.19 ; Other specified postprocedural states Z98.890 ; Weakness R53.1 and Poor appetite R63.0 [facility] [address] [id number], [place] [address] Feb, [facility] [address] [id number], [place] [address] Feb, Other chronic pain G89.29 [facility] [address] [place] [address] 15403- 7421 Feb, [facility] [id number] [place] [address] 46291- 3392 Feb, [facility] [id number] [place] [address] 71279- 1332 Feb, [facility] [id number] [place] [address] 15620- 4532 Feb, Other chronic pain G89.29 [facility] [id number] [place] [address] 29551- 6787 Feb, Personal history of other diseases of the digestive system Z87.19 ; Other specified postprocedural states Z98.890 and Nausea R11.0 [facility] [id number] [place] [id number] Feb, Dental examination Z01.20 [facility] [id number] [place] [address] 33954- 2455 Jan, [facility] [id number] [place] [address] 18007- 3923 Jan, Other chronic pain G89.29 [facility] [id number] [place] [address] 54573- 6634 Jan, [facility] [id number] [place] [address] 05687- 0092 Jan, [facility] [address] [place] [address] 54113 -1617 Jan, Epigastric mass R19.06 [facility] [id number] [place] [address] 24213- 0688 Dec, Other chronic pain G89.29 [facility] [id number] [place] [address] 46221- 8678 November, Other chronic pain G89.29 [facility] [address] [facility] [id number] [address] [address] November, [facility] [address] [facility] [id number], [place] [address] 2631 November, Other chronic pain G89.29 [employer] [address] [place] [address] Oct, Bronchitis J40 and Parkinsons disease G20 [employer] [address] [place] [address] Oct, Bronchitis J40 [facility] [address] [facility] [id number], [place] [address] 5446 Oct, [facility] [address] [facility] [id number], [place] [address] 4872 Oct, Other chronic pain G89.29 [facility] [id number] [address] Sep, Other chronic pain G89.29 [employer] [address] [place] [address] Aug, Acute pain of right ear H92.01 [facility] [id number] [address] Aug, Other chronic pain G89.29 [employer] [address] [place] [address] Jul, Acquired hypothyroidism E03.9 ; Localized edema R60.0 ; Weight gain R63.5 and Primary insomnia F51.01 [facility] [address] [id number][place] [id number] Jul, Other chronic pain G89.29 [facility] [address] [id number][place] [address] Jun, Other chronic pain G89.29 [facility] [address] [id number], [place] [id number] May, Other chronic pain G89.29 [facility] [id number], [place] [id number] Apr, Other chronic pain G89.29 [facility] [address] [id number][place] [id number] Apr, Bronchitis J40 [employer] [address] [place] [address] Apr, Callus L84 and Parkinsons disease G20 [facility] [address] [id number], [place] [id number] Apr, [facility] [address] [id number] [id number] Mar, Other chronic pain G89.29 [facility] [address] [id number] [id number] Feb, [facility] [id number], [place] [id number] Feb, Other chronic pain G89.29 [facility] [id number], [place] [address] Jan, Acquired hypothyroidism E03.9 [facility] [id number], [place] [id number] Jan, Other chronic pain G89.29 [facility] [id number], [place] [id number] Dec, Other chronic pain G89.29 [facility] [address] [id number], [place] [address] 4[address] Dec, [facility] [id number] [address] 13 Dec, 2016 [employer] [address] [place] [address] 08 Dec, 2016 Seborrheic keratoses L82.1 and Trochanteric bursitis, right hip M70.61 [facility] [address] [id number], [place] [address] 07 Dec, 2016 [facility] [address] [id number], [place] [address] 7747 Dec, Other chronic pain G89.29 [facility] [address] [facility] [id number], [place] [address] 7570 November, [facility] [address] [facility] [id number], [place] [address] 5657 November, [facility] [address] [id number], [place] [id number] November, Other chronic pain G89.29 [facility] [address] [id number], [place] [id number] Oct, [facility] [address] [facility] [id number], [place] Oct, Edema, unspecified type R60.9 [facility] [address] [id number] [id number] Oct, Other chronic pain G89.29 [facility] [address] [id number], [place] [address] 7716 Oct, Acquired hypothyroidism E03.9 [facility] [address] [id number] [id number] Sep, [facility] [id number], [place] [address] Sep, Other chronic pain G89.29 [employer] [address] [place] [address] Sep, Cramp of both lower extremities R25.2 ; Acquired hypothyroidism E03.9 and Parkinsons disease G20 [facility] [address] [id number], [place] [id number] Sep, [facility] [address] [facility] [id number], [place] [address]808[place] Aug, [facility] [address] [facility] [id number][place] [address] Aug, [employer] [address] [place] [address] Aug, Leg edema, left R60.0 [facility] [address]00565100[place], [place] [address] 0791 Aug, [facility] [id number] [place] [address] 67771- 4855 Aug, Acute deep vein thrombosis (DVT) of femoral vein, unspecified laterality I82.419 [facility] [id number] [place] [address] 46902- 7073 Aug, [facility] [id number] [place] [address] 58111- 1350 Aug, Other chronic pain G89.29 [facility] [id number] [place] [address] 10224- 4439 Aug, [facility] [id number] [place] [address] 10091- 3020 Aug, Bronchitis J40 ; Primary insomnia F51.01 ; Parkinsons disease G20 ; Anxiety F41.9 and Other chronic pain G89.29 [facility] [id number] [place] [address] [id number] Jul, Dementia without behavioral disturbance, unspecified dementia type F03.90 ; Anxiety F41.9 ; Low back pain M54.5 and Other chronic pain G89.29 [facility] [address]00565100[place], [place] [address] 3625 Jul, [facility] [id number] [place] [address] 04469- 5996 Jul, [facility] [id number] [place] [address] [id number] Jul, [facility] [id number] [place] [address] 86171- 9590 Jul, [facility] [address] [place] [address] 12968- 4302 Jun, [facility] [address] [place] [address] 47[address] Jun, [employer] [address] [place] [address] Jun, Parkinsons disease G20 [facility] [address] [facility] [id number], [place] [address]- 4476 May, [facility] [address] [facility] [id number], [place] [address]- 2621 Apr, [facility] [address] [id number], [place] [address]- 0255 Apr, [employer] [address] [place] [address] Apr, Parkinsons disease G20 [facility] [address] [facility] [id number], [place] [address]- 1209 Mar, [employer] [address] [place] [address] Feb, Dementia without behavioral disturbance, unspecified dementia type F03.90 and Parkinsons disease G20 [facility] [address] [facility] [id number], [place] [address]- 8080 Feb, IMMUNIZATIONS No Known Immunizations SOCIAL HISTORY [...]
--- OUTSIDE RECORDS SUMMARY | 2018-08-06 11:34 | XMS REPORT ---
Author Author MARLON NELSON Organization [facility] Address [address] [place] [address] Care Team Providers Care Fire Equipment Operator Name Role Phone MARLON NELSON Unavailable PROBLEMS Type Condition ICD9-CM Code PAN19-EA Code Onset Dates Condition Status SNOMED Code Problem Seizures R56.9 Active 72544568 Problem Dementia associated with other underlying disease without behavioral disturbance F02.80 Active 267358804 Problem Colostomy status Z93.3 Active 724021027 Problem Poor appetite R63.0 Active 21201694 Problem Primary insomnia F51.01 Active 0475537 Problem Dementia without behavioral disturbance, unspecified dementia type F03.90 Active 95492375 Problem Parkinsons disease G20 Active 33560783 Problem Other chronic pain G89.29 Active 29484594 Problem Anxiety F41.9 Active 38063023 Problem Chronic obstructive pulmonary disease, unspecified COPD type J44.9 Active 89925692 Problem Essential hypertension I10 Active 22592027 Problem Dysthymia F34.1 Active 58283010 Problem Gastroesophageal reflux disease without esophagitis K21.9 Active 410521100 Problem Acquired hypothyroidism E03.9 Active 470525638 ALLERGIES No Information ENCOUNTERS Encounter Location Date Diagnosis [facility] [address] [id number], [place] [address] Mar, Via [employer] [address] [place] [id number] Mar, Personal history of other diseases of the digestive system Z87.19 ; Other specified postprocedural states Z98.890 ; Weakness R53.1 and Poor appetite R63.0 [facility] [address] [id number], [place] [address] 3502 Feb, [facility] [address] [id number], [place] [address]- 7518 Feb, Other chronic pain G89.29 [facility] [address] [place] [address] 23732- 1028 Feb, [facility] [id number] [place] [address] 83483- 2039 Feb, [facility] [id number] [place] [address] 98761- 0168 Feb, [facility] [id number] [place] [address] 58567- 7455 Feb, Other chronic pain G89.29 [facility] [id number] [place] [address] 49020- 0046 Feb, Personal history of other diseases of the digestive system Z87.19 ; Other specified postprocedural states Z98.890 and Nausea R11.0 [facility] [id number] [place] [address] [id number] Feb, Dental examination Z01.20 [facility] [id number] [place] [address] 61637- 9398 Jan, [facility] [id number] [place] [address] 10316- 6314 Jan, Other chronic pain G89.29 [facility] [id number] [place] [address] 01814- 0730 Jan, [facility] [id number] [place] [address] 32112- 7805 Jan, [facility] [address] [place] [address] 84324 -2728 Jan, Epigastric mass R19.06 [facility] [id number] [place] [address] 87168- 7702 Dec, Other chronic pain G89.29 [facility] [id number] [place] [address] 66727- 6856 November, Other chronic pain G89.29 [facility] [address] [facility] [id number] [address] 9340 November, [facility] [address] [facility] [id number], [place] [address]- 1550 November, Other chronic pain G89.29 [employer] [address] [place] [address] Oct, Bronchitis J40 and Parkinsons disease G20 [employer] [address] [place] [address] Oct, Bronchitis J40 [facility] [address] [facility] [id number], [place] [address]- 3592 Oct, [facility] [address] [facility] [id number], [place] [address]- 3120 Oct, Other chronic pain G89.29 [facility] [id number], [place] [address] Sep, Other chronic pain G89.29 [employer] [address] [place] [address] Aug, Acute pain of right ear H92.01 [facility] [id number], [place] [id number] Aug, Other chronic pain G89.29 [employer] [address] [place] [address] Jul, Acquired hypothyroidism E03.9 ; Localized edema R60.0 ; Weight gain R63.5 and Primary insomnia F51.01 [facility] [address] [id number] [address] Jul, Other chronic pain G89.29 [facility] [address] [id number], [place] [id number] Jun, Other chronic pain G89.29 [facility] [address] [id number], [place] [id number] May, Other chronic pain G89.29 [facility] [id number], [place] [address] Apr, Other chronic pain G89.29 [facility] [address] [id number] [id number] Apr, Bronchitis J40 [facility] [address] [place] [address] Apr, Callus L84 and Parkinsons disease G20 [facility] [place] [address] [id number], [place] [id number] Apr, [facility] [place] [address] [id number], [place] [address] Mar, Other chronic pain G89.29 [facility] [address] [id number], [place] [address] Feb, [facility] [id number], [place] [address] Feb, Other chronic pain G89.29 [facility] [address] [id number], [place] [address]- 8693 Jan, Acquired hypothyroidism E03.9 [facility] [id number], [place] [address] Jan, Other chronic pain G89.29 [facility] [id number], [place] [address] Dec, Other chronic pain G89.29 [facility] [address] [id number], [place] [address]- 8678 Dec, [facility] [address] [id number] [address]- 2369 13 Dec, 2016 [employer] [address] [place] [address] 08 Dec, 2016 Seborrheic keratoses L82.1 and Trochanteric bursitis, right hip M70.61 [facility] [address] [id number], [place] [address]- 3634 07 Dec, 2016 [facility] [address] [id number], [place] [address]- 3517 Dec, Other chronic pain G89.29 [facility] [address] [facility] [id number], [place] [address]- 4216 November, [facility] [address] [facility] [id number], [place] [address]- 4162 November, [facility] [address] [id number][place] [id number] November, Other chronic pain G89.29 [facility] [place] [address] [id number], [place] [id number] Oct, [facility] [address] [facility] [id number], [place]- 9642 Oct, Edema, unspecified type R60.9 [facility] [place] [address] [id number], [place] [address] Oct, Other chronic pain G89.29 [facility] [address] [id number], [place] [address]- 3467 Oct, Acquired hypothyroidism E03.9 [facility] [place] [address] [id number], [place] [address] Sep, [facility] [place] [id number], [place] [address] Sep, Other chronic pain G89.29 [facility] [address] [place] [address] Sep, Cramp of both lower extremities R25.2 ; Acquired hypothyroidism E03.9 and Parkinsons disease G20 [facility] [place] [address] [id number], [place] [id number] Sep, [facility] [address] [facility] [id number], [place] [address]28- 3126 Aug, [facility] [address] [facility] [id number], [place]288[place]- 5215 Aug, [employer] [address] [place] [address] Aug, Leg edema, left R60.0 [facility] [address]00565100[place], [place] [address]- 8157 Aug, [facility] [id number] [place] [address] 56772- 8478 Aug, Acute deep vein thrombosis (DVT) of femoral vein, unspecified laterality I82.419 [facility] [id number] [place] [address] 19219- 9236 Aug, [facility] [id number] [place] [address] 45103- 0137 Aug, Other chronic pain G89.29 [facility] [id number] [place] [address] 89882- 4229 Aug, [facility] [id number] [place] [address] 70771- 2363 Aug, Bronchitis J40 ; Primary insomnia F51.01 ; Parkinsons disease G20 ; Anxiety F41.9 and Other chronic pain G89.29 [facility] [id number] [place] [address] [id number] Jul, Dementia without behavioral disturbance, unspecified dementia type F03.90 ; Anxiety F41.9 ; Low back pain M54.5 and Other chronic pain G89.29 [facility] [address]00565100[place], [place] [address]- 0289 Jul, [facility] [id number] [place] [address] 49249- 3104 Jul, [facility] [id number] [place] [address] [id number] Jul, [facility] [id number] [place] [address] 93105- 9688 Jul, [facility] [address] [place] [address] 98947- 3465 Jun, [facility] [address]394[place] [address]- 8726 Jun, [employer] [address] [place] [address] Jun, Parkinsons disease G20 [facility] [address] [facility] [id number], [place] [address]- 8550 May, [facility] [address] [facility] [id number], [place] [address]- 5222 Apr, [facility] [address] [id number], [place] [address]- 0013 Apr, [employer] [address] [place] [address] Apr, Parkinsons disease G20 [facility] [address] [facility] [id number], [place] [address]- 2570 Mar, [employer] [address] [place] [address] Feb, Dementia without behavioral disturbance, unspecified dementia type F03.90 and Parkinsons disease G20 [facility] [address] [facility] [id number], [place] [address]- 2148 Feb, IMMUNIZATIONS No Known Immunizations SOCIAL HISTORY Never Assessed REASON FOR VISIT med change PLAN OF CARE VITAL SIGNS MEDICATIONS Medication Instructions Dosage Frequency Start Date End Date Duration Status Aspirin EC 81 MG Orally Once a day 1 tablet 24h Active RESULTS No Results PROCEDURES No Known [...]
--- OUTSIDE RECORDS SUMMARY | 2018-08-06 11:34 | XMS REPORT ---
Author Author MARLON NELSON [facility] Address [address] [place] [address] Care Team Providers Care Medical Front Desk Coordinator Name Role Phone MARLON NELSON Unavailable PROBLEMS Type Condition ICD9-CM Code USE38-RG Code Onset Dates Condition Status SNOMED Code Problem Seizures R56.9 Active 51477726 Problem Dementia associated with other underlying disease without behavioral disturbance F02.80 Active 912880219 Problem Colostomy status Z93.3 Active 609078727 Problem Poor appetite R63.0 Active 55381013 Problem Primary insomnia F51.01 Active 5562493 Problem Dementia without behavioral disturbance, unspecified dementia type F03.90 Active 02152100 Problem Parkinsons disease G20 Active 63156716 Problem Other chronic pain G89.29 Active 68188451 Problem Anxiety F41.9 Active 31947411 Problem Chronic obstructive pulmonary disease, unspecified COPD type J44.9 Active 87397341 Problem Essential hypertension I10 Active 19290045 Problem Dysthymia F34.1 Active 04279015 Problem Gastroesophageal reflux disease without esophagitis K21.9 Active 493305006 Problem Acquired hypothyroidism E03.9 Active 443136498 ALLERGIES No Information ENCOUNTERS Encounter Location Date Diagnosis [facility] [address], [place] [address] Mar, [facility] [address], [place] [address] Mar, [facility] [employer] [address] [place] [id number] Mar, Personal history of other diseases of the digestive system Z87.19 ; Other specified postprocedural states Z98.890 ; Weakness R53.1 and Poor appetite R63.0 [facility] [address] [id number], [place] [address] Feb, [facility] [address] [place] [address] 16058- 8296 Feb, Other chronic pain G89.29 [facility] [id number] [place] [address] 50848- 4752 Feb, [facility] [id number] [place] [address] 04716- 1134 Feb, [facility] [id number] [place] [address] 31920- 2417 Feb, [facility] [id number] [place] [address] 10952- 6023 Feb, Other chronic pain G89.29 [facility] [id number] [place] [address] 03935- 7790 Feb, Personal history of other diseases of the digestive system Z87.19 ; Other specified postprocedural states Z98.890 and Nausea R11.0 [facility] [id number] [place] [id number] Feb, Dental examination Z01.20 [facility] [id number] [place] [address] 15631- 2602 Jan, [facility] [id number] [place] [address] 87715- 9946 Jan, Other chronic pain G89.29 [facility] [id number] [place] [address] 54864- 5039 Jan, [facility] [id number] [place] [address] 38994- 5709 Jan, [facility] [id number] [place] [address] 45668 -6973 Jan, Epigastric mass R19.06 [facility] [id number] [place] [address] 21458- 1987 Dec, Other chronic pain G89.29 [facility] [address] [place] [address] 4[address] November, Other chronic pain G89.29 [facility] [address] [id number], [place] [address] 8528 November, [facility] [id number] [address] November, Other chronic pain G89.29 [facility] [address] [place] [address] Oct, Bronchitis J40 and Parkinsons disease G20 [facility] [address] [place] [address] Oct, Bronchitis J40 [facility] [address], [place] [address] 9[address] Oct, [facility] [address], [place] [address] 34[address] Oct, Other chronic pain G89.29 [facility] [id number] [id number] Sep, Other chronic pain G89.29 [facility] [address] [place] [address] Aug, Acute pain of right ear H92.01 [facility] [id number] [id number] Aug, Other chronic pain G89.29 [facility] [address] [place] [address] Jul, Acquired hypothyroidism E03.9 ; Localized edema R60.0 ; Weight gain R63.5 and Primary insomnia F51.01 [facility] [address] [id number] [id number] Jul, Other chronic pain G89.29 [facility] [id number] [id number] Jun, Other chronic pain G89.29 [facility] [id number] [id number] May, Other chronic pain G89.29 [facility] [address] [id number][place] [id number] Apr, Other chronic pain G89.29 [facility] [address] [id number] [address] Apr, Bronchitis J40 [facility] [address] [place] [address] 10 Apr, 2017 Callus L84 and Parkinsons disease G20 [facility] [address] [id number][place] [id number] Apr, [facility] [address] [id number] [id number] Mar, Other chronic pain G89.29 [facility] [address] [id number][place] [address] Feb, [facility] [address] [id number] [id number] Feb, Other chronic pain G89.29 [facility] [address] [facility] [id number] [address] Jan, Acquired hypothyroidism E03.9 [facility] [id number] [place] [id number] Jan, Other chronic pain G89.29 [facility] [address] [id number] [address] Dec, Other chronic pain G89.29 [facility] [address] [id number] [address] Dec, [facility] [address] [facility] [id number] [address] [address] Dec, [facility] [address] [place] [address] 08 Dec, 2016 Seborrheic keratoses L82.1 and Trochanteric bursitis, right hip M70.61 [facility] [address] [id number], [place] [address]16 Dec, [facility] [address] [id number] [address] Dec, Other chronic pain G89.29 [facility] [address], [place] [address] 8206 November, [facility] [address], [place] [address] 6427 November, [facility] [id number] [place] [address] [id number] November, Other chronic pain G89.29 [facility] [id number] [place] [address] [id number] Oct, [facility] [address] [place] [address] 506553- 8303 Oct, Edema, unspecified type R60.9 [facility] [id number] [place] [id number] Oct, Other chronic pain G89.29 [facility] [address], [place] [address] 4[address] Oct, Acquired hypothyroidism E03.9 [facility] [id number] [place] [address] [id number] Sep, [facility] [address] [id number] [address] Sep, Other chronic pain G89.29 [facility] [address] [place] [address] Sep, Cramp of both lower extremities R25.2 ; Acquired hypothyroidism E03.9 and Parkinsons disease G20 [facility] [id number] [place] [address] [id number] Sep, [facility] [address] [address] Aug, [facility] [address] [place] [address] 97546- 3053 Aug, [facility] [address] [place] [address] Aug, Leg edema, left R60.0 [facility] [id number] [place] [address] 21815- 3882 Aug, [facility] [id number] [place] [address] 41490- 5847 Aug, Acute deep vein thrombosis (DVT) of femoral vein, unspecified laterality I82.419 [facility] [id number] [place] [address] 13324- 7408 Aug, [facility] [id number] [place] [address] 10934- 3690 Aug, Other chronic pain G89.29 [facility] [id number] [place] [address] 43621- 0419 Aug, [facility] [id number] [place] [address] 92778- 3645 Aug, Bronchitis J40 ; Primary insomnia F51.01 ; Parkinsons disease G20 ; Anxiety F41.9 and Other chronic pain G89.29 [facility] [id number] [place] [address] [id number] Jul, Dementia without behavioral disturbance, unspecified dementia type F03.90 ; Anxiety F41.9 ; Low back pain M54.5 and Other chronic pain G89.29 [facility] [id number] [place] [address] 79188- 3669 Jul, [facility] [id number] [place] [address] 00171- 2993 Jul, [facility] [address] [id number] Jul, [facility] [id number] [place] [address] 59833- 2194 Jul, [facility] [address] [place] [address]- 7313 Jun, [facility] [address], [place] [address]- 9982 Jun, [facility] [address] [place] [address] Jun, Parkinsons disease G20 [facility] [address], [place] [address]- 6092 May, [facility] [address], [place] [address]- 0269 Apr, [address], [place] [address]- 8095 Apr, [facility] [address] [place] [address] Apr, Parkinsons disease G20 [address], [place] [address]- 3966 Mar, [facility] [address] [place] [address] Feb, Dementia without behavioral disturbance, unspecified dementia type F03.90 and Parkinsons disease G20 [address], [place] [address]- 6213 Feb, IMMUNIZATIONS No Known Immunizations SOCIAL HISTORY Never Assessed REASON FOR VISIT Hospital follow up PLAN OF CARE Activity Details Follow Up prn Reason: VITAL SIGNS MEDICATIONS Medication Instructions Dosage Frequency Start Date End Date Duration Status Ibuprofen 400 MG Orally every 6 hrs 1 tablet with food or milk as needed 6h Active Magnesium Oxide 400 TAKE ONE TABLET BY MOUTH TWICE A DAY 30 Active Trazodone HCl 50 MG Orally Once a day 0.5 tablet at bedtime 24h Active Myrbetriq 25 MG Orally Once a day 1 tablet 24h Active Pepcid 20 MG Orally Once a day 1 tablet at bedtime 24h November, 30 day(s) Active Potassium 1 tab Active Senna Laxative 8.6 MG Orally Once a day 2 tablets at bedtime as needed 24h Active Allopurinol 100 TAKE ONE TABLET BY MOUTH DAILY 30 Active Requip 0.25 TAKE ONE TABLET BY MOUTH EVERY NIGHT AT BEDTIME FOR RESTLESS LEG 30 Active Loratadine Active Requip 1 TAKE ONE TABLET BY MOUTH THREE TIMES A DAY 30 Active Tramadol HCl 50 mg Orally 2 times a day 1 tablet 12h 28 days Active Symbicort 160-4.5 MCG/ACT Inhalation Twice a day 2 puffs 12h Active Ondansetron HCl 4 MG Orally every 8 hours, PRN 1 tablets Feb, Active Synthroid 75 MCG Orally Once a day 1 tablet on an empty stomach in the morning 24h Active Aricept 10 MG Orally Once a day 1 tablet at bedtime 24h Active Aspirin EC 81 MG Orally Once a day 1 tablet 24h Active FiberCon 625 MG Orally twice a day 2 tablets 12h Active Lasix 40 MG Orally Once a day 1 tablet 24h Active Sinemet CR 50-200 TAKE ONE TABLET BY MOUTH TWICE A DAY 30 Active Prilosec 20 TAKE ONE CAPSULE BY MOUTH DAILY 30 Active Celexa 20 TAKE ONE TABLET BY MOUTH DAILY 30 Active Mirapex 0.5 TAKE ONE TABLET BY MOUTH TWICE A DAY 30 Active Melatonin 3 MG Orally Once a day 1 tablet at bedtime as needed with food 24h Jul, 30 day(s) Active RESULTS No Results PROCEDURES Procedure Date Ordered Result Body Site Minor complication (15 mins) Mar 17, 2018 INSTRUCTIONS MEDICATIONS ADMINISTERED No [...]
--- OUTSIDE RECORDS SUMMARY | 2018-08-06 11:35 | XMS REPORT ---
Author Author AMRLON NELSON [facility] Address [address] [place] [address] Care Team Providers Care Checkroom Attendant Name Role Phone MARLON NELSON Unavailable PROBLEMS Type Condition ICD9-CM Code QST47-GT Code Onset Dates Condition Status SNOMED Code Problem Acquired hypothyroidism E03.9 Active 032629826 Problem Colostomy status Z93.3 Active 717033495 Problem Seizures R56.9 Active 90972324 Problem Gastroesophageal reflux disease without esophagitis K21.9 Active 794122898 Problem Chronic obstructive pulmonary disease, unspecified COPD type J44.9 Active 93247587 Problem Essential hypertension I10 Active 26328385 Problem Dysthymia F34.1 Active 05355540 Problem Primary insomnia F51.01 Active 5321032 Problem Other chronic pain G89.29 Active 37184564 Problem Dementia without behavioral disturbance, unspecified dementia type F03.90 Active 48922728 Problem Dementia associated with other underlying disease without behavioral disturbance F02.80 Active 630254945 Problem Anxiety F41.9 Active 58596446 Problem Parkinsons disease G20 Active 49187217 ALLERGIES No Information ENCOUNTERS Encounter Location Date Diagnosis [facility] [address] [address] Feb, Other chronic pain G89.29 [facility] [address] [address]- 12[address] Feb, [facility] [id number] [place] [address] 53541- 3639 Feb, [facility] [id number] [place] [address] 72806- 3155 Feb, [facility] [address] [place] [address] 47788- 8888 Feb, Other chronic pain G89.29 [facility] [address] [address] Feb, Personal history of other diseases of the digestive system Z87.19 ; Other specified postprocedural states Z98.890 and Nausea R11.0 [facility] [address] [id number] Feb, Dental examination Z01.20 [facility] [address] [address]- [address] Jan, [facility] [id number] [place] [address] 89845- 3823 Jan, Other chronic pain G89.29 [facility] [id number] [place] [address] 09990- 6165 Jan, [facility] [address] [address]- 5047 Jan, [facility] [id number] [place] [address] 92461 -9023 Jan, Epigastric mass R19.06 [facility] [address] [address]16- 0901 Dec, Other chronic pain G89.29 [facility] [id number] [place] [address] 84027- 6778 November, Other chronic pain G89.29 [facility] [id number] [place] [address] 98678- 5926 November, [facility] [id number] [place] [address] 12312- 3662 November, Other chronic pain G89.29 [facility] [address] [place] [address] Oct, Bronchitis J40 and Parkinsons disease G20 [facility] [address] [place] [address] Oct, Bronchitis J40 [facility] [address] [address]- 2546 Oct, [facility] [address] [facility] [id number] [place] [address]- 2546 Oct, Other chronic pain G89.29 [facility] [address] [id number] [address] Sep, Other chronic pain G89.29 [facility] [address] [place] [address] Aug, Acute pain of right ear H92.01 [facility] [address] [id number] [place] [address] Aug, Other chronic pain G89.29 [facility] [address] [place] [address] Jul, Acquired hypothyroidism E03.9 ; Localized edema R60.0 ; Weight gain R63.5 and Primary insomnia F51.01 [facility] [address] [id number] [place] [id number] Jul, Other chronic pain G89.29 [facility] [address] [id number] [place] [id number] Jun, Other chronic pain G89.29 [facility] [address] [id number] [place] [id number] May, Other chronic pain G89.29 [facility] [address] [id number] [place] [address] Apr, Other chronic pain G89.29 [facility] [address] [id number] [place] [id number] Apr, Bronchitis J40 [facility] [address] [place] [address] Apr, Callus L84 and Parkinsons disease G20 [facility] [address] [id number] [place] [id number] Apr, [facility] [address] [id number] [place]ALL[place] [id number] Mar, Other chronic pain G89.29 [facility] [address] [id number] [place]ALL[place] [id number] Feb, [facility] [address] [id number] [address] Feb, Other chronic pain G89.29 [facility] [address] [facility] [id number] [place] [address]- 1716 Jan, Acquired hypothyroidism E03.9 [facility] [id number] [place] [address] [id number] Jan, Other chronic pain G89.29 [facility] [id number] [place] [address] [id number] Dec, Other chronic pain G89.29 [facility] [address] [address]- 1221 Dec, [facility] [address] [address]- 1386 Dec, [facility] [address] [place] [address] Dec, Seborrheic keratoses L82.1 and Trochanteric bursitis, right hip M70.61 [facility] [address] [address]- 9266 Dec, [facility] [address] [id number] [address]- 3606 Dec, Other chronic pain G89.29 [facility] [address] [facility] [id number] [place] [address]- 9906 November, [facility] [address] [address] 2546 November, [facility] [id number] [place]ALL[place] [address] November, Other chronic pain G89.29 [facility] [id number] [place] [id number] Oct, [facility] [address] [address]- [address]758 Oct, Edema, unspecified type R60.9 [facility] [address] [id number] [address] Oct, Other chronic pain G89.29 [facility] [address] [address]- 3605 Oct, Acquired hypothyroidism E03.9 [facility] [address] [id number] [id number] Sep, [facility] [id number] [place] [address] [id number] Sep, Other chronic pain G89.29 [facility] [address] [place] [address] Sep, Cramp of both lower extremities R25.2 ; Acquired hypothyroidism E03.9 and Parkinsons disease G20 [facility] [id number] [place] [address] Sep, [facility] [address] [place] [address] 10888- 8890 Aug, [facility] [address] [address]- 24[address] Aug, [facility] [address] [place] [address] Aug, Leg edema, left R60.0 [facility] [address] [address]- 4858 Aug, [facility] [address] [place] [address] 27115- 7832 Aug, Acute deep vein thrombosis (DVT) of femoral vein, unspecified laterality I82.419 [facility] [address] [address]- 7102 Aug, [facility] [address] [address]- 9227 Aug, Other chronic pain G89.29 [facility] [address] [place] [address] 27016- 9311 Aug, [facility] [address] [place] [address] 92519- 7948 Aug, Bronchitis J40 ; Primary insomnia F51.01 ; Parkinsons disease G20 ; Anxiety F41.9 and Other chronic pain G89.29 [facility] [id number] [place] [address] [id number] Jul, Dementia without behavioral disturbance, unspecified dementia type F03.90 ; Anxiety F41.9 ; Low back pain M54.5 and Other chronic pain G89.29 [facility] [id number] [place] [phone] [phone] Jul, [facility] [id number] [place] [phone]- [phone] Jul, [facility] [id number] [place] [address] [id number] Jul, [facility] [id number] [place] [address] [phone]- [phone] Jul, [facility] [id number] [place] [address] [phone] Jun, [facility] [address] [address] Jun, [facility] [address] [place] [address] Jun, Parkinsons disease G20 [facility] [id number] [place] [phone] May, [facility] [address] [address] Apr, [facility] [id number] [place] [phone] Apr, [address] [place] [address] Apr, Parkinsons disease G20 [facility] [address] [facility] [id number] [place] [address] Mar, [address] [place] [address] Feb, Dementia without behavioral disturbance, unspecified dementia type F03.90 and Parkinsons disease G20 [facility] [address] [facility] [id number] [place] [address] Feb, IMMUNIZATIONS No Known Immunizations SOCIAL HISTORY [...]
--- OUTSIDE RECORDS SUMMARY | 2018-08-06 11:35 | XMS REPORT ---
Author Author MARLON NELSON Organization [facility] Address [address] [place] [address] Care Team Providers Care Heliotherapist Name Role Phone MARLON NELSON Unavailable PROBLEMS Type Condition ICD9-CM Code NXN25-NL Code Onset Dates Condition Status SNOMED Code Problem Seizures R56.9 Active 37890904 Problem Dementia associated with other underlying disease without behavioral disturbance F02.80 Active 303480455 Problem Colostomy status Z93.3 Active 816223914 Problem Poor appetite R63.0 Active 52006295 Problem Primary insomnia F51.01 Active 8725812 Problem Dementia without behavioral disturbance, unspecified dementia type F03.90 Active 94084542 Problem Parkinsons disease G20 Active 82201428 Problem Other chronic pain G89.29 Active 52625273 Problem Anxiety F41.9 Active 17952824 Problem Chronic obstructive pulmonary disease, unspecified COPD type J44.9 Active 84684108 Problem Essential hypertension I10 Active 63947418 Problem Dysthymia F34.1 Active 22606936 Problem Gastroesophageal reflux disease without esophagitis K21.9 Active 818854641 Problem Acquired hypothyroidism E03.9 Active 123899923 ALLERGIES No Information ENCOUNTERS Encounter Location Date Diagnosis [facility] [id number] [address] Mar, Via [facility] [employer] [address] [place] [id number] Mar, Personal history of other diseases of the digestive system Z87.19 ; Other specified postprocedural states Z98.890 ; Weakness R53.1 and Poor appetite R63.0 [facility] [id number] [address] Feb, [facility] [id number], [place] [address] Feb, Other chronic pain G89.29 [facility] [id number] [place] [address] Feb, [facility] [id number] [place] [address]145- 0061 Feb, [facility] [id number] [place] [address] Feb, [facility] [id number] [place] [address]89- 4[address] Feb, Other chronic pain G89.29 [facility] [id number] [place] [address] Feb, Personal history of other diseases of the digestive system Z87.19 ; Other specified postprocedural states Z98.890 and Nausea R11.0 [facility] [id number] [place] [id number] Feb, Dental examination Z01.20 [facility] [id number] [place] [address] 40[address] Jan, [facility] [id number] [place] [address]49- 1498 Jan, Other chronic pain G89.29 [facility] [id number] [place] [address]76- 7005 Jan, [facility] [id number] [place] [address] 86867- 8855 Jan, [facility] [id number] [place] [address] Jan, Epigastric mass R19.06 [facility] [id number] [place] [address]327- 2646 Dec, Other chronic pain G89.29 [facility] [id number] [place] [address]69- 7841 November, Other chronic pain G89.29 [facility] [address] [facility] [id number] [id number] November, [facility] [address] [facility] [id number], [place] [address] November, Other chronic pain G89.29 [facility] [address] [place] [address] Oct, Bronchitis J40 and Parkinsons disease G20 [facility] [address] [place] [address] Oct, Bronchitis J40 [facility] [address] [facility] [id number], [place] [address] Oct, [facility] [address] [facility] [id number], [place] [address] Oct, Other chronic pain G89.29 [facility] [id number] [id number] Sep, Other chronic pain G89.29 [facility] [address] [place] [address] Aug, Acute pain of right ear H92.01 [facility] [id number][place] [id number] Aug, Other chronic pain G89.29 [facility] [address] [place] [address] Jul, Acquired hypothyroidism E03.9 ; Localized edema R60.0 ; Weight gain R63.5 and Primary insomnia F51.01 [facility] [address] [id number] [id number] Jul, Other chronic pain G89.29 [facility] [address] [id number] [id number] Jun, Other chronic pain G89.29 [facility] [address] [id number][place] [id number] May, Other chronic pain G89.29 [facility] [id number] [id number] Apr, Other chronic pain G89.29 [facility] [address] [id number][place] [id number] Apr, Bronchitis J40 [facility] [address] [place] [address] Apr, Callus L84 and Parkinsons disease G20 [facility] [address] [id number] [id number] Apr, [facility] [address] [id number] [id number] Mar, Other chronic pain G89.29 [facility] [address] [id number] [id number] Feb, [facility] [id number][place] [id number] Feb, Other chronic pain G89.29 [facility] [id number], [place] [address] Jan, Acquired hypothyroidism E03.9 [facility] [id number], [place] [id number] Jan, Other chronic pain G89.29 [facility] [id number], [place] [address] Dec, Other chronic pain G89.29 [facility] [id number] [address] Dec, [facility] [id number] [address] 13 Dec, 2016 [facility] [address] [place] [address] 08 Dec, 2016 Seborrheic keratoses L82.1 and Trochanteric bursitis, right hip M70.61 [facility] [address] [id number] [address] 07 Dec, 2016 [facility] [id number], [place] [address] Dec, Other chronic pain G89.29 [facility] [address] [facility] [id number], [place] [address] November, [facility] [address] [facility] [id number], [place] [address] November, [facility] [address] [id number][place] [id number] November, Other chronic pain G89.29 [facility] [address] [id number][place] [id number] Oct, [facility] [address] [facility] [id number][place] [address] Oct, Edema, unspecified type R60.9 [facility] [address] [id number] [id number] Oct, Other chronic pain G89.29 [facility] [address] [id number] [address] Oct, Acquired hypothyroidism E03.9 [facility] [address] [id number] [id number] Sep, [facility] [id number], [place] [id number] Sep, Other chronic pain G89.29 [facility] [address] [place] [address] Sep, Cramp of both lower extremities R25.2 ; Acquired hypothyroidism E03.9 and Parkinsons disease G20 [facility] [address] [id number] [id number] Sep, [facility] [address] [facility] [id number][place] [id number] Aug, [facility] [address] [facility] [id number] [address] Aug, [facility] [address] [place] [address] Aug, Leg edema, left R60.0 [facility] [address], [place] [address] Aug, [facility] [id number] [place] [address] Aug, Acute deep vein thrombosis (DVT) of femoral vein, unspecified laterality I82.419 [facility] [id number] [place] [address]- [address]1 Aug, [facility] [id number] [place] [address] 06503- 0396 Aug, Other chronic pain G89.29 [facility] [id number] [place] [address] 20914- 8423 Aug, [facility] [id number] [place] [address]26- 7210 Aug, Bronchitis J40 ; Primary insomnia F51.01 ; Parkinsons disease G20 ; Anxiety F41.9 and Other chronic pain G89.29 [facility] [id number] [place] [id number] Jul, Dementia without behavioral disturbance, unspecified dementia type F03.90 ; Anxiety F41.9 ; Low back pain M54.5 and Other chronic pain G89.29 [facility] [address], [place] [address] Jul, [facility] [id number] [place] [address] 89859- 6421 Jul, [facility] [id number] [place] [address] [id number] Jul, [facility] [id number] [place] [address] 86490- 5210 Jul, [facility] [id number] [place] [address] 66864- 5221 Jun, [facility] [id number] [place] [address] Jun, [facility] [address] [place] [address] Jun, Parkinsons disease G20 [facility] [address] [facility] [id number], [place] [address] May, [facility] [address] [facility] [id number], [place] [address] Apr, [facility] [address] [id number], [place] [address] Apr, [facility] [address] [place] [address] Apr, Parkinsons disease G20 [facility] [address] [facility] [id number], [place] [address] Mar, [facility] [address] [place] [address] Feb, Dementia without behavioral disturbance, unspecified dementia type F03.90 and Parkinsons disease G20 [facility] [address] [facility] [id number], [place] [address] Feb, IMMUNIZATIONS No Known Immunizations SOCIAL HISTORY [...]
--- OUTSIDE RECORDS SUMMARY | 2018-08-06 11:35 | XMS REPORT ---
Author Author АНДРЕЙ SINGH [facility] Address [address] [place] [address] Care Team Providers Care Hide Spreader Name Role Phone АНДРЕЙ SINGH Unavailable PROBLEMS Type Condition ICD9-CM Code MNL72-NJ Code Onset Dates Condition Status SNOMED Code Problem Seizures R56.9 Active 58524741 Problem Dementia associated with other underlying disease without behavioral disturbance F02.80 Active 284612405 Problem Colostomy status Z93.3 Active 709402351 Problem Poor appetite R63.0 Active 71421431 Problem Primary insomnia F51.01 Active 7671173 Problem Dementia without behavioral disturbance, unspecified dementia type F03.90 Active 04549622 Problem Parkinsons disease G20 Active 18623071 Problem Other chronic pain G89.29 Active 99665908 Problem Anxiety F41.9 Active 65290981 Problem Chronic obstructive pulmonary disease, unspecified COPD type J44.9 Active 78204889 Problem Essential hypertension I10 Active 35959270 Problem Dysthymia F34.1 Active 83293381 Problem Gastroesophageal reflux disease without esophagitis K21.9 Active 420665184 Problem Acquired hypothyroidism E03.9 Active 773433770 ALLERGIES Substance Reaction Event Type Date Status Penicillin G Sodium Unknown Drug Allergy Jan, Active Codeine Sulfate Unknown Drug Allergy Jan, Active ENCOUNTERS Encounter Location Date Diagnosis [facility] [address], [place] [address] Mar, Via [employer] [address] [id number] Mar, Personal history of other diseases of the digestive system Z87.19 ; Other specified postprocedural states Z98.890 ; Weakness R53.1 and Poor appetite R63.0 [facility] [id number] [address] Feb, [facility] [id number] [place] [address]- [address] Feb, Other chronic pain G89.29 [facility] [id number] [place] [address] 45567- 7145 Feb, [facility] [id number] [place] [address] 73290- 6320 Feb, [facility] [address] [address] Feb, [facility] [id number] [place] [address]24- 0690 Feb, Other chronic pain G89.29 [facility] [id number] [place] [address] 26206- 1233 Feb, Personal history of other diseases of the digestive system Z87.19 ; Other specified postprocedural states Z98.890 and Nausea R11.0 [facility] [id number] [place] [id number] Feb, Dental examination Z01.20 [facility] [id number] [place] [address] 02958- 3714 Jan, [facility] [id number] [place] [address] 46556- 0635 Jan, Other chronic pain G89.29 [facility] [id number] [place] [address] 00754- 2420 Jan, [facility] [id number] [place] [address] 87944- 0575 Jan, [facility] [id number] [place] [address]1824 -[address]01 Jan, Epigastric mass R19.06 [facility] [id number] [place] [address] 59550- 5303 Dec, Other chronic pain G89.29 [facility] [id number] [place] [address] 56990- 8234 November, Other chronic pain G89.29 [facility] [address] [facility] [id number], [place] [address] November, [facility] [address] [address] November, Other chronic pain G89.29 [employer] [address] [place] [address] Oct, Bronchitis J40 and Parkinsons disease G20 [employer] [address] [place] [address] Oct, Bronchitis J40 [facility] [id number] [place] [address] 50251- 4617 Oct, [facility] [address], [place] [address] Oct, Other chronic pain G89.29 [facility] [id number] [id number] Sep, Other chronic pain G89.29 [employer] [address] [place] [address] Aug, Acute pain of right ear H92.01 [facility] [id number] [id number] Aug, Other chronic pain G89.29 [employer] [address] [place] [address] Jul, Acquired hypothyroidism E03.9 ; Localized edema R60.0 ; Weight gain R63.5 and Primary insomnia F51.01 [facility] [address] [id number][place] [id number] Jul, Other chronic pain G89.29 [facility] [id number] [id number] Jun, Other chronic pain G89.29 [facility] [address] [id number][place] [id number] May, Other chronic pain G89.29 [facility] [address] [id number] [id number] 18 Apr, 2017 Other chronic pain G89.29 [facility] [address] [id number] [id number] 16 Apr, 2017 Bronchitis J40 [employer] [address] [place] [address] 10 Apr, 2017 Callus L84 and Parkinsons disease G20 [facility] [address] [id number][place] [id number] Apr, [facility] [address] [id number][place] [id number] Mar, Other chronic pain G89.29 [facility] [address] [id number][place] [phone] Feb, [facility] [id number][place] [id number] Feb, Other chronic pain G89.29 [facility] [address] [facility] [id number], [place] [address] Jan, Acquired hypothyroidism E03.9 [facility] [id number] [place] [id number] Jan, Other chronic pain G89.29 [facility] [address] [id number] [id number] Dec, Other chronic pain G89.29 [facility] [id number] [address] Dec, [facility] [address] [facility] [id number][place] [address] Dec, [employer] [address] [place] [address] 08 Dec, 2016 Seborrheic keratoses L82.1 and Trochanteric bursitis, right hip M70.61 [facility] [address] [facility] [id number][place] [address] Dec, [facility] [id number] [address] Dec, Other chronic pain G89.29 [facility] [address] [facility] [id number], [place] [address] November, [facility] [address] [address] November, [facility] [id number] [place] [address] [id number] November, Other chronic pain G89.29 [facility] [id number] [place] [address] [id number] Oct, [facility] [address] [place] [address] [id number]- 4464 Oct, Edema, unspecified type R60.9 [facility] [id number] [place] [address] [phone] Oct, Other chronic pain G89.29 [facility] [address], [place] [address] Oct, Acquired hypothyroidism E03.9 [facility] [id number] [place] [address] [phone] Sep, [facility] [address] [id number] [id number] Sep, Other chronic pain G89.29 [employer] [address] [place] [address] Sep, Cramp of both lower extremities R25.2 ; Acquired hypothyroidism E03.9 and Parkinsons disease G20 [facility] [id number] [id number] Sep, [facility] [id number] [id number] Aug, [facility] [id number] [address] Aug, [facility] [address] [place] [address] Aug, Leg edema, left R60.0 [facility] [id number] [place] [address] 43323- 5307 Aug, [facility] [id number] [place] [address] 53771- 7976 Aug, Acute deep vein thrombosis (DVT) of femoral vein, unspecified laterality I82.419 [facility] [id number] [place] [address] 50379- 5545 Aug, [facility] [address] [address] Aug, Other chronic pain G89.29 [facility] [address] [address] Aug, [facility] [address] [address] Aug, Bronchitis J40 ; Primary insomnia F51.01 ; Parkinsons disease G20 ; Anxiety F41.9 and Other chronic pain G89.29 [facility] [id number] [place] [address] [id number] Jul, Dementia without behavioral disturbance, unspecified dementia type F03.90 ; Anxiety F41.9 ; Low back pain M54.5 and Other chronic pain G89.29 [facility] [id number] [place] [address] 86223- 8946 Jul, [facility] [id number] [place] [address] 72372- 1942 Jul, [facility] [address] [id number] Jul, [facility] [id number] [place] [address] 64983- 0256 Jul, [facility] [address] 966848- 8145 Jun, [facility] [address] [address] Jun, [employer] [address] [place] [address] Jun, Parkinsons disease G20 [facility] [address] [facility] [id number][place] [phone] May, [facility] [address] [place] [address] 409024- 9700 Apr, [address], [place] [address] Apr, [facility] [address] [place] [address] Apr, Parkinsons disease G20 [address], [place] [address] Mar, [employer] [address] [address] Feb, Dementia without behavioral disturbance, unspecified dementia type F03.90 and Parkinsons disease G20 [address], [place] [address] 6[address] Feb, IMMUNIZATIONS No Known Immunizations SOCIAL HISTORY Never Assessed REASON FOR VISIT knot in stomach-The patient has a knot on her stomach but it has gotten bigger overnight and is painful.--TERRY Lewis PLAN OF CARE Activity Details Follow Up w/ PCP pending abdominal US results Reason:epigastrium masss VITAL SIGNS Height 62.0 in 2018-02-11 Weight 200.8 lbs 2018-02-11 Temperature 97.2 degrees Fahrenheit 2018-02-11 Heart Rate 80 bpm 2018-02-11 Respiratory Rate 20 2018-02-11 BMI 36.72 kg/m2 2018-02-11 Blood pressure systolic 128 mmHg 2018-02-11 Blood pressure diastolic 84 mmHg 2018-02-11 MEDICATIONS Medication Instructions Dosage Frequency Start Date End Date Duration Status Aricept 10 MG Orally Once a day 1 tablet at bedtime 24h Active Aspirin EC 325 TAKE ONE TABLET BY MOUTH DAILY 30 Active Myrbetriq 25 MG Orally Once a day 1 tablet 24h Active Celexa 20 TAKE ONE TABLET BY MOUTH DAILY 30 Active Mirapex 0.5 TAKE ONE TABLET BY MOUTH TWICE A DAY 30 Active Tramadol HCl 50 mg Orally 2 times a day 1 tablet 12h 28 days Active Potassium 1 tab Active Magnesium Oxide 400 TAKE ONE TABLET BY MOUTH TWICE A DAY 30 Active Symbicort 160-4.5 MCG/ACT Inhalation Twice a day 2 puffs 12h Active Sinemet CR 50-200 TAKE ONE TABLET BY MOUTH TWICE A DAY 30 Active Trazodone HCl 50 MG Orally Once a day 0.5 tablet at bedtime 24h Active FiberCon 625 MG Orally twice a day 2 tablets 12h Active Lasix 40 MG Orally Once a day 1 tablet 24h Active Senna Laxative 8.6 MG Orally Once a day 2 tablets at bedtime as needed 24h Active Requip 0.25 TAKE ONE TABLET BY MOUTH EVERY NIGHT AT BEDTIME FOR RESTLESS LEG 30 Active Melatonin 3 MG Orally Once a day 1 tablet at bedtime as needed with food 24h Jul, 30 day(s) Active Prilosec 20 TAKE ONE CAPSULE BY MOUTH DAILY 30 Active Allopurinol 100 TAKE ONE TABLET BY MOUTH DAILY 30 Active Ibuprofen 400 MG Orally every 6 hrs 1 tablet with food or milk as needed 6h Active Requip 1 TAKE ONE TABLET BY MOUTH THREE TIMES A DAY 30 Active Pepcid 20 MG Orally Once a day 1 tablet at bedtime 24h November, 30 day(s) Active Synthroid 75 MCG Orally Once a day 1 tablet on an empty stomach in the morning 24h Active RESULTS Name Result Date Reference Range Ultrasound : Abdomen, LIMITED (specify organ) 2018-02-11 PROCEDURES Procedure Date Ordered Result Body Site [facility] VISIT ESTABLISHED PATIENT February 11, 2018 INSTRUCTIONS MEDICATIONS ADMINISTERED No Known Medications [...]
--- OUTSIDE RECORDS SUMMARY | 2018-08-06 11:35 | XMS REPORT ---
Author Author MARLON NELSON Organization [facility] Address [address] [place] [address] Care Team Providers [employer] Name Role Phone MARLON NELSON Unavailable PROBLEMS Type Condition ICD9-CM Code SYF33-CR Code Onset Dates Condition Status SNOMED Code Problem Seizures R56.9 Active 53290552 Problem Dementia associated with other underlying disease without behavioral disturbance F02.80 Active 127381510 Problem Colostomy status Z93.3 Active 784752674 Problem Poor appetite R63.0 Active 63436628 Problem Primary insomnia F51.01 Active 6372537 Problem Dementia without behavioral disturbance, unspecified dementia type F03.90 Active 92554831 Problem Parkinsons disease G20 Active 68233641 Problem Other chronic pain G89.29 Active 71226330 Problem Anxiety F41.9 Active 04982540 Problem Chronic obstructive pulmonary disease, unspecified COPD type J44.9 Active 23656040 Problem Essential hypertension I10 Active 16304982 Problem Dysthymia F34.1 Active 42062698 Problem Gastroesophageal reflux disease without esophagitis K21.9 Active 820468660 Problem Acquired hypothyroidism E03.9 Active 468627033 ALLERGIES No Information ENCOUNTERS Encounter Location Date Diagnosis [facility] [id number] [address] Mar, Via [employer] [place] [facility] [address] [place] [id number] Mar, Personal history of other diseases of the digestive system Z87.19 ; Other specified postprocedural states Z98.890 ; Weakness R53.1 and Poor appetite R63.0 [facility] [id number] [address] Feb, [facility] [id number] [address] Feb, Other chronic pain G89.29 [facility] [id number] [place] [address] Feb, [facility] [id number] [place] [address]- [address] Feb, [facility] [id number] [place] [address]- 4[address] Feb, [facility] [id number] [place] [address] Feb, Other chronic pain G89.29 [facility] [id number] [place] [address] Feb, Personal history of other diseases of the digestive system Z87.19 ; Other specified postprocedural states Z98.890 and Nausea R11.0 [facility] [id number] [place] [id number] Feb, Dental examination Z01.20 [facility] [id number] [place] [address] Jan, [facility] [id number] [place] [address]- [address]41 Jan, Other chronic pain G89.29 [facility] [id number] [place] [address]92- 3556 Jan, [facility] [id number] [place] [address]63- [address] Jan, [facility] [id number] [place] [address] Jan, Epigastric mass R19.06 [facility] [id number] [place] [address]- [address] Dec, Other chronic pain G89.29 [facility] [id number] [place] [address] 89870- [address] November, Other chronic pain G89.29 [facility] [address] [facility] [id number] [address] November, [facility] [address] [facility] [id number] [address] November, Other chronic pain G89.29 [employer] [address] [place] [address] Oct, Bronchitis J40 and Parkinsons disease G20 [facility] [address] [place] [address] Oct, Bronchitis J40 [facility] [address] [facility] [id number] [place] [address] Oct, [facility] [address] [facility] [id number] [address] Oct, Other chronic pain G89.29 [facility] [id number] [place] [id number] Sep, Other chronic pain G89.29 [employer] [address] [place] [address] Aug, Acute pain of right ear H92.01 [facility] [id number] [place] [id number] Aug, Other chronic pain G89.29 [employer] [address] [place] [address] Jul, Acquired hypothyroidism E03.9 ; Localized edema R60.0 ; Weight gain R63.5 and Primary insomnia F51.01 [facility] [address] [id number] [place] [id number] Jul, Other chronic pain G89.29 [facility] [address] [id number] [place] [id number] Jun, Other chronic pain G89.29 [facility] [address] [id number] [id number] May, Other chronic pain G89.29 [facility] [id number] [id number] Apr, Other chronic pain G89.29 [facility] [address] [id number] [place] [id number] Apr, Bronchitis J40 [facility] [employer] [address] [place] [address] Apr, Callus L84 and Parkinsons disease G20 [facility] [address] [id number] [id number] Apr, [facility] [id number] [id number] Mar, Other chronic pain G89.29 [facility] [id number] [id number] Feb, [facility] [id number] [place] [id number] Feb, Other chronic pain G89.29 [facility] [id number] [address] Jan, Acquired hypothyroidism E03.9 [facility] [id number] [place] [id number] Jan, Other chronic pain G89.29 [facility] [id number] [id number] Dec, Other chronic pain G89.29 [facility] [id number] [address] Dec, [facility] [id number] [address] 13 Dec, 2016 [facility] [address] [place] [address] 08 Dec, 2016 Seborrheic keratoses L82.1 and Trochanteric bursitis, right hip M70.61 [facility] [id number] [address] 07 Dec, 2016 [facility] [id number] [address] Dec, Other chronic pain G89.29 [facility] [address] [facility] [id number] [place] [address] November, [facility] [address] [facility] [id number] [place] [address] November, [facility] [address] [id number] [place] [id number] November, Other chronic pain G89.29 [facility] [address] [id number] [place] [id number] Oct, [facility] [address] [facility] [id number] [place]2067[address] Oct, Edema, unspecified type R60.9 [facility] [id number] [id number] Oct, Other chronic pain G89.29 [facility] [id number] [address] Oct, Acquired hypothyroidism E03.9 [facility] [address] [id number] [place] [id number] Sep, [facility] [id number] [place] [address] Sep, Other chronic pain G89.29 [facility] [address] [place] [address] Sep, Cramp of both lower extremities R25.2 ; Acquired hypothyroidism E03.9 and Parkinsons disease G20 [facility] [address] [id number] [id number] Sep, [facility] [address] [facility] [id number] [place] [address] Aug, [facility] [address] [facility] [id number] Aug, [employer] [address] [place] [address] Aug, Leg edema, left R60.0 [facility] [address] [address] Aug, [facility] [id number] [place] [address]- [address] Aug, Acute deep vein thrombosis (DVT) of femoral vein, unspecified laterality I82.419 [facility] [id number] [place] [address] 78838- 4179 Aug, [facility] [id number] [place] [address] 86287- 7251 Aug, Other chronic pain G89.29 [facility] [id number] [place] [address]45- [address] Aug, [facility] [id number] [place] [address]- 2895 Aug, Bronchitis J40 ; Primary insomnia F51.01 ; Parkinsons disease G20 ; Anxiety F41.9 and Other chronic pain G89.29 [facility] [id number] [place] [id number] Jul, Dementia without behavioral disturbance, unspecified dementia type F03.90 ; Anxiety F41.9 ; Low back pain M54.5 and Other chronic pain G89.29 [facility] [address] [address] Jul, [facility] [id number] [place] [address] 05683- 9953 Jul, [facility] [id number] [place] [id number] Jul, [facility] [id number] [place] [address] 24032- 7843 Jul, [facility] [id number] [place] [address] 20715- 5686 Jun, [facility] [address]7594[address] [place] [address] Jun, [employer] [address] [place] [address] Jun, Parkinsons disease G20 [facility] [address] [facility] [id number] [place] [address] May, [facility] [address] [facility] [id number] [address] Apr, [facility] [id number] [address] Apr, [employer] [address] [place] [address] Apr, Parkinsons disease G20 [facility] [address] [facility] [id number] [place] [address] Mar, [employer] [address] [place] [address] Feb, Dementia without behavioral disturbance, unspecified dementia type F03.90 and Parkinsons disease G20 [facility] [address] [facility] [id number] [place] [address] Feb, IMMUNIZATIONS No Known Immunizations SOCIAL HISTORY Never Assessed REASON FOR VISIT US Results PLAN OF CARE VITAL SIGNS MEDICATIONS Unknown [...]
--- OUTSIDE RECORDS SUMMARY | 2018-08-06 11:44 | XMS REPORT | Continuity of Care Document ---
Author Author [facility] Organization [facility] Address Unknown Phone Unavailable Allergies Active Description Code Type Severity Reaction Onset Reported/Identified Relationship to Patient Clinical Status Yes codeine [id number] Drug Allergy Unknown N/A 10/27/2007 Yes Penicillins [id number] Drug Allergy Unknown N/A 10/27/2007 Yes codeine [id number] Drug Allergy Unknown Pt has received 03/20/2018 Yes Penicillins [id number] Drug Allergy Unknown Pt has received 03/20/2018 Medications There is no data. Problems Date Dx Coded Attending Type Code Diagnosis Diagnosed By 12/13/2009 Ot 455.0 12/13/2009 Ot 455.3 12/13/2009 Ot 569.89 12/13/2009 Ot 789.09 12/13/2009 Ot V16.0 12/13/2009 Ot V64.3 12/21/2010 Ot 721.3 12/21/2010 Ot 722.52 12/21/2010 Ot V57.1 04/08/2013 GABBIE GAYLE REFORESTATION WORKER Ot 276.51 DEHYDRATION 04/08/2013 GABBIE GAYLE REFORESTATION WORKER Ot 535.50 UNSP GASTRITIS GASTRODUODENITIS W/O ME 04/08/2013 GABBIE GAYLE REFORESTATION WORKER Ot 562.11 DIVERTICULITIS COLON (W/O MENT OF HEMORR 04/08/2013 GABBIE GAYLE REFORESTATION WORKER Ot 599.0 URIN TRACT INFECTION NOS 04/08/2013 GABBIE GAYLE REFORESTATION WORKER Ot 787.02 NAUSEA ALONE 04/18/2013 TEJASNDREMEDIOS RODRIGUEZ DOLINE S Ot 041.19 BACTERIAL INFECTION DUE TO OTHER STAPHYL 04/18/2013 REMEDIOS MCKAY DOLINE S Ot 244.9 HYPOTHYROIDISM NOS 04/18/2013 ESSIE MCKAY DOQUELINE S Ot 276.51 DEHYDRATION 04/18/2013 REMEDIOS MCKAY DOLINE S Ot 276.8 HYPOPOTASSEMIA 04/18/2013 ORENDER DO, ROS S Ot 311 DEPRESSIVE DISORDER NEC 04/18/2013 ORENDER DO, ROS S Ot 403.90 HYPTNSV CHR KID DIS, UNSPEC, W CHR KD ST 04/18/2013 TEJASNDER DO, ROS S Ot 493.00 EXTRINSIC ASTHMA, [...] Ot 599.0 URIN TRACT INFECTION NOS 04/18/2013 TEJASNDER DO ROS S Ot 715.90 OSTEOARTHROS NOS-UNSPEC 04/18/2013 TEJASNDER DO ROS S Ot 722.52 LUMB/LUMBOSAC DISC DEGEN 04/18/2013 ORENDER DO, ROS S Ot 780.52 INSOMNIA, UNSPECIFIED 04/18/2013 ORENDER DO, ROS S Ot V12.29 PERSONAL HX OF [facility] ENDOCRINE, METABOLIC 08/30/2013 TEJASNDER DO, ROS S Ot 238.71 ESSENTIAL THROMBOCYTHEMIA 08/30/2013 TEJASNDER DO, ROS S Ot 244.9 HYPOTHYROIDISM NOS 08/30/2013 TEJASNDER DO, ROS S Ot 273.8 DIS PLAS PROTEIN MET NEC 08/30/2013 ORENDER DO, ROS S Ot 275.2 DIS MAGNESIUM METABOLISM 08/30/2013 ORENDER DO, ROS S Ot 276.51 DEHYDRATION 08/30/2013 ORENDER DO, ROS S Ot 276.8 HYPOPOTASSEMIA 08/30/2013 ORENDER DO, ROS S Ot 285.9 ANEMIA NOS 08/30/2013 ORENDER DO, ROS S Ot 311 DEPRESSIVE DISORDER NEC 08/30/2013 TEJASNDER DO, ROS S Ot 403.90 HYPTNSV CHR KID DIS, UNSPEC, W CHR KD ST 08/30/2013 ROS MCKAY DO S Ot 493.90 ASTHMA, UNSPECIFIED 08/30/2013 ROS MCKAY DO S Ot 512.1 IATROGENIC PNEUMOTHORAX 08/30/2013 REMEDIOS MCKAY DOLINE S Ot 530.81 ESOPHAGEAL REFLUX 08/30/2013 REMEDIOS MCKAY DOLINE S Ot 560.9 INTESTINAL OBSTRUCT NOS 08/30/2013 ROS MCKAY DO S Ot 562.11 DIVERTICULITIS COLON (W/O MENT OF HEMORR 08/30/2013 ESSIE MCKAY DOQUELINE S Ot 564.00 UNSPEC CONSTIPATION 08/30/2013 REMEDIOS MCKAY DOLINE S Ot 564.1 IRRITABLE BOWEL SYNDROME 08/30/2013 ROS MCKAY DO S Ot 569.5 INTESTINAL ABSCESS 08/30/2013 REMEDIOS MCKAY DOLINE S Ot 584.5 ACUTE KIDNEY FAILURE WITH LESION OF TUBU 08/30/2013 ROS MCKAY DO S Ot 585.9 CHRONIC KIDNEY DISEASE, UNSPECIFIED 08/30/2013 REMEDIOS MCKAY DOLINE S Ot 599.0 URIN TRACT INFECTION NOS [...] 04/05/2014 ELAINE FLORES MD Ot 568.0 PERITONEAL [id number]/INF 04/05/2014 ELAINE FLORES MD Ot 585.9 CHRONIC KIDNEY DISEASE, UNSPECIFIED 04/05/2014 ELAINE FLORES MD Ot 716.90 ARTHROPATHY NOS-UNSPEC 04/05/2014 ELAINE FLORES MD Ot 785.0 TACHYCARDIA NOS 04/05/2014 ELAINE FLORES MD Ot V12.3 HX-BLOOD DISEASES 04/05/2014 ELAINE FLORES MD Ot V45.72 ACQRD ABSENCE INTESTINE - LARGE/SMALL 04/05/2014 ELAINE FLORES MD Ot V55.3 ATTEN TO COLOSTOMY 04/05/2014 ELAINE FLORES MD Ot V64.41 LAPAROSCOPIC SURGICAL PROC CONVERTED TO 04/20/2014 REMEDIOS MCKAY DOLINE S Ot 244.9 HYPOTHYROIDISM NOS 04/20/2014 ESSIE MCKAY DOQUELINE S Ot 272.4 HYPERLIPIDEMIA NEC/NOS 04/20/2014 TEJASNDESSIE RODRIGUEZ DOQUELINE S Ot 285.9 ANEMIA NOS 04/20/2014 TEJASNDESSIE RODRIGUEZ DOQUELINE S Ot 294.20 DEMENTIA, UNSPECIFIED, WITHOUT BEHAVIORA 04/20/2014 TEJASNDESSIE RODRIGUEZ DOQUELINE S Ot 311 DEPRESSIVE DISORDER NEC 04/20/2014 ESSIE MCKAY DOQUELINE S Ot 403.90 HYPTNSV CHR KID DIS, UNSPEC, W CHR KD ST 04/20/2014 NELY CHEN ROS S Ot 530.81 ESOPHAGEAL REFLUX 04/20/2014 ESSIE MCKAY DOQUELINE S Ot 536.8 STOMACH FUNCTION DIS NEC 04/20/2014 TEJASNDESSIE RODRIGUEZ DOQUELINE S Ot 585.9 CHRONIC KIDNEY DISEASE, UNSPECIFIED 04/20/2014 ROS MCKAY DO S Ot 599.0 URIN TRACT INFECTION NOS 04/20/2014 ROS MCKAY DO S Ot 682.2 CELLULITIS OF TRUNK 04/20/2014 ROS MCKAY DO S Ot 716.90 ARTHROPATHY NOS-UNSPEC 04/20/2014 ROS MCKAY DO S Ot 783.0 ANOREXIA 04/20/2014 ROS MCKAY DO S Ot V12.51 HX-VENOUS THROMBOSIS EMBOLISM 04/20/2014 REMEDIOS MCKAY DOLINE S Ot V57.89 REHABILITATION PROC NEC 04/20/2014 ROS MCKAY DO S Ot V58.75 AFTERCARE POST SURGERY TEETH,ORAL CAVITY 05/09/2014 ROS MCKAY DO S Ot 244.9 HYPOTHYROIDISM NOS 05/09/2014 ROS MCKAY DO S Ot 275.2 DIS MAGNESIUM METABOLISM 05/09/2014 REMEDIOS MCKAY DOLINE S Ot 285.9 ANEMIA NOS 05/09/2014 ROS [...] 724.5 BACKACHE NOS 05/09/2014 ROS MCKAY DO S Ot V04.81 ND FOR PROPHYLACTIC VACCIN AND INOCULATI 05/09/2014 ROS MCKAY DO S Ot V13.02 PERSONAL HISTORY, URINARY (TRACT) INFECT [...] 06/17/2014 Ot 593.9 06/17/2014 Ot 733.90 06/17/2014 TEJASNDER DO, ROS S Ot 433.30 06/17/2014 TEJASNDER DO, ROS S Ot 435.9 06/17/2014 ORENDER DO, ROS S Ot 780.4 06/17/2014 [facility] Ot 780.97 06/17/2014 NKECHI MATHIS Ot 786.2 06/17/2014 ORENDER DO, ROS S Ot 482.9 06/17/2014 ORENDER DO, ROS S Ot V58.69 06/17/2014 TEJASNDER DO, ROS S Ot V58.83 06/17/2014 ELAINE FLORES MD Ot 557.9 06/17/2014 ELAINE FLORES MD Ot V72.63 06/17/2014 MARK PEDRAZA, ELAINE Ot V72.83 06/17/2014 MARK PEDRAZA, ELAINE Ot V74.8 06/17/2014 [facility] S Ot V58.69 06/17/2014 ORENDER DO, ROS S Ot V58.83 11/01/2015 Ot 719.46 [...] 11/01/2015 Ot 593.9 11/01/2015 Ot 733.90 11/01/2015 ORENDER DO, ROS S Ot 433.30 11/01/2015 ORENDER DO, ROS S Ot 435.9 11/01/2015 ORENDER DO, ROS S Ot 780.4 11/01/2015 ORENDER DO, ROS S Ot 780.97 11/01/2015 NKECHI MATHIS Ot 786.2 11/01/2015 ORENDER DO, ROS S Ot 482.9 11/01/2015 ORENDER DO, ROS S Ot V58.69 11/01/2015 [facility] ROS S Ot V58.83 11/01/2015 MARK PEDRAZA, ELAINE Ot 557.9 11/01/2015 MARK PEDRAZA, ELAINE Ot V72.63 11/01/2015 MARK PEDRAZA, ELAINE Ot V72.83 11/01/2015 MARK PEDRAZA, ELAINE Ot V74.8 09/04/2016 MELIZA DO, JAMMIE K Ot F03.90 UNSPECIFIED DEMENTIA WITHOUT BEHAVIORAL 09/04/2016 MELIZA DOCLAIRA K Ot G20 PARKINSON'S DISEASE 09/04/2016 MELIZA , JAMMIE K Ot R22.42 LOCALIZED SWELLING, MASS AND LUMP, LEFT 09/04/2016 MELIZA CLAIR CHENA K Ot Z79.899 OTHER [employer] DEVELOPER (CURRENT) DRUG THERAPY 09/04/2016 MELIZA JAMMIE CHEN K Ot Z86.718 PERSONAL HISTORY OF OTHER VENOUS THROMBO 09/05/2016 MELIZA CLAIR CHENA K Ot F03.90 UNSPECIFIED DEMENTIA WITHOUT BEHAVIORAL 09/05/2016 MELIZA DOCLAIRA K Ot G20 PARKINSON'S DISEASE 09/05/2016 MELIZA DO, JAMMIE K Ot R22.42 LOCALIZED SWELLING, MASS AND LUMP, LEFT 09/05/2016 MELIZA JAMMIE CHEN K Ot Z79.899 OTHER [employer] DEVELOPER (CURRENT) DRUG THERAPY 09/05/2016 MELIZA CLAIR CHENA K Ot Z86.718 PERSONAL HISTORY OF OTHER VENOUS THROMBO 09/05/2016 DILLAN SINGH MD Ot F03.90 UNSPECIFIED DEMENTIA WITHOUT BEHAVIORAL 09/05/2016 DILLAN SINGH MD, Ot G20 PARKINSON'S DISEASE 09/05/2016 DILLAN SINGH MD Ot R53.1 WEAKNESS 09/05/2016 DILLAN SINGH MD Ot R55 SYNCOPE AND COLLAPSE 09/05/2016 DILLAN SINGH MD, Ot Z79.899 OTHER [facility] (CURRENT) DRUG THERAPY 09/06/2016 MELIZA CLAIR CHENA K Ot F03.90 UNSPECIFIED DEMENTIA WITHOUT BEHAVIORAL 09/06/2016 MELIZA CLAIR CHENA K Ot G20 PARKINSON'S DISEASE 09/06/2016 MELIZA CLAIR CHENA K Ot R22.42 LOCALIZED SWELLING, MASS AND LUMP, LEFT 09/06/2016 MELIZA JAMMIE CHEN K Ot Z79.899 OTHER [employer] DEVELOPER (CURRENT) DRUG THERAPY 09/06/2016 MELIZA CLAIR CHENA K Ot Z86.718 PERSONAL HISTORY OF OTHER VENOUS THROMBO 09/06/2016 DILLAN SINGH MD Ot F03.90 UNSPECIFIED DEMENTIA WITHOUT BEHAVIORAL 09/06/2016 DILLAN SINGH MD, Ot G20 PARKINSON'S DISEASE 09/06/2016 DILLAN SINGH MD, Ot R53.1 WEAKNESS 09/06/2016 DILLAN SINGH MD, Ot R55 SYNCOPE AND COLLAPSE 09/06/2016 DILLAN SINGH MD, Ot Z79.899 OTHER [facility] (CURRENT) DRUG THERAPY 09/06/2016 DILLAN SINGH MD Ot F03.90 UNSPECIFIED DEMENTIA WITHOUT BEHAVIORAL 09/06/2016 DILLAN SINGH MD, Ot G20 PARKINSON'S DISEASE 09/06/2016 DILLAN SINGH MD Ot R53.1 WEAKNESS 09/06/2016 DILLAN SINGH MD, Ot R55 SYNCOPE AND COLLAPSE 09/06/2016 DILLAN SINGH MD, Ot Z79.899 OTHER [employer] DEVELOPER (CURRENT) DRUG THERAPY 09/11/2016 MELIZA DO JAMMIE K Ot F03.90 UNSPECIFIED DEMENTIA WITHOUT BEHAVIORAL 09/11/2016 MELIZA DO JAMMIE K Ot G20 PARKINSON'S DISEASE 09/11/2016 MELIZA JAMMIE K Ot R22.42 LOCALIZED SWELLING, MASS AND LUMP, LEFT 09/11/2016 MELIZA DO JAMMIE K Ot Z79.899 OTHER [employer] DEVELOPER (CURRENT) DRUG THERAPY 09/11/2016 MELIZA DO JAMMIE K Ot Z86.718 PERSONAL HISTORY OF OTHER VENOUS THROMBO 09/11/2016 DILLAN SINGH MD Ot F03.90 UNSPECIFIED DEMENTIA WITHOUT BEHAVIORAL 09/11/2016 DILLAN SINGH MD Ot G20 PARKINSON'S DISEASE 09/11/2016 DILLAN SINGH MD Ot R53.1 WEAKNESS 09/11/2016 DILLAN SINGH MD, Ot R55 SYNCOPE AND COLLAPSE 09/11/2016 DILLAN SINGH MD, Ot Z79.899 OTHER [employer] DEVELOPER (CURRENT) DRUG THERAPY 06/18/2017 MORIS RUFFIN 296.33 MAJOR DEPRESSIVE DISORDER, RECURRENT EPISODE, SEVERE DEGREE, WITHOUT MENTION OF PSYCHOTIC BEHAVIOR 06/18/2017 MORIS RUFFIN F33.2 MAJOR DEPRESSV DISORDER, RECURRENT SEVERE W/O PSYCH FEATURES 02/11/2018 ROS MCKAY DO Ot 433.30 MULT BILTRAL ARTERY OCCLUSION WO CEREBRA 02/11/2018 ROS MCKAY DO Ot 435.9 TRANS CEREB ISCHEMIA NOS 02/11/2018 ORENDER DO, ROS S Ot 780.4 DIZZINESS AND GIDDINESS 02/11/2018 ORENDER DO, ROS S Ot 780.97 ALTERED MENTAL STATUS 02/11/2018 NKECHI MATHIS Ot 786.2 COUGH 02/11/2018 ORENDER DO, ROS S Ot 482.9 BACTERIAL PNEUMONIA NOS 02/11/2018 ORENDER DO, ROS S Ot V58.69 OTH MED,LT,CURRENT USE 02/11/2018 ORENDER DO, ROS S Ot V58.83 ENCOUNTER FOR THERAPEUTIC DRUG MONITORIN 02/11/2018 ELAINE FLORES MD Ot 557.9 VASC INSUFF INTEST NOS 02/11/2018 ELAINE FLORES MD Ot V72.63 PRE-PROCEDURAL LABORATORY EXAMINATION 02/11/2018 ELAINE FLORES MD, Ot V72.83 EXAM PRE-OPERATIVE NEC 02/11/2018 ELAINE FLORES MD, Ot V74.8 SCREEN-BACTERIAL DIS NEC 02/12/2018 АНДРЕЙ SINGH APRN Ot R19.06 EPIGASTRIC SWELLING, MASS OR LUMP 03/11/2018 Ot K43.2 INCISIONAL HERNIA WITHOUT OBSTRUCTION OR 03/11/2018 Ot Z01.812 ENCOUNTER FOR PREPROCEDURAL LABORATORY E 03/11/2018 Ot Z11.2 ENCOUNTER FOR SCREENING FOR OTHER BACTER 03/16/2018 ELAINE FLORES MD Ot D64.9 ANEMIA, UNSPECIFIED 03/16/2018 ELAINE FLORES MD Ot D72.829 ELEVATED WHITE BLOOD CELL COUNT, UNSPECI 03/16/2018 ELAINE FLORES MD Ot E03.9 HYPOTHYROIDISM, UNSPECIFIED 03/16/2018 ELAINE FLORES MD Ot E55.9 VITAMIN D DEFICIENCY, UNSPECIFIED 03/16/2018 ELAINE FLORES MD Ot F03.90 UNSPECIFIED DEMENTIA WITHOUT BEHAVIORAL 03/16/2018 ELAINE FLORES MD Ot F31.9 BIPOLAR DISORDER, UNSPECIFIED 03/16/2018 ELAINE FLORES MD Ot F41.9 ANXIETY DISORDER, UNSPECIFIED 03/16/2018 ELAINE FLORES MD Ot G20 PARKINSON'S DISEASE 03/16/2018 ELAINE FLORES MD Ot G25.81 RESTLESS LEGS SYNDROME 03/16/2018 ELAINE FLORES MD, Ot G40.909 EPILEPSY, UNSP, NOT INTRACTABLE, WITHOUT 03/16/2018 ELAINE FLORES MD, Ot G47.00 INSOMNIA, UNSPECIFIED 03/16/2018 ELAINE FLORES MD, Ot G89.29 OTHER CHRONIC PAIN 03/16/2018 ELAINE FLORES MD, Ot I10 ESSENTIAL (PRIMARY) HYPERTENSION 03/16/2018 ELAINE FLORES MD, Ot J44.9 CHRONIC OBSTRUCTIVE PULMONARY DISEASE, U 03/16/2018 ELAINE FLORES MD, Ot K21.9 GASTRO-ESOPHAGEAL REFLUX DISEASE WITHOUT 03/16/2018 ELAINE FLORES MD, Ot K43.6 OTHER AND UNSP VENTRAL HERNIA WITH OBSTR 03/16/2018 ELAINE FLORES MD, Ot K56.50 INTESTNL ADHESIONS, UNSP TO PARTIAL V 03/16/2018 ELAINE FLORES MD, Ot K57.90 DVRTCLOS OF INTEST, PART UNSP, W/O PERF 03/16/2018 ELAINE FLORES MD, Ot M10.9 GOUT, UNSPECIFIED 03/16/2018 ELAINE FLORES MD, Ot M19.91 PRIMARY OSTEOARTHRITIS, UNSPECIFIED SITE 03/16/2018 ELAINE FLORES MD Ot R00.0 TACHYCARDIA, UNSPECIFIED 03/16/2018 ELAINE FLORES MD, Ot Z86.718 PERSONAL HISTORY OF OTHER VENOUS THROMBO 03/16/2018 ELAINE FLORES MD, Ot Z87.01 PERSONAL HISTORY OF PNEUMONIA (RECURRENT 03/16/2018 ELAINE FLORES MD, Ot Z90.49 ACQUIRED ABSENCE OF OTHER SPECIFIED PART 03/16/2018 ELAINE FLORES MD, Ot Z95.828 PRESENCE OF OTHER VASCULAR IMPLANTS AND 03/17/2018 Ot K43.2 INCISIONAL HERNIA WITHOUT OBSTRUCTION OR 03/17/2018 Ot Z01.812 ENCOUNTER FOR PREPROCEDURAL LABORATORY E 03/17/2018 Ot Z11.2 ENCOUNTER FOR SCREENING FOR OTHER BACTER 03/25/2018 DAMON CHÁVEZ DO Ot B37.49 OTHER UROGENITAL CANDIDIASIS 03/25/2018 DAMON CHÁVEZ DO Ot B96.1 KLEBSIELLA PNEUMONIAE THE CAUSE OF DI 03/25/2018 DAMON CHÁVEZ DO Ot D64.9 ANEMIA, UNSPECIFIED 03/25/2018 DAMON CHÁVEZ DO Ot E03.9 HYPOTHYROIDISM, UNSPECIFIED 03/25/2018 SAIRA DODAMON Ot E46 UNSPECIFIED PROTEIN-CALORIE MALNUTRITION 03/25/2018 DAMON CHÁVEZ DO Ot E86.0 DEHYDRATION 03/25/2018 SAIRA DODAMON Ot E87.6 HYPOKALEMIA 03/25/2018 DAMON CHVÁEZ DO Ot F03.90 UNSPECIFIED DEMENTIA WITHOUT BEHAVIORAL 03/25/2018 DAMON CHÁVEZ DO Ot F31.9 BIPOLAR DISORDER, UNSPECIFIED 03/25/2018 SAIRA DODAMON Ot F41.9 ANXIETY DISORDER, UNSPECIFIED 03/25/2018 SAIRA DODAMON Ot G20 PARKINSON'S DISEASE 03/25/2018 SIARA DODAMON Ot G40.909 EPILEPSY, UNSP, NOT INTRACTABLE, WITHOUT 03/25/2018 SAIRA DODAMON Ot G47.00 INSOMNIA, UNSPECIFIED 03/25/2018 SAIRA DODAMON Ot G89.29 OTHER CHRONIC PAIN 03/25/2018 DAMON CHÁVEZ DO Ot I10 ESSENTIAL (PRIMARY) HYPERTENSION 03/25/2018 DAMON CHÁVEZ DO Ot J44.9 CHRONIC OBSTRUCTIVE PULMONARY DISEASE, U 03/25/2018 DAMON CHÁVEZ DO Ot K21.9 GASTRO-ESOPHAGEAL REFLUX DISEASE WITHOUT 03/25/2018 DAMON CHÁVEZ DO Ot K57.90 DVRTCLOS OF INTEST, PART UNSP, W/O PERF 03/25/2018 DAMON CHÁVEZ DO Ot 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 03/25/2018 DAMON CHÁVEZ DO Ot K91.872 POSTPROC SEROMA OF A DGSTV SYS ORG FOL A 03/25/2018 DAMON CHÁVEZ DO Ot M19.91 PRIMARY OSTEOARTHRITIS, UNSPECIFIED SITE 03/25/2018 DAMON CHÁVEZ DO Ot M54.9 DORSALGIA, UNSPECIFIED 03/25/2018 DAMON CHÁVEZ DO Ot N39.0 URINARY TRACT INFECTION, SITE NOT SPECIF 03/25/2018 DAMON CHÁVEZ DO Ot R53.81 OTHER MALAISE 03/25/2018 DAMON CHÁVEZ DO Ot R62.7 ADULT FAILURE TO THRIVE 03/25/2018 DAMON CHÁVEZ DO Ot Z66 DO NOT RESUSCITATE 03/25/2018 DAMON CHÁVEZ DO Ot Z86.718 PERSONAL HISTORY OF OTHER VENOUS THROMBO 03/25/2018 DAMON CHÁVEZ DO Ot Z87.19 PERSONAL HISTORY OF OTHER DISEASES OF TH 03/25/2018 DAMON CHÁVEZ DO Ot Z98.890 OTHER SPECIFIED POSTPROCEDURAL STATES 03/27/2018 DAMON CHÁVEZ DO Ot B37.49 OTHER UROGENITAL CANDIDIASIS 03/27/2018 DAMON CHÁVEZ DO Ot B96.1 KLEBSIELLA PNEUMONIAE THE CAUSE OF DI 03/27/2018 DAMON CHÁVEZ DO Ot D64.9 ANEMIA, UNSPECIFIED 03/27/2018 DAMON CHÁVEZ DO Ot E03.9 HYPOTHYROIDISM, UNSPECIFIED 03/27/2018 DAMON CHÁVEZ DO Ot E46 UNSPECIFIED PROTEIN-CALORIE MALNUTRITION 03/27/2018 DAMON CHÁVEZ DO Ot E86.0 DEHYDRATION 03/27/2018 DAMON CHÁVEZ DO Ot E87.6 HYPOKALEMIA 03/27/2018 DAMON CHÁVEZ DO Ot F03.90 UNSPECIFIED DEMENTIA WITHOUT BEHAVIORAL 03/27/2018 DAMON CHÁVEZ DO Ot F31.9 BIPOLAR DISORDER, UNSPECIFIED 03/27/2018 DAMON CHÁVEZ DO Ot F41.9 ANXIETY DISORDER, UNSPECIFIED 03/27/2018 DAMON CHÁVEZ DO Ot G20 PARKINSON'S DISEASE 03/27/2018 DAMON CHÁVEZ DO Ot G40.909 EPILEPSY, UNSP, NOT INTRACTABLE, WITHOUT 03/27/2018 DAMON CHÁVEZ DO Ot G47.00 INSOMNIA, UNSPECIFIED 03/27/2018 DAMON CHÁVEZ DO Ot G89.29 OTHER CHRONIC PAIN 03/27/2018 DAMON CHÁVEZ DO Ot I10 ESSENTIAL (PRIMARY) HYPERTENSION 03/27/2018 DAMON CHÁVEZ DO Ot J44.9 CHRONIC OBSTRUCTIVE PULMONARY DISEASE, U 03/27/2018 DAMON CHÁVEZ DO Ot K21.9 GASTRO-ESOPHAGEAL REFLUX DISEASE WITHOUT 03/27/2018 DAMON CHÁVEZ DO Ot K57.90 DVRTCLOS OF INTEST, PART UNSP, W/O PERF 03/27/2018 DAMON CHÁVEZ DO Ot 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 03/27/2018 DAMON CHÁVEZ DO Ot K91.872 POSTPROC SEROMA OF A DGSTV SYS ORG FOL A 03/27/2018 SAIRA DOHELLENA Wilma Ot M19.91 PRIMARY OSTEOARTHRITIS, UNSPECIFIED SITE 03/27/2018 DAMON CHÁVEZ DO Ot M54.9 DORSALGIA, UNSPECIFIED 03/27/2018 SAIRA DOHELLENA Wilma Ot R53.81 OTHER MALAISE 03/27/2018 HELLEN CHÁVEZ DOA K Ot R62.7 ADULT FAILURE TO THRIVE 03/27/2018 HELLEN CHÁVEZ DOA K Ot Z66 DO NOT RESUSCITATE 03/27/2018 HELLEN CHÁVEZ DOA Wilma Ot Z86.718 PERSONAL HISTORY OF OTHER VENOUS THROMBO 03/27/2018 HELLEN CHÁVEZ DOA K Ot Z87.19 PERSONAL HISTORY OF OTHER DISEASES OF TH 03/27/2018 DAMON CHÁVEZ DO Ot Z98.890 OTHER SPECIFIED POSTPROCEDURAL STATES 03/27/2018 HELLEN CHÁVEZ DOA Wilma Ot B37.49 OTHER UROGENITAL CANDIDIASIS 03/27/2018 HELLEN CHÁVEZ DOA Wilma Ot B96.1 KLEBSIELLA PNEUMONIAE THE CAUSE OF DI 03/27/2018 DAMON CHÁVEZ DO Ot D64.9 ANEMIA, UNSPECIFIED 03/27/2018 HELLEN CHÁVEZ DOA K Ot E03.9 HYPOTHYROIDISM, UNSPECIFIED 03/27/2018 HELLEN CHÁVEZ DOA K Ot E46 UNSPECIFIED PROTEIN-CALORIE MALNUTRITION 03/27/2018 HELLEN CHÁVEZ DOA K Ot E86.0 DEHYDRATION 03/27/2018 HELLEN CHÁVEZ DOA K Ot E87.6 HYPOKALEMIA 03/27/2018 HELLEN CHÁVEZ DOA K Ot F03.90 UNSPECIFIED DEMENTIA WITHOUT BEHAVIORAL 03/27/2018 HELLEN CHÁVEZ DOA Wilma Ot F31.9 BIPOLAR DISORDER, UNSPECIFIED 03/27/2018 SAIRA DOHELLENA K Ot F41.9 ANXIETY DISORDER, UNSPECIFIED 03/27/2018 CHÁVEZ DO DAMON K Ot G20 PARKINSON'S DISEASE 03/27/2018 SAIRA CHEN DAMON K Ot G40.909 EPILEPSY, UNSP, NOT INTRACTABLE, WITHOUT 03/27/2018 SAIRA DOHELLENA K Ot G47.00 INSOMNIA, UNSPECIFIED 03/27/2018 SAIRA DOHELLENA K Ot G89.29 OTHER CHRONIC PAIN 03/27/2018 HELLEN CHÁVEZ DOA K Ot I10 ESSENTIAL (PRIMARY) HYPERTENSION 03/27/2018 HELLEN CHÁVEZ DOA K Ot J44.9 CHRONIC OBSTRUCTIVE PULMONARY DISEASE, U 03/27/2018 DAMON CHÁVEZ DO Ot K21.9 GASTRO-ESOPHAGEAL REFLUX DISEASE WITHOUT 03/27/2018 DAMON CHÁVEZ DO Ot K57.90 DVRTCLOS OF INTEST, PART UNSP, W/O PERF 03/27/2018 DAMON CHÁVEZ DO Ot 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 03/27/2018 DAMON CHÁVEZ DO Ot K91.872 POSTPROC SEROMA OF A DGSTV SYS ORG FOL A 03/27/2018 DAMON CHÁVEZ DO Ot M19.91 PRIMARY OSTEOARTHRITIS, UNSPECIFIED SITE 03/27/2018 DAMON CHÁVEZ DO Ot M54.9 DORSALGIA, UNSPECIFIED 03/27/2018 DAMON CHÁVEZ DO Ot R53.81 OTHER MALAISE 03/27/2018 DAMON CHÁVEZ DO Ot R62.7 ADULT FAILURE TO THRIVE 03/27/2018 DAMON CHÁVEZ DO Ot Z66 DO NOT RESUSCITATE 03/27/2018 DAMON CHÁVEZ DO Ot Z86.718 PERSONAL HISTORY OF OTHER VENOUS THROMBO 03/27/2018 DAMON CHÁVEZ DO Ot Z87.19 PERSONAL HISTORY OF OTHER DISEASES OF TH 03/27/2018 DAMON CHÁVEZ DO Ot Z98.890 OTHER SPECIFIED POSTPROCEDURAL STATES 03/27/2018 DAMON CHÁVEZ DO Ot B37.49 OTHER UROGENITAL CANDIDIASIS 03/27/2018 DAMON CHÁVEZ DO Ot B96.1 KLEBSIELLA PNEUMONIAE THE CAUSE OF DI 03/27/2018 DAMON CHÁVEZ DO Ot D64.9 ANEMIA, UNSPECIFIED 03/27/2018 DAMON CHÁVEZ DO Ot E03.9 HYPOTHYROIDISM, UNSPECIFIED 03/27/2018 DAMON CHÁVEZ DO Ot E46 UNSPECIFIED PROTEIN-CALORIE MALNUTRITION 03/27/2018 DAMON CHÁVEZ DO Ot E86.0 DEHYDRATION 03/27/2018 DAMON CHÁVEZ DO Ot E87.6 HYPOKALEMIA 03/27/2018 DAMON CHÁVEZ DO Ot F03.90 UNSPECIFIED DEMENTIA WITHOUT BEHAVIORAL 03/27/2018 DAMON CHÁVEZ DO Ot F31.9 BIPOLAR DISORDER, UNSPECIFIED 03/27/2018 SAIRA DODAMON Ot F41.9 ANXIETY DISORDER, UNSPECIFIED 03/27/2018 DAMON CHÁVEZ DO Ot G20 PARKINSON'S DISEASE 03/27/2018 DAMON CHÁVEZ DO Ot G40.909 EPILEPSY, UNSP, NOT INTRACTABLE, WITHOUT 03/27/2018 DAMON CHÁVEZ DO Ot G47.00 INSOMNIA, UNSPECIFIED 03/27/2018 DAMON CHÁVEZ DO Ot G89.29 OTHER CHRONIC PAIN 03/27/2018 DAMON CHÁVEZ DO Ot I10 ESSENTIAL (PRIMARY) HYPERTENSION 03/27/2018 DAMON CHÁVEZ DO Ot J44.9 CHRONIC OBSTRUCTIVE PULMONARY DISEASE, U 03/27/2018 DAMON CHÁVEZ DO Ot K21.9 GASTRO-ESOPHAGEAL REFLUX DISEASE WITHOUT 03/27/2018 DAMON CHÁVEZ DO Ot K57.90 DVRTCLOS OF INTEST, PART UNSP, W/O PERF 03/27/2018 DAMON CHÁVEZ DO Ot 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 03/27/2018 DAMON CHÁVEZ DO Ot K91.872 POSTPROC SEROMA OF A DGSTV SYS ORG FOL A 03/27/2018 DAMON CHÁVEZ DO Ot M19.91 PRIMARY OSTEOARTHRITIS, UNSPECIFIED SITE 03/27/2018 DAMON CHÁVEZ DO Ot M54.9 DORSALGIA, UNSPECIFIED 03/27/2018 DAMON CHÁVEZ DO Ot R53.81 OTHER MALAISE 03/27/2018 DAMON CHÁVEZ DO Ot R62.7 ADULT FAILURE TO THRIVE 03/27/2018 DAMON CHÁVEZ DO Ot Z66 DO NOT RESUSCITATE 03/27/2018 DAMON CHÁVEZ DO Ot Z86.718 PERSONAL HISTORY OF OTHER VENOUS THROMBO 03/27/2018 DAMON CHÁVEZ DO Ot Z87.19 PERSONAL HISTORY OF OTHER DISEASES OF TH 03/27/2018 DAMON CHÁVEZ DO Ot Z98.890 OTHER SPECIFIED POSTPROCEDURAL STATES 04/03/2018 TEJASNDROS RODRIGUEZ DO S Ot 433.30 MULT BILTRAL ARTERY OCCLUSION WO CEREBRA 04/03/2018 ROS MCKAY DO S Ot 435.9 TRANS CEREB ISCHEMIA NOS 04/03/2018 ROS MCKAY DO S Ot 780.4 DIZZINESS AND GIDDINESS 04/03/2018 ROS MCKAY DO S Ot 780.97 ALTERED MENTAL STATUS 04/03/2018 YVETTE MATHISSA [employer] MAINFRAME SYSTEMS ENGINEER Ot 786.2 COUGH 04/03/2018 ORENDER DO, ROS S Ot 482.9 BACTERIAL PNEUMONIA NOS 04/03/2018 ORENDER DO, ROS S Ot V58.69 OT MED,LT,CURRENT USE 04/03/2018 ORENDER DO, ROS S Ot V58.83 ENCOUNTER FOR THERAPEUTIC DRUG MONITORIN 04/03/2018 ELAINE FLORES MD Ot 557.9 VASC INSUFF INTEST NOS 04/03/2018 ELAINE FLORES MD Ot V72.63 PRE-PROCEDURAL LABORATORY EXAMINATION 04/03/2018 ELAINE FLORES MD Ot V72.83 EXAM PRE-OPERATIVE NEC 04/03/2018 ELAINE FLORES MD Ot V74.8 SCREEN-BACTERIAL DIS NEC 04/03/2018 АНДРЕЙ SINGH REFORESTATION WORKER Ot R19.06 EPIGASTRIC SWELLING, MASS OR LUMP 04/03/2018 ORENDER DO, ROS S Ot 433.30 MULT BILTRAL ARTERY OCCLUSION WO CEREBRA 04/03/2018 ORENDER DO, ROS S Ot 435.9 TRANS CEREB ISCHEMIA NOS 04/03/2018 ORENDER DO, ROS S Ot 780.4 DIZZINESS AND GIDDINESS 04/03/2018 ORENDER DO, ROS S Ot 780.97 ALTERED MENTAL STATUS 04/03/2018 DELFINA NKECHI [employer] MAINFRAME SYSTEMS ENGINEER Ot 786.2 COUGH 04/03/2018 ORENDER DO, ROS S Ot 482.9 BACTERIAL PNEUMONIA NOS 04/03/2018 ORENDER DO, ROS S Ot V58.69 OT MED,LT,CURRENT USE 04/03/2018 ORENDER DO, ROS S Ot V58.83 ENCOUNTER FOR THERAPEUTIC DRUG MONITORIN 04/03/2018 ELAINE FLORES MD Ot 557.9 VASC INSUFF INTEST NOS 04/03/2018 ELAINE FLORES MD Ot V72.63 PRE-PROCEDURAL LABORATORY EXAMINATION 04/03/2018 ELAINE FLORES MD Ot V72.83 EXAM PRE-OPERATIVE NEC 04/03/2018 ELAINE FLORES MD Ot V74.8 SCREEN-BACTERIAL DIS NEC 04/03/2018 АНДРЕЙ SINGH RE[employer]ESTATION WORKER Ot R19.06 EPIGASTRIC SWELLING, MASS OR LUMP 04/08/2018 AKANKSHA THAKKAR MD Ot E66.01 MORBID (SEVERE) OBESITY DUE TO EXCESS CA 04/08/2018 AKANKSHA THAKKAR MD, Ot F03.90 UNSPECIFIED DEMENTIA WITHOUT BEHAVIORAL 04/08/2018 AKANKSHA THAKKAR MD Ot L03.311 CELLULITIS OF ABDOMINAL WALL 04/08/2018 AKANKSHA THAKKAR MD Ot L98.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 04/08/2018 AKANKSHA THAKKAR MD Ot T81.31XA DISRUPTION OF EXTERNAL OPERATION (SURGIC 04/10/2018 ORENDER DO, ROS S Ot 433.30 MULT BILTRAL ARTERY OCCLUSION WO CEREBRA 04/10/2018 ORENDER DO, ROS S Ot 435.9 TRANS CEREB ISCHEMIA NOS 04/10/2018 ORENDER DO, ROS S Ot 780.4 DIZZINESS AND GIDDINESS 04/10/2018 ORENDER DO, ROS S Ot 780.97 ALTERED MENTAL STATUS 04/10/2018 NKECHI MATHIS MAINFRAME SYSTEMS ENGINEER Ot 786.2 COUGH 04/10/2018 ORENDER DO, ROS S Ot 482.9 BACTERIAL PNEUMONIA NOS 04/10/2018 ORENDER DO, ROS S Ot V58.69 OTH MED,LT,CURRENT USE 04/10/2018 ORENDER DO, ROS S Ot V58.83 ENCOUNTER FOR THERAPEUTIC DRUG MONITORIN 04/10/2018 ELAINE FLORES MD Ot 557.9 VASC INSUFF INTEST NOS 04/10/2018 ELAINE FLORES MD Ot V72.63 PRE-PROCEDURAL LABORATORY EXAMINATION 04/10/2018 ELAINE FLORES MD Ot V72.83 EXAM PRE-OPERATIVE NEC 04/10/2018 ELAINE FLORES MD Ot V74.8 SCREEN-BACTERIAL DIS NEC 04/10/2018 АНДРЕЙ SINGH APRN Ot R19.06 EPIGASTRIC SWELLING, MASS OR LUMP 04/10/2018 AKANKSHA THAKKAR MD Ot E66.01 MORBID (SEVERE) OBESITY DUE TO EXCESS CA 04/10/2018 AKAKNSHA THAKKAR MD, Ot F03.90 UNSPECIFIED DEMENTIA WITHOUT BEHAVIORAL 04/10/2018 AKANKSHA THAKKAR MD, Ot L03.311 CELLULITIS OF ABDOMINAL WALL 04/10/2018 AKANKSHA THAKKAR MD, Ot L98.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 04/10/2018 AKANKSHA THAKKAR MD, Ot T81.31XA DISRUPTION OF EXTERNAL OPERATION (SURGIC 04/29/2018 AKANKSHA THAKKAR MD Ot E66.01 MORBID (SEVERE) OBESITY DUE TO EXCESS CA 04/29/2018 AKANKSHA THAKKAR MD, Ot L98.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 04/29/2018 AKANKSHA THAKKAR MD, Ot T81.31XA DISRUPTION OF EXTERNAL OPERATION (SURGIC 05/05/2018 AKANKSHA THAKKAR MD, Ot E66.01 MORBID (SEVERE) OBESITY DUE TO EXCESS CA 05/05/2018 AKANKSHA THAKKAR MD Ot F03.90 UNSPECIFIED DEMENTIA WITHOUT BEHAVIORAL 05/05/2018 AKANKSHA THAKKAR MD Ot L03.311 CELLULITIS OF ABDOMINAL WALL 05/05/2018 AKANKSHA THAKKAR MD, Ot L98.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 05/05/2018 AKANKSHA THAKKAR MD, Ot T81.31XA DISRUPTION OF EXTERNAL OPERATION (SURGIC 05/06/2018 AKANKSHA THAKKAR MD Ot E66.01 MORBID (SEVERE) OBESITY DUE TO EXCESS CA 05/06/2018 AKANKSHA THAKKAR MD, Ot F03.90 UNSPECIFIED DEMENTIA WITHOUT BEHAVIORAL 05/06/2018 AKANKSHA THAKKAR MD Ot L03.311 CELLULITIS OF ABDOMINAL WALL 05/06/2018 AKANKSHA THAKKAR MD, Ot L98.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 05/06/2018 AKANKSHA THAKKAR MD Ot T81.31XA DISRUPTION OF EXTERNAL OPERATION (SURGIC 05/06/2018 AKANKSHA THAKKAR MD Ot Z68.37 BODY MASS INDEX (BMI) 37.0-37.9, ADULT 05/06/2018 AKANKSHA THAKKAR MD Ot E66.01 MORBID (SEVERE) OBESITY DUE TO EXCESS CA 05/06/2018 AKANKSHA THAKKAR MD, Ot L98.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 05/06/2018 AKANKSHA THAKKAR MD, Ot T81.31XA DISRUPTION OF EXTERNAL OPERATION (SURGIC 05/06/2018 AKANKSHA THAKKAR MD Ot Z68.37 BODY MASS INDEX (BMI) 37.0-37.9, ADULT 05/12/2018 AKANKSHA THAKKAR MD Ot E66.01 MORBID (SEVERE) OBESITY DUE TO EXCESS CA 05/12/2018 AKANKSHA THAKKAR MD Ot F03.90 UNSPECIFIED DEMENTIA WITHOUT BEHAVIORAL 05/12/2018 AKANKSHA THAKKAR MD Ot L03.311 CELLULITIS OF ABDOMINAL WALL 05/12/2018 AKANKSHA THAKKAR MD, Ot L98.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 05/12/2018 AKANKSHA THAKKAR MD Ot T81.31XA DISRUPTION OF EXTERNAL OPERATION (SURGIC 05/12/2018 AKANKSHA THAKKAR MD Ot Z68.37 BODY MASS INDEX (BMI) 37.0-37.9, ADULT 05/12/2018 AKANKSHA THAKKAR MD, Ot E66.01 MORBID (SEVERE) OBESITY DUE TO EXCESS CA 05/12/2018 AKANKSHA THAKKAR MD, Ot F03.90 UNSPECIFIED DEMENTIA WITHOUT BEHAVIORAL 05/12/2018 AKANKSHA THAKKAR MD Ot L03.311 CELLULITIS OF ABDOMINAL WALL 05/12/2018 AKANKSHA THAKKAR MD, Ot L98.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 05/12/2018 AKANKSHA THAKKAR MD, Ot T81.31XA DISRUPTION OF EXTERNAL OPERATION (SURGIC 05/12/2018 AKANKSHA THAKKAR MD Ot Z68.37 BODY MASS INDEX (BMI) 37.0-37.9, ADULT 05/17/2018 AKANKSHA THAKKAR MD Ot E66.01 MORBID (SEVERE) OBESITY DUE TO EXCESS CA 05/17/2018 AKANKSHA THAKKAR MD Ot L98.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 05/17/2018 AKANKSHA THAKKAR MD Ot T81.31XA DISRUPTION OF EXTERNAL OPERATION (SURGIC 05/17/2018 AKANKSHA THAKKAR MD Ot Z68.37 BODY MASS INDEX (BMI) 37.0-37.9, ADULT 05/21/2018 AKANKSHA THAKKAR MD Ot E66.01 MORBID (SEVERE) OBESITY DUE TO EXCESS CA 05/21/2018 AKANKSHA THAKKAR MD Ot L98.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 05/21/2018 AKANKSHA THAKKAR MD, Ot T81.31XA DISRUPTION OF EXTERNAL OPERATION (SURGIC 05/26/2018 AKANKSHA THAKKAR MD Ot E66.01 MORBID (SEVERE) OBESITY DUE TO EXCESS CA 05/26/2018 AKANKSHA THAKKAR MD, Ot L98.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 05/26/2018 AKANKSHA THAKKAR MD Ot T81.31XA DISRUPTION OF EXTERNAL OPERATION (SURGIC 05/26/2018 AKANKSHA THAKKAR MD Ot Z68.37 BODY MASS INDEX (BMI) 37.0-37.9, ADULT 06/02/2018 JAMMIE HAIDER DO Ot E03.9 HYPOTHYROIDISM, UNSPECIFIED 06/02/2018 JAMMIE HAIDER DO Ot E86.0 DEHYDRATION 06/02/2018 MELIZA CLAIR CHENA Wilma Ot F02.80 DEMENTIA IN OT DISEASES CLASSD ELSWHR W 06/02/2018 JAMMIE HAIDER DO Ot F31.9 BIPOLAR DISORDER, UNSPECIFIED 06/02/2018 JAMMIE HAIDER DO Ot F41.9 ANXIETY DISORDER, UNSPECIFIED 06/02/2018 MELIZA CHEN JAMMIE K Ot G20 PARKINSON'S DISEASE 06/02/2018 CLAIR HAIDER DOA K Ot J45.909 UNSPECIFIED ASTHMA, UNCOMPLICATED 06/02/2018 CLAIR HAIDER DOA K Ot K21.9 GASTRO-ESOPHAGEAL REFLUX DISEASE WITHOUT 06/02/2018 MELIZA CLAIR CHENA K Ot K43.2 INCISIONAL HERNIA WITHOUT OBSTRUCTION OR 06/02/2018 CLAIR HAIDER DOA Wilma Ot N39.0 URINARY TRACT INFECTION, SITE NOT SPECIF 06/02/2018 CLAIR HAIDER DOA K Ot R10.84 GENERALIZED ABDOMINAL PAIN 06/02/2018 CLAIR HAIDER DOA Wilma Ot 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.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 06/02/2018 JAMMIE HAIDER DO Ot Z80.1 FAMILY HISTORY OF MALIG NEOPLASM OF TRAC 06/02/2018 CLAIR HAIDER DOA Wilma Ot Z86.718 PERSONAL HISTORY OF OTHER VENOUS THROMBO 06/02/2018 CLAIR HAIDER DOA Wilma Ot Z88.0 ALLERGY STATUS TO PENICILLIN 06/02/2018 CLAIR HAIDER DOA Wilma Ot Z88.5 ALLERGY STATUS TO NARCOTIC AGENT STATUS 06/02/2018 JAMMIE HAIDER DO Ot Z93.3 COLOSTOMY STATUS 06/02/2018 JAMMIE HAIDER DO Ot Z98.890 OTHER SPECIFIED POSTPROCEDURAL STATES 06/05/2018 JAMMIE HAIDER DO Ot E03.9 HYPOTHYROIDISM, UNSPECIFIED 06/05/2018 MELIZA DO JAMMIE K Ot E86.0 DEHYDRATION 06/05/2018 MELIZA DO JAMMIE K Ot F02.80 DEMENTIA IN OTH DISEASES CLASSD ELSWHR W 06/05/2018 MELIZA JAMMIE K Ot F31.9 BIPOLAR DISORDER, UNSPECIFIED 06/05/2018 MELIZA DO JAMMIE K Ot F41.9 ANXIETY DISORDER, UNSPECIFIED 06/05/2018 MELIZA DO JAMMIE K Ot G20 PARKINSON'S DISEASE 06/05/2018 MELIZA DO JAMMIE K Ot J45.909 UNSPECIFIED ASTHMA, UNCOMPLICATED 06/05/2018 MELIZA DO JAMMIE K Ot K21.9 GASTRO-ESOPHAGEAL REFLUX DISEASE WITHOUT 06/05/2018 MELIZA JAMMIE K Ot K43.2 INCISIONAL HERNIA WITHOUT OBSTRUCTION OR 06/05/2018 MELIZA JAMMIE K Ot N39.0 URINARY TRACT INFECTION, SITE NOT SPECIF 06/05/2018 MELIZA JAMMIE K Ot R10.84 GENERALIZED ABDOMINAL PAIN 06/05/2018 MELIZA DO JAMMIE K Ot Z79.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 06/05/2018 MELIZA CHEN JAMMIE K Ot Z80.1 FAMILY HISTORY OF MALIG NEOPLASM OF TRAC 06/05/2018 MELIZA DO JAMMIE Wilma Ot Z86.718 PERSONAL HISTORY OF OTHER VENOUS THROMBO 06/05/2018 MELIZA CHEN JAMMIE K Ot Z88.0 ALLERGY STATUS TO PENICILLIN 06/05/2018 MELIZA CHEN JAMMIE K Ot Z88.5 ALLERGY STATUS TO NARCOTIC AGENT STATUS 06/05/2018 MELIZA DO JAMMIE Wilma Ot Z93.3 COLOSTOMY STATUS 06/05/2018 MELIZA DO JAMMIE K Ot Z98.890 OTHER SPECIFIED POSTPROCEDURAL STATES 06/05/2018 AKANKSHA THAKKAR MD Ot E66.01 MORBID (SEVERE) OBESITY DUE TO EXCESS CA 06/05/2018 AKANKSHA THAKKAR MD Ot L98.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 06/05/2018 AKANKSHA THAKKAR MD, Ot T81.31XA DISRUPTION OF EXTERNAL OPERATION (SURGIC 06/05/2018 AKANKSHA THAKKAR MD, Ot Z68.37 BODY MASS INDEX (BMI) 37.0-37.9, ADULT 06/12/2018 AKANKSHA THAKKAR MD, Ot E66.01 MORBID (SEVERE) OBESITY DUE TO EXCESS CA 06/12/2018 AKANKSHA THAKKAR MD, Ot L98.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 08/18/2013 38.93 VENOUS CATHETERIZATION NEC 03/24/2014 46.52 LG BOWEL STOMA CLOSURE 03/24/2014 54.51 LAPAROSCOP LYSIS-PERITONEAL ADHES 03/24/2014 38.7 PLICATION OF VENA CAVA 04/01/2014 [id number] EXCISION OF SMALL INTESTINE, OPEN APPROA 03/12/2018 [id number] RELEASE SMALL INTESTINE, OPEN APPROACH 03/12/2018 [id number] REPAIR ABDOMINAL WALL, OPEN APPROACH 03/12/2018 [id number] DRAINAGE OF ABD SUBCU/ FASCIA, OPEN APPRO 03/23/2018 [id number] EXTIRPATION OF MATTER FROM ABD SUBCU/FAS 03/23/2018 Results Test Result Range Complete blood count [...] Automated blood platelet mean volume measurement 11.0 [foz_us] 7.4-10.4 Automated blood neutrophils/100 leukocytes 68 % [...] urinalysis with reflex to culture NO NRG Complete blood count (CBC) with automated white blood cell (WBC) differential - 03/20/18 16:43 Blood leukocytes automated count (number/volume) 28.4 10*3/uL 4.3-11.0 Blood erythrocytes automated count (number/volume) 2.97 10*6/uL 4.35-5.85 Venous blood hemoglobin measurement (mass/volume) 8.5 g/dL 11.5-16.0 Blood hematocrit (volume fraction) 26 % 35-52 Automated erythrocyte mean corpuscular volume 88 [foz_us] 80-99 Automated erythrocyte mean corpuscular hemoglobin (mass per erythrocyte) 29 pg 25-34 Automated erythrocyte mean corpuscular hemoglobin concentration measurement ( mass/volume) 32 g/dL 32-36 Automated erythrocyte distribution width ratio 13.9 % 10.0-14.5 Automated blood platelet count (count/volume) 473 10*3/uL 130-400 Automated blood platelet mean volume measurement 10.4 [foz_us] 7.4-10.4 Automated blood neutrophils/100 leukocytes 88 % 42-75 Automated blood lymphocytes/100 leukocytes 5 % 12-44 Blood monocytes/100 leukocytes 7 % 0-12 Automated blood eosinophils/100 leukocytes 1 % 0-10 Automated blood basophils/100 leukocytes 0 % 0-10 Blood neutrophils automated count (number/volume) 25.0 10*3 1.8-7.8 Blood lymphocytes automated count (number/volume) 1.3 10*3 1.0-4.0 Blood monocytes automated count (number/volume) 1.9 10*3 0.0-1.0 Automated eosinophil count 0.2 10*3/uL 0.0-0.3 Automated blood basophil count (count/volume) 0.1 10*3/uL 0.0-0.1 Blood manual differential performed detection - 03/20/18 16:43 Blood monocytes/100 leukocytes 1 % NRG Manual blood segmented neutrophils/100 leukocytes 87 % NRG Blood band neutrophils/100 leukocytes 0 % NRG Manual blood lymphocytes/100 leukocytes 11 % NRG Manual eosinophils/100 leukocytes in nose 1 % NRG Manual blood basophils/100 leukocytes 0 % NRG Blood anisocytosis detection by light microscopy SLIGHT NRG Blood spherocytes detection by light microscopy SLIGHT NRG Comprehensive metabolic panel - 03/20/18 16:43 Serum or plasma sodium measurement (moles/volume) 137 mmol/L 135-145 Serum or plasma potassium measurement (moles/volume) 3.9 mmol/L 3.6-5.0 Serum or plasma chloride measurement (moles/volume) 97 mmol/L 98-107 Carbon dioxide 28 mmol/L 21-32 Serum or plasma anion gap determination (moles/volume) 12 mmol/L 5-14 Serum or plasma urea nitrogen measurement (mass/volume) 14 mg/dL 7-18 Serum or plasma creatinine measurement (mass/volume) 1.14 mg/dL 0.60-1.30 Serum or plasma urea nitrogen/creatinine mass ratio 12 NRG Serum or plasma creatinine measurement with calculation of estimated glomerular filtration rate 46 NRG Serum or plasma glucose measurement (mass/volume) 183 mg/dL 70-105 Serum or plasma calcium measurement (mass/volume) 8.7 mg/dL 8.5-10.1 Serum or plasma total bilirubin measurement (mass/volume) 1.1 mg/dL 0.1-1.0 Serum or plasma alkaline phosphatase measurement (enzymatic activity/volume) 89 U/L 40-136 Serum or plasma aspartate aminotransferase measurement (enzymatic activity/ volume) 13 U/L 5-34 Serum or plasma alanine aminotransferase measurement (enzymatic activity/volume ) 12 U/L 0-55 Serum or plasma protein measurement (mass/volume) 6.7 g/dL 6.4-8.2 Serum or plasma albumin measurement (mass/volume) 3.2 g/dL 3.2-4.5 CALCIUM CORRECTED 9.3 mg/dL 8.5-10.1 Lipase - 03/20/18 16:43 Lipase 24 U/L 8-78 Serum or plasma lithium measurement (moles/volume) - 03/20/18 16:43 BNP level 282.5 pg/mL <100.0 Complete urinalysis with reflex to culture - 03/20/18 17:44 Urine color determination YELLOW NRG Urine clarity determination SLIGHTLY CLOUDY NRG Urine pH measurement by test strip 6.5 5-9 Specific gravity of urine by test strip 1.010 1.016- 1.022 Urine protein assay by test strip, semi-quantitative 2+ NEGATIVE Urine glucose detection by automated test strip NEGATIVE NEGATIVE Erythrocytes detection in urine sediment by light microscopy 4+ NEGATIVE Urine ketones detection by automated test strip NEGATIVE NEGATIVE Urine nitrite detection by test strip POSITIVE NEGATIVE Urine total bilirubin detection by test strip 1+ NEGATIVE Urine urobilinogen measurement by automated test strip (mass/volume) 4 mg/dL NORMAL Urine leukocyte esterase detection by dipstick 3+ NEGATIVE Automated urine sediment erythrocyte count by microscopy (number/high power field) [HPF] NRG Automated urine sediment leukocyte count by microscopy (number/high power field ) TNTC NRG Bacteria detection in urine sediment by light microscopy LARGE NRG Squamous epithelial cells detection in urine sediment by light microscopy 2-5 NRG Crystals detection in urine sediment by light microscopy NONE NRG Casts detection in urine sediment by light microscopy NONE NRG Mucus detection in urine sediment by light microscopy NEGATIVE NRG Complete urinalysis with reflex to culture YES NRG Bacterial urine culture - 03/20/18 17:44 Bacterial urine culture [id number] NRG COLONY COUNT >100,000/ML NRG FTX;REPORTABLE RML SENT SENSITIVITY REPORT 03/22 09:05 NRG RML Sensitivity Panel - 03/20/18 17:44 Gentamicin susceptibility test by minimum inhibitory concentration < = NRG Trimethoprim/sulfamethoxazole susceptibility test by minimum inhibitoryconcentration <= NRG Levofloxacin susceptibility test by minimum inhibitory concentration <= NRG Ampicillin susceptibility test by minimum inhibitory concentration > NRG Cefazolin susceptibility test by minimum inhibitory concentration 2 NRG Ceftriaxone susceptibility test by minimum inhibitory concentration <= NRG Ciprofloxacin susceptibility test by minimum inhibitory concentration <= NRG Meropenem susceptibility test by minimum inhibitory concentration < = NRG Nitrofurantoin susceptibility test by minimum inhibitory concentration > NRG Amoxicillin and clavulanate potassium susc TAMMY <= NRG Bacterial blood culture - 03/20/18 17:50 Bacterial blood culture NG NRG Bacterial blood culture - 03/20/18 18:12 Bacterial blood culture NG NRG Blood lactic acid measurement (moles/volume) - 03/20/18 18:19 Blood lactic acid measurement (moles/volume) 1.29 mmol/L 0.50-2.00 Complete blood count (CBC) with automated white blood cell (WBC) differential - 03/21/18 05:32 Blood leukocytes automated count (number/volume) 22.3 10*3/uL 4.3-11.0 Blood erythrocytes automated count (number/volume) 2.49 10*6/uL 4.35-5.85 Venous blood hemoglobin measurement (mass/volume) 7.0 g/dL 11.5-16.0 Blood hematocrit (volume fraction) 22 % 35-52 Automated erythrocyte mean corpuscular volume 89 [foz_us] 80-99 Automated erythrocyte mean corpuscular hemoglobin (mass per erythrocyte) 28 pg 25-34 Automated erythrocyte mean corpuscular hemoglobin concentration measurement ( mass/volume) 32 g/dL 32-36 Automated erythrocyte distribution width ratio 13.9 % 10.0-14.5 Automated blood platelet count (count/volume) 376 10*3/uL 130-400 Automated blood platelet mean volume measurement 10.1 [foz_us] 7.4-10.4 Automated blood neutrophils/100 leukocytes 85 % 42-75 Automated blood lymphocytes/100 leukocytes 5 % 12-44 Blood monocytes/100 leukocytes 8 % 0-12 Automated blood eosinophils/100 leukocytes 2 % 0-10 Automated blood basophils/100 leukocytes 0 % 0-10 Blood neutrophils automated count (number/volume) 18.9 10*3 1.8-7.8 Blood lymphocytes automated count (number/volume) 1.2 10*3 1.0-4.0 Blood monocytes automated count (number/volume) 1.9 10*3 0.0-1.0 Automated eosinophil count 0.4 10*3/uL 0.0-0.3 Automated blood basophil count (count/volume) 0.0 10*3/uL 0.0-0.1 Comprehensive metabolic panel - 03/21/18 05:32 Serum or plasma sodium measurement (moles/volume) 137 mmol/L 135-145 Serum or plasma potassium measurement (moles/volume) 3.5 mmol/L 3.6-5.0 Serum or plasma chloride measurement (moles/volume) 101 mmol/L 98-107 Carbon dioxide 27 mmol/L 21-32 Serum or plasma anion gap determination (moles/volume) 9 mmol/L 5-14 Serum or plasma urea nitrogen measurement (mass/volume) 13 mg/dL 7-18 Serum or plasma creatinine measurement (mass/volume) 1.00 mg/dL 0.60-1.30 Serum or plasma urea nitrogen/creatinine mass ratio 13 NRG Serum or plasma creatinine measurement with calculation of estimated glomerular filtration rate 54 NRG Serum or plasma glucose measurement (mass/volume) 136 mg/dL 70-105 Serum or plasma calcium measurement (mass/volume) 8.1 mg/dL 8.5-10.1 Serum or plasma total bilirubin measurement (mass/volume) 0.8 mg/dL 0.1-1.0 Serum or plasma alkaline phosphatase measurement (enzymatic activity/volume) 82 U/L 40-136 Serum or plasma aspartate aminotransferase measurement (enzymatic activity/ volume) 9 U/L 5-34 Serum or plasma alanine aminotransferase measurement (enzymatic activity/volume ) 7 U/L 0-55 Serum or plasma protein measurement (mass/volume) 5.4 g/dL 6.4-8.2 Serum or plasma albumin measurement (mass/volume) 2.7 g/dL 3.2-4.5 CALCIUM CORRECTED 9.1 mg/dL 8.5-10.1 Capillary blood glucose measurement by glucometer (mass/volume) - 03/22/18 05: 49 Capillary blood glucose measurement by glucometer (mass/volume) 130 mg/dL 70-110 Complete blood count (CBC) with automated white blood cell (WBC) differential - 03/22/18 05:50 Blood leukocytes automated count (number/volume) 21.7 10*3/uL 4.3-11.0 Blood erythrocytes automated count (number/volume) 2.41 10*6/uL 4.35-5.85 Venous blood hemoglobin measurement (mass/volume) 7.0 g/dL 11.5-16.0 Blood hematocrit (volume fraction) 22 % 35-52 Automated erythrocyte mean corpuscular volume 90 [foz_us] 80-99 Automated erythrocyte mean corpuscular hemoglobin (mass per erythrocyte) 29 pg 25-34 Automated erythrocyte mean corpuscular hemoglobin concentration measurement ( mass/volume) 32 g/dL 32-36 Automated erythrocyte distribution width ratio 13.9 % 10.0-14.5 Automated blood platelet count (count/volume) 356 10*3/uL 130-400 Automated blood platelet mean volume measurement 10.7 [foz_us] 7.4-10.4 Automated blood neutrophils/100 leukocytes 79 % 42-75 Automated blood lymphocytes/100 leukocytes 7 % 12-44 Blood monocytes/100 leukocytes 9 % 0-12 Automated blood eosinophils/100 leukocytes 5 % 0-10 Automated blood basophils/100 leukocytes 0 % 0-10 Blood neutrophils automated count (number/volume) 17.2 10*3 1.8-7.8 Blood lymphocytes automated count (number/volume) 1.5 10*3 1.0-4.0 Blood monocytes automated count (number/volume) 1.9 10*3 0.0-1.0 Automated eosinophil count 1.0 10*3/uL 0.0-0.3 Automated blood basophil count (count/volume) 0.0 10*3/uL 0.0-0.1 Comprehensive metabolic panel - 03/22/18 05:50 Serum or plasma sodium measurement (moles/volume) 137 mmol/L 135-145 Serum or plasma potassium measurement (moles/volume) 3.6 mmol/L 3.6-5.0 Serum or plasma chloride measurement (moles/volume) 103 mmol/L 98-107 Carbon dioxide 23 mmol/L 21-32 Serum or plasma anion gap determination (moles/volume) 11 mmol/L 5-14 Serum or plasma urea nitrogen measurement (mass/volume) 11 mg/dL 7-18 Serum or plasma creatinine measurement (mass/volume) 0.93 mg/dL 0.60-1.30 Serum or plasma urea nitrogen/creatinine mass ratio 12 NRG Serum or plasma creatinine measurement with calculation of estimated glomerular filtration rate 59 NRG Serum or plasma glucose measurement (mass/volume) 116 mg/dL 70-105 Serum or plasma calcium measurement (mass/volume) 7.9 mg/dL 8.5-10.1 Serum or plasma total bilirubin measurement (mass/volume) 0.5 mg/dL 0.1-1.0 Serum or plasma alkaline phosphatase measurement (enzymatic activity/volume) 83 U/L 40-136 Serum or plasma aspartate aminotransferase measurement (enzymatic activity/ volume) 9 U/L 5-34 Serum or plasma alanine aminotransferase measurement (enzymatic activity/volume ) < U/L 0-55 Serum or plasma protein measurement (mass/volume) 5.4 g/dL 6.4-8.2 Serum or plasma albumin measurement (mass/volume) 2.5 g/dL 3.2-4.5 CALCIUM CORRECTED 9.1 mg/dL 8.5-10.1 Blood CBC with ordered manual differential panel - 03/23/18 05:05 Blood leukocytes automated count (number/volume) 21.1 10*3/uL 4.3-11.0 Blood erythrocytes automated count (number/volume) 2.52 10*6/uL 4.35-5.85 Venous blood hemoglobin measurement (mass/volume) 7.0 g/dL 11.5-16.0 Blood hematocrit (volume fraction) 23 % 35-52 Automated erythrocyte mean corpuscular volume 90 [foz_us] 80-99 Automated erythrocyte mean corpuscular hemoglobin (mass per erythrocyte) 28 pg 25-34 Automated erythrocyte mean corpuscular hemoglobin concentration measurement ( mass/volume) 31 g/dL 32-36 Automated erythrocyte distribution width ratio 13.9 % 10.0-14.5 Automated blood platelet count (count/volume) 397 10*3/uL 130-400 Automated blood platelet mean volume measurement 10.5 [foz_us] 7.4-10.4 Automated blood neutrophils/100 leukocytes 77 % 42-75 Automated blood lymphocytes/100 leukocytes 7 % 12-44 Blood monocytes/100 leukocytes 4 % NRG Automated blood eosinophils/100 leukocytes 7 % 0-10 Automated blood basophils/100 leukocytes 0 % 0-10 Blood neutrophils automated count (number/volume) 16.3 10*3 1.8-7.8 Blood lymphocytes automated count (number/volume) 1.4 10*3 1.0-4.0 Blood monocytes automated count (number/volume) 2.0 10*3 0.0-1.0 Automated eosinophil count 1.4 10*3/uL 0.0-0.3 Automated blood basophil count (count/volume) 0.1 10*3/uL 0.0-0.1 Manual blood segmented neutrophils/100 leukocytes 67 % NRG Blood band neutrophils/100 leukocytes 12 % NRG Manual blood lymphocytes/100 leukocytes 10 % NRG Manual eosinophils/100 leukocytes in nose 5 % NRG Blood polychromasia detection by light microscopy SLIGHT NRG Blood anisocytosis detection by light microscopy MODERATE NRG Manual blood metamyelocytes/100 leukocytes 2 % NRG Blood hypochromia detection by light microscopy MODERATE NRG Blood dacrocytes detection by light microscopy SLIGHT NRG Whole blood basic metabolic panel - 03/23/18 05:05 Serum or plasma sodium measurement (moles/volume) 135 mmol/L 135-145 Serum or plasma potassium measurement (moles/volume) 3.7 mmol/L 3.6-5.0 Serum or plasma chloride measurement (moles/volume) 102 mmol/L 98-107 Carbon dioxide 25 mmol/L 21-32 Serum or plasma anion gap determination (moles/volume) 8 mmol/L 5-14 Serum or plasma urea nitrogen measurement (mass/volume) 10 mg/dL 7-18 Serum or plasma creatinine measurement (mass/volume) 0.86 mg/dL 0.60-1.30 Serum or plasma urea nitrogen/creatinine mass ratio 12 NRG Serum or plasma creatinine measurement with calculation of estimated glomerular filtration rate > NRG Serum or plasma glucose measurement (mass/volume) 104 mg/dL 70-105 Serum or plasma calcium measurement (mass/volume) 8.0 mg/dL 8.5-10.1 Complete urinalysis with reflex to culture - 03/23/18 11:20 Urine color determination YELLOW NRG Urine clarity determination CLEAR NRG Urine pH measurement by test strip 7 5-9 Specific gravity of urine by test strip 1.005 1.016- 1.022 Urine protein assay by test strip, semi-quantitative NEGATIVE NEGATIVE Urine glucose detection by automated test strip NEGATIVE NEGATIVE Erythrocytes detection in urine sediment by light microscopy 1+ NEGATIVE Urine ketones detection by automated test strip NEGATIVE NEGATIVE Urine nitrite detection by test strip NEGATIVE NEGATIVE Urine total bilirubin detection by test strip NEGATIVE NEGATIVE Urine urobilinogen measurement by automated test strip (mass/volume) NORMAL NORMAL Urine leukocyte esterase detection by dipstick 3+ NEGATIVE Automated urine sediment erythrocyte count by microscopy (number/high power field) [HPF] NRG Automated urine sediment leukocyte count by microscopy (number/high power field ) [HPF] NRG Bacteria detection in urine sediment by light microscopy NEGATIVE NRG Squamous epithelial cells detection in urine sediment by light microscopy 5-10 NRG Crystals detection in urine sediment by light microscopy NONE NRG Casts detection in urine sediment by light microscopy NONE NRG Mucus detection in urine sediment by light microscopy NEGATIVE NRG Complete urinalysis with reflex to culture YES NRG Bacterial urine culture - 03/23/18 11:20 Bacterial urine culture [id number] NRG COLONY COUNT <10,000 NRG Complete blood count (CBC) with automated white blood cell (WBC) differential - 03/24/18 05:44 Blood leukocytes automated count (number/volume) 18.2 10*3/uL 4.3-11.0 Blood erythrocytes automated count (number/volume) 2.52 10*6/uL 4.35-5.85 Venous blood hemoglobin measurement (mass/volume) 7.0 g/dL 11.5-16.0 Blood hematocrit (volume fraction) 22 % 35-52 Automated erythrocyte mean corpuscular volume 89 [foz_us] 80-99 Automated erythrocyte mean corpuscular hemoglobin (mass per erythrocyte) 28 pg 25-34 Automated erythrocyte mean corpuscular hemoglobin concentration measurement ( mass/volume) 31 g/dL 32-36 Automated erythrocyte distribution width ratio 13.6 % 10.0-14.5 Automated blood platelet count (count/volume) 424 10*3/uL 130-400 Automated blood platelet mean volume measurement 10.6 [foz_us] 7.4-10.4 Automated blood neutrophils/100 leukocytes 76 % 42-75 Automated blood lymphocytes/100 leukocytes 8 % 12-44 Blood monocytes/100 leukocytes 9 % 0-12 Automated blood eosinophils/100 leukocytes 7 % 0-10 Automated blood basophils/100 leukocytes 0 % 0-10 Blood neutrophils automated count (number/volume) 13.8 10*3 1.8-7.8 Blood lymphocytes automated count (number/volume) 1.4 10*3 1.0-4.0 Blood monocytes automated count (number/volume) 1.7 10*3 0.0-1.0 Automated eosinophil count 1.3 10*3/uL 0.0-0.3 Automated blood basophil count (count/volume) 0.0 10*3/uL 0.0-0.1 Comprehensive metabolic panel - 03/24/18 05:44 Serum or plasma sodium measurement (moles/volume) 136 mmol/L 135-145 Serum or plasma potassium measurement (moles/volume) 3.8 mmol/L 3.6-5.0 Serum or plasma chloride measurement (moles/volume) 102 mmol/L 98-107 Carbon dioxide 24 mmol/L 21-32 Serum or plasma anion gap determination (moles/volume) 10 mmol/L 5-14 Serum or plasma urea nitrogen measurement (mass/volume) 9 mg/dL 7-18 Serum or plasma creatinine measurement (mass/volume) 0.91 mg/dL 0.60-1.30 Serum or plasma urea nitrogen/creatinine mass ratio 10 NRG Serum or plasma creatinine measurement with calculation of estimated glomerular filtration rate 60 NRG Serum or plasma glucose measurement (mass/volume) 126 mg/dL 70-105 Serum or plasma calcium measurement (mass/volume) 7.9 mg/dL 8.5-10.1 Serum or plasma total bilirubin measurement (mass/volume) 0.4 mg/dL 0.1-1.0 Serum or plasma alkaline phosphatase measurement (enzymatic activity/volume) 74 U/L 40-136 Serum or plasma aspartate aminotransferase measurement (enzymatic activity/ volume) 9 U/L 5-34 Serum or plasma alanine aminotransferase measurement (enzymatic activity/volume ) < U/L 0-55 Serum or plasma protein measurement (mass/volume) 5.3 g/dL 6.4-8.2 Serum or plasma albumin measurement (mass/volume) 2.5 g/dL 3.2-4.5 CALCIUM CORRECTED 9.1 mg/dL 8.5-10.1 Bacteria identification in isolate by anaerobe culture - 04/13/18 09:12 Bacteria identification in isolate by anaerobe culture NOANA NRG Gram stain microscopy - 04/13/18 09:12 Gram stain microscopy No bacteria seen NRG Bacteria identification in wound by culture - 04/13/18 09:12 Bacteria identification in wound by culture CORAMY NRG FREE TEXT EXTERNAL SUSCEPTIBILITY REPORTED 04-24-2018, 0402 NRG QUANTITY OF GROWTH Rare NRG RML Sensitivity Panel - 04/13/18 09:12 Oxacillin susceptibility test by minimum inhibitory concentration < = NRG Clindamycin susceptibility test by minimum inhibitory concentration > NRG Erythromycin susceptibility test by minimum inhibitory concentration > NRG Vancomycin susceptibility test by minimum inhibitory concentration 1 NRG Levofloxacin susceptibility test by minimum inhibitory concentration > NRG Rifampin susceptibility test by minimum inhibitory concentration <= NRG Cefazolin susceptibility test by minimum inhibitory concentration < = NRG Linezolid susceptibility test by minimum inhibitory concentration 2 NRG Penicillin G susceptibility test by minimum inhibitory concentration 0.25 NRG Minocycline susc TAMMY <= NRG Complete blood count (CBC) with automated white blood cell (WBC) differential - 06/02/18 18:20 Blood leukocytes automated count (number/volume) 11.6 10*3/uL 4.3-11.0 Blood erythrocytes automated count (number/volume) 4.28 10*6/uL 4.35-5.85 Venous blood hemoglobin measurement (mass/volume) 11.2 g/dL 11.5-16.0 Blood hematocrit (volume fraction) 36 % 35-52 Automated erythrocyte mean corpuscular volume 85 [foz_us] 80-99 Automated erythrocyte mean corpuscular hemoglobin (mass per erythrocyte) 26 pg 25-34 Automated erythrocyte mean corpuscular hemoglobin concentration measurement ( mass/volume) 31 g/dL 32-36 Automated erythrocyte distribution width ratio 14.4 % 10.0-14.5 Automated blood platelet count (count/volume) 327 10*3/uL 130-400 Automated blood platelet mean volume measurement 10.4 [foz_us] 7.4-10.4 Automated blood neutrophils/100 leukocytes 68 % 42-75 Automated blood lymphocytes/100 leukocytes 20 % 12-44 Blood monocytes/100 leukocytes 8 % 0-12 Automated blood eosinophils/100 leukocytes 4 % 0-10 Automated blood basophils/100 leukocytes 0 % 0-10 Blood neutrophils automated count (number/volume) 8.0 10*3 1.8-7.8 Blood lymphocytes automated count (number/volume) 2.3 10*3 1.0-4.0 Blood monocytes automated count (number/volume) 0.9 10*3 0.0-1.0 Automated eosinophil count 0.5 10*3/uL 0.0-0.3 Automated blood basophil count (count/volume) 0.0 10*3/uL 0.0-0.1 PT panel in platelet poor plasma by coagulation assay - 06/02/18 18:20 Prothrombin time (PT) in platelet poor plasma by coagulation assay 14.0 s 12.2-14.7 INR in platelet poor plasma or blood by coagulation assay 1.1 0.8-1.4 Activated partial thromboplastin time (aPTT) in platelet poor plasma bycoagulation assay - 06/02/18 18:20 Activated partial thromboplastin time (aPTT) in platelet poor plasma bycoagulation assay 31 s 24-35 Comprehensive metabolic panel - 06/02/18 18:20 Serum or plasma sodium measurement (moles/volume) 138 mmol/L 135-145 Serum or plasma potassium measurement (moles/volume) 4.4 mmol/L 3.6-5.0 Serum or plasma chloride measurement (moles/volume) 103 mmol/L 98-107 Carbon dioxide 23 mmol/L 21-32 Serum or plasma anion gap determination (moles/volume) 12 mmol/L 5-14 Serum or plasma urea nitrogen measurement (mass/volume) 31 mg/dL 7-18 Serum or plasma creatinine measurement (mass/volume) 1.56 mg/dL 0.60-1.30 Serum or plasma urea nitrogen/creatinine mass ratio 20 NRG Serum or plasma creatinine measurement with calculation of estimated glomerular filtration rate 32 NRG Serum or plasma glucose measurement (mass/volume) 109 mg/dL 70-105 Serum or plasma calcium measurement (mass/volume) 9.6 mg/dL 8.5-10.1 Serum or plasma total bilirubin measurement (mass/volume) 0.4 mg/dL 0.1-1.0 Serum or plasma alkaline phosphatase measurement (enzymatic activity/volume) 116 U/L 40-136 Serum or plasma aspartate aminotransferase measurement (enzymatic activity/ volume) 14 U/L 5-34 Serum or plasma alanine aminotransferase measurement (enzymatic activity/volume ) < U/L 0-55 Serum or plasma protein measurement (mass/volume) 7.8 g/dL 6.4-8.2 Serum or plasma albumin measurement (mass/volume) 4.1 g/dL 3.2-4.5 CALCIUM CORRECTED 9.5 mg/dL 8.5-10.1 Magnesium - 06/02/18 18:20 Magnesium 2.1 mg/dL 1.8-2.4 Serum or plasma amylase measurement (enzymatic activity/volume) - 06/02/18 18: 20 Serum or plasma amylase measurement (enzymatic activity/volume) 104 U/L 25-125 Lipase - 06/02/18 18:20 Lipase 141 U/L 8-78 Complete urinalysis with reflex to culture - 06/02/18 18:55 Urine color determination YELLOW NRG Urine clarity determination CLEAR NRG Urine pH measurement by test strip 5 5-9 Specific gravity of urine by test strip 1.015 1.016- 1.022 Urine protein assay by test [...] NORMAL Urine leukocyte esterase detection by dipstick 2+ NEGATIVE Automated urine sediment erythrocyte count by microscopy (number/high power field) NONE NRG Automated urine sediment leukocyte count by microscopy (number/high power field ) [HPF] NRG Bacteria detection in urine sediment by light microscopy FEW NRG Squamous epithelial cells detection in urine sediment by light microscopy RARE NRG Crystals detection in urine sediment by light microscopy NONE NRG Casts detection in urine sediment by light microscopy NONE NRG Mucus detection in urine sediment by light microscopy NO NRG Complete urinalysis with reflex to culture YES NRG Bacterial urine culture - 06/02/18 18:55 Bacterial urine culture [id number] NRG COLONY COUNT >100,000/ML NRG FTX;REPORTABLE ID REPORTED 06/03/18 16:05 NRG FREE TEXT ENTRY 2 SENSITIVITY REPORTED 06/04/18 12:05 NRG RML Sensitivity Panel - 06/02/18 18:55 Gentamicin susceptibility test by minimum inhibitory concentration < = NRG Trimethoprim/sulfamethoxazole susceptibility test by minimum inhibitoryconcentration <= NRG Levofloxacin susceptibility test by minimum inhibitory concentration <= NRG Ampicillin susceptibility test by minimum inhibitory concentration > NRG Cefazolin susceptibility test by minimum inhibitory concentration > NRG Ceftriaxone susceptibility test by minimum inhibitory concentration <= NRG Ciprofloxacin susceptibility test by minimum inhibitory concentration <= NRG Meropenem susceptibility test by minimum inhibitory concentration < = NRG Nitrofurantoin susceptibility test by minimum inhibitory concentration 32 NRG Amoxicillin and clavulanate potassium susc TAMMY <= NRG Encounters ACCT No. Visit Date/Time Discharge Status Pt. Type Provider Facility Loc./Unit Complaint [id number] 06/02/2018 17:02:00 06/02/2018 21:12:00 DIS Emergency JAMMIE HAIDER DO Via [facility] ER ABD PAIN [id number] 05/11/2018 08:27:00 05/11/2018 23:59:59 CLS Outpatient AKANKSHA THAKKAR MD [facility] [id number] 05/04/2018 08:41:00 05/04/2018 23:59:59 CLS Outpatient AKANKSHA THAKKAR MD [facility] [id number] 04/27/2018 08:32:00 04/27/2018 23:59:59 CLS Outpatient AKANKSHA THAKKAR MD [facility] [id number] 04/20/2018 08:31:00 04/20/2018 23:59:59 CLS Outpatient AKANKSHA THAKKAR MD [facility] [id number] 04/13/2018 08:26:00 04/13/2018 23:59:59 CLS Outpatient AKANKSHA THAKKAR MD [facility] [id number] 04/06/2018 08:18:00 04/06/2018 23:59:59 CLS Outpatient AKANKSHA THAKKAR MD [facility] [id number] 03/21/2018 15:30:00 03/25/2018 14:52:00 DIS Inpatient DAMON CHÁVEZ DO [facility] 4TH UTI;SEPSIS;S/P BOWEL RESECTION [id number] 03/13/2018 08:45:00 03/16/2018 15:50:00 DIS Inpatient ELAINE FLORES MD [facility] 4TH ABDOMINAL VENTRAL INCISIONAL HERNIA [id number] 02/11/2018 11:23:00 02/11/2018 23:59:59 CLS Outpatient АНДРЕЙ SINGH APRN [facility] RAD EPIGASTRIC MASS [id number] 09/05/2016 15:40:00 09/05/2016 19:00:00 DIS Emergency DILLAN SINGH MD [facility] ER SYNCOPE [id number] 09/04/2016 18:01:00 09/04/2016 20:28:00 DIS Emergency JAMMIE HAIDER DO [facility] ER LEFT LEG SWELLING [id number] 05/07/2014 03:40:00 05/09/2014 13:10:00 DIS Inpatient ROS MCKAY DO [facility] 4TH NEW ONSET SEIZURE; SEVERE HYPOMAGNESEMIA;RENAL INSU [id number] 04/05/2014 08:44:00 04/20/2014 13:30:00 DIS Inpatient ROS MCKAY DO [facility] SURGICAL SWB-OSTOMY REVERSAL,DVT, ANEMIA [id number] 03/24/2014 05:57:00 04/05/2014 08:39:00 DIS Inpatient ELAINE FLORES MD [facility] SURGICAL ISCHEMIC COLITIS [id number] 03/17/2014 19:48:00 03/17/2014 23:15:00 DIS Emergency LAY RANGEL MD [facility] ER PEG TUBE FELL OUT [id number] 03/16/2014 00:01:00 03/16/2014 00:50:00 DIS Emergency JAMMIE HAIDER DO [facility] ER FEEDING TUBE RUBING ON SKIN,SORE-PAINFUL [id number] 03/15/2014 11:12:00 03/15/2014 23:59:59 CLS Outpatient ELAINE FLORES MD [facility] PREOP ISCHEMIC COLITIS [id number] 01/05/2014 12:45:00 01/05/2014 13:50:00 DIS Outpatient NELY CHEN ROS S [facility] WOUNDCARE STOMA CARE [id number] 09/30/2013 08:34:00 09/30/2013 23:59:59 CLS Outpatient TEJASNDER ROS S [facility] VANCO TREATMENT [id number] 09/23/2013 09:15:00 09/23/2013 23:59:59 CLS Outpatient NELY CHEN ROS S [facility] VANCOMYACIN THERAPY [id number] 07/27/2013 20:10:00 08/30/2013 00:10:00 DIS Inpatient NELY DO ROS S [facility] SURGICAL ACUTE DIVERTICULITIS [id number] 06/29/2013 10:28:00 06/29/2013 23:59:59 CLS Outpatient NKECHI MATHIS [facility] RAD COUGH [id number] 06/02/2013 09:58:00 06/02/2013 23:59:59 CLS Outpatient NELY CHEN ROS S [facility] RAD DIZZINESS,MENTAL STATUS CHANGE, TIA [id number] 04/14/2013 15:38:00 04/18/2013 17:00:00 DIS Inpatient TEJASNDJENNIFER DO ROS S [facility] SURGICAL UTI,DEHYDRATION [id number] 04/08/2013 11:35:00 04/08/2013 15:17:00 DIS Emergency GABBIE GAYLE APRN [facility] ER NAUSEA/ACID REFLUX [id number] 03/11/2018 13:40:00 Document Registration [id number] 06/17/2014 08:23:00 Document Registration [id number] 06/17/2014 08:23:00 Document Registration [id number] 06/17/2014 08:23:00 Document Registration [id number] 08/07/2012 07:50:00 Document Registration [id number] 07/29/2012 16:14:00 Document Registration [id number] 06/30/2012 11:46:00 Document Registration [id number] 02/06/2012 07:51:00 Document Registration [id number] 01/04/2011 13:43:00 Document Registration [id number] 12/21/2010 10:47:00 Document Registration [id number] 11/14/2010 09:56:00 Document Registration [id number] 11/07/2010 13:41:00 Document Registration [id number] 10/08/2010 08:18:00 Document Registration [id number] 06/26/2010 08:43:00 Document Registration [id number] 01/04/2010 08:33:00 Document Registration [id number] 12/13/2009 06:45:00 Document Registration [id number] 06/01/2009 09:10:00 Document Registration [id number] 01/26/2009 08:43:00 Document Registration [id number] 01/25/2009 07:27:00 Document Registration [id number] 01/24/2009 16:54:00 Document Registration [id number] 02/11/2018 10:10:00 02/11/2018 23:59:59 CLS Outpatient MARLON NELSON APRN [facility] [id number] 02/03/2017 09:39:00 06/18/2017 14:29:00 DIS Outpatient MORIS RUFFIN
[2018-08-06 11:45] VITALS: BP 137/72
[2018-08-06] MEDS ORDERED: ceFAZolin 2 GM IV Premixed 50 ML IV ONE (11:45)
[2018-08-06 12:01] LABS: BASOPHILS % (AUTO) 0 % (0-10); EOSINOPHILS # (AUTO) 0.5 10^3/uL (0.0-0.3); EOSINOPHILS % (AUTO) 6 % (0-10); HEMATOCRIT 33 % (35-52); HEMOGLOBIN 10.5 G/DL (11.5-16.0); LYMPHOCYTES # (AUTO) 2.3 X 10^3 (1.0-4.0); LYMPHOCYTES % (AUTO) 26 % (12-44); MEAN CORPUSCULAR HEMOGLOBIN 27 PG (25-34); MEAN CORPUSCULAR HGB CONC 32 G/DL (32-36); MEAN CORPUSCULAR VOLUME 82 FL (80-99); MEAN PLATELET VOLUME 10.6 FL (7.4-10.4); MONOCYTES # (AUTO) 0.9 X 10^3 (0.0-1.0); MONOCYTES % (AUTO) 10 % (0-12); NEUTROPHILS # (AUTO) 4.9 X 10^3 (1.8-7.8); NEUTROPHILS % (AUTO) 58 % (42-75); PLATELET COUNT 303 10^3/uL (130-400); RED BLOOD COUNT 3.96 10^6/uL (4.35-5.85); RED CELL DISTRIBUTION WIDTH 15.3 % (10.0-14.5); WHITE BLOOD COUNT 8.6 10^3/uL (4.3-11.0)
[2018-08-06] MEDS ORDERED: LIDOCAINE PF 2% 5 ML (XYLOCAINE) VIAL ONE (12:06)
[2018-08-06] MEDS ORDERED: proPOfol 200 MG/20 ML (DIPRIVAN) VIAL IV ONE (12:06)
[2018-08-06] MEDS ORDERED: ROCURONIUM 10 MG/ML 5 ML SYRINGE IV ONE ×2 (12:06→15:28)
[2018-08-06] MEDS ORDERED: fentaNYL INJECTION 100 MCG/2 ML AMP ONE ×2 (12:06→16:43)
[2018-08-06] MEDS ORDERED: DEXAMETHASONE 10 MG/ML (DECADRON) 1 ML VIAL ONE (12:06)
[2018-08-06] MEDS ORDERED: SEVOFLURANE (ULTANE) 15 ML INHAL SOLN ONE ×10 (12:06→17:29)
[2018-08-06] MEDS ORDERED: ONDANSETRON 4 MG/2 ML (SDV) Z0FRAN ONE ×2 (12:06→15:25)
--- NOTE | 2018-08-06 12:13 | Progress Note-Pre Operative ---
Pre-Operative Progress Note H&P Reviewed The H&P was reviewed, patient examined and no changes noted. Date Seen by Provider: Aug 06, 2018 Time Seen by Provider: 12:00 Date H&P Reviewed: Aug 06, 2018 Time H&P Reviewed: 12:00 Pre-Operative Diagnosis: recurrent symptomatic reducible ventral abd inc hernia ELAINE FLORES MD Aug 06, 2018 12:13
[2018-08-06] MEDS ORDERED: FAMOTIDINE 20MG/2ML IV (PEPCID) IV ONE (12:15)
[2018-08-06 12:17] LABS: BUN/CREATININE RATIO 18; CARBON DIOXIDE 21 MMOL/L (21-32); CHLORIDE 105 MMOL/L (98-107); CREATININE SERUM 0.89 MG/DL (0.60-1.30); GFR ESTIMATED > 60; GLUCOSE 101 MG/DL (70-105); POTASSIUM 4.1 MMOL/L (3.6-5.0); SODIUM 137 MMOL/L (135-145)
[2018-08-06] MEDS: LACTATED RINGERS 1,000 ML IV PRN ×2 (12:25→15:00)
[2018-08-06] MEDS ORDERED: BUP/EPI 0.5% 1:200,000 (SENSORCAINE) 30 ML VIAL ONE (13:41)
[2018-08-06] MEDS ORDERED: NEOSTIGMINE 1 MG/ML 5 ML SYRINGE ONE (14:41)
[2018-08-06] MEDS ORDERED: GLYCOPYRROLATE 0.2 MG/ML (ROBINUL) 2 ML VIAL ONE (14:41)
[2018-08-06] MEDS ORDERED: morphine INJ 10 MG/ML 1ML (SYR OR VIAL) ONE (15:24)
[2018-08-06] MEDS ORDERED: morphine INJ 10 MG/ML 1ML (SYR OR VIAL) IVP ONE (15:30)
[2018-08-06] MEDS ORDERED: ONDANSETRON 4 MG/2 ML (SDV) Z0FRAN IVP PRN ×2 (15:30→16:30)
[2018-08-06] MEDS ORDERED: HYDROmorphone 2 MG/ML VIAL (DILAUDID) IV ONE (15:30)
--- NOTE | 2018-08-06 16:26 | Progress Note-Post Operative ---
Post-Operative Progess Note Surgeon (s)/Aircraft Maintenance Supervisor (s) Surgeon ELAINE FLORES MD Aircraft Maintenance Supervisor: iain gomez CANCELLATION CLERK Pre-Operative Diagnosis recurrent symptomatic reducible ventral abd inc hernia Post-Operative Diagnosis same, ([id number]) Procedure & Operative Findings Date of Procedure 08/06/18 Procedure Performed/Findings exploratory laparotomy, lysis of adhesions, open repair recurrent reducible ventral abd inc hernia. Anesthesia Type GET Estimated Blood Loss Estimated blood loss (mL): minimal Specimens/Packing Specimens Removed none ELAINE FLORES MD Aug 06, 2018 16:26
[2018-08-06] MEDS ORDERED: HYDROcodone/APAP 5 MG/325 MG (LORTAB) TAB PO ONE (16:30)
[2018-08-06] MEDS ORDERED: ACETAMINOPHEN 325 MG TABLET PO PRN (16:30)
[2018-08-06] MEDS ORDERED: morphine INJ 10 MG/ML 1ML (SYR OR VIAL) IVP PRN (16:30)
--- NOTE | 2018-08-06 16:48 | Discharge Inst-Surgical ---
D/C Lap Instructions-MARK Follow Up Appt in 2 weeks Activity as tolerated No driving for 24 hours No driving while on pain medications Incentive Spirometry use every 2 hours while awake Regular Diet Symptoms to Report: Fever over 101 degree F, Nausea/Vomiting Infection Signs and Symptoms to report: Increased redness, Foul odor of wound, Increased drainage Bathing instructions: May shower Operative Area Clean/Dry; Keep incision clean/dry If any problems/questions: Contact your physician or go to Emergency Room ELAINE FLORES MD Aug 06, 2018 16:48
[2018-08-06] MEDS ORDERED: ROPIVACAINE 5MG/ML 30ML VIAL ONE (17:28)
[2018-08-06 18:21] VITALS: BP 113/84
[2018-08-06 18:29] VITALS: BP 100/65
[2018-08-06] MEDS ORDERED: CATHETER FLUSH 10 ML SYR IV PRN (19:15)
[2018-08-06 19:37] VITALS: BP 124/73
[2018-08-06 20:58] VITALS: BP 118/78
[2018-08-06] MEDS: CATHETER FLUSH 10 ML SYR IV SCH (22:27)
[2018-08-07 00:42] VITALS: BP 119/57
[2018-08-07] MEDS: oxyCODONE/APAP 5/325MG (PERCOCET 5) TABLET PO PRN ×2 (01:42→06:11)
--- NOTE | 2018-08-07 02:36 | OPERATIVE REPORT ---
DATE OF SERVICE: 08/06/2018 ATTENDING PRIMARY CARE PHYSICIAN: Dr. Sheridan. PREOPERATIVE DIAGNOSIS: Recurrent reducible ventral abdominal incisional hernia. POSTOPERATIVE DIAGNOSIS: Recurrent reducible ventral abdominal incisional hernia with significant colonic as well as small bowel adhesions. PROCEDURE: Exploratory laparotomy. Lysis of adhesions, which took greater than 90 minutes. Recurrent ventral abdominal incisional hernia repair with mesh. SURGEON: Nina Chen MD CRIMINAL RESEARCH SPECIALIST: Carl Kc APRN. ANESTHESIA: General endotracheal. ESTIMATED BLOOD LOSS: 300 mL. FINDINGS: Extensive adhesions from previous surgery as well as suspected inflammatory bowel disease. Hernia dimensions 12 x 14 cm. DISPOSITION: The patient tolerated the procedure well. INDICATIONS: The patient is a 73-year-old female known to us. She developed bright red blood per rectum and underwent a colonoscopy. There were inflammatory changes of the descending colon. Biopsies were consistent with colitis. She then developed worsening problems and found to have a contained perforation, underwent an anterior sigmoid colon resection, Sumit's pouch as well as end colostomy on 07/27/2013. She is a Orthodox and did not want to receive any blood products. On 03/16/2018, she underwent a diagnostic laparoscopy, extensive lysis of adhesions; however, due to venous bleeding, it was decided to proceed with an open procedure. The splenic flexure also had to be taken down to reanastomose rectus to the rectal stump. She was found to have an incisional hernia, which became symptomatic over time and on 03/11/18, she underwent an exploratory laparotomy, lysis of adhesions as well as a small bowel resection and ventral abdominal incisional hernia repair. She was seen back in 06/03/2018 and had wound issues, which eventually closed on its own with wound care. Upon examination, she had a significant recurrent bulge. CT scan was consistent with a recurrent hernia. She is tolerating normal diet and having bowel movements as well. The hernia was large and it is painful upon ambulation. DESCRIPTION OF PROCEDURE: The patient was brought to the operating room, laid supine on the table. After adequate IV pain and sedative medications and general endotracheal intubation, the abdomen was prepped and draped in standard surgical fashion. A 0.5% Marcaine with epinephrine was then used to anesthetize the previous midline laparotomy incision. A skin incision was then made using 15 blade. A large hernia was identified with colon and small bowel within the hernia sac. Again, there were extensive adhesions, which most likely was from her previous surgeries. We then proceeded with meticulous dissection of the hernia using Metzenbaum scissors as well as electrocautery. The hernia dimensions were 14 x 12 cm in size. Lysis of adhesions took approximately 90 minutes. A large mesh needed to be placed to reapproximate the fascia without any tension. The dimensions of the mesh were 27 x 22 cm in size. This was coated on the inside lining. Once a rim of greater than 5 cm around the peritoneal lining was made, the mesh was placed in the underlay technique. We then proceeded with transfascial sutures concentrically around the mesh. We then proceeded to approximate the fascia to the mesh edge using interrupted 0 Prolene suture in a concentric manner interrupted. Good hemostasis was observed. Subcutaneous tissue was then approximated in layers using 3-0 Vicryl interrupted sutures. Skin was then closed using skin trent. The wound was then covered with an island dressing. The patient tolerated the procedure well. We will admit her for observation. We will get repeat labs in the morning and proceed with DVT prophylaxis as well as pain control and incentive spirometer. Job ID: [id number] DocumentID: [id number] Dictated Date: 08/06/2018 16:57:49 Guard Lieutenant Date: 08/07/2018 02:35:29 Dictated By: MD ARIK LARA
[2018-08-07 03:56] VITALS: BP_SYST 104; BP_SYST 118; BP_DIAS 54; BP_DIAS 57
[2018-08-07 04:42] LABS: HEMOGLOBIN 10.1 G/DL (11.5-16.0); MEAN PLATELET VOLUME 10.7 FL (7.4-10.4); RED BLOOD COUNT 3.9 10^6/uL (4.35-5.85); RED CELL DISTRIBUTION WIDTH 15.2 % (10.0-14.5); WHITE BLOOD COUNT 14.1 10^3/uL (4.3-11.0)
[2018-08-07 05:07] LABS: CALCIUM 8.7 MG/DL (8.5-10.1); CREATININE SERUM 0.99 MG/DL (0.60-1.30); POTASSIUM 4.9 MMOL/L (3.6-5.0)
[2018-08-07] MEDS: CATHETER FLUSH 10 ML SYR IV SCH ×2 (06:11→10:47)
[2018-08-07] MEDS ORDERED: PANTOPRAZOLE 40 MG (PROTONIX) TAB PO SCH (07:00)
--- NOTE | 2018-08-07 07:01 | Anesthesia-General Post-Op ---
General Patient Condition Mental Status/LOC: Same as Preop Cardiovascular: Satisfactory Nausea/Vomiting: Absent Respiratory: Satisfactory Pain: Controlled Complications: Absent Post Op Complications Complications None Follow Up Care/Instructions Patient Instructions None needed. Anesthesia/Patient Condition Patient Condition Patient is doing well, no complaints, stable vital signs, no apparent adverse anesthesia problems. No complications reported per nursing. NAOMI CORNELIUS CRNA Aug 07, 2018 07:01
[2018-08-07 08:00] VITALS: BP 104/65
--- NOTE | 2018-08-07 10:46 | Progress Note (SOAP) ---
Subjective Date Seen by a Provider: Aug 07, 2018 Time Seen by a Provider: 10:30 Subjective/Events-last exam doing well. pain controlled. tolerating diet. ambulating well with assistance. Objective Exam Vital Signs Date Time Temp Pulse Resp B/P (MAP) Pulse Ox O2 Delivery O2 Flow Rate FiO2 08/07/18 08:00 96.5 92 20 104/65 (78) 94 Room Air 08/07/18 08:00 Room Air 08/07/18 03:56 97.6 79 20 118/57 (77) 93 Room Air 08/07/18 00:42 96.9 92 20 119/57 (77) 92 Room Air 08/06/18 23:31 Nasal Cannula 4.00 08/06/18 21:00 96 Nasal Cannula 2.00 08/06/18 20:58 98.6 97 18 118/78 (91) 94 Nasal Cannula 4.00 08/06/18 19:37 98.2 97 18 124/73 (90) 94 Nasal Cannula 4.00 08/06/18 18:29 96.1 96 17 100/65 (77) 90 Nasal Cannula 4.00 08/06/18 18:21 98.0 98 16 113/84 (94) 95 Nasal Cannula 4.00 08/06/18 11:45 97.2 72 18 137/72 (93) 97 Room Air I & O 08/07/18 07:00 Intake Total 1920 ml Balance 1920 ml Capillary Refill : Less Than 3 Seconds General Appearance: No Apparent Distress HEENT: PERRL/EOMI Neck: Full Range of Motion Respiratory: Chest Non Tender, Crackles Cardiovascular: Regular Rate, Rhythm Gastrointestinal: normal bowel sounds, soft, other (wound clean/dry) Extremity: Normal Capillary Refill Neurologic/Psychiatric: Alert, Oriented x3 Skin: Normal Color Lymphatic: No Adenopathy Results Lab Laboratory Tests 08/06/18 11:50: White Blood Count 8.6, Red Blood Count 3.96L, Hemoglobin 10.5L, Hematocrit 33L, Mean Corpuscular Volume 82, Mean Corpuscular Hemoglobin 27, Mean Corpuscular Hemoglobin Concent 32, Red Cell Distribution Width 15.3H, Platelet Count 303, Mean Platelet Volume 10.6H, Neutrophils (%) (Auto) 58, Lymphocytes (%) (Auto) 26 , Monocytes (%) (Auto) 10, Eosinophils (%) (Auto) 6, Basophils (%) (Auto) 0, Neutrophils # (Auto) 4.9, Lymphocytes # (Auto) 2.3, Monocytes # (Auto) 0.9, Eosinophils # (Auto) 0.5H, Basophils # (Auto) 0.0, Sodium Level 137, Potassium Level 4.1, Chloride Level 105, Carbon Dioxide Level 21, Anion Gap 11, Blood Urea Nitrogen 16, Creatinine 0.89, Estimat Glomerular Filtration Rate > 60, BUN/ Creatinine Ratio 18, Glucose Level 101, Calcium Level 9.0 08/07/18 04:30: White Blood Count 14.1H, Red Blood Count 3.90L, Hemoglobin 10.1L, Hematocrit 32L , Mean Corpuscular Volume 82, Mean Corpuscular Hemoglobin 26, Mean Corpuscular Hemoglobin Concent 32, Red Cell Distribution Width 15.2H, Platelet Count 297, Mean Platelet Volume 10.7H, Sodium Level 136, Potassium Level 4.9, Chloride Level 106, Carbon Dioxide Level 20L, Anion Gap 10, Blood Urea Nitrogen 16, Creatinine 0.99, Estimat Glomerular Filtration Rate 55, BUN/Creatinine Ratio 16 , Glucose Level 151H, Calcium Level 8.7 Assessment/Plan Assessment/Plan Assess & Plan/Chief Complaint s/p open repair recurrent ventral abd incisional hernia with mesh. continue IS and frequent ambulation. no lifting/exertion/flexion/extension for at least 2 weeks. abdominal binder day and night at least 2 weeks. may remove to shower. f/u in office 2 weeks. Clinical Quality Measures DVT/VTE Risk/Contraindication: Risk Factor Score Per Nursin RFS Level Per Nursing on Admit: 4+=Very High ELAINE FLORES MD Aug 07, 2018 10:46
--- NOTE | 2018-08-07 11:10 | NUR ---
HL REMOVED. INSTRUCTIONS REVIEWED AND VERBALIZED UNDERSTANDING. AWAITING RIDE.
--- NOTE | 2018-08-07 12:44 | NUR ---
DC'D PER WC WITH CARPENTER HELPER AND HALFWAY STAFF. INSTRUCTED TO HAVE RN CALL ME FOR REPORT WHEN PT ARRIVES.
== END 2018-08-07 12:46 | disposition home or self-care (01) ==
LOC: SDC 11:23 → 4TH 18:21 → SDC 08-07 12:46
PROVIDERS: ATTEND Surgery
DX: K43.2 Incisional hernia without obstruction or gangrene (principal); I10 Essential (primary) hypertension; J44.9 Chronic obstructive pulmonary disease, unspecified; J45.909 Unspecified asthma, uncomplicated; G20 Parkinson's disease; F03.90 Unspecified dementia, unspecified severity, without behavioral disturbance, psychotic disturbance, mood disturbance, and anxiety; K21.9 Gastro-esophageal reflux disease without esophagitis; K57.90 Diverticulosis of intestine, part unspecified, without perforation or abscess without bleeding; E03.9 Hypothyroidism, unspecified; F31.9 Bipolar disorder, unspecified; F41.9 Anxiety disorder, unspecified; G40.909 Epilepsy, unspecified, not intractable, without status epilepticus; Z86.718 Personal history of other venous thrombosis and embolism; Z79.82 Long term (current) use of aspirin; Z79.899 Other long term (current) drug therapy
CPT/HCPCS: 36415; 80048; 85025; 85027; 87081; 94664

== ENCOUNTER 2019-05-13 21:24 | Observation (INO) | payer MEDICARE, MEDICAID ==
[~2019-05-13] VITALS: Ht 157 cm; Wt 88.3 kg
[~2019-05-13 21:24] MED LIST changes: -OMEP20CA12 PO; +OMEP20CA13 PO; -TRAZ-189 PO; +TRAZ-222 PO
[2019-05-13] MEDS ORDERED: NITROGLYCERIN 0.4 MG SL TABS BTL 25'S SL ONE (21:36)
[2019-05-13] MEDS ORDERED: ASPIRIN 81 MG CHEW (CHILDREN'S ASA) ONE (21:36)
--- NOTE | 2019-05-13 21:41 | ED Chest Pain ---
General Chief Complaint: Chest Pain Stated Complaint: CP/ELEV BP Source: patient, family (daughter) Exam Limitations: clinical condition (Parkinson's) History of Present Illness Date Seen by Provider: May 13, 2019 Time Seen by Provider: 21:24 Initial Comments The patient presents to ER by private conveyance with her daughter and chief complaint of 2 days progressively worsening sharp left back pain radiating around to the left front chest. Not reproducible to direct palpation but is reproducible to deep inspiration. No history of heart disease. No cough fevers chills nausea vomiting sweats or radiation to the shoulders, jaw or arms. No numbness or tingling. No hypertension, smoking or tobacco history, hyperlipi demia, diabetes. 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 Allergies and Home Medications Allergies Coded Allergies: Penicillins (Verified Allergy, Unknown, Pt has received Cefazolin & Ceftriaxone in the past w/o issu, 03/20/18) codeine (Verified Allergy, Unknown, Pt has received Lortab in the past, 03/20/18) Home Medications Allopurinol 100 Mg Tablet, 100 MG PO DAILY, (Reported) Aspirin 81 Mg Tablet.dr, 81 MG PO DAILY, (Reported) Budesonide/Formoterol Fumarate 10.2 Gm Hfa.aer.ad, 2 PUFF IH BID, (Reported) Calcium Polycarbophil 625 Mg Tablet, 2 TAB PO BID, (Reported) Carbidopa/Levodopa 1 Each Tablet.er, 1 TAB PO 0800,1700, (Reported) Citalopram Hydrobromide 20 Mg Tablet, 20 MG PO DAILY, (Reported) Donepezil HCl 10 Mg Tablet, 10 MG PO HS, (Reported) Furosemide 40 Mg Tablet, 40 MG PO DAILY, (Reported) Guaifenesin/Dextromethorphan 177 Ml Liquid, 20 ML PO Q4H PRN for COUGH, (Reported) Levothyroxine Sodium 75 Mcg Tablet, 75 MCG PO DAILY, (Reported) Loratadine 10 Mg Tablet, 10 MG PO DAILY PRN for ALLERGIES, (Reported) Mag Hydrox/Al Hydrox/Simeth 30 Ml Oral.susp, 10 ML PO Q12H PRN for INDIGESTION, (Reported) Magnesium Oxide 400 Mg Tablet, 400 MG PO BID, (Reported) Mirabegron 25 Mg Tab.er.24h, 25 MG PO DAILY, (Reported) Omeprazole 40 Mg Capsule.dr, 40 MG PO DAILY, (Reported) Ondansetron HCl 4 Mg Tablet, 4 MG SL Q8H PRN for NAUSEA/VOMITING-1ST LINE, (Reported) Oxycodone HCl/Acetaminophen 1 Each Tablet, 1 TAB PO Q4H PRN for PAIN-MODERATE, (Reported) Oxycodone HCl/Acetaminophen 1 Each Tablet, 1 TAB PO Q4H PRN for PAIN-MODERATE, (Reported) Potassium Chloride 20 Meq Tablet.er, 20 MEQ PO DAILY, (Reported) Pramipexole Di-HCl 0.5 Mg Tablet, 0.5 MG PO BID, (Reported) Ropinirole HCl 1 Mg Tablet, 1 MG PO 0800,1400,2100, (Reported) Ropinirole HCl 0.25 Mg Tab, 0.25 MG PO HS, (Reported) TAKES ALONG WITH 1MG TABLET Sennosides/Docusate Sodium 1 Each Tablet, 1 TAB PO DAILY PRN for CONSTIPATION- 1ST LINE, (Reported) Tramadol HCl 50 Mg Tablet, 50 MG PO BID, (Reported) Trazodone HCl 50 Mg Tablet, 25 MG PO HS, (Reported) TAKES 1/2 (50MG) TABLET Patient Home Medication List Home Medication List Reviewed: Yes Review of Systems Review of Systems Constitutional: No chills, No diaphoresis EENTM: No Blurred Vision, No Double Vision Respiratory: Denies Cough, Denies Orthopnea Cardiovascular: See HPI, Chest Pain; Denies Lightheadedness Gastrointestinal: Denies Constipated, Denies Diarrhea, Denies Nausea Genitourinary: Denies Burning, Denies Discharge Musculoskeletal: see HPI, back pain; No joint pain Skin: No dryness, No pruritus, No rash Past Vgfgjcq-Dxiocz-Dyihod Hx Patient Social History Alcohol Use: Denies Use Number of Drinks Today: Alcohol Beverage of Choice: Wine Recreational Drug Use: No 2nd Hand Smoke Exposure: No Recent Hopitalizations: Yes Immunizations Up To Date Tetanus Booster (TDap): Unknown PED Vaccines UTD: No Date of Pneumonia Vaccine: May 28, 2011 Date of Influenza Vaccine: Apr 27, 2018 Seasonal Allergies Seasonal Allergies: No Past Medical History Surgeries: Yes (HERNIA) Abdominal, Bowel Surgery, Gallbladder Respiratory: Yes Asthma Cardiac: Yes (DVT LEFT LEG POST OP AFTER COLON SURGERY) Deep Vein Thrombosis Neurological: Yes (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) Dementia, Parkinson's Disease Reproductive Disorders: No TOWER HAND History: Menopausal Genitourinary: Yes (OVERACTIVE BLADDER, INCONTINENCE) Bladder Infection, Renal Failure, UTI-Chronic Gastrointestinal: Yes (ISCHEMIC COLITIS, ADULT FAILURE TO THRIVE; HERNIA REPAIR) Abdominal Hernia, Colitis, Gastroesophageal Reflux, Diverticulosis Musculoskeletal: Yes (RESTLESS LEGS) Arthritis, Chronic Back Pain, Gout Endocrine: Yes (HYPOMAGNESEMIA) Hypothyroidsim HEENT: Yes Cataract Hearing Impairment: Denies Cancer: No Psychosocial: Yes Sleep Difficulties, Anxiety, Bipolar, Depression Integumentary: No Blood Disorders: Yes (ANEMIA) Family Medical History Congenital disease 19 MOTHER Family history: Arthritis Hypertension 19 MOTHER Malignant neoplasm of lung 09 BROTHER No Family History of: Cancer Seizure disorder Hypertension Physical Exam Vital Signs Vital Signs - First Documented Capillary Refill : Less Than 3 Seconds Height, Weight, BMI Height: 5'1.00" Weight: 181lbs. 0.0oz. [id number]; 34.2 BMI Method:Stated General Appearance: WD/WN, Mild Distress HEENT: PERRL/EOMI, Pharynx Normal, Moist Mucous Membranes Neck: Full Range of Motion, Normal Inspection Respiratory: Lungs Clear, Normal Breath Sounds, No Accessory Muscle Use, No Respiratory Distress Cardiovascular: Regular Rate, Rhythm, No Edema, Normal Peripheral Pulses Gastrointestinal: Normal Bowel Sounds, Non Tender, Soft Neurologic/Psychiatric: Alert, Oriented x3, No Motor/Sensory Deficits Skin: Normal Color, Warm/Dry Progress/Results/Core Measures Results/Orders Lab Results Laboratory Tests Test 05/13/19 21:30 05/13/19 21:58 Range/Units White Blood Count 13.4 H 4.3-11.0 10^3/uL Red Blood Count 4.70 4.35-5.85 10^6/uL Hemoglobin 12.7 11.5-16.0 G/DL Hematocrit 39 35-52 % Mean Corpuscular Volume 84 80-99 FL Mean Corpuscular Hemoglobin 27 25-34 PG Mean Corpuscular Hemoglobin Concent 32 32-36 G/DL Red Cell Distribution Width 13.6 10.0-14.5 % Platelet Count 332 130-400 10^3/uL Mean Platelet Volume 11.4 H 7.4-10.4 FL Neutrophils (%) (Auto) 70 42-75 % Lymphocytes (%) (Auto) 18 12-44 % Monocytes (%) (Auto) 8 0-12 % Eosinophils (%) (Auto) 4 0-10 % Basophils (%) (Auto) 0 0-10 % Neutrophils # (Auto) 9.4 H 1.8-7.8 X 10^3 Lymphocytes # (Auto) 2.4 1.0-4.0 X 10^3 Monocytes # (Auto) 1.1 H 0.0-1.0 X 10^3 Eosinophils # (Auto) 0.5 H 0.0-0.3 10^3/uL Basophils # (Auto) 0.0 0.0-0.1 10^3/uL Sodium Level 138 135-145 MMOL/L Potassium Level 4.2 3.6-5.0 MMOL/L Chloride Level 103 98-107 MMOL/L Carbon Dioxide Level 21 21-32 MMOL/L Anion Gap 14 5-14 MMOL/L Blood Urea Nitrogen 17 7-18 MG/DL Creatinine 1.01 0.60-1.30 MG/DL Estimat Glomerular Filtration Rate 53 BUN/Creatinine Ratio 17 Glucose Level 104 70-105 MG/DL Calcium Level 9.5 8.5-10.1 MG/DL Corrected Calcium 9.4 8.5-10.1 MG/DL Magnesium Level 1.5 L 1.6-2.4 MG/DL Total Bilirubin 0.4 0.1-1.0 MG/DL Aspartate Amino Transf (AST/SGOT) 16 5-34 U/L Alanine Aminotransferase (ALT/SGPT) < 6 0-55 U/L Alkaline Phosphatase 121 40-136 U/L Myoglobin 83.7 10.0-92.0 NG/ML Troponin I < 0.028 <0.028 NG/ML B-Type Natriuretic Peptide 48.8 <100.0 PG/ML Total Protein 8.1 6.4-8.2 GM/DL Albumin 4.1 3.2-4.5 GM/DL Lipase 29 8-78 U/L Prothrombin Time 13.4 12.2-14.7 SEC INR Comment 1.0 0.8-1.4 Activated Partial Thromboplast Time 32 24-35 SEC D-Dimer 0.68 H 0.00-0.49 UG/ML My Orders Orders - CORIN MOREL Nitroglycerin 0.4 Mg Btl 25's (Nitrostat (05/13/19 21:36) Cbc With Automated Diff (05/13/19 21:37) Aspirin Chewable Tablet (Baby Aspirin Ch (05/13/19 21:36) Magnesium (05/13/19 21:37) Chest 1 View, Ap/Pa Only (05/13/19 21:37) Cardiac Profile 1 (05/13/19 21:37) Comprehensive Metabolic Panel (05/13/19 21:37) Myoglobin Serum (05/13/19 21:37) Protime With Inr (05/13/19 21:37) Partial Thromboplastin Time (05/13/19 21:37) O2 (05/13/19 21:37) Lipid Panel (05/14/19 06:00) Ed Iv/Invasive Line Start (05/13/19 21:37) Lipase (05/13/19 21:37) BNP (05/13/19 21:37) Nitroglycerin 0.4 Mg Btl 25's (Nitrostat (05/13/19 21:45) Aspirin Chewable Tablet (Baby Aspirin Ch (05/13/19 21:45) Fibrin Degradation Products (05/13/19 21:58) Ct Angio Chest W (05/13/19 22:30) Ed Iv/Invasive Line Start (05/13/19 22:34) Ns Iv 1000 Ml (Sodium Chloride 0.9%) (05/13/19 22:34) Iohexol Injection (Omnipaque 350 Mg/Ml 1 (05/13/19 23:15) Ns (Ivpb) (Sodium Chloride 0.9% Ivpb Bag (05/13/19 23:15) Metoprolol Succinate (Xl) Tab (Toprol Xl (05/14/19 00:45) Medications Given in ED Current Medications Medications Dose Ordered Sig/Jaylen Route Start Time Stop Time Status Last Admin Dose Admin Aspirin 324 mg ONCE ONCE PO 05/13/19 21:45 05/13/19 21:46 DC 05/13/19 21:45 324 MG Iohexol 74 ml ONCE ONCE IV 05/13/19 23:15 05/13/19 23:16 DC 05/13/19 23:08 74 ML Nitroglycerin 0.4 mg UD PRN SL 05/13/19 21:45 05/13/19 21:45 0.4 MG Sodium Chloride 70 ml ONCE ONCE IV 05/13/19 23:15 05/13/19 23:16 DC 05/13/19 23:07 70 ML Vital Signs/I&O 05/13/19 05/13/19 21:28 21:28 Temp 37.0 Pulse 80 Resp 19 B/P (MAP) 194/89 (124) Pulse Ox 96 O2 Delivery Room Air Room Air Progress Progress Note : Time: 21:53 Progress Note Cardiac workup. In get some d-dimer involved as well as chest x-ray. No cough fevers to suggest pneumonia or Zyrtec pain. We'll start with nitroglycerin. We'll give her another 324 mg of aspirin given that she has listed aspirin 81 daily. Initial ECG Impression Date: May 13, 2019 Initial ECG Impression Time: 21:28 Initial ECG Rate: 80 Initial ECG Rhythm: Normal Sinus Initial ECG Intervals: Normal Initial ECG Impression: Normal, Nonspecific Changes Comment Right bundle-branch block. No significant ST elevation or depression. Diagnostic Imaging Diagonstic Imaging: Xray Plain Films/CT/US/NM/MRI: chest (1v) Comments No acute cardiopulmonary process noted. Reviewed: Reviewed by Me Diagonstic Imaging: CT (angiogram) Plain Films/CT/US/NM/MRI: chest Comments No acute intrathoracic processes. Reviewed: Reviewed Night [facility] [place] Study, Reviewed by Me Departure Communication (Admissions) Time/Spoke to Admitting Phy: 00:45 Discussed case lab imaging EKG with Dr. Snow and she agrees to observe the patient for chest pain rule out ACS. Time/Spoke to Consulting Phy: 00:39 Discussed case lab EKG imaging findings with Dr. Cabral he agrees to consult on the patient. Impression Primary Impression: Chest pain Qualified Codes: R07.9 - Chest pain, unspecified Additional Impression: Acute coronary syndrome without high troponin Disposition: ADMITTED INPATIENT Condition: Stable Admissions Decision to Admit Reason: Admit from ER (General) Decision to Admit/Date: May 14, 2019 Time/Decision to Admit Time: 00:30 Departure-Patient Inst. Referrals: CHRISTIAN CHAVEZ MD (PCP/Family) Primary Care Physician CORIN MOREL May 13, 2019 21:41
[2019-05-13 21:44] LABS: BASOPHILS % (AUTO) 0 % (0-10); EOSINOPHILS # (AUTO) 0.5 10^3/uL (0.0-0.3); EOSINOPHILS % (AUTO) 4 % (0-10); HEMATOCRIT 39 % (35-52); HEMOGLOBIN 12.7 G/DL (11.5-16.0); LYMPHOCYTES # (AUTO) 2.4 X 10^3 (1.0-4.0); LYMPHOCYTES % (AUTO) 18 % (12-44); MEAN CORPUSCULAR HEMOGLOBIN 27 PG (25-34); MEAN CORPUSCULAR HGB CONC 32 G/DL (32-36); MEAN CORPUSCULAR VOLUME 84 FL (80-99); MEAN PLATELET VOLUME 11.4 FL (7.4-10.4); MONOCYTES # (AUTO) 1.1 X 10^3 (0.0-1.0); MONOCYTES % (AUTO) 8 % (0-12); NEUTROPHILS # (AUTO) 9.4 X 10^3 (1.8-7.8); NEUTROPHILS % (AUTO) 70 % (42-75); PLATELET COUNT 332 10^3/uL (130-400); RED CELL DISTRIBUTION WIDTH 13.6 % (10.0-14.5); WHITE BLOOD COUNT 13.4 10^3/uL (4.3-11.0)
[2019-05-13] MEDS ORDERED: ASPIRIN 81 MG CHEW (CHILDREN'S ASA) PO ONE (21:45)
[2019-05-13] MEDS ORDERED: NITROGLYCERIN 0.4 MG SL TABS BTL 25'S SL PRN (21:45)
--- NOTE | 2019-05-13 21:50 | NUR ---
PT REPORTS PAIN FREE AFTER 1ST DOSE NTG. INFORMED PT OF ANTICIPATED WAIT TIME FOR RESULTS. NO NEEDS AT THIS TIME.
[2019-05-13 22:04] LABS: ALANINE AMINOTRANSFERASE < 6 U/L (0-55); ALBUMIN 4.1 GM/DL (3.2-4.5); ALKALINE PHOSPHATASE 121 U/L (40-136); BILIRUBIN,TOTAL 0.4 MG/DL (0.1-1.0); BUN/CREATININE RATIO 17; CALCIUM 9.5 MG/DL (8.5-10.1); CARBON DIOXIDE 21 MMOL/L (21-32); CHLORIDE 103 MMOL/L (98-107); CREATININE SERUM 1.01 MG/DL (0.60-1.30); GFR ESTIMATED 53; GLUCOSE 104 MG/DL (70-105); LIPASE 29 U/L (8-78); MAGNESIUM 1.5 MG/DL (1.6-2.4); POTASSIUM 4.2 MMOL/L (3.6-5.0); SODIUM 138 MMOL/L (135-145); TOTAL PROTEIN 8.1 GM/DL (6.4-8.2)
[2019-05-13 22:18] LABS: FIBRIN DEGRADATION PRODUCTS 0.68 UG/ML (0.00-0.49); PROTHROMBIN TIME PATIENT 13.4 SEC (12.2-14.7)
[2019-05-13] MEDS ORDERED: NS IV 1000 ML 1,000 ML IV SCH (22:34)
[2019-05-13] MEDS ORDERED: IOHEXOL 350 MG/ML 100 ML (OMNIPAQUE 350) VIAL IV ONE (23:15)
[2019-05-13] MEDS ORDERED: NS 100 ML (IVPB) BAG IV ONE (23:15)
[2019-05-14] VITALS (13 sets, daily range): BP systolic 151–200; BP diastolic 74–103
[2019-05-14] MEDS ORDERED: NITROGLYCERIN 0.4 MG SL TABS BTL 25'S SL PRN (03:30)
[2019-05-14] MEDS ORDERED: ONDANSETRON 4 MG/2 ML (SDV) Z0FRAN IV PRN (03:30)
[2019-05-14] MEDS ORDERED: morphine INJ 4 MG/ML 1 ML (VIAL/SYRINGE) IV PRN (03:30)
[2019-05-14 03:46] LABS: BASOPHILS % (AUTO) 0 % (0-10); EOSINOPHILS # (AUTO) 0.4 10^3/uL (0.0-0.3); EOSINOPHILS % (AUTO) 4 % (0-10); HEMATOCRIT 35 % (35-52); HEMOGLOBIN 11.3 G/DL (11.5-16.0); LYMPHOCYTES # (AUTO) 1.8 X 10^3 (1.0-4.0); LYMPHOCYTES % (AUTO) 16 % (12-44); MEAN CORPUSCULAR HEMOGLOBIN 27 PG (25-34); MEAN CORPUSCULAR HGB CONC 32 G/DL (32-36); MEAN CORPUSCULAR VOLUME 84 FL (80-99); MEAN PLATELET VOLUME 11.5 FL (7.4-10.4); MONOCYTES # (AUTO) 0.9 X 10^3 (0.0-1.0); MONOCYTES % (AUTO) 8 % (0-12); NEUTROPHILS # (AUTO) 8.1 X 10^3 (1.8-7.8); NEUTROPHILS % (AUTO) 72 % (42-75); PLATELET COUNT 280 10^3/uL (130-400); RED CELL DISTRIBUTION WIDTH 13.5 % (10.0-14.5); WHITE BLOOD COUNT 11.1 10^3/uL (4.3-11.0)
[2019-05-14 04:07] LABS: ALANINE AMINOTRANSFERASE 6 U/L (0-55); ALBUMIN 3.4 GM/DL (3.2-4.5); ALKALINE PHOSPHATASE 101 U/L (40-136); BILIRUBIN,TOTAL 0.5 MG/DL (0.1-1.0); BUN/CREATININE RATIO 23; CALCIUM 8.6 MG/DL (8.5-10.1); CARBON DIOXIDE 19 MMOL/L (21-32); CHLORIDE 106 MMOL/L (98-107); CREATININE SERUM 0.84 MG/DL (0.60-1.30); GFR ESTIMATED > 60; GLUCOSE 110 MG/DL (70-105); POTASSIUM 3.8 MMOL/L (3.6-5.0); SODIUM 137 MMOL/L (135-145); TOTAL PROTEIN 6.5 GM/DL (6.4-8.2)
[2019-05-14 04:08] LABS: CHOLESTEROL 152 MG/DL (< 200); HDL CHOLESTEROL 44 MG/DL (40-60); TRIGLYCERIDES 150 MG/DL (<150); VLDL CHOLESTEROL 30 MG/DL (5-40)
--- NOTE | 2019-05-14 06:05 | Diagnostic Imaging Report ---
INDICATION: Chest pain COMPARISON: 06/02/2018 TECHNIQUE: Single radiograph of the chest dated 05/13/2019 FINDINGS: The cardiac silhouette is borderline enlarged. No significant pulmonary vascular congestion. Significantly low lung volumes without focal pulmonary opacity when accounting for overlying soft tissues. No significant pleural effusion. No pneumothorax. No acute osseous abnormality. IMPRESSION: Significantly low lung volumes. Borderline cardiomegaly, though this may be accentuated by the low lung volumes. Dictated by: Dictated on workstation # [id number]
--- NOTE | 2019-05-14 06:42 | Diagnostic Imaging Report ---
PROCEDURE: CT angiography of the chest with contrast. TECHNIQUE: Multiple contiguous axial images were obtained through the chest after uneventful bolus administration of intravenous contrast. 3D reconstructed CTA MIP acquisitions were also performed. Auto Exposure Controls were utilized during the CT exam to meet ALARA standards for radiation dose reduction. INDICATION: Chest pain There is good opacification of pulmonary arteries without intraluminal filling defect. Thoracic aorta is unremarkable. There is dense atherosclerotic calcification within coronary arteries. The lungs are clear without evidence of significant pleural or pericardial fluid. No pathologic adenopathy is identified. Upper abdominal sections reveal numerous calcified granulomas within the liver and spleen. IMPRESSION: No CT evidence of pulmonary embolism or other acute abnormality in the chest. Dictated by: Dictated on workstation # [id number]
[2019-05-14] MEDS ORDERED: lisINopril 5 MG (PRINIVIL) TABLET PO SCH (09:00)
[2019-05-14] MEDS ORDERED: ASPIRIN E.C. 81 MG (ECOTRIN) TAB PO SCH (09:00)
[2019-05-14] MEDS ORDERED: REGADENOSON 0.4 MG/5 ML SYR (LEXISCAN) IV ONE ×2 (09:15→13:51)
--- NOTE | 2019-05-14 09:31 | Consultation-Cardiology ---
HPI-Cardiology Cardiology Consultation: Date of Consultation 05/14/19 Time Seen by a Provider: 08:45 Date of Admission 05-13-19 Attending Physician Meka Crowe MD Admitting Physician Alon Sheridan MD Consulting Physician ALVINA DIOP HPI: Chief Complaint: Chest pain Ms. Nguyen is a 74 year old female who resides at [facility]. She reports yesterday evening she was lying down when she had a sudden onset of lower, left sided back pain which radiated around to her upper abdomen. She describes it as sharp in nature, constant, made worse with deep breathing, movement. She describes it as mod to severe. She denies any assoc dyspnea, diaphoresis, palpitations. She states it persisted for several hours. She reports she received medicine in the ED which resolved the pain. She reports no further c/o. She denies any LE swelling. She denies any n/v/d. She denies any fever or chills. Review of Systems-Cardiology Review of Systems Constitutional: No chills, No fever, No malaise Eyes: No vision change Ears/Nose/Throat: No epistaxis, No recent hearing loss Respiratory: As described under HPI Cardiovascular: As described under HPI Gastrointestinal: No constipation, No diarrhea, No nausea, No vomiting Genitourinary: No dysuria, No hematuria Musculoskeletal: back pain (chronic lower back) Skin: No rash on exposed areas, No ulcerations on exposed areas Psychiatric/Neurological: No anxiety, No depression, No seizure, No focal weakness, No syncope Hematologic: No bleeding abnormalities ALX-Qhzyvs-Zxnaxw Hx Patient Social History Alcohol Use: Denies Use Recreational Drug Use: No 2nd Hand Smoke Exposure: No Recent Foreign Travel: No Recent Infectious Disease Expo: No Hospitalization with Isolation: Denies Immunizations Up To Date Tetanus Booster (TDap): Unknown Date of Pneumonia Vaccine: May 28, 2011 Date of Influenza Vaccine: Apr 27, 2019 Past Medical History PMH As described under Assessment. Family Medical History Family Medical History: She reports she does not know anything about her family medical history. Family History: Congenital disease 19 MOTHER Family history: Arthritis Hypertension 19 MOTHER Malignant neoplasm of lung 09 BROTHER No Family History of: Cancer Seizure disorder Allergies and Home Medications Allergies Coded Allergies: Penicillins (Verified Allergy, Unknown, Pt has received Cefazolin & Ceftriaxone in the past w/o issu, 03/20/18) codeine (Verified Allergy, Unknown, Pt has received Lortab in the past, 03/20/18) Home Medications Acetaminophen 500 Mg Tablet, 1,000 MG PO Q6H PRN for PAIN-MILD, (Reported) Aspirin 81 Mg Tablet.dr, 81 MG PO DAILY, (Reported) Atorvastatin Calcium 40 Mg Tablet, 40 MG PO HS Prescribed by: MEKA CROWE on 05/14/191558 Budesonide/Formoterol Fumarate 10.2 Gm Hfa.aer.ad, 2 PUFF IH BID, (Reported) Carbidopa/Levodopa 1 Each Tablet.er, 1 TAB PO BID, (Reported) Donepezil HCl 10 Mg Tablet, 10 MG PO HS, (Reported) Levothyroxine Sodium 75 Mcg Tablet, 75 MCG PO DAILY, (Reported) Lisinopril 5 Mg Tablet, 5 MG PO DAILY@0900 Prescribed by: MEKA CROWE on 05/14/191558 Loratadine 10 Mg Tablet, 10 MG PO DAILY PRN for ALLERGIES, (Reported) Mag Hydrox/Al Hydrox/Simeth 30 Ml Oral.susp, 10 ML PO Q12H PRN for INDIGESTION, (Reported) Metoprolol Succinate 25 Mg Tab.er.24h, 25 MG PO DAILY Prescribed by: MEKA CROWE on 05/14/191558 Mirabegron 25 Mg Tab.er.24h, 25 MG PO DAILY, (Reported) Omeprazole 20 Mg Capsule.dr, 20 MG PO DAILY, (Reported) Ondansetron HCl 4 Mg Tablet, 4 MG SL Q8H PRN for NAUSEA/VOMITING-1ST LINE, (Reported) Pramipexole Di-HCl 0.5 Mg Tablet, 0.5 MG PO BID, (Reported) Ropinirole HCl 1 Mg Tablet, 1 MG PO TID, (Reported) Ropinirole HCl 0.25 Mg Tablet, 0.25 MG PO HS, (Reported) TAKES ALONG WITH 1MG TABLET Tramadol HCl 50 Mg Tablet, 50 MG PO BID, (Reported) Trazodone HCl 50 Mg Tablet, 25 MG PO HS, (Reported) TAKES 1/2 (50MG) TABLET Physical Exam-Cardiology Physical Exam Vital Signs/I&O Capillary Refill : Less Than 3 Seconds Constitutional: AAO x 3, well-developed, well-nourished HEENT: PERRL, hearing is well preserved, oral hygience is good Neck: No carotid bruit; carotid pulses are 2 + bilaterally Respiratory: No accessory muscle use, No respiratory distress; chest expansion is symmetric, chest is bilaterally symmetric, lungs clear to auscultation Cardiovascular: regular rate-rhythm; No JVD; S1 and S2 Gastrointestinal: No tender; soft, round, audible bowel sounds Extremities: no lower extremity edema bilateral Neurologic/Psychiatric: grossly intact, power is 5/5 both on sides Skin: No rash on exposed areas, No ulcerations on exposed areas Data Review Labs Radiology NAME: ALFONSO NGUYEN [facility] REC#: [id number] PT STATUS: ADM Andrea : 1945 PHYSICIAN: CORIN MOREL MD ADMIT DATE: 05/14/19/[facility] Draft Date of Exam:05/13/19 CT ANGIO CHEST W PROCEDURE: CT angiography of the chest with contrast. TECHNIQUE: Multiple contiguous axial images were obtained through the chest after uneventful bolus administration of intravenous contrast. 3D reconstructed CTA MIP acquisitions were also performed. Auto Exposure Controls were utilized during the CT exam to meet ALARA standards for radiation dose reduction. INDICATION: Chest pain There is good opacification of pulmonary arteries without intraluminal filling defect. Thoracic aorta is unremarkable. There is dense atherosclerotic calcification within coronary arteries. The lungs are clear without evidence of significant pleural or pericardial fluid. No pathologic adenopathy is identified. Upper abdominal sections reveal numerous calcified granulomas within the liver and spleen. IMPRESSION: No CT evidence of pulmonary embolism or other acute abnormality in the chest. 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
--- NOTE | 2019-05-14 10:28 | Consultation-Cardiology ---
HPI-Cardiology Cardiology Consultation: Date of Consultation 05/14/19 Time Seen by a Provider: 09:15 Date of Admission 05/13/19 Attending Physician Jeannette Snow MD Admitting Physician Alon Sheridan MD Consulting Physician RICK KEVIN MD, MA, FACP, FACC, [facility] [place], CCDS HPI: Chief Complaint: CC: Chest pain HPI Ms. Day is a 74 year old female who resides at [facility]. She reports yesterday evening she was lying down when she had a sudden onset of lower, left sided back pain which radiated around to her upper abdomen. She describes it as sharp in nature, constant, made worse with deep breathing, movement. She describes it as mod to severe. She denies any assoc dyspnea, diaphoresis, palpitations. She states it persisted for several hours. She reports she received medicine in the ED which resolved the pain. She reports no further c/o. She denies any LE swelling. She denies any n/v/d. She denies any fever or chills. Review of Systems-Cardiology Review of Systems Constitutional: No chills, No fever, No malaise Eyes: No vision change Ears/Nose/Throat: No epistaxis, No recent hearing loss Respiratory: As described under HPI Cardiovascular: As described under HPI Gastrointestinal: No constipation, No diarrhea, No nausea, No vomiting Genitourinary: No dysuria, No hematuria Musculoskeletal: back pain (chronic lower back) Skin: No rash on exposed areas, No ulcerations on exposed areas Psychiatric/Neurological: No anxiety, No depression, No seizure, No focal weakness, No syncope Hematologic: No bleeding abnormalities [id number]-Pxjhrk Hx Patient Social History Alcohol Use: Denies Use Recreational Drug Use: No 2nd Hand Smoke Exposure: No Recent Foreign Travel: No Recent Infectious Disease Expo: No Hospitalization with Isolation: Denies Immunizations Up To Date Tetanus Booster (TDap): Unknown Date of Pneumonia Vaccine: May 28, 2011 Date of Influenza Vaccine: Apr 27, 2019 Past Medical History PMH As described under Assessment. Family Medical History Family Medical History: She reports she does not know anything about her family medical history. Family History: Congenital disease 19 MOTHER Family history: Arthritis Hypertension 19 MOTHER Malignant neoplasm of lung 09 BROTHER No Family History of: Cancer Seizure disorder Allergies and Home Medications Allergies Coded Allergies: Penicillins (Verified Allergy, Unknown, Pt has received Cefazolin & Ceftriaxone in the past w/o issu, 03/20/18) codeine (Verified Allergy, Unknown, Pt has received Lortab in the past, 03/20/18) Home Medications Allopurinol 100 Mg Tablet, 100 MG PO DAILY, (Reported) Aspirin 81 Mg Tablet.dr, 81 MG PO DAILY, (Reported) Budesonide/Formoterol Fumarate 10.2 Gm Hfa.aer.ad, 2 PUFF IH BID, (Reported) Calcium Polycarbophil 625 Mg Tablet, 2 TAB PO BID, (Reported) Carbidopa/Levodopa 1 Each Tablet.er, 1 TAB PO 0800,1700, (Reported) Citalopram Hydrobromide 20 Mg Tablet, 20 MG PO DAILY, (Reported) Donepezil HCl 10 Mg Tablet, 10 MG PO HS, (Reported) Furosemide 40 Mg Tablet, 40 MG PO DAILY, (Reported) Guaifenesin/Dextromethorphan 177 Ml Liquid, 20 ML PO Q4H PRN for COUGH, (Reported) Levothyroxine Sodium 75 Mcg Tablet, 75 MCG PO DAILY, (Reported) Loratadine 10 Mg Tablet, 10 MG PO DAILY PRN for ALLERGIES, (Reported) Mag Hydrox/Al Hydrox/Simeth 30 Ml Oral.susp, 10 ML PO Q12H PRN for INDIGESTION, (Reported) Magnesium Oxide 400 Mg Tablet, 400 MG PO BID, (Reported) Mirabegron 25 Mg Tab.er.24h, 25 MG PO DAILY, (Reported) Omeprazole 40 Mg Capsule.dr, 40 MG PO DAILY, (Reported) Ondansetron HCl 4 Mg Tablet, 4 MG SL Q8H PRN for NAUSEA/VOMITING-1ST LINE, (Reported) Oxycodone HCl/Acetaminophen 1 Each Tablet, 1 TAB PO Q4H PRN for PAIN-MODERATE, (Reported) Oxycodone HCl/Acetaminophen 1 Each Tablet, 1 TAB PO Q4H PRN for PAIN-MODERATE, (Reported) Potassium Chloride 20 Meq Tablet.er, 20 MEQ PO DAILY, (Reported) Pramipexole Di-HCl 0.5 Mg Tablet, 0.5 MG PO BID, (Reported) Ropinirole HCl 1 Mg Tablet, 1 MG PO 0800,1400,2100, (Reported) Ropinirole HCl 0.25 Mg Tab, 0.25 MG PO HS, (Reported) TAKES ALONG WITH 1MG TABLET Sennosides/Docusate Sodium 1 Each Tablet, 1 TAB PO DAILY PRN for CONSTIPATION- 1ST LINE, (Reported) Tramadol HCl 50 Mg Tablet, 50 MG PO BID, (Reported) Trazodone HCl 50 Mg Tablet, 25 MG PO HS, (Reported) TAKES 1/2 (50MG) TABLET Patient Home Medication List Home Medication List Reviewed: Yes Physical Exam-Cardiology Physical Exam Vital Signs/I&O 05/14/19 05/14/19 05/14/19 05/14/19 02:09 02:32 02:45 02:48 Temp 36.8 36.3 36.3 Pulse 70 71 69 64 Resp 15 20 20 20 B/P (MAP) 162/89 160/82 (108) 160/82 151/78 (102) Pulse Ox 94 97 97 95 O2 Delivery Room Air Room Air Room Air Room Air 05/14/19 05/14/19 05/14/19 05/14/19 03:03 03:18 03:22 03:33 Pulse 50 65 62 Resp 20 20 20 B/P (MAP) 186/103 (130) 196/98 (130) 200/85 (123) Pulse Ox 96 95 97 95 O2 Delivery Room Air Room Air Room Air Room Air 05/14/19 05/14/19 05/14/19 05/14/19 04:03 04:23 04:24 04:33 Temp 36.3 Pulse 64 65 59 Resp 18 20 B/P (MAP) 176/83 (114) 195/101 (132) Pulse Ox 96 96 95 O2 Delivery Room Air Room Air 05/14/19 05/14/19 05/14/19 05/14/19 05:31 06:30 07:00 08:20 Temp 36.4 Pulse 64 58 53 67 Resp 20 18 18 B/P (MAP) 172/80 (110) 172/83 (112) 161/83 (109) Pulse Ox 96 97 97 O2 Delivery Room Air Capillary Refill : Less Than 3 Seconds Constitutional: AAO x 3, well-developed, well-nourished HEENT: PERRL, hearing is well preserved, oral hygience is good Neck: No carotid bruit; carotid pulses are 2 + bilaterally Respiratory: No accessory muscle use, No respiratory distress; chest expansion is symmetric, chest is bilaterally symmetric, lungs clear to auscultation Cardiovascular: regular rate-rhythm; No JVD; S1 and S2 Gastrointestinal: No tender; soft, round, audible bowel sounds Extremities: no lower extremity edema bilateral Neurologic/Psychiatric: grossly intact, power is 5/5 both on sides Skin: No rash on exposed areas, No ulcerations on exposed areas Data Review Labs Laboratory Tests 05/13/19 21:30: White Blood Count 13.4H, Red Blood Count 4.70, Hemoglobin 12.7, Hematocrit 39, Mean Corpuscular Volume 84, Mean Corpuscular Hemoglobin 27, Mean Corpuscular Hemoglobin Concent 32, Red Cell Distribution Width 13.6, Platelet Count 332, Mean Platelet Volume 11.4H, Neutrophils (%) (Auto) 70, Lymphocytes (%) (Auto) 18, Monocytes (%) (Auto) 8, Eosinophils (%) (Auto) 4, Basophils (%) (Auto) 0, Neutrophils # (Auto) 9.4H, Lymphocytes # (Auto) 2.4, Monocytes # (Auto) 1.1H, Eosinophils # (Auto) 0.5H, Basophils # (Auto) 0.0, Sodium Level 138, Potassium Level 4.2, Chloride Level 103, Carbon Dioxide Level 21, Anion Gap 14, Blood Urea Nitrogen 17, Creatinine 1.01, Estimat Glomerular Filtration Rate 53, BUN/Creatinine Ratio 17, Glucose Level 104, Calcium Level 9.5, Corrected Calcium 9.4, Magnesium Level 1.5L, Total Bilirubin 0.4, Aspartate Amino Transf (AST/SGOT) 16, Alanine Aminotransferase (ALT/SGPT) < 6, Alkaline Phosphatase 121, Myoglobin 83.7, Troponin I < 0.028, B-Type Natriuretic Peptide 48.8, Total Protein 8.1, Albumin 4.1, Lipase 29 05/13/19 21:58: Prothrombin Time 13.4, INR Comment 1.0, Activated Partial Thromboplast Time 32, D-Dimer 0.68H 05/14/19 03:05: White Blood Count 11.1H, Red Blood Count 4.19L, Hemoglobin 11.3L, Hematocrit 35, Mean Corpuscular Volume 84, Mean Corpuscular Hemoglobin 27, Mean Corpuscular Hemoglobin Concent 32, Red Cell Distribution Width 13.5, Platelet Count 280, Mean Platelet Volume 11.5H, Neutrophils (%) (Auto) 72, Lymphocytes (%) (Auto) 16, Monocytes (%) (Auto) 8, Eosinophils (%) (Auto) 4, Basophils (%) (Auto) 0, Neutrophils # (Auto) 8.1H, Lymphocytes # (Auto) 1.8, Monocytes # (Auto) 0.9, Eosinophils # (Auto) 0.4H, Basophils # (Auto) 0.0, Sodium Level 137, Potassium Level 3.8, Chloride Level 106, Carbon Dioxide Level 19L, Anion Gap 12, Blood Urea Nitrogen 19H, Creatinine 0.84, Estimat Glomerular Filtration Rate > 60, BUN/Creatinine Ratio 23, Glucose Level 110H, Calcium Level 8.6, Corrected Calcium 9.1, Total Bilirubin 0.5, Aspartate Amino Transf (AST/SGOT) 11, Alanine Aminotransferase (ALT/SGPT) 6, Alkaline Phosphatase 101, Troponin I < 0.028, Total Protein 6.5, Albumin 3.4, Triglycerides Level 150H, Cholesterol Level 152, LDL Cholesterol Direct 95, VLDL Cholesterol 30, HDL Cholesterol 44 Laboratory Tests 05/13/19 21:30 05/14/19 03:05 A/P-Cardiology Assessment/Admission Diagnosis Chest pain of undetermined etiology HTN 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
[2019-05-14] MEDS ORDERED: MAGNESIUM 1 GM/100 ML IVPB 100 ML IV ONE (11:00)
[2019-05-14] MEDS ORDERED: ACET-2267 PO (11:04)
[2019-05-14] MEDS ORDERED: ROPI1TAB2 PO (11:04)
[2019-05-14] MEDS ORDERED: DONE10TA41 PO (11:04)
[2019-05-14] MEDS ORDERED: CARB1TAB41 PO (11:04)
[2019-05-14] MEDS ORDERED: PRAM0.5T9 PO (11:04)
[2019-05-14] MEDS ORDERED: ROPI0.253 PO (11:04)
[2019-05-14] MEDS ORDERED: OMEP20CA13 PO (11:25)
--- NOTE | 2019-05-14 11:25 | NUR ---
UPDATED MED REC WITH ORDERS REPORT FROM [facility]. THE LIST STATES OMEPRAZOLE 40MG DAILY HOWEVER ACCORDING TO THE EXT MED HX [facility]OST RECENTLY FILLED 20MG. I CALLED THEM TO VERIFY AND THEY PULLED THE MED CARD. THE PATIENT IS RECEIVING THE 20MG AND LOOKS LIKE HAS BEEN FOR AWHILE. THEY WILL UPDATE THE ORDERS REPORT. I ALSO VERIFIED SHE RECENTLY HAD SEVERAL MEDICATIONS DISCONTINUED THAT I CAN SEE ON THE EXT MED HX THAT ARE NOT ON THE ORDERS REPORT; ALLOPURINOL, POTASSIUM, CITALOPRAM, LASIX.
[2019-05-14] MEDS: MAGNESIUM 1 GM/100 ML IVPB 100 ML IV SCH ×2 (12:17→12:18)
--- NOTE | 2019-05-14 12:55 | NUR ---
PT LEAVING UNIT VIA FOR NUCLEAR MED TESTING, WILL WAIT FOR PT TO RETURN TO UNIT.
[2019-05-14] MEDS ORDERED: CATHETER FLUSH 10 ML SYR IV PRN (13:15)
--- NOTE | 2019-05-14 13:30 | NUR ---
Initial visit: Pt is L[employer] day. No concerns or requests at this time.
--- NOTE | 2019-05-14 15:00 | NUR ---
PT BACK TO ROOM. PT IN BED WATCHING TV. DENIES ANY C/O
--- NOTE | 2019-05-14 15:56 | Short Stay Summary ---
HPI History of Present Illness: 74 yo F that presented to ER after waking up with back pain that radiated to the front of her chest. States that she was sleeping when it occurred. Pain resolved in the ER with medications. Denies any previous CAD or chest pain. She did not have any other associated symptoms. States that she feels normal today and has not had any reoccurrence of the pain since coming upstairs. Denies any previous cardiac workup. Patient did not have any shortness of breath, N/V, diarrhea or constipation that was associated with the pain. Source: patient Exam Limitations: no limitations Date seen by provider: May 14, 2019 Time Seen by Provider: 09:45 Attending Physician Meka Crowe MD PCP Christian Chavez MD Consult Date of Admission May 14, 2019 at 00:40 Home Medications Home Medications Reviewed patient Home Medication Reconciliation performed by pharmacy medication reconciliations respiratory therapy technician and/or nursing. Patients Allergies have been reviewed. Allergies Coded Allergies: Penicillins (Verified Allergy, Unknown, Pt has received Cefazolin & Ceftriaxone in the past w/o issu, 03/20/18) codeine (Verified Allergy, Unknown, Pt has received Lortab in the past, 03/20/18) STF-Vqfbat-Zxmsdr Hx Patient Social History Living Status: Lives at home Alcohol Use: Denies Use Recreational Drug Use: No 2nd Hand Smoke Exposure: No Recent Foreign Travel: No Contact w/other who traveled: No Recent Hopitalizations: Yes Recent Infectious Disease Expo: No Immunizations Up To Date Tetanus Booster (TDap): Unknown Date of Pneumonia Vaccine: May 28, 2011 Date of Influenza Vaccine: Apr 27, 2019 Past Medical History Parkinsons Disease Anxiety COPD Dementia HTN Hypothyroidism Chronic Pain Insomnia GERD Seizure Disorder Family Medical History Significant Family History: Hypertension Family History: Congenital disease 19 MOTHER Family history: Arthritis Hypertension 19 MOTHER Malignant neoplasm of lung 09 BROTHER No Family History of: Cancer Seizure disorder Review of Systems ([facility]) Constitutional: no symptoms reported; No chills, No fever, No weakness EENTM: no symptoms reported; No mouth pain, No mouth swelling, No nose congestion, No nose pain Respiratory: no symptoms reported; No cough, No dyspnea on exertion, No orthopnea, No short of breath Cardiovascular: chest pain (resolved); No edema, No palpitations Gastrointestinal: no symptoms reported; No abdominal pain, No constipation, No diarrhea, No loss of appetite, No nausea, No vomiting Genitourinary: no symptoms reported; No dysuria, No frequency, No hematuria : No Musculoskeletal: back pain Skin: no symptoms reported; No lesions, No rash Psychiatric/Neurological: Denies Headache, Denies Numbness, Denies Weakness Reviewed Test Results Reviewed Test Results Lab Laboratory Tests Test 05/13/19 21:30 05/13/19 21:58 05/14/19 03:05 05/14/19 10:25 Range/Units White Blood Count 13.4 H 11.1 H 4.3-11.0 10^3/uL Red Blood Count 4.70 4.19 L 4.35-5.85 10^6/uL Hemoglobin 12.7 11.3 L 11.5-16.0 G/DL Hematocrit 39 35 35-52 % Mean Corpuscular Volume 84 84 80-99 FL Mean Corpuscular Hemoglobin 27 27 25-34 PG Mean Corpuscular Hemoglobin Concent 32 32 32-36 G/DL Red Cell Distribution Width 13.6 13.5 10.0-14.5 % Platelet Count 332 280 130-400 10^3/uL Mean Platelet Volume 11.4 H 11.5 H 7.4-10.4 FL Neutrophils (%) (Auto) 70 72 42-75 % Lymphocytes (%) (Auto) 18 16 12-44 % Monocytes (%) (Auto) 8 8 0-12 % Eosinophils (%) (Auto) 4 4 0-10 % Basophils (%) (Auto) 0 0 0-10 % Neutrophils # (Auto) 9.4 H 8.1 H 1.8-7.8 X 10^3 Lymphocytes # (Auto) 2.4 1.8 1.0-4.0 X 10^3 Monocytes # (Auto) 1.1 H 0.9 0.0-1.0 X 10^3 Eosinophils # (Auto) 0.5 H 0.4 H 0.0-0.3 10^3/uL Basophils # (Auto) 0.0 0.0 0.0-0.1 10^3/uL Sodium Level 138 137 135-145 MMOL/L Potassium Level 4.2 3.8 3.6-5.0 MMOL/L Chloride Level 103 106 98-107 MMOL/L Carbon Dioxide Level 21 19 L 21-32 MMOL/L Anion Gap 14 12 5-14 MMOL/L Blood Urea Nitrogen 17 19 H 7-18 MG/DL Creatinine 1.01 0.84 0.60-1.30 MG/DL Estimat Glomerular Filtration Rate 53 > 60 BUN/Creatinine Ratio 17 23 Glucose Level 104 110 H 70-105 MG/DL Calcium Level 9.5 8.6 8.5-10.1 MG/DL Corrected Calcium 9.4 9.1 8.5-10.1 MG/DL Magnesium Level 1.5 L 1.6-2.4 MG/DL Total Bilirubin 0.4 0.5 0.1-1.0 MG/DL Aspartate Amino Transf (AST/SGOT) 16 11 5-34 U/L Alanine Aminotransferase (ALT/SGPT) < 6 6 0-55 U/L Alkaline Phosphatase 121 101 40-136 U/L Myoglobin 83.7 10.0-92.0 NG/ML Troponin I < 0.028 < 0.028 < 0.028 <0.028 NG/ML B-Type Natriuretic Peptide 48.8 <100.0 PG/ML Total Protein 8.1 6.5 6.4-8.2 GM/DL Albumin 4.1 3.4 3.2-4.5 GM/DL Lipase 29 8-78 U/L Prothrombin Time 13.4 12.2-14.7 SEC INR Comment 1.0 0.8-1.4 Activated Partial Thromboplast Time 32 24-35 SEC D-Dimer 0.68 H 0.00-0.49 UG/ML Triglycerides Level 150 H <150 MG/DL Cholesterol Level 152 < 200 MG/DL LDL Cholesterol Direct 95 1-129 MG/DL VLDL Cholesterol 30 5-40 MG/DL HDL Cholesterol 44 40-60 MG/DL Radiology NAME: ALFONSO NGUYEN [facility] REC#: [id number] PT STATUS: ADM Andrea : 1945 PHYSICIAN: CORIN MOREL MD ADMIT DATE: 05/14/19/[facility] Draft Date of Exam:05/13/19 CT ANGIO CHEST W PROCEDURE: CT angiography of the chest with contrast. TECHNIQUE: Multiple contiguous axial images were obtained through the chest after uneventful bolus administration of intravenous contrast. 3D reconstructed CTA MIP acquisitions were also performed. Auto Exposure Controls were utilized during the CT exam to meet ALARA standards for radiation dose reduction. INDICATION: Chest pain There is good opacification of pulmonary arteries without intraluminal filling defect. Thoracic aorta is unremarkable. There is dense atherosclerotic calcification within coronary arteries. The lungs are clear without evidence of significant pleural or pericardial fluid. No pathologic adenopathy is identified. Upper abdominal sections reveal numerous calcified granulomas within the liver and spleen. IMPRESSION: No CT evidence of pulmonary embolism or other acute abnormality in the chest. Dictated on workstation # [id number] Dict: 05/14/1940 Trans: 05/14/1942 [facility] [id number] Interpreted by: JULIETH DELEON MD Electronically signed by: Physical Exam-([facility]) Physical Exam Vital Signs VS - Last 72 Hours, by Label 05/13/19 05/13/19 05/14/19 05/14/19 21:28 21:28 02:09 02:32 Temp 37.0 36.8 36.3 Pulse 80 70 71 Resp 19 15 20 B/P (MAP) 194/89 (124) 162/89 160/82 (108) Pulse Ox 96 94 97 O2 Delivery Room Air Room Air Room Air Room Air 05/14/19 05/14/19 05/14/19 05/14/19 02:45 02:48 03:03 03:18 Temp 36.3 Pulse 69 64 50 65 Resp 20 20 20 20 B/P (MAP) 160/82 151/78 (102) 186/103 (130) 196/98 (130) Pulse Ox 97 95 96 95 O2 Delivery Room Air Room Air Room Air Room Air 05/14/19 05/14/19 05/14/19 05/14/19 03:22 03:33 04:03 04:23 Temp 36.3 Pulse 62 64 Resp 20 18 B/P (MAP) 200/85 (123) 176/83 (114) Pulse Ox 97 95 96 96 O2 Delivery Room Air Room Air Room Air Room Air 05/14/19 05/14/19 05/14/19 05/14/19 04:24 04:33 05:31 06:30 Pulse 65 59 64 58 Resp 20 20 18 B/P (MAP) 195/101 (132) 172/80 (110) 172/83 (112) Pulse Ox 95 96 97 05/14/19 05/14/19 05/14/19 05/14/19 07:00 08:00 08:00 08:20 Temp 36.4 Pulse 53 67 Resp 18 B/P (MAP) 161/83 (109) Pulse Ox 96 97 O2 Delivery Room Air Room Air Room Air 05/14/19 05/14/19 05/14/19 12:00 12:00 13:00 Temp 36.7 Pulse 57 61 Resp 17 B/P (MAP) 180/74 (109) Pulse Ox 97 97 O2 Delivery Room Air Room Air Capillary Refill : Less Than 3 Seconds General Appearance: WD/WN, no apparent distress, obese HEENT: PERRL/EOMI Neck: non-tender, full range of motion, supple Respiratory: chest non-tender, lungs clear, normal breath sounds, no respiratory distress, no accessory muscle use Cardiovascular: normal peripheral pulses, regular rate, rhythm, no edema, no murmur Gastrointestinal: normal bowel sounds, non tender, soft, no organomegaly Back: no CVA tenderness, no vertebral tenderness Extremities: normal range of motion, no pedal edema, no calf tenderness, normal capillary refill Neurologic/Psychiatric: metal mixer II-XII nml as tested, no motor/sensory deficits, alert, normal mood/affect, oriented x 3 Skin: normal color, warm/dry Lymphatic: no adenopathy Short Stay Diagnosis Discharge Diagnosis-Short Stay Admission Diagnosis Atypical Chest pain HTN Obesity Final Discharge Diagnosis See Above Conclusion Plan See problem list Clinical Quality Measures DVT/VTE Risk/Contraindication: Risk Factor Score Per Nursin RFS Level Per Nursing on Admit: 4+=Very High Copy Copies To 1: CHRISTIAN CHAVEZ MD Assessment/Plan Assessment/Plan Admission Status: Observation (1) Atypical chest pain Status: Acute Assessment & Plan: - Cardiology seeing patient, Echo and Stress test today, if normal likely home today (2) HTN (hypertension) Status: Chronic Assessment & Plan: - Continue home meds Qualifiers: Qualified Codes: I10 - Essential (primary) hypertension (3) BMI 35.0-35.9,adult Status: Chronic MEKA CROWE MD May 14, 2019 15:56
[2019-05-14] MEDS ORDERED: LISI-556 PO (15:59)
[2019-05-14] MEDS ORDERED: ATOR40TA PO (15:59)
[2019-05-14] MEDS ORDERED: METO-387 PO (15:59)
--- NOTE | 2019-05-14 18:06 | STRESS TEST ---
DATE OF SERVICE: 05/14/2019 RESTING AND POST REGADENOSON TECHNETIUM-99M TETROFOSMIN SPECT CT IMAGING ORDERING PHYSICIAN: JADON Forrest PRIMARY PHYSICIAN: Dr. Snow. OTHER PHYSICIAN: Nusrat Cabral MD, MA, FACP, FACC. CLINICAL DIAGNOSIS: Chest pain. Baseline images were carried out after injection of . DICTATION ENDS HERE. Job ID: [id number] DocumentID: [id number] Dictated Date: 05/14/2019 17:01:47 Infection Prevention Specialist Date: 05/14/2019 18:06:17 Dictated By: NUSRAT CABRAL MD, MA, FACP, FACC,
== END 2019-05-14 18:20 | disposition home or self-care (01) ==
LOC: EDUNIT# 21:24 → ER 21:25 → CSD 05-14 00:40
PROVIDERS: ADMIT Family Medicine; ATTEND Family Medicine
DX: R07.9 Chest pain, unspecified (principal); I10 Essential (primary) hypertension; R07.1 Chest pain on breathing; K21.9 Gastro-esophageal reflux disease without esophagitis; G20 Parkinson's disease; F02.80 Dementia in other diseases classified elsewhere, unspecified severity, without behavioral disturbance, psychotic disturbance, mood disturbance, and anxiety; F41.9 Anxiety disorder, unspecified; G89.29 Other chronic pain; G47.00 Insomnia, unspecified; G40.909 Epilepsy, unspecified, not intractable, without status epilepticus; E03.9 Hypothyroidism, unspecified; J44.9 Chronic obstructive pulmonary disease, unspecified; Z82.49 Family history of ischemic heart disease and other diseases of the circulatory system; Z80.1 Family history of malignant neoplasm of trachea, bronchus and lung; Z82.61 Family history of arthritis; Z79.82 Long term (current) use of aspirin; Z79.891 Long term (current) use of opiate analgesic; Z79.899 Other long term (current) drug therapy; Z90.49 Acquired absence of other specified parts of digestive tract; Z88.0 Allergy status to penicillin; Z88.5 Allergy status to narcotic agent
CPT/HCPCS: 36415; 71045; 71275; 78452; 80053; 80061; 83690; 83735; 83874; 83880; 84484; 85025; 85379; 85610; 85730; 93005; 93017; 93306; 96360; 96361

== ENCOUNTER 2019-07-01 11:24 | Outpatient (CLI) | payer MEDICARE, MEDICAID ==
[~2019-07-01] VITALS: Ht 154 cm; Wt 86.0 kg
[~2019-07-01 11:24] MED LIST changes: +ACET-2267 PO; +ATOR40TA PO; +CARB1TAB41 PO; +DONE10TA41 PO; +LISI-556 PO; +MTP25TSR PO; +OMEP-280 PO; -OMEP20CA13 PO; +OMEP40CA27 PO; -OMEP40CA36 PO; +PRAM0.5T9 PO; +ROPI0.253 PO; +ROPI1TAB2 PO; -TRAZ-222 PO; +TRM50T PO; +TRZ50T PO
[2019-07-01 11:40] VITALS: BP 137/67
[2019-07-01] MEDS ORDERED: CARB1TAB PO (12:37)
[2019-07-01] MEDS ORDERED: CALC625T PO (12:37)
[2019-07-01] MEDS ORDERED: PRAM0.5T2 PO (12:37)
[2019-07-01] MEDS ORDERED: BUDE10.2 IH (12:37)
[2019-07-01] MEDS ORDERED: DONE10TA12 PO (12:37)
[2019-07-01 12:46] LABS: BASOPHILS % (AUTO) 0 % (0-10); EOSINOPHILS # (AUTO) 0.3 10^3/uL (0.0-0.3); EOSINOPHILS % (AUTO) 3 % (0-10); HEMATOCRIT 37 % (35-52); LYMPHOCYTES # (AUTO) 2.2 X 10^3 (1.0-4.0); LYMPHOCYTES % (AUTO) 17 % (12-44); MEAN CORPUSCULAR HEMOGLOBIN 27 PG (25-34); MEAN CORPUSCULAR HGB CONC 33 G/DL (32-36); MEAN CORPUSCULAR VOLUME 84 FL (80-99); MEAN PLATELET VOLUME 11.7 FL (7.4-10.4); MONOCYTES # (AUTO) 1.1 X 10^3 (0.0-1.0); MONOCYTES % (AUTO) 9 % (0-12); NEUTROPHILS # (AUTO) 8.8 X 10^3 (1.8-7.8); NEUTROPHILS % (AUTO) 71 % (42-75); PLATELET COUNT 269 10^3/uL (130-400); RED CELL DISTRIBUTION WIDTH 13.7 % (10.0-14.5); WHITE BLOOD COUNT 12.4 10^3/uL (4.3-11.0)
[2019-07-09] MEDS ORDERED: OMEP40CA27 PO (14:59)
== END 2019-07-01 15:00 | disposition home or self-care (01) ==
LOC: PREOP 11:24
PROVIDERS: ATTEND Surgery
DX: Z01.818 Encounter for other preprocedural examination (principal); K43.2 Incisional hernia without obstruction or gangrene
CPT/HCPCS: 36415; 85025; 87081

== ENCOUNTER 2019-07-08 08:27 | Day surgery (SDC) | payer MEDICARE, MEDICAID ==
[~2019-07-08] VITALS: Ht 154 cm; Wt 86.0 kg
[2019-07-08] VITALS (13 sets, daily range): BP systolic 124–155; BP diastolic 59–93
[~2019-07-08 08:27] MED LIST changes: +METO-387 PO; -MTP25TSR PO; -OMEP-280 PO; +OMEP20CA13 PO; -OMEP40CA27 PO; +OMEP40CA36 PO; +TRAZ-222 PO; -TRM50T PO; -TRZ50T PO
--- NOTE | 2019-07-08 08:37 | Progress Note-Pre Operative ---
Pre-Operative Progress Note H&P Reviewed The H&P was reviewed, patient examined and no changes noted. Date Seen by Provider: Jul 08, 2019 Time Seen by Provider: 08:35 Date H&P Reviewed: Jul 08, 2019 Time H&P Reviewed: 08:30 Pre-Operative Diagnosis: Symptomatic recurrent incisional hernia NINA BETTENCOURT APRN Jul 08, 2019 08:37 POS
[2019-07-08] MEDS ORDERED: OXYC-471 PO (08:42)
--- NOTE | 2019-07-08 08:43 | Discharge Inst-Surgical ---
D/C Lap Instructions-KIDO Reconcile Patient Problems Problems Reviewed?: Yes New, Converted, or Re-Newed RX: RX on Chart Follow Up Appt in 2 weeks Activity as tolerated No driving for 24 hours No driving while on pain medications Incentive Spirometry use every 2 hours while awake Regular Diet Symptoms to Report: Fever over 101 degree F, Nausea/Vomiting Infection Signs and Symptoms to report: Increased redness, Foul odor of wound, Increased drainage Bathing instructions: May shower Operative Area Clean/Dry; Keep incision clean/dry If any problems/questions: Contact your physician or go to Emergency Room NINA BETTENCOURT APRN Jul 08, 2019 08:43 POS
[2019-07-08] MEDS ORDERED: ACETAMINOPHEN 325 MG TABLET PO PRN (08:45)
[2019-07-08] MEDS ORDERED: oxyCODONE/APAP 5/325MG (PERCOCET 5) TABLET PO PRN (08:45)
[2019-07-08] MEDS ORDERED: morphine INJ 10 MG/ML 1ML (SYR OR VIAL) IVP PRN (08:45)
[2019-07-08] MEDS ORDERED: ONDANSETRON 4 MG/2 ML (SDV) Z0FRAN IVP PRN ×2 (08:45→13:30)
[2019-07-08] MEDS ORDERED: ceFAZolin 2 GM/50 ML NS 50 ML IV ONE (09:15)
[2019-07-08] MEDS: LACTATED RINGERS 1,000 ML IV PRN ×2 (09:19→12:15)
[2019-07-08] MEDS ORDERED: BUP/EPI 0.5% 1:200,000 (SENSORCAINE) 30 ML VIAL ONE (09:58)
[2019-07-08] MEDS ORDERED: LIDOCAINE PF 2% 5 ML (XYLOCAINE) VIAL ONE (10:14)
[2019-07-08] MEDS ORDERED: fentaNYL INJECTION 100 MCG/2 ML AMP ONE (10:14)
[2019-07-08] MEDS ORDERED: ONDANSETRON 4 MG/2 ML (SDV) Z0FRAN ONE (10:14)
[2019-07-08] MEDS ORDERED: proPOfol 200 MG/20 ML (DIPRIVAN) VIAL IV ONE (10:14)
[2019-07-08] MEDS ORDERED: DEXAMETHASONE 10 MG/ML (DECADRON) 1 ML VIAL ONE (10:14)
[2019-07-08] MEDS ORDERED: ROCURONIUM 10 MG/ML 5 ML SYRINGE IV ONE (12:36)
[2019-07-08] MEDS ORDERED: DESFLURANE (SUPRANE) 15 ML INHAL SOLN ONE ×9 (12:36→13:29)
--- NOTE | 2019-07-08 12:42 | Progress Note-Post Operative ---
Post-Operative Progess Note Surgeon (s)/Water Well Driller (s) Surgeon ELAINE FLORES MD Water Well Driller: iain gomez APRN Pre-Operative Diagnosis Symptomatic recurrent incisional hernia Post-Operative Diagnosis loss of domain abdominal wall. no recurrent hernia. Procedure & Operative Findings Date of Procedure 07/08/19 Procedure Performed/Findings component separation and placement biologic mesh([id number]). Anesthesia Type general LMA Estimated Blood Loss Estimated blood loss (mL): minimal Specimens/Packing Specimens Removed none ELAINE FLORES MD Jul 08, 2019 12:42 POS
[2019-07-08] MEDS ORDERED: RT-ALBUTEROL SULF 2.5 MG/3 ML PRE-MIX VIAL ONE (13:26)
[2019-07-08] MEDS ORDERED: RT-ALBUTEROL INHALER HFA (PROAIR HFA) 8.5 GM IH ONE (13:28)
[2019-07-08] MEDS ORDERED: NEOSTIGMINE 3 MG/3 ML VIAL ONE (13:28)
[2019-07-08] MEDS ORDERED: GLYCOPYRROLATE 0.2 MG/ML (ROBINUL) 2 ML VIAL ONE (13:28)
[2019-07-08] MEDS ORDERED: MEPERIDINE (DEMEROL) INJ 50 MG/ML IVP ONE (13:30)
[2019-07-08] MEDS ORDERED: morphine INJ 10 MG/ML 1ML (SYR OR VIAL) IVP ONE (13:30)
[2019-07-08] MEDS ORDERED: HYDROmorphone 2 MG/ML VIAL (DILAUDID) IV ONE (13:30)
--- NOTE | 2019-07-08 14:30 | NUR ---
REC'D PER BED FROM ICU. SEE ASSESSMENT. DR. CROWE NOTIFIED OF CONSULT. ON BIPAP. ALERT AND ORIENTED. 4 RAILS UP WITH BED ALARM.
[2019-07-08] MEDS: LACTATED RINGERS 1,000 ML IV SCH ×2 (15:12→21:27)
--- NOTE | 2019-07-08 15:43 | NUR ---
VOIDED LARGE AMOUNT. DENIES C/O. ABD BINDER ON AND DRESSING WITH SMALL SHADOW.
--- NOTE | 2019-07-08 16:40 | NUR ---
MS 2MG IV FOR ABD PAIN.
--- NOTE | 2019-07-08 17:09 | NUR ---
RT HERE AND OFF BIPAP AND PLACED ON 2L N/C.
--- NOTE | 2019-07-08 19:29 | OPERATIVE REPORT ---
DATE OF SERVICE: 07/08/2019 ATTENDING PRIMARY CARE PHYSICIAN: Dr. Alon Sheridan. PREOPERATIVE DIAGNOSIS: Recurrent ventral abdominal incisional hernia. POSTOPERATIVE DIAGNOSIS: Symptomatic loss of domain superior abdominal wall. No recurrent hernias. PROCEDURE PERFORMED: Component separation, placement of overlay biologic mesh([id number])(xenmatrix porcine) SURGEON: Elaine Flores MD. DEPARTMENT CLERK: Carl Kc APRN. ANESTHESIA: General endotracheal. ESTIMATED BLOOD LOSS: Minimal. FINDINGS: Loss of domain of the superior abdominal wall from previous midline incision. There was no recurrent hernia. There was scar tissue within the previous hernia repair. DISPOSITION: The patient tolerated the procedure well. INDICATIONS: The patient is a 74-year-old female, known to us. She developed red blood per rectum and underwent a colonoscopy and was found to have inflammatory changes of descending colon and biopsies were consistent with colitis. She had worsening problems and was found to have a contained perforation, underwent a low anterior sigmoid colon resection as well as Sumit pouch and colostomy on 07/27/2013. 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 On 03/16/2014, she underwent diagnostic laparoscopy, extensive lysis of adhesions; however, due to venous bleeding issues, it was decided to proceed with open procedure. The splenic flexure was taken down to have enough length to anastomose the rectal stump. She was then found to have an incisional hernia, which was symptomatic; however, reducible. On 03/11/2015, she underwent exploration, lysis of adhesions as well as small bowel resection and primary repair of the ventral abdominal incisional hernia. She was seen back on 06/03/2018, where a CT scan was performed and there was a recurrent hernia. On 08/06/2018, she underwent an open recurrent ventral abdominal incisional hernia repair with mesh, which was a large defect 12 x 14 cm in size. She did well after surgery and was admitted for a 23-hour observation. She was seen back in the office and found to have a small recurrence of hernia along the right lateral aspect. However, due to her recent surgery as well as anemia from surgery, we wanted to wait until her medical status was optimized. She had stated that over time that the pain and hernia grown larger in size. Upon examination in the office, it appeared that she did have a recurrent hernia. Otherwise, she is eating well, having normal bowel movements. DESCRIPTION OF PROCEDURE: The patient was brought to the operating room, laid supine on the table. After adequate IV pain and sedative medications and general laryngeal mask airway intubation, the abdomen was prepped and draped in standard surgical fashion. A 0.5% Marcaine with epinephrine was used to anesthetize the overlying skin from the previous midline incision. The subcutaneous tissue was then dissected down to fascia. We then proceeded with exploration for the hernia; however, there was no hernia identified; however, there was a loss of domain within the abdominal wall in the superior abdomen. Because she was symptomatic, it was decided to proceed with repair of the loss of domain. It was decided to proceed with a component separation as well as placement of a biologic mesh. We then proceeded with extending the incision vertically using a 15-blade. We then proceeded to dissect the subcutaneous tissue off of the fat to the lateral aspects of the abdominal wall along the external oblique muscle tissue fibers. We proceeded with this on bilateral sides identifying again the loss of domain. The scar tissue was then dissected away exposing what would be portions of the external oblique as well as scar tissue. Good hemostasis was observed. We then proceeded with an overlying mesh 28 x 15 cm in size. This was then sutured to the external oblique and scar tissue using interrupted #0 Prolene sutures starting with one side and using a quilting mattress sutures to midline. We then proceeded on the other side in a similar manner until the entire mesh was firmly adherent to the anterior abdominal wall fascia and scar tissue. We then proceeded with quilting of the subcutaneous fat to the biologic mesh using 3-0 Vicryl interrupted sutures to prevent seroma formation. The subcutaneous tissue was then reapproximated using 3-0 Vicryl interrupted suture and the skin was closed using skin trent. Before this, a 19-Hungarian drain was placed to again prevent seroma formation. The patient tolerated the procedure well. We will admit her for 23-hour observation. We will admit her and monitor her hemoglobin as well as proceed with pain control. We will also start a clear liquid diet and advance as tolerated. When she is ambulating well, has good pain control with oral pain medication and is ambulating well, we will discharge her home. She will be instructed to wear her abdominal binder at all times as well as to do no heavy lifting or exertion for the next six to eight weeks. 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
[2019-07-09] VITALS (7 sets, daily range): BP systolic 134–163; BP diastolic 63–83
[2019-07-09 07:22] LABS: HEMOGLOBIN 10.9 G/DL (11.5-16.0); RED CELL DISTRIBUTION WIDTH 13.5 % (10.0-14.5); WHITE BLOOD COUNT 24.1 10^3/uL (4.3-11.0)
--- NOTE | 2019-07-09 09:50 | Anesthesia-General Post-Op ---
General Patient Condition Mental Status/LOC: Same as Preop Cardiovascular: Satisfactory Nausea/Vomiting: Absent Respiratory: Satisfactory Pain: Controlled Complications: Absent Post Op Complications Complications None Follow Up Care/Instructions Patient Instructions None needed. Anesthesia/Patient Condition Patient Condition Patient is doing well, no complaints, stable vital signs, no apparent adverse anesthesia problems. No complications reported per nursing. JUANITA LEMUS CRNA Jul 09, 2019 09:50 POS
[2019-07-09] MEDS ORDERED: ONDN4T PO (14:59)
[2019-07-09] MEDS ORDERED: OMEP40CA36 PO (14:59)
[2019-07-09] MEDS ORDERED: MAG30ORA2 PO (14:59)
[2019-07-09] MEDS ORDERED: DEXT1DRO7 OU (14:59)
--- NOTE | 2019-07-09 15:00 | NUR ---
DISCHARGE ORDERS HAD ALREADY BEEN ENTERED BUT I UPDATED THE NECESSARY CHANGES WITH THE MAR FROM [facility].
--- NOTE | 2019-07-09 15:09 | Diagnostic Imaging Report ---
INDICATION: Leukocytosis. TECHNIQUE: Single view chest, 2:37 p.m. CORRELATION STUDY: 05/13/2019. FINDINGS: Heart size is mildly enlarged. Vasculature is overall within normal limits. Some atelectasis is suggested about the right lung base. Asymmetrically elevated right diaphragm is generally stable. No definitive consolidating infiltrate. Old healed left posterior lateral rib fractures. IMPRESSION: Cardiac enlargement without evidence of overt failure. Dictated by: Dictated on workstation # [id number]
[2019-07-09] MEDS ORDERED: LEVOTHYROXINE 75 MCG (LEVOTHROID) TABLET PO SCH (15:14)
[2019-07-09] MEDS ORDERED: oxyCODONE/APAP 5/325MG (PERCOCET 5) TABLET PO PRN (15:15)
[2019-07-09] MEDS ORDERED: ONDANSETRON 4 MG (ZOFRAN) ORAL DISSOLVE TAB PO PRN (15:15)
[2019-07-09] MEDS ORDERED: ANTACID SUSP 30 ML UDC (MYLANTA) PO PRN (15:15)
[2019-07-09] MEDS ORDERED: ACETAMINOPHEN 500 MG TAB (TYLENOL) PO PRN (15:15)
[2019-07-09] MEDS ORDERED: LORATADINE (CLARITIN) 10 MG TAB PO PRN (15:15)
[2019-07-09 15:17] LABS: ALANINE AMINOTRANSFERASE < 6 U/L (0-55); ALBUMIN 3.4 GM/DL (3.2-4.5); ALKALINE PHOSPHATASE 89 U/L (40-136); BILIRUBIN,TOTAL 0.5 MG/DL (0.1-1.0); BUN/CREATININE RATIO 23; CALCIUM 8.4 MG/DL (8.5-10.1); CARBON DIOXIDE 26 MMOL/L (21-32); CHLORIDE 107 MMOL/L (98-107); CREATININE SERUM 0.96 MG/DL (0.60-1.30); GFR ESTIMATED 57; GLUCOSE 78 MG/DL (70-105); POTASSIUM 4.4 MMOL/L (3.6-5.0); SODIUM 140 MMOL/L (135-145); TOTAL PROTEIN 6.3 GM/DL (6.4-8.2)
--- NOTE | 2019-07-09 16:21 | Progress Note ---
Subjective Date Seen by a Provider: Jul 09, 2019 Time Seen by a Provider: 15:00 Subjective/Events-last exam doing ok. tolerating diet and passing flatus. pain controllled. leukocytosis most likely secondary atelectasis. Objective Exam Vital Signs Date Time Temp Pulse Resp B/P (MAP) Pulse Ox O2 Delivery O2 Flow Rate FiO2 07/09/19 12:00 36.7 87 20 142/66 (91) 95 Room Air 07/09/19 09:22 Room Air 07/09/19 09:20 94 Nasal Cannula 2.00 07/09/19 08:00 36.6 85 18 159/83 (108) 94 Room Air 07/09/19 04:00 36.6 80 20 144/65 (91) 96 Nasal Cannula 4.00 07/09/19 00:47 36.8 86 22 163/71 (101) 97 NIV Bilevel 6.00 50.00 07/08/19 23:27 75 97 50.00 07/08/19 21:00 94 Nasal Cannula 2.00 07/08/19 20:00 36.9 91 18 140/65 (90) 95 Nasal Cannula 4.00 I & O 07/09/19 07:00 Intake Total 3635 ml Output Total 220 ml Balance 3415 ml Capillary Refill : General Appearance: No Apparent Distress HEENT: PERRL/EOMI Neck: Full Range of Motion Respiratory: Decreased Breath Sounds Cardiovascular: Regular Rate, Rhythm Gastrointestinal: soft, tenderness Extremity: Normal Capillary Refill Neurologic/Psychiatric: Alert, Oriented x3 Skin: Normal Color Lymphatic: No Adenopathy Results Lab Laboratory Tests 07/09/19 07:10: White Blood Count 24.1H, Red Blood Count 3.99L, Hemoglobin 10.9L, Hematocrit 33L , Mean Corpuscular Volume 83, Mean Corpuscular Hemoglobin 27, Mean Corpuscular Hemoglobin Concent 33, Red Cell Distribution Width 13.5, Platelet Count 273, Mean Platelet Volume 11.0H 07/09/19 14:50: Sodium Level 140, Potassium Level 4.4, Chloride Level 107, Carbon Dioxide Level 26, Anion Gap 7, Blood Urea Nitrogen 22H, Creatinine 0.96, Estimat Glomerular Filtration Rate 57, BUN/Creatinine Ratio 23, Glucose Level 78, Calcium Level 8.4L, Corrected Calcium 8.9, Total Bilirubin 0.5, Aspartate Amino Transf (AST/SGOT) 10, Alanine Aminotransferase (ALT/SGPT) < 6, Alkaline Phosphatase 89, Total Protein 6.3L, Albumin 3.4 Assessment/Plan Assessment/Plan Assess & Plan/Chief Complaint s/p abdominal wall component separation and biologic mesh closure. atelectasis. cxr. consult PT. check U/A. repeat labs. Clinical Quality Measures DVT/VTE Risk/Contraindication: Risk Factor Score Per Nursin RFS Level Per Nursing on Admit: 4+=Very High ELAINE FLORES MD Jul 09, 2019 16:21 POS
--- NOTE | 2019-07-09 16:36 | Consultation ---
HPI History of Present Illness: 74 yo F that was admitted after incisional hernia repair. Asked to consult for medical management from Dr Chen. Patient has h/o HTN and hypothyroidim that are both well controlled. Source: patient Exam Limitations: no limitations Date seen by provider: Jul 09, 2019 Time Seen by Provider: 11:05 Attending Physician Nina Chen MD PCP Alon Sheridan MD Consult Date of Admission Home Medications Home Medications Reviewed patient Home Medication Reconciliation performed by pharmacy medication reconciliations ground control approach technician and/or nursing. Patients Allergies have been reviewed. Allergies Coded Allergies: Penicillins (Verified Allergy, Unknown, Pt has received Cefazolin & Ceftriaxone in the past w/o issu, 07/08/19) codeine (Verified Allergy, Unknown, Pt has received Lortab and Morphine in the past, 07/08/19) [id number]-Nbtoyg Hx Patient Social History Alcohol Use: Rarely Uses Recreational Drug Use: No Smoking Status: Never a Smoker 2nd Hand Smoke Exposure: No Recent Foreign Travel: No Contact w/other who traveled: No Recent Hopitalizations: Yes (APR 2019-CHEST PAIN) Recent Infectious Disease Expo: No Immunizations Up To Date Tetanus Booster (TDap): Unknown Date of Pneumonia Vaccine: May 28, 2011 Date of Influenza Vaccine: Apr 27, 2019 Past Medical History Parkinsons Disease Anxiety COPD Dementia HTN Hypothyroidism Chronic Pain Insomnia GERD Seizure Disorder Family Medical History Significant Family History: Hypertension Family History: Congenital disease 19 MOTHER Family history: Arthritis Hypertension 19 MOTHER Malignant neoplasm of lung 09 BROTHER No Family History of: Cancer Seizure disorder Review of Systems (CHC) Constitutional: no symptoms reported; No fever EENTM: no symptoms reported; No mouth pain, No nose congestion, No nose pain, No throat pain Respiratory: No cough; dyspnea on exertion; No orthopnea, No short of breath Cardiovascular: no symptoms reported; No chest pain, No edema, No palpitations Gastrointestinal: abdominal pain; No constipation, No diarrhea, No loss of appetite, No nausea, No vomiting Genitourinary: no symptoms reported; No dysuria, No frequency, No hematuria : No Musculoskeletal: no symptoms reported; No back pain, No joint pain, No muscle pain Skin: no symptoms reported; No lesions, No rash Psychiatric/Neurological: No Symptoms Reported Reviewed Test Results Reviewed Test Results Lab Laboratory Tests Test 07/09/19 07:10 07/09/19 14:50 Range/Units White Blood Count 24.1 H 4.3-11.0 10^3/uL Red Blood Count 3.99 L 4.35-5.85 10^6/uL Hemoglobin 10.9 L 11.5-16.0 G/DL Hematocrit 33 L 35-52 % Mean Corpuscular Volume 83 80-99 FL Mean Corpuscular Hemoglobin 27 25-34 PG Mean Corpuscular Hemoglobin Concent 33 32-36 G/DL Red Cell Distribution Width 13.5 10.0-14.5 % Platelet Count 273 130-400 10^3/uL Mean Platelet Volume 11.0 H 7.4-10.4 FL Sodium Level 140 135-145 MMOL/L Potassium Level 4.4 3.6-5.0 MMOL/L Chloride Level 107 98-107 MMOL/L Carbon Dioxide Level 26 21-32 MMOL/L Anion Gap 7 5-14 MMOL/L Blood Urea Nitrogen 22 H 7-18 MG/DL Creatinine 0.96 0.60-1.30 MG/DL Estimat Glomerular Filtration Rate 57 BUN/Creatinine Ratio 23 Glucose Level 78 70-105 MG/DL Calcium Level 8.4 L 8.5-10.1 MG/DL Corrected Calcium 8.9 8.5-10.1 MG/DL Total Bilirubin 0.5 0.1-1.0 MG/DL Aspartate Amino Transf (AST/SGOT) 10 5-34 U/L Alanine Aminotransferase (ALT/SGPT) < 6 0-55 U/L Alkaline Phosphatase 89 40-136 U/L Total Protein 6.3 L 6.4-8.2 GM/DL Albumin 3.4 3.2-4.5 GM/DL Physical Exam-(CHC) Physical Exam Vital Signs VS - Last 72 Hours, by Label POS 07/08/19 07/08/19 07/08/19 07/08/19 09:25 09:49 13:23 13:23 Temp 36.6 36.1 Pulse 68 Resp 18 18 B/P (MAP) 155/77 (103) 129/63 (85) Pulse Ox 96 93 O2 Delivery Room Air Room Air OxyMask OxyMask O2 Flow Rate 6 6 07/08/19 07/08/19 07/08/19 07/08/19 13:30 13:35 13:40 13:50 Resp 18 12 B/P (MAP) 124/93 (103) 125/62 (83) Pulse Ox 87 95 O2 Delivery OxyMask OxyMask NIV Bilevel NIV Bilevel O2 Flow Rate 6 6 07/08/19 07/08/19 07/08/19 07/08/19 13:50 14:00 14:01 14:05 Resp 12 12 B/P (MAP) 134/63 (86) 137/70 (92) Pulse Ox 98 98 O2 Delivery NIV Bilevel NIV Bilevel NIV Bilevel NIV Bilevel 07/08/19 07/08/19 07/08/19 07/08/19 14:10 14:10 14:20 14:20 Resp 12 12 B/P (MAP) 137/59 (85) 147/60 (89) Pulse Ox 96 94 O2 Delivery NIV Bilevel NIV Bilevel NIV Bilevel NIV Bilevel 07/08/19 07/08/19 07/08/19 07/08/19 14:30 14:30 14:30 14:40 Temp 36.3 35.4 Pulse 82 Resp 12 16 B/P (MAP) 135/62 (86) 136/63 Pulse Ox 94 92 94 O2 Delivery NIV Bilevel NIV Bilevel NIV Bilevel NIV Bilevel O2 Flow Rate 6.00 6.00 6.00 FiO2 50 07/08/19 07/08/19 07/08/19 07/08/19 14:42 15:09 16:00 20:00 Temp 35.4 36.1 36.9 Pulse 84 87 97 91 Resp 16 24 18 B/P (MAP) 136/63 (87) 136/78 (97) 140/65 (90) Pulse Ox 92 92 92 95 O2 Delivery NIV Bilevel NIV Bilevel Nasal Cannula O2 Flow Rate 6.00 50.00 6.00 4.00 50.00 50.00 07/08/19 07/08/19 07/09/19 07/09/19 21:00 23:27 00:47 04:00 Temp 36.8 36.6 Pulse 75 86 80 Resp 22 20 B/P (MAP) 163/71 (101) 144/65 (91) Pulse Ox 94 97 97 96 O2 Delivery Nasal Cannula NIV Bilevel Nasal Cannula O2 Flow Rate 2.00 50.00 6.00 4.00 50.00 07/09/19 07/09/19 07/09/19 07/09/19 08:00 09:20 09:22 12:00 Temp 36.6 36.7 Pulse 85 87 Resp 18 20 B/P (MAP) 159/83 (108) 142/66 (91) Pulse Ox 94 94 95 O2 Delivery Room Air Nasal Cannula Room Air Room Air O2 Flow Rate 2.00 Capillary Refill : General Appearance: WD/WN, no apparent distress HEENT: PERRL/EOMI Neck: non-tender, full range of motion, supple Respiratory: chest non-tender, lungs clear, normal breath sounds, no respiratory distress, no accessory muscle use Cardiovascular: normal peripheral pulses, regular rate, rhythm, no edema, no murmur Gastrointestinal: normal bowel sounds, non tender, soft, no organomegaly Extremities: normal range of motion, non-tender, normal inspection, no pedal edema, no calf tenderness, normal capillary refill Neurologic/Psychiatric: outpatient admitting clerk II-XII nml as tested, no motor/sensory deficits, alert, normal mood/affect, oriented x 3 Skin: normal color, warm/dry Lymphatic: no adenopathy Assessment/Plan Assessment/Plan Admission Status: Inpatient Order (span 2 midnights) Reason for Inpatient Admission: Post op recovery, required bipap after intubation for surgery (1) RECURRENT INCISIONAL HERNIA Status: Chronic Assessment & Plan: - POD #1 from hernia repair by Dr Chen, pain managed by surgery, Plan for d/c in the AM (2) Hypothyroidism Status: Chronic Assessment & Plan: - Continue home meds Qualifiers: Qualified Codes: E03.9 - Hypothyroidism, unspecified (3) Parkinson disease Status: Chronic Assessment & Plan: - Continue home meds (4) COPD (chronic obstructive pulmonary disease) Status: Chronic Assessment & Plan: - Required Bipap after surgery, currently on RA, no baseline oxygen requirement at home Qualifiers: Qualified Codes: J41.0 - Simple chronic bronchitis (5) HTN (hypertension) Status: Chronic Assessment & Plan: - Continue home meds Qualifiers: Qualified Codes: I10 - Essential (primary) hypertension (6) BMI 35.0-35.9,adult Status: Chronic Clinical Quality Measures DVT/VTE Risk/Contraindication: Risk Factor Score Per Nursin RFS Level Per Nursing on Admit: 4+=Very High MEKA CROWE MD Jul 09, 2019 16:36 POS
[2019-07-09] MEDS: PRAMIPEXOLE 0.5 MG TAB (MIRAPEX) PO SCH ×2 (17:25→20:44)
[2019-07-09] MEDS: LEVOTHYROXINE 75 MCG (LEVOTHROID) TABLET PO SCH (17:25)
[2019-07-09] MEDS: LACTATED RINGERS 1,000 ML IV SCH ×2 (17:25→18:29)
[2019-07-09] MEDS: ASPIRIN 81 MG CHEW (CHILDREN'S ASA) PO SCH (17:26)
[2019-07-09] MEDS: rOPINIRole 1 MG (REQUIP) TABLET PO SCH ×2 (17:26→20:52)
[2019-07-09] MEDS: lisINopril 5 MG (PRINIVIL) TABLET PO SCH (17:26)
[2019-07-09] MEDS: SINEMET CR 50/200 (CARBIDOPA/LEVODOPA SA) TAB PO SCH ×2 (17:27→20:45)
[2019-07-09] MEDS: ARTIFICAL TEARS 0.4 ML UNIT DOSE (REFRESH PLUS) OU SCH ×2 (18:30→20:52)
[2019-07-09 20:06] LABS: HEMOGLOBIN 10.1 G/DL (11.5-16.0); MEAN PLATELET VOLUME 11.1 FL (7.4-10.4); RED CELL DISTRIBUTION WIDTH 13.5 % (10.0-14.5); WHITE BLOOD COUNT 21.3 10^3/uL (4.3-11.0)
[2019-07-09] MEDS: DONEPEZIL 10 MG (ARICEPT) TAB PO SCH (20:44)
[2019-07-09] MEDS: rOPINIRole 0.25 MG (REQUIP) TAB PO SCH (20:44)
[2019-07-09] MEDS: CAL. POLYCARBOPHIL 625 MG (FIBERCON) TAB PO SCH (20:45)
[2019-07-09] MEDS: traZODone 50 MG (DESYREL) TAB PO SCH (20:52)
[2019-07-09] MEDS: CIPROFLOXACIN IV 400MG/200ML 200 ML IV SCH (20:53)
[2019-07-09] MEDS: metroNIDAZOLE 500MG/100ML IVPB 100 ML IV SCH (22:29)
[2019-07-10 03:59] VITALS: BP 136/63
[2019-07-10 04:48] LABS: HEMOGLOBIN 9.9 G/DL (11.5-16.0); MEAN PLATELET VOLUME 11.3 FL (7.4-10.4); RED CELL DISTRIBUTION WIDTH 13.7 % (10.0-14.5); WHITE BLOOD COUNT 18.1 10^3/uL (4.3-11.0)
[2019-07-10 05:05] LABS: BUN/CREATININE RATIO 24; CALCIUM 8.3 MG/DL (8.5-10.1); CARBON DIOXIDE 20 MMOL/L (21-32); CHLORIDE 107 MMOL/L (98-107); CREATININE SERUM 0.89 MG/DL (0.60-1.30); GFR ESTIMATED > 60; GLUCOSE 148 MG/DL (70-105); POTASSIUM 3.9 MMOL/L (3.6-5.0); SODIUM 139 MMOL/L (135-145)
[2019-07-10] MEDS: LEVOTHYROXINE 75 MCG (LEVOTHROID) TABLET PO SCH (05:26)
[2019-07-10] MEDS: LACTATED RINGERS 1,000 ML IV SCH (06:53)
[2019-07-10] MEDS: lisINopril 5 MG (PRINIVIL) TABLET PO SCH (08:23)
[2019-07-10] MEDS: SINEMET CR 50/200 (CARBIDOPA/LEVODOPA SA) TAB PO SCH ×2 (08:24→21:51)
[2019-07-10] MEDS: ASPIRIN 81 MG CHEW (CHILDREN'S ASA) PO SCH (08:24)
[2019-07-10] MEDS: PANTOPRAZOLE 40 MG (PROTONIX) TAB PO SCH (08:24)
[2019-07-10] MEDS: ARTIFICAL TEARS 0.4 ML UNIT DOSE (REFRESH PLUS) OU SCH ×4 (08:25→21:44)
[2019-07-10] MEDS: CAL. POLYCARBOPHIL 625 MG (FIBERCON) TAB PO SCH ×2 (08:26→21:51)
[2019-07-10] MEDS: CIPROFLOXACIN IV 400MG/200ML 200 ML IV SCH ×2 (08:26→21:52)
[2019-07-10] MEDS: rOPINIRole 1 MG (REQUIP) TABLET PO SCH ×2 (08:29→21:51)
[2019-07-10] MEDS ORDERED: NON-FORMULARY MEDICATION 1 EA EA (Mirabegron (Myrbetriq) 25 MG) PO SCH (09:00)
[2019-07-10 09:36] VITALS: BP 183/77
[2019-07-10 09:48] VITALS: BP 138/77
[2019-07-10] MEDS: metroNIDAZOLE 500MG/100ML IVPB 100 ML IV SCH ×2 (10:05→21:52)
--- NOTE | 2019-07-10 10:10 | Physical Therapy Evaluation ---
PT Evaluation-General Medical Diagnosis Admission Date 07/08/19 Medical Diagnosis: recurrent ventral abdominal incisional hernia s/p mesh repair Onset Date: Jul 09, 2019 Therapy Diagnosis Therapy Diagnosis: decreased functional mobility Height/Weight Height (Feet): 5 Height (Inches): 1.00 Weight (Pounds): 181 Weight (Ounces): 0.0 Precautions Precautions/Isolations: Fall Prevention, Standard Precautions Weight Bear Status Right Lower Extremity: Right Weight Bearing/Tolerated Left Lower Extremity: Left Weight Bearing/Tolerated Referral Physician: April Reason for Referral: Evaluation/Treatment Medical History Pertinent Medical History: COPD, Dementia, GERD, HTN, Hypothroidism, Parkinson's Additional Medical History perforated ischemic colitis, HTN, GERD, arthritis, gout, depression, diverticulosis, COPD, Vitamin D deficiency, epilepsy, constipation, RLS, IBS, recurrent ventral abdominal incision, multiple abdominal Sx Current History s/p mesh repair Reviewed History: Yes Social History Home: Assisted Living Current Living Status: Alone Entry Into Home: Level Entry Prior Prior Level of Function SCALE: Activities may be completed with or without assistive devices. 1-Fzfpxzfeus-punncky completes the activity by him/herself with no assistance from a helper. 5-Set-up or Clean-up Assistance-helper sets up or cleans up; patient completes activity. Zillah assists only prior to or following the activity. 4-Supervision or Touching Assistance-helper provides verbal cues and/or touching/steadying and/or contact guard assistance as patient completes activity. Assistance may be provided throughout the activity or intermittently. 3-Partial/Moderate Assistance-helper does LESS THAN HALF the effort. Zillah lifts, holds or supports trunk or limbs, but provides less than half the effort. 2-Substantial/Maximal Assistance-helper does MORE THAN HALF the effort. Zillah lifts or holds trunk or limbs and provides more than half the effort. 6-Letvgfjhp-hxynde does ALL the effort. Patient does none of the effort to complete the activity. Or, the assistance of 2 or more helpers is required for the patient to complete the activity. If activity was not attempted, code reason: 7-Patient Refused. 9-Not Applicable-not attempted and the patient did not perform the activity before the current illness, exacerbation or injury. 10-Not Attempted due to Environmental Limitations-(lack of equipment, weather restraints, etc.). 88-Not Attempted due to Medical Conditions or Safety Concerns. Bed Mobility: 7 Transfers (B,C,W/C): 7 Gait: 6 Stairs: 6 Indoor Mobility (Ambulation): Independent Stairs: Independent Prior Devices Use: Walker ([facility] community, SPC in house), Other-see list below PT Evaluation-Current Subjective Pt up in chair, agreeable. Denies pain except with transitional movements, not rated. Objective Patient Orientation: Person, Place, Time, Situation Attachments: Oxygen, Drains, IV ROM/Strength ROM Upper Extremities WFL for mobility ROM Lower Extremities WFL for mobility Strength Upper Extremities WFL for mobility Strength Lower Extremities Grossly 3/5 Integumentary/Posture Integumentary See nurses' notes Neuromuscular (Tone, Coordination, Reflexes) unremarkable Sensory Vision: Wears Glasses Hearing: Functional Transfers Roll Left to Right (QC): 7 Sit to Lying (QC): 7 Lying to Sitting/Side of Bed(Q: 7 Sit to Stand (QC): 5 Chair/Kgr-gd-Rnyet Xfer(QC): 7 Car Transfer (QC): 7 Pt in recliner pre and post treatment. Gait Does the Patient Walk?: Yes Mode of Locomotion: Walk Anticipated Mode of Locomotion: Walk Walk 10 feet (QC): 5 Walk 50 ft with 2 Turns(QC): 5 Walk 150 ft (QC): 5 Walking 10ft/uneven surface-QC: 7 Distance: 250 Gait Assistive Device: FWW Comments/Gait Description Slow, steady gait with FWW. Wheelchair Training Does the Pt Use a Wheelchair?: No Wheel 50 ft with 2 turns (QC): 9 Wheel 150 ft (QC): 9 Type of Wheelchair: Manual (9) Pt does not utilize [facility] Stairs 1 Step (curb) (QC): 7 4 Steps (QC): 9 12 Steps (QC): 9 Balance Sitting Static: Normal Sitting Dynamic: Normal Standing Static: Normal Standing Dynamic: Good Picking up an Object (QC): 7 Treatment Eval. Returned to up in recliner with needs met, O2 in situ Assessment/Needs Pt would benefit from skilled PT short term to restore functional mobility to PLOF for safe, (I) return to CUSTODIAL Rehab Potential: Good PT Operator Automated Process Goals Operator Automated Process Goals PT Operator Automated Process Goals Time Frame: Jul 17, 2019 Roll Left & Right (QC): 7 Sit to Lying (QC): 7 Lying-Sitting on Side/Bed(QC): 7 Sit to Stand (QC): 6 Chair/Fdv-et-Jsree Xfer(QC): 6 Toilet Transfer (QC): 6 Car Transfer (QC): 6 Does the Patient Walk: Yes Walk 10 feet (QC): 6 Walk 50ft with 2 Turns (QC): 6 Walk 150 ft (QC): 6 Walking 10ft on Uneven Surface: 6 1 Step (curb) (QC): 6 4 Steps (QC): 9 12 Steps (QC): 9 Picking up an Object (QC): 9 Does the Pt use WC or Scooter?: No Type: N/A Type: N/A PT LTG established to allow safe return home PT Plan Problem List Problem List: Activity Tolerance, Functional Strength, Balance, Gait, Transfer, Bed Mobility Treatment/Plan Treatment Plan: Continue Plan of Care Treatment Plan: Bed Mobility, Education, Functional Activity Long, Functional Strength, Gait, Safety, Therapeutic Exercise, Transfers Treatment Duration: Jul 17, 2019 Frequency: 6 times per week Estimated Hrs Per Day: .25 hour per day Patient and/or Family Agrees t: Yes Safety Risks/Education Teaching Recipient: Patient Teaching Methods: Discussion Response to Teaching: Verbalize Understanding PT POC, log-rolling in/out of bed Discharge Recommendations Therapy Discharge Recommendati: Assisted Living Barriers to Progress None Time/GCodes Time In: 921 Time Out: 0940 Total Billed Treatment Time: 18 Total Billed Treatment 1, LANIE x 18' CARMEN NAIK DPT Jul 10, 2019 10:10 POS
--- NOTE | 2019-07-10 11:15 | Progress Note ---
Subjective Date Seen by a Provider: Jul 10, 2019 Time Seen by a Provider: 10:00 Subjective/Events-last exam doing ok. mild cough, no sputum. pain controlled. tolerating diet. having bowel movements. WBC still high however trending down. Objective Exam Vital Signs Date Time Temp Pulse Resp B/P (MAP) Pulse Ox O2 Delivery O2 Flow Rate FiO2 07/10/19 11:06 Room Air 07/10/19 09:48 36.5 63 20 138/77 (97) 93 Room Air 2.00 2.00 07/10/19 09:00 Room Air 07/10/19 03:59 36.5 66 16 136/63 (87) 93 Room Air 07/09/19 23:04 37.3 67 17 134/63 (86) 93 Room Air 07/09/19 21:37 93 Room Air 07/09/19 21:00 Room Air 07/09/19 19:20 37.1 80 18 136/63 (87) 94 Room Air 07/09/19 16:51 37.4 68 20 136/73 (94) 94 Room Air 07/09/19 12:00 36.7 87 20 142/66 (91) 95 Room Air I & O 07/10/19 07:00 Intake Total 2150 ml Output Total 60 ml Balance 2090 ml Capillary Refill : General Appearance: No Apparent Distress HEENT: PERRL/EOMI Neck: Full Range of Motion Respiratory: Decreased Breath Sounds Cardiovascular: Regular Rate, Rhythm Gastrointestinal: soft, tenderness Extremity: Normal Capillary Refill Neurologic/Psychiatric: Alert, Oriented x3 Skin: Normal Color Lymphatic: No Adenopathy Results Lab Laboratory Tests 07/09/19 14:50: Sodium Level 140, Potassium Level 4.4, Chloride Level 107, Carbon Dioxide Level 26, Anion Gap 7, Blood Urea Nitrogen 22H, Creatinine 0.96, Estimat Glomerular Filtration Rate 57, BUN/Creatinine Ratio 23, Glucose Level 78, Calcium Level 8.4L, Corrected Calcium 8.9, Total Bilirubin 0.5, Aspartate Amino Transf (AST/SGOT) 10, Alanine Aminotransferase (ALT/SGPT) < 6, Alkaline Phosphatase 89, Total Protein 6.3L, Albumin 3.4 07/09/19 20:01: White Blood Count 21.3H, Red Blood Count 3.68L, Hemoglobin 10.1L, Hematocrit 31L , Mean Corpuscular Volume 85, Mean Corpuscular Hemoglobin 27, Mean Corpuscular Hemoglobin Concent 32, Red Cell Distribution Width 13.5, Platelet Count 269, Mean Platelet Volume 11.1H 07/10/19 04:20: Sodium Level 139, Potassium Level 3.9, Chloride Level 107, Carbon Dioxide Level 20L, Anion Gap 12, Blood Urea Nitrogen 21H, Creatinine 0.89, Estimat Glomerular Filtration Rate > 60, BUN/Creatinine Ratio 24, Glucose Level 148H, Calcium Level 8.3L, White Blood Count 18.1H, Red Blood Count 3.62L, Hemoglobin 9.9L, Hematocrit 31L, Mean Corpuscular Volume 87, Mean Corpuscular Hemoglobin 27, Mean Corpuscular Hemoglobin Concent 32, Red Cell Distribution Width 13.7, Platelet Count 246, Mean Platelet Volume 11.3H Assessment/Plan Assessment/Plan Assess & Plan/Chief Complaint s/p abdominal wall component separation and biologic mesh closure. atelectasis. cxr. consult PT. check U/A. repeat labs. increase ambulation. Clinical Quality Measures DVT/VTE Risk/Contraindication: Risk Factor Score Per Nursin RFS Level Per Nursing on Admit: 4+=Very High ELAINE FLORES MD Jul 10, 2019 11:14 POS
--- NOTE | 2019-07-10 12:01 | Progress Note - Hospitalist ---
Subjective HPI/CC On Admission Date Seen by Provider: Jul 10, 2019 Time Seen by Provider: 10:30 Subjective/Events-last exam Patient reports feeling better appetite is improved with less abdominal discomfort. She denies night sweats chills or fever. She has a mild nonproductive cough. Objective Exam Vital Signs Vital Signs Date Time Temp Pulse Resp B/P (MAP) Pulse Ox O2 Delivery O2 Flow Rate FiO2 07/10/19 11:06 Room Air 07/10/19 09:48 36.5 63 20 138/77 (97) 93 2.00 2.00 07/08/19 14:30 50 Capillary Refill : General Appearance: No Apparent Distress, WD/WN Respiratory: No Accessory Muscle Use, No Respiratory Distress, Other (Mildly decreased breath sounds in both bases otherwise chest is clear no wheezes rales or rhonchi noted.) Cardiovascular: Regular Rate, Rhythm, No Edema, No Gallop, No JVD, No Murmur, Normal Peripheral Pulses Results/Procedures Lab Laboratory Tests 07/09/19 14:50 07/09/19 20:01 07/10/19 04:20 Patient resulted labs reviewed. Assessment/Plan Assessment and Plan Assess & Plan/Chief Complaint (1) RECURRENT INCISIONAL HERNIA Status: Chronic Assessment & Plan: - POD #2 from hernia repair by Dr Flores, pain managed by surgery, after discussion with Dr. FLORES due to increased white count we will hold another day. Patient does feel as though she is improving and her white count was down to 19,020 1000. We'll obtain a differential with tomorrow morning's CBC. Patient's appetite is improving with mild constipation which should rule out C. difficile as a cause for her increased white count. There is no evidence clinically to suggest infection at this time. (2) Hypothyroidism Status: Chronic Assessment & Plan: - Continue home meds Qualifiers: Qualified Codes: E03.9 - Hypothyroidism, unspecified (3) Parkinson disease Status: Chronic Assessment & Plan: - Continue home meds (4) COPD (chronic obstructive pulmonary disease) Status: Chronic Assessment & Plan: - Required Bipap after surgery, currently on RA, no baseline oxygen requirement at home Qualifiers: Qualified Codes: J41.0 - Simple chronic bronchitis (5) HTN (hypertension) Status: Chronic Assessment & Plan: - Continue home meds Qualifiers: Qualified Codes: I10 - Essential (primary) hypertension (6) BMI 35.0-35.9,adult Status: Chronic Clinical Quality Measures DVT/VTE Risk/Contraindication: Risk Factor Score Per Nursin RFS Level Per Nursing on Admit: 4+=Very High JOHN BEAVERS MD Jul 10, 2019 12:01 POS
[2019-07-10 12:48] VITALS: BP 145/85
[2019-07-10 16:00] VITALS: BP 141/62
[2019-07-10] MEDS: RT-ADVAIR HFA 115/21 MCG PER PUFF IH SCH (19:46)
[2019-07-10 20:00] VITALS: BP 148/66
[2019-07-10] MEDS: PRAMIPEXOLE 0.5 MG TAB (MIRAPEX) PO SCH (21:43)
[2019-07-10] MEDS: rOPINIRole 0.25 MG (REQUIP) TAB PO SCH (21:44)
[2019-07-10] MEDS: traZODone 50 MG (DESYREL) TAB PO SCH (21:51)
[2019-07-10] MEDS: DONEPEZIL 10 MG (ARICEPT) TAB PO SCH (21:51)
[2019-07-10 22:21] LABS: BILIRUBIN,URINE NEGATIVE (NEGATIVE); CLARITY,URINE CLEAR; COLOR,URINE YELLOW; GLUCOSE, URINE (UA) NEGATIVE (NEGATIVE); KETONES,URINE NEGATIVE (NEGATIVE); LEUKOCYTE ESTERASE ,URINE NEGATIVE (NEGATIVE); NITRITE,URINE NEGATIVE (NEGATIVE); PROTEIN,URINE NEGATIVE (NEGATIVE)
[2019-07-10 22:28] LABS: BACTERIA,URINE TRACE /HPF; SQUAMOUS EPITHELIAL CELL,UR 0-2 /HPF
[2019-07-11 00:23] VITALS: BP 127/71
[2019-07-11 05:21] LABS: BASOPHILS % (AUTO) 0 % (0-10); EOSINOPHILS # (AUTO) 0.5 10^3/uL (0.0-0.3); EOSINOPHILS % (AUTO) 3 % (0-10); HEMATOCRIT 33 % (35-52); HEMOGLOBIN 10.3 G/DL (11.5-16.0); LYMPHOCYTES # (AUTO) 1.9 X 10^3 (1.0-4.0); LYMPHOCYTES % (AUTO) 14 % (12-44); MEAN CORPUSCULAR HEMOGLOBIN 27 PG (25-34); MEAN CORPUSCULAR HGB CONC 32 G/DL (32-36); MEAN CORPUSCULAR VOLUME 86 FL (80-99); MEAN PLATELET VOLUME 11.5 FL (7.4-10.4); MONOCYTES # (AUTO) 1.3 X 10^3 (0.0-1.0); MONOCYTES % (AUTO) 9 % (0-12); NEUTROPHILS # (AUTO) 10.5 X 10^3 (1.8-7.8); NEUTROPHILS % (AUTO) 74 % (42-75); PLATELET COUNT 185 10^3/uL (130-400); RED CELL DISTRIBUTION WIDTH 13.8 % (10.0-14.5); WHITE BLOOD COUNT 14.2 10^3/uL (4.3-11.0)
[2019-07-11] MEDS: LEVOTHYROXINE 75 MCG (LEVOTHROID) TABLET PO SCH (06:13)
[2019-07-11] MEDS: RT-ADVAIR HFA 115/21 MCG PER PUFF IH SCH (07:01)
[2019-07-11 08:06] VITALS: BP 117/57
[2019-07-11] MEDS: ARTIFICAL TEARS 0.4 ML UNIT DOSE (REFRESH PLUS) OU SCH (08:26)
[2019-07-11] MEDS: rOPINIRole 1 MG (REQUIP) TABLET PO SCH (08:27)
[2019-07-11] MEDS: CAL. POLYCARBOPHIL 625 MG (FIBERCON) TAB PO SCH (08:27)
[2019-07-11] MEDS: SINEMET CR 50/200 (CARBIDOPA/LEVODOPA SA) TAB PO SCH (08:27)
[2019-07-11] MEDS: PANTOPRAZOLE 40 MG (PROTONIX) TAB PO SCH (08:27)
[2019-07-11] MEDS: ASPIRIN 81 MG CHEW (CHILDREN'S ASA) PO SCH (08:27)
[2019-07-11] MEDS: lisINopril 5 MG (PRINIVIL) TABLET PO SCH (08:27)
[2019-07-11] MEDS: CIPROFLOXACIN IV 400MG/200ML 200 ML IV SCH (08:28)
[2019-07-11] MEDS: metroNIDAZOLE 500MG/100ML IVPB 100 ML IV SCH (09:34)
--- NOTE | 2019-07-11 11:01 | Progress Note ---
Subjective Date Seen by a Provider: Jul 11, 2019 Time Seen by a Provider: 10:00 Subjective/Events-last exam doing well. tolerating diet and having BM's. no repiratory issues and ambulating better. WBC normalizing. Objective Exam Vital Signs Date Time Temp Pulse Resp B/P (MAP) Pulse Ox O2 Delivery O2 Flow Rate FiO2 07/11/19 09:00 Room Air 07/11/19 08:06 37.0 69 18 117/57 (77) 93 Room Air 07/11/19 07:02 92 Room Air 07/11/19 00:23 37.1 68 20 127/71 (89) 93 Room Air 07/10/19 21:00 Room Air 07/10/19 20:00 37.2 64 18 148/66 (93) 94 Room Air 07/10/19 19:46 92 Room Air 07/10/19 16:00 36.7 61 20 141/62 (88) 93 Room Air 07/10/19 12:48 36.6 67 18 145/85 (105) 98 Room Air 07/10/19 11:06 Room Air I & O 07/11/19 07:00 Intake Total 960 ml Output Total 785 ml Balance 175 ml Capillary Refill : General Appearance: No Apparent Distress HEENT: PERRL/EOMI Neck: Full Range of Motion Respiratory: Chest Non Tender, Decreased Breath Sounds Cardiovascular: Regular Rate, Rhythm Gastrointestinal: normal bowel sounds, soft, tenderness Extremity: Normal Capillary Refill Neurologic/Psychiatric: Alert, Oriented x3 Skin: Normal Color Lymphatic: No Adenopathy Results Lab Laboratory Tests 07/10/19 20:05: Urine Color YELLOW, Urine Clarity CLEAR, Urine pH 6.0, Urine Specific [place] 1.015L, Urine Protein NEGATIVE, Urine Glucose (UA) NEGATIVE, Urine Ketones NEGATIVE, Urine Nitrite NEGATIVE, Urine Bilirubin NEGATIVE, Urine Urobilinogen 0.2, Urine Leukocyte Esterase NEGATIVE, Urine RBC (Auto) NEGATIVE, Urine RBC NONE, Urine WBC NONE, Urine Squamous Epithelial Cells 0-2, Urine Crystals NONE, Urine Bacteria TRACE, Urine Casts NONE, Urine Mucus NEGATIVE, Urine Culture Indicated NO 07/11/19 04:41: White Blood Count 14.2H, Red Blood Count 3.79L, Hemoglobin 10.3L, Hematocrit 33L , Mean Corpuscular Volume 86, Mean Corpuscular Hemoglobin 27, Mean Corpuscular Hemoglobin Concent 32, Red Cell Distribution Width 13.8, Platelet Count 185, Mean Platelet Volume 11.5H, Neutrophils (%) (Auto) 74, Lymphocytes (%) (Auto) 14, Monocytes (%) (Auto) 9, Eosinophils (%) (Auto) 3, Basophils (%) (Auto) 0, Neutrophils # (Auto) 10.5H, Lymphocytes # (Auto) 1.9, Monocytes # (Auto) 1.3H, Eosinophils # (Auto) 0.5H, Basophils # (Auto) 0.0 Assessment/Plan Assessment/Plan Assess & Plan/Chief Complaint s/p abdominal wall component separation and biologic mesh closure. atelectasis. cxr. consult PT. increase ambulation. transfer to SNF when able. f/u friday (07/16) for drain removal. Clinical Quality Measures DVT/VTE Risk/Contraindication: Risk Factor Score Per Nursin RFS Level Per Nursing on Admit: 4+=Very High ELAINE FLORES MD Jul 11, 2019 11:00 POS
[2019-07-11] MEDS ORDERED: CIPR-225 PO (11:02)
[2019-07-11] MEDS ORDERED: METR500T PO (11:02)
--- NOTE | 2019-07-11 11:04 | Discharge Inst-Surgical ---
D/C Lap Instructions-MARK New, Converted, or Re-Newed RX: RX on Chart Follow Up this week friday(07/16) log daily drain output. Activity as tolerated No driving for 24 hours No driving while on pain medications Incentive Spirometry use every 2 hours while awake Regular Diet Symptoms to Report: Fever over 101 degree F, Nausea/Vomiting Infection Signs and Symptoms to report: Increased redness, Foul odor of wound, Increased drainage Bathing instructions: May shower Operative Area Clean/Dry; Keep incision clean/dry If any problems/questions: Contact your physician or go to Emergency Room ELAINE FLORES MD Jul 11, 2019 11:04 POS
[2019-07-11 12:30] VITALS: BP 117/57
== END 2019-07-11 12:30 | disposition home or self-care (01) ==
LOC: SDC 08:27 → 4TH 14:26 → SDC 07-11 12:30
PROVIDERS: ATTEND Surgery
DX: T81.89XA Other complications of procedures, not elsewhere classified, initial encounter (principal); K66.8 Other specified disorders of peritoneum; L90.5 Scar conditions and fibrosis of skin; E03.9 Hypothyroidism, unspecified; I10 Essential (primary) hypertension; K21.9 Gastro-esophageal reflux disease without esophagitis; M19.90 Unspecified osteoarthritis, unspecified site; M10.9 Gout, unspecified; K57.90 Diverticulosis of intestine, part unspecified, without perforation or abscess without bleeding; J44.9 Chronic obstructive pulmonary disease, unspecified; E55.9 Vitamin D deficiency, unspecified; G20 Parkinson's disease; G40.909 Epilepsy, unspecified, not intractable, without status epilepticus; G25.81 Restless legs syndrome; K58.9 Irritable bowel syndrome, unspecified; F32.9 Major depressive disorder, single episode, unspecified; Z90.49 Acquired absence of other specified parts of digestive tract; Z88.5 Allergy status to narcotic agent; Z88.0 Allergy status to penicillin; Z79.82 Long term (current) use of aspirin; Z79.899 Other long term (current) drug therapy
CPT/HCPCS: 36415; 71045; 85025; 94640; 94660; 94664

== ENCOUNTER → 2020-07-14 | Outpatient (CLI) | payer MEDICARE, MEDICAID ==
[~2020-07-14] VITALS: Ht 154 cm; Wt 81.8 kg
[~2020-07-14] MED LIST changes: +BAMLANIVIMAB 700 MG in NS 200 ML IV ONE; +CIPR-225 PO; -CLIN300C11 PO; +CLIN300C12 PO; +DEXT1DRO7 OU; +EPINEPHrine INJECTION 1 MG/ML AMP IM PRN; -METO-387 PO; +MTP25TSR PO; -OMEP20CA13 PO; +OMEP20CA18 PO; +OMEP40CA27 PO; -OMEP40CA36 PO; +ONDA-105 SL; -ONDA4TAB10 SL; +ROPI1TAB PO; -ROPI1TAB2 PO; -TRAZ-222 PO; +TRM50T PO; +TRZ50T PO; +diphenhydrAMINE 50 MG/ML INJ (BENADRYL) IV PRN
[2020-07-14 13:25] VITALS: BP 167/88
[2020-07-14 15:12] VITALS: BP 95/53
[2020-07-14 15:16] VITALS: BP 152/64
== END ==
LOC: INFUSION 13:32
DX: U07.1 COVID-19 (principal)

== ENCOUNTER 2021-07-25 10:07 | Emergency (ER) | payer MEDICARE, MEDICAID ==
[~2021-07-25] VITALS: Ht 154 cm; Wt 81.0 kg
[~2021-07-25 10:07] MED LIST changes: -BAMLANIVIMAB 700 MG in NS 200 ML IV ONE; +CLIN-144 PO; -CLIN300C12 PO; -EPINEPHrine INJECTION 1 MG/ML AMP IM PRN; -LISI-556 PO; +LISI5TAB20 PO; -OMEP40CA27 PO; +OMEP40CA6 PO; -OXYC-471 PO; +OXYC1TAB11 PO; -diphenhydrAMINE 50 MG/ML INJ (BENADRYL) IV PRN
--- NOTE | 2021-07-25 11:20 | ED General ---
General Chief Complaint: General Problems/Pain Stated Complaint: ABD PAIN,BODY ACHES Nursing Triage Note: BROUGHT OVER FROM [facility] WITH COMPLAINTS OF INCREASED WEAKNESS AND NOT EATING OR DRINKING WELL. PT HAS A STRONG URINE ODOR. DAUGHTER STATES SHE HAS HAD A LOW GRADE FEVER. PT IS WEAK ET HAD TO BE LIFTED FROM CHAIR TO BED. Source of Information: Patient, Family (GERARDO ONTIVEROS STUDENT) History of Present Illness Date Seen by Provider: Jul 25, 2021 Time Seen by Provider: 11:00 Initial Comments This is a 76 YO female brought to the ED from [facility] for worsening weakness and body aches for the past week. Pt is able to provide limited history, but daughter is present at bedside and says that yesterday pt had decreased appetite and was not eating/drinking as much. Daughter also notes that pt has not taken her medications in the past 2 days. Pt is COVID vaccinated and had her booster last month. Pt denies urinary symptoms, but was found covered in urine at the detention. Daughter states pt has had UTI's before. No cough, SOB, abdominal pain, or chest pain. Timing/Duration: 1 Week Associated Systoms: No Chest Pain, No Cough (GERARDO ONTIVEROS MED STUDENT) Allergies and Home Medications Allergies Coded Allergies: Penicillins (Verified Allergy, Unknown, Pt has received Cefazolin & Ceftriaxone in the past w/o issu, 07/08/19) codeine (Verified Allergy, Unknown, Pt has received Lortab and Morphine in the past, 07/08/19) Patient Home Medication List Home Medication List Reviewed: Yes (MARYANN CROWELL MD) Acetaminophen (Tylenol Extra Strength) 500 Mg Tablet, 1,000 MG PO Q6H PRN for PAIN-MILD, (Reported) Entered as Reported by: HOLDEN TAPIA on 05/14/19 1104 Aspirin (Aspir 81) 81 Mg Tablet.dr, 81 MG PO DAILY, (Reported) Entered as Reported by: CARRIE GARCIA on 03/11/18 1429 Atorvastatin Calcium (Lipitor) 40 Mg Tablet, 40 MG PO HS Prescribed by: MEKA CROWE on 05/14/19 1559 Budesonide/Formoterol Fumarate (Symbicort 160-4.5 Mcg Inhaler) 10.2 Gm Hfa.aer.ad, 2 PUFF IH BID, (Reported) Entered as Reported by: SHIN PEREA on 07/01/19 1237 Calcium Polycarbophil (Fibercon) 625 Mg Tablet, 1,250 MG PO BID, (Reported) Entered as Reported by: SHIN PEREA on 07/01/19 1237 Carbidopa/Levodopa (Sinemet Cr 50-200 Tablet) 1 Each Tablet.er, 1 TAB PO BID, (Reported) Entered as Reported by: SHIN PEREA on 07/01/19 1237 Cephalexin (Cephalexin) 500 Mg Tablet, 500 MG PO TID Prescribed by: MARYANN CROWELL on 07/25/21 1250 Ciprofloxacin HCl (Cipro) 500 Mg Tablet, 500 MG PO BID Prescribed by: ELAINE FLORES on 07/11/19 1102 Dextran 70/Hypromellose (Artificial Tears) 1 Each Droperette, 1 DROP OU QID, ( Reported) Entered as Reported by: HOLDEN TAPIA on 07/09/19 1459 Donepezil HCl (Aricept) 10 Mg Tablet, 10 MG PO HS, (Reported) Entered as Reported by: SHIN PEREA on 07/01/19 1237 Levothyroxine Sodium (Levothyroxine Sodium) 75 Mcg Tablet, 75 MCG PO DAILY, (Reported) Entered as Reported by: CARRIE GRACIA on 03/11/18 1429 Lisinopril (Lisinopril) 5 Mg Tablet, 5 MG PO DAILY@0900 Prescribed by: MEKA CROWE on 05/14/19 1559 Loratadine (Loratadine) 10 Mg Tablet, 10 MG PO DAILY PRN for ALLERGIES, (Reported) Entered as Reported by: CARRIE GARCIA on 03/11/18 1429 Mag Hydrox/Al Hydrox/Simeth (Mylanta Suspension) 30 Ml Oral.susp, 10 ML PO Q12H PRN for INDIGESTION, (Reported) Entered as Reported by: HOLDEN TAPIA on 07/09/19 1459 Metoprolol Succinate (Metoprolol Succinate) 25 Mg Tab.er.24h, 25 MG PO DAILY Prescribed by: MEKA CROWE on 05/14/19 1559 Metronidazole (Flagyl) 500 Mg Tablet, 500 MG PO BID Prescribed by: ELAINE FLORES on 07/11/19 1102 Mirabegron (Myrbetriq) 25 Mg Tab.er.24h, 25 MG PO DAILY, (Reported) Entered as Reported by: CARRIE GARCIA on 03/11/18 1429 Omeprazole (Omeprazole) 40 Mg Capsule.dr, 40 MG PO DAILY, (Reported) Entered as Reported by: HOLDEN TAPIA on 07/09/19 1459 Ondansetron (Ondansetron Odt) 4 Mg Tab.rapdis, 4 MG PO Q8H PRN for nausea Prescribed by: MARYANN CROWELL on 07/25/21 1250 Ondansetron HCl (Zofran) 4 Mg Tab, 4 MG PO Q8H PRN for NAUSEA/VOMITING-1ST LINE, (Reported) Entered as Reported by: HOLDEN TAPIA on 07/09/19 1459 Oxycodone HCl/Acetaminophen (Oxycodone-Acetaminophen 5-325) 1 Each Tablet, 1-2 EACH PO Q4H PRN for PAIN-SEVERE Prescribed by: NINA BETTENCOURT on 07/08/19 0842 Pramipexole Di-HCl (Mirapex) 0.5 Mg Tablet, 0.5 MG PO BID, (Reported) Entered as Reported by: SHIN PEREA on 07/01/19 1237 Ropinirole HCl (Ropinirole HCl) 1 Mg Tablet, 1 MG PO BID, (Reported) Entered as Reported by: HOLDEN TAPIA on 05/14/19 1104 Ropinirole HCl (Ropinirole HCl) 0.25 Mg Tablet, 0.25 MG PO HS, (Reported) Entered as Reported by: HOLDEN TAPIA on 05/14/19 1104 Tramadol HCl (Tramadol HCl) 50 Mg Tablet, 50 MG PO BID, (Reported) Entered as Reported by: HOLDEN TAPIA on 08/05/18 1313 Trazodone HCl (Trazodone HCl) 50 Mg Tablet, 25 MG PO HS, (Reported) Entered as Reported by: CARRIE GARCIA on 03/11/18 1429 Review of Systems Review of Systems limited due to pt being poor historian (GERARDO ONTIVEROS MED STUDENT) Constitutional: see HPI EENTM: no symptoms reported Respiratory: no symptoms reported Cardiovascular: no symptoms reported Gastrointestinal: loss of appetite Genitourinary: no symptoms reported Musculoskeletal: muscle cramps Skin: no symptoms reported Psychiatric/Neurological: Weakness (MARYANN CROWELL MD) All Other Systems Reviewed Negative Unless Noted: Yes (MARYANN CROWELL MD) Past Hadcsqq-Ztujcp-Solipl Hx Patient Social History Tobacco Use?: No Substance use?: No Alcohol Use?: No (ONTIVEROSHelp/Systems STUDENT) Immunizations Up To Date Tetanus Booster (TDap): Unknown PED Vaccines UTD: No COVID19 Vaccine 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) Seasonal Allergies Seasonal Allergies: No (ONTIVEROSHelp/Systems STUDENT) Past Medical History Surgeries: Yes (HERNIA X3, BOWEL RESECTION WITH COLOSTOMY AND REVERSAL) Abdominal, Bowel Surgery, Gallbladder Respiratory: Yes Asthma Cardiac: Yes (DVT LEFT LEG POST OP AFTER COLON SURGERY) Deep Vein Thrombosis, Hypertension Neurological: Yes (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) Dementia, Parkinson's Disease 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 Sexually Transmitted Disease: No HIV/AIDS: No Genitourinary: Yes (OVERACTIVE BLADDER, INCONTINENCE) Bladder Infection, Renal Failure, UTI-Chronic Gastrointestinal: Yes (ISCHEMIC COLITIS, ADULT FAILURE TO THRIVE; HERNIA REP AIR) Abdominal Hernia, Colitis, Gastroesophageal Reflux, Diverticulosis Musculoskeletal: Yes (RESTLESS LEGS) Arthritis, Chronic Back Pain, Gout Endocrine: Yes (HYPOMAGNESEMIA) Hypothyroidsim HEENT: Yes (GLASASES) Cataract Hearing Impairment: Denies Cancer: No Psychosocial: Yes Sleep Difficulties, Anxiety, Bipolar, Depression Integumentary: No Blood Disorders: Yes (ANEMIA) (MIKE ONTIVEROSRepairy STUDENT) Family Medical History Congenital disease 19 MOTHER Family history: Arthritis Hypertension 19 MOTHER Malignant neoplasm of lung 09 BROTHER No Family History of: Cancer Seizure disorder Hypertension (ONTIVEROSHelp/Systems STUDENT) Physical Exam Vital Signs Vital Signs - First Documented 07/25/21 10:30 Temp 34.9 Pulse 104 Resp 16 B/P (MAP) 162/100 (120) Pulse Ox 98 O2 Delivery Room Air (MARYANN CROWELL MD) Vital Signs Capillary Refill : Less Than 3 Seconds (GERARDO ONTIVEROS [employer] STUDENT) Height, Weight, BMI Height: 5'1.00" Weight: 181lbs. 0.0oz. 82.431713le; 34.00 BMI Method:Stated General Appearance: No Apparent Distress, WD/WN, Other (appears uncomfortable) Eyes: Bilateral Eye Normal Inspection, Bilateral Eye EOMI HEENT: PERRL/EOMI; No Scleral Icterus (L), No Scleral Icterus (R) Neck: Normal Inspection, Supple Respiratory: Chest Non Tender, Lungs Clear, Normal Breath Sounds, No Accessory Muscle Use, No Respiratory Distress Cardiovascular: No Murmur, Tachycardia Gastrointestinal: Normal Bowel Sounds, Soft; No Distended, No Guarding; Other (mild upper abdominal tenderness) Back: Normal Inspection, No CVA Tenderness Extremity: Normal Inspection, No Calf Tenderness Neurologic/Psychiatric: Alert, No Motor/Sensory Deficits, Normal Mood/Affect Skin: Normal Color, Warm/Dry (GERARDO ONTIVEROS MED STUDENT) Progress/Results/Core Measures Suspected Sepsis SIRS Temperature: Pulse: 104 Respiratory Rate: 16 Laboratory Tests 07/25/21 10:55: Blood Pressure 162 /100 Mean: 120 Laboratory Tests 07/25/21 10:55: (GERARDO ONTIVEROS STUDENT) Results/Orders Lab Results Laboratory Tests Test 07/25/21 10:30 07/25/21 10:55 07/25/21 11:32 Range/Units Urine Color DARK YELLOW Urine Clarity CLEAR Urine pH 6.0 5-9 Urine Specific [place] >=1.030 1.016-1.022 Urine Protein TRACE H NEGATIVE Urine Glucose (UA) NEGATIVE NEGATIVE Urine Ketones NEGATIVE NEGATIVE Urine Nitrite POSITIVE H NEGATIVE Urine Bilirubin NEGATIVE NEGATIVE Urine Urobilinogen 0.2 < = 1.0 MG/DL Urine Leukocyte Esterase TRACE H NEGATIVE Urine RBC (Auto) NEGATIVE NEGATIVE Urine RBC NONE /HPF Urine WBC 10-25 H /HPF Urine Squamous Epithelial Cells 5-10 /HPF Urine Crystals NONE /LPF Urine Bacteria LARGE H /HPF Urine Casts NONE /LPF Urine Mucus NEGATIVE /LPF Urine Culture Indicated YES White Blood Count 17.2 H 4.3-11.0 10^3/uL Red Blood Count 4.77 3.80-5.11 10^6/uL Hemoglobin 13.2 11.5-16.0 g/dL Hematocrit 40 35-52 % Mean Corpuscular Volume 85 80-99 fL Mean Corpuscular Hemoglobin 28 25-34 pg Mean Corpuscular Hemoglobin Concent 33 32-36 g/dL Red Cell Distribution Width 12.6 10.0-14.5 % Platelet Count 313 130-400 10^3/uL Mean Platelet Volume 11.6 9.0-12.2 fL Immature Granulocyte % (Auto) 1 % Neutrophils (%) (Auto) 79 H 42-75 % Lymphocytes (%) (Auto) 8 L 12-44 % Monocytes (%) (Auto) 12 0-12 % Eosinophils (%) (Auto) 0 0-10 % Basophils (%) (Auto) 0 0-10 % Neutrophils # (Auto) 13.6 H 1.8-7.8 10^3/uL Lymphocytes # (Auto) 1.3 1.0-4.0 10^3/uL Monocytes # (Auto) 2.0 H 0.0-1.0 10^3/uL Eosinophils # (Auto) 0.0 0.0-0.3 10^3/uL Basophils # (Auto) 0.0 0.0-0.1 10^3/uL Immature Granulocyte # (Auto) 0.2 H 0.0-0.1 10^3/uL Neutrophils % (Manual) 82 % Lymphocytes % (Manual) 4 % Monocytes % (Manual) 9 % Eosinophils % (Manual) 0 % Basophils % (Manual) 0 % Band Neutrophils 0 % Reactive Lymphocytes 5 % Blood Morphology Comment NORMAL Sodium Level 135 135-145 MMOL/L Potassium Level 3.8 3.6-5.0 MMOL/L Chloride Level 100 98-107 MMOL/L Carbon Dioxide Level 24 21-32 MMOL/L Anion Gap 11 5-14 MMOL/L Blood Urea Nitrogen 15 7-18 MG/DL Creatinine 1.05 0.60-1.30 MG/DL Estimat Glomerular Filtration Rate 51 BUN/Creatinine Ratio 14 Glucose Level 133 H 70-105 MG/DL Calcium Level 9.1 8.5-10.1 MG/DL Corrected Calcium 9.4 8.5-10.1 MG/DL Total Bilirubin 1.8 H 0.1-1.0 MG/DL Aspartate Amino Transf (AST/SGOT) 53 H 5-34 U/L Alanine Aminotransferase (ALT/SGPT) 44 0-55 U/L Alkaline Phosphatase 178 H 40-136 U/L Total Protein 7.8 6.4-8.2 GM/DL Albumin 3.6 3.2-4.5 GM/DL Influenza Type A (RT-PCR) Not Detected Not Detecte Influenza Type B (RT-PCR) Not Detected Not Detecte SARS-CoV-2 RNA (RT-PCR) Not Detected Not Detecte (MARYANN CROWELL MD) Micro Results Microbiology 07/25/21 Urine Culture - Preliminary, Resulted Escherichia coli (MARYANN CROWELL MD) My Orders Orders - MARYANN CROWELL MD Ed Iv/Invasive Line Start (07/25/21 11:32) Cbc With Automated Diff (07/25/21 11:32) Comprehensive Metabolic Panel (07/25/21 11:32) Ua Culture If Indicated (07/25/21 11:32) Ns Iv 1000 Ml (Sodium Chloride 0.9%) (07/25/21 11:45) Ondansetron Injection (Zofran Injectio (07/25/21 11:45) Covid 19 Inhouse Test (07/25/21 11:32) Influenza A And B By Pcr (07/25/21 11:32) Isolation Central Supply Req (07/25/21 11:32) Urine Culture (07/25/21 10:30) Manual Differential (07/25/21 10:55) Ceftriaxone 1 Gm Pre-Mix (Rocephin 1 Gm (07/25/21 12:30) (MARYANN CROWELL MD) Medications Given in ED (MARYANN CROWELL MD) Vital Signs/I&O 07/25/21 07/25/21 10:30 13:24 Temp 34.9 Pulse 104 90 Resp 16 16 B/P (MAP) 162/100 (120) 180/92 Pulse Ox 98 95 O2 Delivery Room Air Room Air (MARYANN CROWELL MD) Vital Signs/I&O Capillary Refill : Less Than 3 Seconds (GERARDO ONTIVEROS MED STUDENT) Blood Pressure Mean: 120 Progress Note : Time: 12:46 Progress Note 76-year-old female presents to the emergency department with her daughter, history of some dementia/confusion, also Parkinson's disease. Chief complaint "not feeling good". She has been having increasing generalized weakness with muscle aches over the last 7 to 10 days. Over the last couple of days she has not eaten anything nor taken any of her prescribed medications. No reported fevers or chills. She has had similar symptoms in the past with UTIs. Patient states that she is nauseous and cannot really eat anything therefore she did not want to take her medications. She had Covid a year ago and has subsequently had her vaccine and booster shot. Reported fever at the detention, none today. She denies diarrhea, swelling in her legs. No congestion or sore throat. Physical examination is basically within normal limits. She does have a little bit of dry oral mucosa. Mild left upper quadrant tenderness. Grossly nonfocal neuro exam. No swelling/edema in her lower extremities. Awake and alert oriented to her daughter. Review of laboratory studies indicate a leukocytosis with an associated urinary tract infection. She is not tachycardic or hypotensive, I do not suspect urosepsis. Patient is treated in the emergency department with Zofran, normal saline and 1 g of Rocephin. She will be sent home on Keflex. Cultures pending. Nausea medicine with antibiotics sent to her pharmacy. Daughter is comfortable with this plan of care. Return precautions given. All questions are sought and answered. (MARYANN CROWELL MD) Departure Impression Primary Impression: Urinary tract infection Qualified Codes: N39.0 - Urinary tract infection, site not specified Disposition: 01 HOME, SELF-CARE Condition: Stable Departure-Patient Inst. Decision time for Depature: 12:49 (MARYANN CROWELL MD) Referrals: CHRISTIAN CHAVEZ MD (PCP/Family) Primary Care Physician Patient Instructions: Urinary Tract Infection, Adult (DC) Add. Discharge Instructions: Encourage fluids so that she stays well-hydrated. She needs to eat small more frequent meals. Antibiotics, Keflex 3 times a day for the next 7 days. (start tomorrow 07/26) Return to the emergency room for any worsening symptoms, especially high fever, abdominal pain, vomiting. She will need to follow-up with her primary care physician in 1 week. Scripts Cephalexin (Cephalexin) 500 Mg Tablet 500 MG PO TID, #21 TAB Prov: MARYANN CROWELL MD 07/25/21 Ondansetron (Ondansetron Odt) 4 Mg Tab.rapdis 4 MG PO Q8H PRN for nausea, #20 TAB Prov: MARYANN CROWELL MD 07/25/21 Verification and Attestation of Medical Student E/M Service A medical student performed and documented this service in my presence. I reviewed and verified all information documented by the medical student and made modifications to such information, when appropriate. I personally performed the physical exam and medical decision making. Maryann Crowell, Jul 25, 2021,12:48 (MARYANN CROWELL MD) GERARDO ONTIVEROS MED STUDENT Jul 25, 2021 11:19 MARYANN CROWELL MD Jul 25, 2021 12:51
[2021-07-25 11:40] LABS: BASOPHILS % (AUTO) 0 % (0-10); EOSINOPHILS % (AUTO) 0 % (0-10); HEMATOCRIT 40 % (35-52); HEMOGLOBIN 13.2 g/dL (11.5-16.0); LYMPHOCYTES # (AUTO) 1.3 10^3/uL (1.0-4.0); LYMPHOCYTES % (AUTO) 8 % (12-44); MEAN CORPUSCULAR HEMOGLOBIN 28 pg (25-34); MEAN CORPUSCULAR HGB CONC 33 g/dL (32-36); MEAN CORPUSCULAR VOLUME 85 fL (80-99); MEAN PLATELET VOLUME 11.6 fL (9.0-12.2); MONOCYTES % (AUTO) 12 % (0-12); NEUTROPHILS # (AUTO) 13.6 10^3/uL (1.8-7.8); NEUTROPHILS % (AUTO) 79 % (42-75); PLATELET COUNT 313 10^3/uL (130-400); WHITE BLOOD COUNT 17.2 10^3/uL (4.3-11.0)
[2021-07-25 11:40] LABS: BILIRUBIN,URINE NEGATIVE (NEGATIVE); CLARITY,URINE CLEAR; COLOR,URINE DARK YELLOW; GLUCOSE, URINE (UA) NEGATIVE (NEGATIVE); KETONES,URINE NEGATIVE (NEGATIVE); LEUKOCYTE ESTERASE ,URINE TRACE (NEGATIVE); NITRITE,URINE POSITIVE (NEGATIVE); PROTEIN,URINE TRACE (NEGATIVE)
[2021-07-25] MEDS ORDERED: NS IV 1000 ML 1,000 ML IV SCH (11:45)
[2021-07-25] MEDS ORDERED: ONDANSETRON 4 MG/2 ML (SDV) Z0FRAN IVP ONE (11:45)
[2021-07-25 11:46] LABS: BACTERIA,URINE LARGE /HPF
[2021-07-25 11:47] LABS: ALBUMIN 3.6 GM/DL (3.2-4.5); POTASSIUM 3.8 MMOL/L (3.6-5.0)
[2021-07-25 11:48] LABS: CALCIUM 9.1 MG/DL (8.5-10.1)
[2021-07-25 11:49] LABS: TOTAL PROTEIN 7.8 GM/DL (6.4-8.2)
[2021-07-25 11:51] LABS: BILIRUBIN,TOTAL 1.8 MG/DL (0.1-1.0)
[2021-07-25 11:53] LABS: CREATININE SERUM 1.05 MG/DL (0.60-1.30)
[2021-07-25 12:01] LABS: BAND NEUTROPHILS 0 %; BASOPHILS % (MANUAL) 0 %; EOSINOPHILS % (MANUAL) 0 %; LYMPHOCYTES % (MANUAL) 4 %; MONOCYTES % (MANUAL) 9 %; NEUTROPHILS % (MANUAL) 82 %; RBC MORPH NORMAL; REACTIVE LYMPHOCYTES 5 %
[2021-07-25] MEDS ORDERED: cefTRIAXone 1 GM PRE-MIX 50 ML IV ONE (12:30)
[2021-07-25] MEDS ORDERED: CEPH500T PO (12:50)
[2021-07-25] MEDS ORDERED: ONDA4TAB11 PO (12:50)
[2021-07-25 13:24] VITALS: BP 180/92
== END 2021-07-25 13:24 | disposition home or self-care (01) ==
LOC: EDUNIT# 10:07 → ER 10:09
DX: N39.0 Urinary tract infection, site not specified (principal); D72.829 Elevated white blood cell count, unspecified; I12.9 Hypertensive chronic kidney disease with stage 1 through stage 4 chronic kidney disease, or unspecified chronic kidney disease; N18.9 Chronic kidney disease, unspecified; G20 Parkinson's disease; F02.80 Dementia in other diseases classified elsewhere, unspecified severity, without behavioral disturbance, psychotic disturbance, mood disturbance, and anxiety; E03.9 Hypothyroidism, unspecified; E83.42 Hypomagnesemia; F41.9 Anxiety disorder, unspecified; F31.9 Bipolar disorder, unspecified; K21.9 Gastro-esophageal reflux disease without esophagitis; J45.909 Unspecified asthma, uncomplicated; Z86.718 Personal history of other venous thrombosis and embolism; Z20.822 Contact with and (suspected) exposure to COVID-19; Z93.3 Colostomy status; Z88.0 Allergy status to penicillin; Z88.5 Allergy status to narcotic agent; Z79.51 Long term (current) use of inhaled steroids; Z79.82 Long term (current) use of aspirin; Z79.890 Hormone replacement therapy; Z79.899 Other long term (current) drug therapy
CPT/HCPCS: 36415; 51702; 80053; 81000; 85007; 85027; 87077; 87088; 87186; 87636

== ENCOUNTER 2021-08-24 06:33 | Outpatient (CLI) | payer MEDICARE, MEDICAID ==
[~2021-08-24] VITALS: Ht 154.9 cm; Wt 89.5 kg
[~2021-08-24 06:33] MED LIST changes: +CEPH500T PO; +ONDA4TAB11 PO
[2021-08-27] MEDS ORDERED: CARB1TAB41 PO (14:15)
[2021-08-27] MEDS ORDERED: METO50TA7 PO (14:15)
[2021-08-27] MEDS ORDERED: LISI5TAB20 PO (14:15)
[2021-08-27] MEDS ORDERED: FAMO20TA3 PO (14:15)
[2021-08-27] MEDS ORDERED: MEMA5TAB PO (14:15)
[2021-08-27] MEDS ORDERED: ASPI-999 PO (14:15)
[2021-08-27] MEDS ORDERED: ATOR40TA70 PO (14:15)
== END 2021-08-27 14:18 | disposition home or self-care (01) ==
LOC: PREOP 06:33
PROVIDERS: ATTEND Specialist
DX: Z01.818 Encounter for other preprocedural examination (principal)

== ENCOUNTER 2021-08-31 10:27 | Day surgery (SDC) | payer MEDICARE, MEDICAID ==
[~2021-08-31] VITALS: Ht 154.9 cm; Wt 89.5 kg
[~2021-08-31 10:27] MED LIST changes: +ASPI-999 PO; +ATOR40TA70 PO; +FAMO20TA3 PO; +MEMA5TAB PO; +METO50TA7 PO
[2021-08-31] MEDS ORDERED: TIMOLOL MALEATE 0.5% 5 ML (TIMOPTIC) BTL OU PRN (11:00)
[2021-08-31] MEDS ORDERED: POVIDONE (BETADINE) OPHTH SOLN 5% 30 ML OP ONE (11:00)
[2021-08-31] MEDS ORDERED: LIDOCAINE PF 1% 2 ML VIAL IR PRN (11:00)
[2021-08-31] MEDS ORDERED: MOXIFLOXACIN OPHTH SOLN 5 MG/ML 0.3 ML SYRINGE OP ONE (11:00)
[2021-08-31] MEDS: TETRACAINE 0.5% OPHTH SOLN 4 ML BTL (SINGLE DOSE ONLY) OU PRN ×4 (11:16→11:34)
[2021-08-31] MEDS: PHENYLEPHRINE 10% OPHTH (NEO-SYN) 5 ML BTL OU SCH ×3 (11:22→11:34)
[2021-08-31] MEDS: TROPICAMIDE 1% OPH SOLN (MYDRIACYL) 15 ML BTL OP SCH ×3 (11:22→11:34)
[2021-08-31 11:23] VITALS: BP 139/74
--- NOTE | 2021-08-31 11:52 | Ophthalmologist Pre-Op Note ---
Pre-Operative Progress Note H&P Reviewed The H&P was reviewed, patient examined and no changes noted. Date H&P Reviewed: Aug 31, 2021 Time H&P Reviewed: 11:52 Pre-Op Dx Cataract, Right Eye CY GOMES MD Aug 31, 2021 11:52
[2021-08-31] MEDS ORDERED: MIDAZOLAM 2 MG/2 ML (VERSED) VIAL ONE (11:57)
--- NOTE | 2021-08-31 12:14 | Ophthalmology Operative Report ---
Cataract removal/placement IOL PREOPERATIVE DIAGNOSIS: Cataract Right Eye POSTOPERATIVE DIAGNOSIS: Cataract Right Eye PROCEDURE: Cataract removal and placement of posterior chamber implant, right eye SURGEON: Guy Gomes ANESTHESIA: Topical with sedation COMPLICATIONS: None ESTIMATED BLOOD LOSS: Minimal DESCRIPTION OF PROCEDURE: After proper informed consent was obtained, the patient, a 76 female, was taken to the Operating Room and the right eye was anesthetized with tetracaine. The right eye was then prepped and draped in the usual manner. A wire lid speculum was placed. A paracentesis was made at the left hand position. Preservative free lidocaine was injected into the anterior chamber followed by viscoelastic. A clear corneal incision was made in the temporal position. A capsulorrhexis was preformed and the central nuclear and cortical material were removed. The posterior capsule was polished and Matthew 21.0 AU00T0 IOL was placed into the capsular bag. The residual viscoelastic was aspirated and balanced saline solution was injected into the anterior chamber. Moxifloxacin was injected into the anterior chamber. The wound was checked and found to be water tight. The patient tolerated the procedure well without complications. GUY GOMES MD Aug 31, 2021 12:14
[2021-08-31 12:20] VITALS: BP 160/84
[2021-08-31] MEDS ORDERED: acetaZOLAMIDE ER 500 MG CAP (DIAMOX SEQUELS) PO ONE (12:30)
--- NOTE | 2021-08-31 12:31 | Anesthesia-General Post-Op ---
MAC Patient Condition Mental Status/LOC: Same as Preop Cardiovascular: Satisfactory Nausea/Vomiting: Absent Respiratory: Satisfactory Pain: Controlled Complications: Absent Post Op Complications Complications None Follow Up Care/Instructions Patient Instructions None needed. Anesthesiology Discharge Order Discharge Order Patient is doing well, no complaints, stable vital signs, no apparent adverse anesthesia problems. No complications reported per nursing. DANIEL GUILLEN CRNA Aug 31, 2021 12:31
== END 2021-08-31 12:27 ==
LOC: SDC 10:27
PROVIDERS: ATTEND Specialist
DX: H25.11 Age-related nuclear cataract, right eye (principal); I10 Essential (primary) hypertension; E78.5 Hyperlipidemia, unspecified; G20 Parkinson's disease; G47.00 Insomnia, unspecified; Z79.899 Other long term (current) drug therapy
CPT/HCPCS: 66984; V2632

== ENCOUNTER → 2021-09-14 | Day surgery (SDC) | payer MEDICARE, MEDICAID ==
[~2021-09-14] VITALS: Ht 154.9 cm; Wt 89.5 kg
[~2021-09-14] MED LIST changes: +LIDOCAINE PF 1% 2 ML VIAL IR PRN; +MIDAZOLAM 2 MG/2 ML (VERSED) VIAL ONE; +MOXIFLOXACIN OPHTH SOLN 5 MG/ML 0.3 ML SYRINGE OP ONE; +POVIDONE (BETADINE) OPHTH SOLN 5% 30 ML OP ONE; +TIMOLOL MALEATE 0.5% 5 ML (TIMOPTIC) BTL OU PRN; +acetaZOLAMIDE ER 500 MG CAP (DIAMOX SEQUELS) PO ONE
[2021-09-14 10:45] VITALS: BP 182/84
[2021-09-14] MEDS: TETRACAINE 0.5% OPHTH SOLN 4 ML BTL (SINGLE DOSE ONLY) OU PRN ×4 (10:47→11:04)
[2021-09-14] MEDS: PHENYLEPHRINE 10% OPHTH (NEO-SYN) 5 ML BTL OU SCH ×3 (10:53→11:04)
[2021-09-14] MEDS: TROPICAMIDE 1% OPH SOLN (MYDRIACYL) 15 ML BTL OP SCH ×3 (10:53→11:05)
--- NOTE | 2021-09-14 11:23 | Ophthalmologist Pre-Op Note ---
Pre-Operative Progress Note H&P Reviewed The H&P was reviewed, patient examined and no changes noted. Date H&P Reviewed: Sep 14, 2021 Time H&P Reviewed: 11:23 Pre-Op Dx Cataract, Left Eye CY GOMES MD Sep 14, 2021 11:23
--- NOTE | 2021-09-14 11:42 | Ophthalmology Operative Report ---
Cataract removal/placement IOL PREOPERATIVE DIAGNOSIS: Cataract Left Eye POSTOPERATIVE DIAGNOSIS: Cataract Left Eye PROCEDURE: Cataract removal and placement of posterior chamber implant, left eye SURGEON: Guy Gomes ANESTHESIA: Topical with sedation COMPLICATIONS: None ESTIMATED BLOOD LOSS: Minimal DESCRIPTION OF PROCEDURE: After proper informed consent was obtained, the patient, a 76 female, was taken to the Operating Room and the left eye was anesthetized with tetracaine. The left eye was then prepped and draped in the usual manner. A wire lid speculum was placed. A paracentesis was made at the left hand position. Preservative free lidocaine was injected into the anterior chamber followed by viscoelastic. A clear corneal incision was made in the temporal position. A capsulorrhexis was preformed and the central nuclear and cortical material were removed. The posterior capsule was polished and an Matthew 20.5 AU00T0 was placed into the capsular bag. The residual viscoelastic was aspirated and balanced saline solution was injected into the anterior chamber. Moxifloxacin was injected into the anterior chamber. The wound was checked and found to be water tight. The patient tolerated the procedure well without complications. GUY GOMES MD Sep 14, 2021 11:42
[2021-09-14 11:45] VITALS: BP 160/78
--- NOTE | 2021-09-14 13:00 | Anesthesia-General Post-Op ---
MAC Patient Condition Mental Status/LOC: Same as Preop Cardiovascular: Satisfactory Nausea/Vomiting: Absent Respiratory: Satisfactory Pain: Controlled Complications: Absent Post Op Complications Complications None Follow Up Care/Instructions Patient Instructions None needed. Anesthesiology Discharge Order Discharge Order Patient was seen after the procedure and she was doing well, no complaints, stable vital signs, no apparent adverse anesthesia problems. TANNER FOSS DO Sep 14, 2021 13:00
== END | disposition home or self-care (01) ==
LOC: SDC 10:37
PROVIDERS: ATTEND Specialist
DX: H25.9 Unspecified age-related cataract (principal); I10 Essential (primary) hypertension; G20 Parkinson's disease; Z79.899 Other long term (current) drug therapy
CPT/HCPCS: 66984; V2632

== ENCOUNTER 2022-08-01 14:26 | Emergency (ER) | payer OTHER, MEDICAID ==
[~2022-08-01] VITALS: Ht 147.3 cm; Wt 86.2 kg
[~2022-08-01 14:26] MED LIST changes: -LIDOCAINE PF 1% 2 ML VIAL IR PRN; -MIDAZOLAM 2 MG/2 ML (VERSED) VIAL ONE; -MOXIFLOXACIN OPHTH SOLN 5 MG/ML 0.3 ML SYRINGE OP ONE; -POVIDONE (BETADINE) OPHTH SOLN 5% 30 ML OP ONE; -TIMOLOL MALEATE 0.5% 5 ML (TIMOPTIC) BTL OU PRN; -acetaZOLAMIDE ER 500 MG CAP (DIAMOX SEQUELS) PO ONE
--- NOTE | 2022-08-01 14:33 | ED Integumentary General ---
General Stated Complaint: SWOLLEN ANKLES History of Present Illness Date Seen by Provider: Aug 01, 2022 Time Seen by Provider: 14:33 Initial Comments 77-year-old female presents with bilateral lower extremity swelling and erythema. Reports she was "recently treated for infection" patient had been on Lasix and just got changed to Bumex with her first dose yesterday. Her daughter brings her in just to have her rechecked. There is no warmth to the lower extremities however there is some mild erythema and swelling. She denies any chest pain, fevers chills nausea vomiting or other systemic complaints. Allergies and Home Medications Allergies Coded Allergies: Penicillins (Verified Allergy, Unknown, Pt has received Cefazolin & Ceftriaxone in the past w/o issu, 07/08/19) codeine (Verified Allergy, Unknown, Pt has received Lortab and Morphine in the past, 07/08/19) Patient Home Medication List Home Medication List Reviewed: Yes Acetaminophen (Tylenol Extra Strength) 500 Mg Tablet, 1,000 MG PO Q6H PRN for PAIN-MILD, (Reported) Entered as Reported by: HOLDEN TAPIA on 05/14/19 1104 Aspirin (Aspirin) 81 Mg Tab.chew, 81 MG PO DAILY, (Reported) Entered as Reported by: CARRIE GARCIA on 08/27/21 1415 Atorvastatin Calcium (Atorvastatin Calcium) 40 Mg Tablet, 40 MG PO HS, (Reported) Entered as Reported by: CARRIE GARCIA on 08/27/21 1415 Calcium Polycarbophil (Fibercon) 625 Mg Tablet, 1,250 MG PO BID, (Reported) Entered as Reported by: SHIN PEREA on 07/01/19 1237 Carbidopa/Levodopa (Carbidopa-Levo ER 50-200 Tab) 1 Each Tablet.er, 1 EACH PO BID, (Reported) Entered as Reported by: CARRIE GARCIA on 08/27/21 1415 Dextran 70/Hypromellose (Artificial Tears) 1 Each Droperette, 1 DROP OU QID, (Reported) Entered as Reported by: HOLDEN TAPIA on 07/09/19 1459 Donepezil HCl (Aricept) 10 Mg Tablet, 10 MG PO HS, (Reported) Entered as Reported by: SHIN PEREA on 07/01/19 1237 Famotidine (Acid Electrical Engineering Professor (FAMOTIDINE)) 20 Mg Tablet, 20 MG PO DAILY, (Reported) Entered as Reported by: CARRIE GARCIA on 08/27/21 141 Levothyroxine Sodium (Levothyroxine Sodium) 75 Mcg Tablet, 75 MCG PO DAILY, (Reported) Entered as Reported by: CARRIE GARCIA on 03/11/18 142 Lisinopril (Lisinopril) 5 Mg Tablet, 5 MG PO DAILY, (Reported) Entered as Reported by: CARRIE GARCIA on 08/27/21 141 Loratadine (Loratadine) 10 Mg Tablet, 10 MG PO DAILY PRN for ALLERGIES, (Reported) Entered as Reported by: CARRIE GARCIA on 03/11/18 1429 Mag Hydrox/Al Hydrox/Simeth (Mylanta Suspension) 30 Ml Oral.susp, 10 ML PO Q12H PRN for INDIGESTION, (Reported) Entered as Reported by: HOLDEN TAPIA on 07/09/19 145 Memantine HCl (Namenda) 5 Mg Tablet, 5 MG PO BID, (Reported) Entered as Reported by: CARRIE GARCIA on 08/27/21 1415 Metoprolol Succinate (Metoprolol Succinate) 50 Mg Tab.er.24h, 50 MG PO DAILY, (Reported) Entered as Reported by: CARRIE GARCIA on 08/27/21 141 Mirabegron (Myrbetriq) 25 Mg Tab.er.24h, 25 MG PO DAILY, (Reported) Entered as Reported by: CARRIE GARCIA on 03/11/18 1429 Ondansetron HCl (Zofran) 4 Mg Tab, 4 MG PO Q8H PRN for NAUSEA/VOMITING-1ST LINE, (Reported) Entered as Reported by: HOLDEN TAPIA on 07/09/19 1459 Pramipexole Di-HCl (Mirapex) 0.5 Mg Tablet, 0.5 MG PO BID, (Reported) Entered as Reported by: SHIN PEREA on 07/01/19 1237 Ropinirole HCl (Ropinirole HCl) 0.25 Mg Tablet, 0.75 MG PO TID, (Reported) Entered as Reported by: HOLDEN TAPIA on 05/14/19 1104 Tramadol HCl (Tramadol HCl) 50 Mg Tablet, 50 MG PO BID, (Reported) Entered as Reported by: HOLDEN TAPIA on 08/05/18 1313 Trazodone HCl (Trazodone HCl) 50 Mg Tablet, 50 MG PO HS, (Reported) Entered as Reported by: CARRIE GARCIA on 03/11/18 1429 Review of Systems Review of Systems Constitutional: No chills, No fever Respiratory: no symptoms reported Cardiovascular: edema Gastrointestinal: no symptoms reported Genitourinary: no symptoms reported Musculoskeletal: no symptoms reported Skin: change in color Psychiatric/Neurological: No Symptoms Reported Endocrine: No Symptoms Reported Past Axuacfl-Cdctkg-Jwumcr Hx Immunizations Up To Date Tetanus Booster (TDap): Unknown PED Vaccines UTD: No Seasonal Allergies Seasonal Allergies: No Past Medical History Surgeries: Yes (HERNIA X3, BOWEL RESECTION WITH COLOSTOMY AND REVERSAL) Abdominal, Bowel Surgery, Gallbladder Respiratory: Yes Asthma Cardiac: Yes (DVT LEFT LEG POST OP AFTER COLON SURGERY) Deep Vein Thrombosis, Hypertension Neurological: Yes (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) Dementia, Parkinson's Disease 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 Sexually Transmitted Disease: No HIV/AIDS: No Genitourinary: Yes (OVERACTIVE BLADDER, INCONTINENCE) Bladder Infection, Renal Failure, UTI-Chronic Gastrointestinal: Yes (ISCHEMIC COLITIS, ADULT FAILURE TO THRIVE; HERNIA REPAIR) Abdominal Hernia, Colitis, Gastroesophageal Reflux, Diverticulosis Musculoskeletal: Yes (RESTLESS LEGS) Arthritis, Chronic Back Pain, Gout Endocrine: Yes (HYPOMAGNESEMIA) Hypothyroidsim HEENT: Yes (GLASASES) Cataract Hearing Impairment: Denies Cancer: No Psychosocial: Yes Sleep Difficulties, Anxiety, Bipolar, Depression Integumentary: No Blood Disorders: Yes (ANEMIA) Family Medical History Congenital disease 19 MOTHER Family history: Arthritis Hypertension 19 MOTHER Malignant neoplasm of lung 09 BROTHER No Family History of: Cancer Seizure disorder Hypertension Physical Exam Vital Signs Vital Signs - First Documented 08/01/22 14:33 Pulse 79 Resp 16 B/P (MAP) 133/61 (85) Pulse Ox 96 O2 Delivery Room Air Capillary Refill : General Appearance: WD/WN, no apparent distress HEENT: PERRL/EOMI Cardiovascular: regular rate, rhythm, other (3+ bilateral lower extremity edema) Respiratory: normal breath sounds, no respiratory distress Gastrointestinal: non tender, soft Extremities: swelling Neurologic/Psychiatric: alert, normal mood/affect, oriented x 3 Skin: other (Chronic bilateral lower extremity venous stasis changes) Skin Problem Location: lower extremities Skin Problem Character: erythema (bilateral ) Progress/Results/Core Measures Results/Orders Lab Results Laboratory Tests Test 08/01/22 14:41 Range/Units White Blood Count 12.2 H 4.3-11.0 10^3/uL Red Blood Count 4.21 3.80-5.11 10^6/uL Hemoglobin 12.4 11.5-16.0 g/dL Hematocrit 37 35-52 % Mean Corpuscular Volume 88 80-99 fL Mean Corpuscular Hemoglobin 30 25-34 pg Mean Corpuscular Hemoglobin Concent 34 32-36 g/dL Red Cell Distribution Width 12.4 10.0-14.5 % Platelet Count 281 130-400 10^3/uL Mean Platelet Volume 11.4 9.0-12.2 fL Immature Granulocyte % (Auto) 1 % Neutrophils (%) (Auto) 66 42-75 % Lymphocytes (%) (Auto) 18 12-44 % Monocytes (%) (Auto) 11 0-12 % Eosinophils (%) (Auto) 3 0-10 % Basophils (%) (Auto) 0 0-10 % Neutrophils # (Auto) 8.1 H 1.8-7.8 10^3/uL Lymphocytes # (Auto) 2.2 1.0-4.0 10^3/uL Monocytes # (Auto) 1.4 H 0.0-1.0 10^3/uL Eosinophils # (Auto) 0.4 H 0.0-0.3 10^3/uL Basophils # (Auto) 0.1 0.0-0.1 10^3/uL Immature Granulocyte # (Auto) 0.2 H 0.0-0.1 10^3/uL Sodium Level 135 135-145 MMOL/L Potassium Level 3.8 3.6-5.0 MMOL/L Chloride Level 101 98-107 MMOL/L Carbon Dioxide Level 22 21-32 MMOL/L Anion Gap 12 5-14 MMOL/L Blood Urea Nitrogen 24 H 7-18 MG/DL Creatinine 1.83 H 0.60-1.30 MG/DL Estimat Glomerular Filtration Rate 28 BUN/Creatinine Ratio 13 Glucose Level 175 H 70-105 MG/DL Calcium Level 8.6 8.5-10.1 MG/DL Procalcitonin 0.09 <0.10 NG/ML My Orders Orders - BRIDGETTE GILL DO Basic Metabolic Panel (08/01/22 14:37) Cbc With Automated Diff (08/01/22 14:37) Procalcitonin (Pct) (08/01/22 14:37) Furosemide Injection (Lasix Injection) (08/01/22 15:45) Medications Given in ED Current Medications Medications Dose Ordered Sig/Jaylen Route Start Time Stop Time Status Last Admin Dose Admin Furosemide 80 mg ONCE ONCE IVP 08/01/22 15:45 08/01/22 15:46 DC 08/01/22 15:54 80 MG Vital Signs/I&O 08/01/22 14:33 Pulse 79 Resp 16 B/P (MAP) 133/61 (85) Pulse Ox 96 O2 Delivery Room Air Progress Progress Note : Progress Note Patient with slight elevation of white count however based on chart review and past labs this is on the lower end of what she normally is. Patient with a negative procalcitonin which indicates is likely a serious bacterial infection. Her creatinine is slightly elevated. I gave her an additional 80 of Lasix in addition to the Bumex she discharged yesterday. Recommend they continue to Bumex. The provider that comes to the care center is plan on seeing her next week to reevaluate. The should continue her current treatment up till then. I did recommend they can try Dat wraps starting at toes and going up to help decrease the lower extremity edema. Patient's symptoms are consistent with lymphedema and chronic venous stasis changes. She is stable and discharged home Departure Impression Primary Impression: Lymphedema of both lower extremities Additional Impression: Venous stasis dermatitis of both lower extremities Disposition: HOME, SELF-CARE Condition: Stable Departure-Patient Inst. Referrals: CHRISTIAN CHAVEZ MD (PCP/Family) Primary Care Physician Patient Instructions: Lymphedema, Dependent Edema (DC), How to Put On and Take Off Compression Stockings Add. Discharge Instructions: Please consider Dat wrap starting from the toe moving upward or compression stockings to help with the lower extremity swelling. Follow-up with your primary care provider as needed. Continue your current treatment with Bumex. BRIDGETTE GILL DO Aug 01, 2022 14:33
[2022-08-01 14:57] LABS: BASOPHILS # (AUTO) 0.1 10^3/uL (0.0-0.1); BASOPHILS % (AUTO) 0 % (0-10); EOSINOPHILS # (AUTO) 0.4 10^3/uL (0.0-0.3); EOSINOPHILS % (AUTO) 3 % (0-10); HEMATOCRIT 37 % (35-52); HEMOGLOBIN 12.4 g/dL (11.5-16.0); LYMPHOCYTES # (AUTO) 2.2 10^3/uL (1.0-4.0); LYMPHOCYTES % (AUTO) 18 % (12-44); MEAN CORPUSCULAR HEMOGLOBIN 30 pg (25-34); MEAN CORPUSCULAR HGB CONC 34 g/dL (32-36); MEAN CORPUSCULAR VOLUME 88 fL (80-99); MEAN PLATELET VOLUME 11.4 fL (9.0-12.2); MONOCYTES # (AUTO) 1.4 10^3/uL (0.0-1.0); MONOCYTES % (AUTO) 11 % (0-12); NEUTROPHILS # (AUTO) 8.1 10^3/uL (1.8-7.8); NEUTROPHILS % (AUTO) 66 % (42-75); PLATELET COUNT 281 10^3/uL (130-400); WHITE BLOOD COUNT 12.2 10^3/uL (4.3-11.0)
[2022-08-01 15:22] LABS: CALCIUM 8.6 MG/DL (8.5-10.1); CREATININE SERUM 1.83 MG/DL (0.60-1.30); POTASSIUM 3.8 MMOL/L (3.6-5.0)
[2022-08-01] MEDS ORDERED: FUROSEMIDE 40 MG/4 ML INJ (LASIX) IVP ONE (15:45)
[2022-08-01 16:10] VITALS: BP 127/60
== END 2022-08-01 16:27 | disposition home or self-care (01) ==
LOC: EDUNIT# 14:26 → ER 14:28
DX: I89.0 Lymphedema, not elsewhere classified (principal); I87.2 Venous insufficiency (chronic) (peripheral); R79.89 Other specified abnormal findings of blood chemistry
CPT/HCPCS: 36415; 80048; 84145; 85025; 99281

== ENCOUNTER 2023-02-12 21:04 | Emergency (ER) | payer MEDICARE, MEDICAID ==
[~2023-02-12] VITALS: Ht 147 cm; Wt 86.2 kg
[~2023-02-12 21:04] MED LIST changes: +POTA-330 PO; -POTA-51 PO
[2023-02-12 21:06] VITALS: BP 105/49
--- NOTE | 2023-02-12 21:14 | ED Fall/Injury ---
General Chief Complaint: Trauma-Non Activation Stated Complaint: FALL Source: patient Exam Limitations: no limitations History of Present Illness Date Seen by Provider: Feb 12, 2023 Time Seen by Provider: 21:08 Initial Comments 78-year-old female presents from nursing facility after a fall. She states she simply lost her balance. She did strike her left posterior occiput on the ground but denies loss of consciousness. She has no pain, visual symptoms, upper or lower extremity weakness numbness or tingling. Chest pain, abdominal pain arm or leg pain. All other systems reviewed and negative except documented per HPI. Voice recognition software was used to help create this chart Allergies and Home Medications Allergies Coded Allergies: Penicillins (Verified Allergy, Unknown, Pt has received Cefazolin & Ceftriaxone in the past w/o issu, 07/08/19) codeine (Verified Allergy, Unknown, Pt has received Lortab and Morphine in the past, 07/08/19) Patient Home Medication List Home Medication List Reviewed: Yes Acetaminophen (Tylenol Extra Strength) 500 Mg Tablet, 1,000 MG PO Q6H PRN for PAIN-MILD, (Reported) Entered as Reported by: HOLDEN TAPIA on 05/14/19 1104 Aspirin (Aspirin) 81 Mg Tab.chew, 81 MG PO DAILY, (Reported) Entered as Reported by: CARRIE GARCIA on 08/27/21 1415 Atorvastatin Calcium (Atorvastatin Calcium) 40 Mg Tablet, 40 MG PO HS, (Reported) Entered as Reported by: CARRIE GARCIA on 08/27/21 1415 Calcium Polycarbophil (Fibercon) 625 Mg Tablet, 1,250 MG PO BID, (Reported) Entered as Reported by: SHIN PEREA on 07/01/19 1237 Carbidopa/Levodopa (Carbidopa-Levo ER 50-200 Tab) 1 Each Tablet.er, 1 EACH PO BID, (Reported) Entered as Reported by: CARRIE GARCIA on 08/27/21 1415 Dextran 70/Hypromellose (Artificial Tears) 1 Each Droperette, 1 DROP OU QID, (Reported) Entered as Reported by: HOLDEN TAPIA on 07/09/19 1459 Donepezil HCl (Aricept) 10 Mg Tablet, 10 MG PO HS, (Reported) Entered as Reported by: SHIN PEREA on 07/01/19 1237 Famotidine (Acid Floral Designer Salesperson (FAMOTIDINE)) 20 Mg Tablet, 20 MG PO DAILY, (Reported) Entered as Reported by: CARRIE GARCIA on 08/27/21 141 Levothyroxine Sodium (Levothyroxine Sodium) 75 Mcg Tablet, 75 MCG PO DAILY, (Reported) Entered as Reported by: CARRIE GARCIA on 03/11/18 142 Lisinopril (Lisinopril) 5 Mg Tablet, 5 MG PO DAILY, (Reported) Entered as Reported by: CARRIE GARCIA on 08/27/21 141 Loratadine (Loratadine) 10 Mg Tablet, 10 MG PO DAILY PRN for ALLERGIES, (Reported) Entered as Reported by: CARRIE GARCIA on 03/11/18 1429 Mag Hydrox/Al Hydrox/Simeth (Mylanta Suspension) 30 Ml Oral.susp, 10 ML PO Q12H PRN for INDIGESTION, (Reported) Entered as Reported by: HOLDEN TAPIA on 07/09/19 145 Memantine HCl (Namenda) 5 Mg Tablet, 5 MG PO BID, (Reported) Entered as Reported by: CARRIE GARCIA on 08/27/21 141 Metoprolol Succinate (Metoprolol Succinate) 50 Mg Tab.er.24h, 50 MG PO DAILY, (Reported) Entered as Reported by: CARRIE GARCIA on 08/27/21 141 Mirabegron (Myrbetriq) 25 Mg Tab.er.24h, 25 MG PO DAILY, (Reported) Entered as Reported by: CARRIE GARCIA on 03/11/18 142 Ondansetron HCl (Zofran) 4 Mg Tab, 4 MG PO Q8H PRN for NAUSEA/VOMITING-1ST LINE, (Reported) Entered as Reported by: HOLDEN TAPIA on 07/09/19 145 Pramipexole Di-HCl (Mirapex) 0.5 Mg Tablet, 0.5 MG PO BID, (Reported) Entered as Reported by: SHIN PEREA on 07/01/19 1237 Ropinirole HCl (Ropinirole HCl) 0.25 Mg Tablet, 0.75 MG PO TID, (Reported) Entered as Reported by: HOLDEN TAPIA on 05/14/19 1104 Tramadol HCl (Tramadol HCl) 50 Mg Tablet, 50 MG PO BID, (Reported) Entered as Reported by: HOLDEN TAPIA on 08/05/18 1313 Trazodone HCl (Trazodone HCl) 50 Mg Tablet, 50 MG PO HS, (Reported) Entered as Reported by: CARRIE GARCIA on 03/11/18 1429 Review of Systems Review of Systems Constitutional: see HPI Past Prrwtkx-Ybsdwp-Zqnoyf Hx Patient Social History Tobacco Use?: No Use of E-Cig and/or Vaping dev: No Substance use?: No Alcohol Use?: No Immunizations Up To Date Tetanus Booster (TDap): Unknown PED Vaccines UTD: No First/Initial COVID19 Vaccinat: HAS HAD IT BUT UNKNOWN DATE Second COVID19 Vaccination Nikita: HAS HAD IT BUT UNKNOWN DATE Third COVID19 Vaccination Date: HAS HAD IT BUT UNKNOWN DATE Seasonal Allergies Seasonal Allergies: No Past Medical History Surgeries: Yes (HERNIA X3, BOWEL RESECTION WITH COLOSTOMY AND REVERSAL) Abdominal, Bowel Surgery, Gallbladder Respiratory: Yes Asthma Cardiac: Yes (DVT LEFT LEG POST OP AFTER COLON SURGERY) Deep Vein Thrombosis, Hypertension Neurological: Yes (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) Dementia, Parkinson's Disease 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 Sexually Transmitted Disease: No HIV/AIDS: No Genitourinary: Yes (OVERACTIVE BLADDER, INCONTINENCE) Bladder Infection, Renal Failure, UTI-Chronic Gastrointestinal: Yes (ISCHEMIC COLITIS, ADULT FAILURE TO THRIVE; HERNIA REPAIR) Abdominal Hernia, Colitis, Gastroesophageal Reflux, Diverticulosis Musculoskeletal: Yes (RESTLESS LEGS) Arthritis, Chronic Back Pain, Gout Endocrine: Yes (HYPOMAGNESEMIA) Hypothyroidsim HEENT: Yes (GLASASES) Cataract Hearing Impairment: Denies Cancer: No Psychosocial: Yes Sleep Difficulties, Anxiety, Bipolar, Depression Integumentary: No Blood Disorders: Yes (ANEMIA) Family Medical History Congenital disease 19 MOTHER Family history: Arthritis Hypertension 19 MOTHER Malignant neoplasm of lung 09 BROTHER No Family History of: Cancer Seizure disorder Hypertension Physical Exam Vital Signs Vital Signs - First Documented 02/12/23 21:06 Temp 36.2 Pulse 57 Resp 16 B/P (MAP) 105/49 (67) Pulse Ox 95 O2 Delivery Room Air Capillary Refill : Height, Weight, BMI Height: 5'1.00" Weight: 181lbs. 0.0oz. [id number]; 39.00 BMI Method:Stated General Appearance: WD/WN, no apparent distress HEENT: PERRL/EOMI, normal ENT inspection, TMs normal, pharynx normal Neck: non-tender, full range of motion, supple, normal inspection Cardiovascular: regular rate, rhythm, no murmur Respiratory: chest non-tender, lungs clear, normal breath sounds, no respiratory distress, no accessory muscle use Gastrointestinal: normal bowel sounds, non tender, soft, no organomegaly Back: normal inspection, no CVA tenderness, no vertebral tenderness Extremities: normal range of motion, non-tender, normal inspection, no pedal edema, no calf tenderness, normal capillary refill Neurologic/Psychiatric: general lot attendant II-XII nml as tested, no motor/sensory deficits, alert, normal mood/affect, oriented x 3 Skin: normal color, warm/dry Progress/Results/Core Measures Results/Orders My Orders Orders - RAHEL LOUIS DO Ct Head Wo (02/12/23 21:10) Vital Signs/I&O 02/12/23 21:06 Temp 36.2 Pulse 57 Resp 16 B/P (MAP) 105/49 (67) Pulse Ox 95 O2 Delivery Room Air Departure Communication (Admissions) Patient asymptomatic. CT head obtained due to age and risk of subdural. CT shows no bleed. No other evidence of injury. Impression Primary Impression: Fall Qualified Codes: W19.XXXA - Unspecified fall, initial encounter Additional Impression: Closed head injury Qualified Codes: S09.90XA - Unspecified injury of head, initial encounter Disposition: 01 HOME, SELF-CARE Condition: Stable Departure-Patient Inst. Referrals: CHRISTIAN CHAVEZ MD (PCP/Family) Primary Care Physician Patient Instructions: Minor Head Injury, Adult ED Add. Discharge Instructions: Use ibuprofen and tylenol as needed for pain. All discharge instructions reviewed with patient and/or family. Voiced understanding. RAHEL LOUIS DO Feb 12, 2023 21:14
--- NOTE | 2023-02-12 21:44 | Diagnostic Imaging Report ---
PROCEDURE: CT head without contrast. TECHNIQUE: Multiple contiguous axial images were obtained through the brain without the use of intravenous contrast. Auto Exposure Controls were utilized during the CT exam to meet ALARA standards for radiation dose reduction. INDICATION: 78-year-old female injured in fall after tripping in a long-term. COMPARISONS: 09/05/2016 FINDINGS: The midline structures are not displaced. Lateral, 3rd, and 4th ventricles are normal in size, shape and anatomic position. There is no mass, mass effect, hydrocephalus or hemorrhage. Vizcarra-white differentiation is normal. There is no sulcal effacement. Some scattered areas of nonspecific white matter change. There are no abnormal extra-axial fluid collections or hemorrhage. Basilar cisterns appear normal. Sinuses, orbits and mastoid air cells are normal. Bone windows show no calvarial changes. IMPRESSION: Senescent changes of the brain with some background chronic areas of microvascular ischemic change. Overall, no acute findings identified by nonenhanced CT criteria. Dictated by: Dictated on workstation # [id number]
== END 2023-02-12 22:10 | disposition home or self-care (01) ==
LOC: EDUNIT# 21:04 → ER 21:05
DX: S09.90XA Unspecified injury of head, initial encounter (principal); W18.30XA Fall on same level, unspecified, initial encounter; W22.8XXA Striking against or struck by other objects, initial encounter
CPT/HCPCS: 70450; 99283

== ENCOUNTER → 2023-03-20 | Outpatient (CLI) | payer MEDICARE, MEDICAID | LOC: SLEEP 20:30 | PROVIDERS: ATTEND Nurse Practitioner Community Health | DX: G47.19 Other hypersomnia (principal) | CPT/HCPCS: 95811 ==

== ENCOUNTER 2023-06-12 19:52 | Emergency (ER) | payer MEDICARE, MEDICAID ==
[~2023-06-12] VITALS: Ht 150 cm; Wt 82.0 kg
[~2023-06-12 19:52] MED LIST changes: +DICY-11 PO; -DICY10CA12 PO; +FAMO-356 PO; -FAMO20TA3 PO; -ROPI0.253 PO; +ROPI0.2533 PO; -ROPI1TAB PO; +ROPI1TAB46 PO
[2023-06-12] MEDS ORDERED: NS IV 500 ML 500 ML IV ONE (20:00)
--- NOTE | 2023-06-12 20:06 | ED Fall/Injury ---
General Chief Complaint: Trauma-Non Activation Stated Complaint: FALL Source: patient, EMS Exam Limitations: no limitations History of Present Illness Date Seen by Provider: Jun 12, 2023 Time Seen by Provider: 19:55 Initial Comments Here by EMS from [facility] where patient was noted to have fall with possible loss of consciousness. This was unwitnessed. Patient apparently was in her closet and had fallen. She has a small abrasion to the lower lip that is nonbleeding. No other injuries noted or reported. EMS reports normal vital signs and no obvious traumatic injury. Patient does not remember what she was doing in the closet or what happened prior to the event. Does have a history of dementia. Denies hip or pelvic pain, back pain or significant neck pain. Denies significant headache. Occurred: just prior to arrival Severity: mild Injuries/Pain Location: face Context: unknown Loss of Consciousness: unsure Modifying Factors: Improves With Rest Associated Symptoms (Fall): No Chest Pain, No Headache, No Nausea/Vomiting, No Neck Pain, No Shortness of Air Allergies and Home Medications Allergies Coded Allergies: Penicillins (Verified Allergy, Unknown, Pt has received Cefazolin & Ceftriaxone in the past w/o issu, 07/08/19) codeine (Verified Allergy, Unknown, Pt has received Lortab and Morphine in the past, 07/08/19) Patient Home Medication List Home Medication List Reviewed: Yes Acetaminophen (Tylenol Extra Strength) 500 Mg Tablet, 1,000 MG PO Q6H PRN for PAIN-MILD, (Reported) Entered as Reported by: HOLDEN TAPIA on 05/14/19 1104 Aspirin (Aspirin) 81 Mg Tab.chew, 81 MG PO DAILY, (Reported) Entered as Reported by: CARRIE GARCIA on 08/27/21 1415 Atorvastatin Calcium (Atorvastatin Calcium) 40 Mg Tablet, 40 MG PO HS, (Reported) Entered as Reported by: CARRIE GARCIA on 08/27/21 1415 Calcium Polycarbophil (Fibercon) 625 Mg Tablet, 1,250 MG PO BID, (Reported) Entered as Reported by: SHIN PEREA on 07/01/19 1237 Carbidopa/Levodopa (Carbidopa-Levo ER 50-200 Tab) 1 Each Tablet.er, 1 EACH PO BID, (Reported) Entered as Reported by: CARRIE GARCIA on 08/27/21 1415 Dextran 70/Hypromellose (Artificial Tears) 1 Each Droperette, 1 DROP OU QID, (Reported) Entered as Reported by: HOLDEN TAPIA on 07/09/19 145 Donepezil HCl (Aricept) 10 Mg Tablet, 10 MG PO HS, (Reported) Entered as Reported by: SHIN PEREA on 07/01/19 1237 Famotidine (Acid Vault Person (FAMOTIDINE)) 20 Mg Tablet, 20 MG PO DAILY, (Reported) Entered as Reported by: CARRIE GARCIA on 08/27/21 141 Levothyroxine Sodium (Levothyroxine Sodium) 75 Mcg Tablet, 75 MCG PO DAILY, (Reported) Entered as Reported by: CARRIE GARCIA on 03/11/18 142 Lisinopril (Lisinopril) 5 Mg Tablet, 5 MG PO DAILY, (Reported) Entered as Reported by: CARRIE GARCIA on 08/27/21 141 Loratadine (Loratadine) 10 Mg Tablet, 10 MG PO DAILY PRN for ALLERGIES, (Reported) Entered as Reported by: CARRIE GARCIA on 03/11/18 1429 Mag Hydrox/Al Hydrox/Simeth (Mylanta Suspension) 30 Ml Oral.susp, 10 ML PO Q12H PRN for INDIGESTION, (Reported) Entered as Reported by: HOLDEN TAPIA on 07/09/19 145 Memantine HCl (Namenda) 5 Mg Tablet, 5 MG PO BID, (Reported) Entered as Reported by: CARRIE GARCIA on 08/27/21 141 Metoprolol Succinate (Metoprolol Succinate) 50 Mg Tab.er.24h, 50 MG PO DAILY, (Reported) Entered as Reported by: CARRIE GARCIA on 08/27/21 141 Mirabegron (Myrbetriq) 25 Mg Tab.er.24h, 25 MG PO DAILY, (Reported) Entered as Reported by: CARRIE GARCIA on 03/11/18 142 Ondansetron HCl (Zofran) 4 Mg Tab, 4 MG PO Q8H PRN for NAUSEA/VOMITING-1ST LINE, (Reported) Entered as Reported by: HOLDEN TAPIA on 07/09/19 1459 Pramipexole Di-HCl (Mirapex) 0.5 Mg Tablet, 0.5 MG PO BID, (Reported) Entered as Reported by: SHIN PEREA on 07/01/19 1237 Ropinirole HCl (Ropinirole HCl) 0.25 Mg Tablet, 0.75 MG PO TID, (Reported) Entered as Reported by: HOLDEN TAPIA on 05/14/19 1104 Tramadol HCl (Tramadol HCl) 50 Mg Tablet, 50 MG PO BID, (Reported) Entered as Reported by: HOLDEN TAPIA on 08/05/18 1313 Trazodone HCl (Trazodone HCl) 50 Mg Tablet, 50 MG PO HS, (Reported) Entered as Reported by: CARRIE GARCIA on 03/11/18 1429 Review of Systems Review of Systems Constitutional: see HPI; No fever Eyes: No Symptoms Reported Ears, Nose, Mouth, Throat: see HPI Respiratory: No cough, No short of breath Cardiovascular: No chest pain Gastrointestinal: No nausea, No vomiting Genitourinary: no symptoms reported Musculoskeletal: No back pain, No joint pain, No muscle pain Skin: see HPI Psychiatric/Neurological: Denies Headache Past Zpskdhs-Yugoel-Ilaslx Hx Patient Social History Tobacco Use?: No Use of E-Cig and/or Vaping dev: No Substance use?: No Alcohol Use?: No Immunizations Up To Date Tetanus Booster (TDap): Unknown PED Vaccines UTD: No First/Initial COVID19 Vaccinat: x3 Second COVID19 Vaccination Nikita: HAS HAD IT BUT UNKNOWN DATE Third COVID19 Vaccination Date: HAS HAD IT BUT UNKNOWN DATE Seasonal Allergies Seasonal Allergies: No Past Medical History Surgery/Hospitalization HX: diverticulosis, hld, gerd, ulcerterive colitis, anxiety, dementia, uti, back pain, hypothryoidism, hernia, bowel resection Surgeries: Yes (HERNIA X3, BOWEL RESECTION WITH COLOSTOMY AND REVERSAL) Abdominal, Bowel Surgery, Gallbladder Respiratory: Yes Asthma Cardiac: Yes (DVT LEFT LEG POST OP AFTER COLON SURGERY) Deep Vein Thrombosis, Hypertension Neurological: Yes (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) Dementia, Parkinson's Disease Reproductive Disorders: No [employer] History: Menopausal Sexually Transmitted Disease: No HIV/AIDS: No Genitourinary: Yes (OVERACTIVE BLADDER, INCONTINENCE) Bladder Infection, Renal Failure, UTI-Chronic Gastrointestinal: Yes (ISCHEMIC COLITIS, ADULT FAILURE TO THRIVE; HERNIA REPAIR) Abdominal Hernia, Colitis, Gastroesophageal Reflux, Diverticulosis Musculoskeletal: Yes (RESTLESS LEGS) Arthritis, Chronic Back Pain, Gout Endocrine: Yes (HYPOMAGNESEMIA) Hypothyroidsim HEENT: Yes (GLASASES) Cataract Hearing Impairment: Denies Cancer: No Psychosocial: Yes Sleep Difficulties, Anxiety, Bipolar, Depression Integumentary: No Blood Disorders: Yes (ANEMIA) Family Medical History Reviewed Nursing Family Hx Congenital disease 19 MOTHER Family history: Arthritis Hypertension 19 MOTHER Malignant neoplasm of lung 09 BROTHER No Family History of: Cancer Seizure disorder Hypertension Physical Exam Vital Signs Vital Signs - First Documented Capillary Refill : Height, Weight, BMI Height: 5'1.00" Weight: 181lbs. 0.0oz. 82.458726mx; 39.00 BMI Method:Stated General Appearance: WD/WN, no apparent distress HEENT: PERRL/EOMI, other (Small abrasion to the lower lip on the left side that is nonbleeding with another small abrasion to the upper outer aspect of the lip bled briefly when cleaned but otherwise stopped with pressure and is superficial and not amiable to suture or glue.) Neck: non-tender, full range of motion, supple, normal inspection Cardiovascular: regular rate, rhythm, no murmur Respiratory: lungs clear, normal breath sounds Gastrointestinal: non tender, soft Back: normal inspection, no CVA tenderness, no vertebral tenderness Extremities: non-tender, normal inspection, pelvis stable Neurologic/Psychiatric: alert, normal mood/affect Skin: normal color, warm/dry Lawn Coma Score Best Eye Response: (4) Open Spontaneously Best Verbal Response: (5) Oriented Best Motor Response: (6) Obeys Commands Progress/Results/Core Measures Results/Orders Lab Results Laboratory Tests Test 06/12/23 20:08 Range/Units White Blood Count 6.0 4.3-11.0 10^3/uL Red Blood Count 4.18 3.80-5.11 10^6/uL Hemoglobin 11.5 11.5-16.0 g/dL Hematocrit 36 35-52 % Mean Corpuscular Volume 87 80-99 fL Mean Corpuscular Hemoglobin 28 25-34 pg Mean Corpuscular Hemoglobin Concent 32 32-36 g/dL Red Cell Distribution Width 13.1 10.0-14.5 % Platelet Count 244 130-400 10^3/uL Mean Platelet Volume 11.1 9.0-12.2 fL Immature Granulocyte % (Auto) 1 % Neutrophils (%) (Auto) 62 42-75 % Lymphocytes (%) (Auto) 23 12-44 % Monocytes (%) (Auto) 9 0-12 % Eosinophils (%) (Auto) 6 0-10 % Basophils (%) (Auto) 1 0-10 % Neutrophils # (Auto) 3.7 1.8-7.8 10^3/uL Lymphocytes # (Auto) 1.4 1.0-4.0 10^3/uL Monocytes # (Auto) 0.5 0.0-1.0 10^3/uL Eosinophils # (Auto) 0.4 H 0.0-0.3 10^3/uL Basophils # (Auto) 0.0 0.0-0.1 10^3/uL Immature Granulocyte # (Auto) 0.0 0.0-0.1 10^3/uL Sodium Level 137 135-145 MMOL/L Potassium Level 3.7 3.6-5.0 MMOL/L Chloride Level 101 98-107 MMOL/L Carbon Dioxide Level 23 21-32 MMOL/L Anion Gap 13 5-14 MMOL/L Blood Urea Nitrogen 21 H 7-18 MG/DL Creatinine 1.23 0.60-1.30 MG/DL Estimat Glomerular Filtration Rate 44 BUN/Creatinine Ratio 17 Glucose Level 123 H 70-105 MG/DL Calcium Level 8.7 8.5-10.1 MG/DL Corrected Calcium 8.9 8.5-10.1 MG/DL Total Bilirubin 0.7 0.1-1.0 MG/DL Aspartate Amino Transf (AST/SGOT) 54 H 5-34 U/L Alanine Aminotransferase (ALT/SGPT) 23 0-55 U/L Alkaline Phosphatase 139 H 40-136 U/L Troponin I < 0.028 <0.028 NG/ML Total Protein 9.0 H 6.4-8.2 GM/DL Albumin 3.7 3.2-4.5 GM/DL My Orders Orders - DILLAN SINGH MD Ct Head/Cervical Spine Wo (06/12/23 20:00) Ekg Tracing (06/12/23 20:00) Cbc And Automated Diff (06/12/23 20:00) Comprehensive Metabolic Panel (06/12/23 20:00) Troponin I Stanley (06/12/23 20:00) Ed Iv/Invasive Line Start (06/12/23 20:00) Ns Iv 500 Ml (Ns Iv 500 Ml) (06/12/23 20:00) Medications Given in ED Current Medications Medications Dose Ordered Sig/Jaylen Route Start Time Stop Time Status Last Admin Dose Admin Sodium Chloride 500 ml @ 0 mls/hr Q0M ONCE IV 06/12/23 20:00 06/12/23 20:02 DC 06/12/23 20:09 999 MLS/HR Vital Signs/I&O 06/12/23 06/12/23 19:53 19:53 Temp 36.0 36.0 Pulse 74 74 Resp 16 16 B/P (MAP) 143/83 (103) 143/83 (103) Pulse Ox 97 97 O2 Delivery Room Air Room Air Progress Progress Note : Progress Note Seen and evaluated. Given her unknown reason for fall, we will go ahead and do IV and check basic labs including CBC, CMP and troponin and get EKG as well as CT of the head and neck. I will give normal saline 500 mL bolus. Monitor patient. Differential diagnosis includes syncope, dehydration, electrolyte abnormality, cardiac anomaly/dysrhythmia 2031: CBC shows no significant gross abnormality. EKG reviewed as below. CT of the head and C-spine reviewed and I do not see any obvious intracranial hemorrhage or C-spine fracture on my interpretation. Pending chemistries. Monitor patient. 2058: CT results reviewed. CMP results reviewed. Electrolytes grossly normal with normal creatinine and slightly elevated LFTs but not in concerning range. Troponin is negative. Overall no indication for admission or further evaluation. Discharged home with return precautions. Patient verbalized understanding instructions and agreement with plan. Initial ECG Impression Date: Jun 12, 2023 Initial ECG Impression Time: 20:09 Initial ECG Rate: 68 Initial ECG Rhythm: Normal Sinus Comment Sinus rhythm with occasional PAC and right bundle branch block with left axis deviation. No evidence of ST elevation TN. Interpreted by me. Diagnostic Imaging Diagonstic Imaging: CT Plain Films/CT/US/NM/MRI: c-spine, head Comments [facility] [place] NAME: ALFONSO NGUYEN [facility] REC#: [id number] PT STATUS: REG ER : 1945 PHYSICIAN: DILLAN SINGH MD ADMIT DATE: 06/12/23/ER Draft Date of Exam:06/12/23 CT HEAD/CERVICAL SPINE WO PROCEDURE: CT head and CT cervical spine without contrast. TECHNIQUE: Multiple contiguous axial images were obtained through the brain and cervical spine without the use of intravenous contrast. Sagittal and coronal reformations through the cervical spine were then performed. Auto Exposure Controls were utilized during the CT exam to meet ALARA standards for radiation dose reduction. INDICATION: Fall, head and neck injury. COMPARISON: 02/12/2023. FINDINGS: Ventricles and cortical sulci are age-appropriate. There is no midline shift or mass effect. No acute intracranial hemorrhage is seen. There is no CT evidence of acute territorial ischemia. There are areas of hypoattenuation in the white matter which are likely from chronic microvascular disease. There are senescent calcifications in the basal ganglia. The calvarium appears intact. Visualized paranasal sinuses are clear. Straightening of the cervical spine is noted, but there is no spondylolisthesis. There are moderate to severe degenerative changes throughout the cervical spine. No acute fracture is seen. No bony fragment or hyperdense fluid collection is seen in the spinal canal. Surrounding soft tissues demonstrate no acute abnormality. IMPRESSION: 1. No acute intracranial hemorrhage or calvarium fracture. 2. Degenerative changes throughout the cervical spine with no acute fracture seen. Dictated on workstation # [id number] Dict: 06/12/232036 Trans: 06/12/232041 [facility] [id number] Interpreted by: FADUMO CHEN MD Electronically signed by: Departure Impression Primary Impression: Fall Qualified Codes: W19.XXXA - Unspecified fall, initial encounter Additional Impressions: Syncope Qualified Codes: R55 - Syncope and collapse Abrasion of lip, initial encounter Disposition: 01 HOME, SELF-CARE Condition: Stable Departure-Patient Inst. Decision time for Depature: 21:07 Referrals: [facility] (PCP/Family) Primary Care Physician Patient Instructions: Wound Care ED, Syncope (Fainting) (DC), Preventing Falls ED Add. Discharge Instructions: All discharge instructions reviewed with patient and/or family. Voiced understanding. Use your walker or other assistive device when moving around. You need to drink an adequate amount of fluids and try to eat a normal diet. Continue home medications as previously prescribed. Follow-up with your doctor for recheck and further evaluation as needed. Return for worse pain, fever, vomiting, weakness, breathing problems or other concerns as needed. Copy Copies To 1: DAMON CHÁVEZ TIMOTHY D MD Jun 12, 2023 20:06
[2023-06-12 20:15] LABS: BASOPHILS % (AUTO) 1 % (0-10); EOSINOPHILS # (AUTO) 0.4 10^3/uL (0.0-0.3); EOSINOPHILS % (AUTO) 6 % (0-10); HEMATOCRIT 36 % (35-52); HEMOGLOBIN 11.5 g/dL (11.5-16.0); LYMPHOCYTES # (AUTO) 1.4 10^3/uL (1.0-4.0); LYMPHOCYTES % (AUTO) 23 % (12-44); MEAN CORPUSCULAR HEMOGLOBIN 28 pg (25-34); MEAN CORPUSCULAR HGB CONC 32 g/dL (32-36); MEAN CORPUSCULAR VOLUME 87 fL (80-99); MEAN PLATELET VOLUME 11.1 fL (9.0-12.2); MONOCYTES # (AUTO) 0.5 10^3/uL (0.0-1.0); MONOCYTES % (AUTO) 9 % (0-12); NEUTROPHILS # (AUTO) 3.7 10^3/uL (1.8-7.8); NEUTROPHILS % (AUTO) 62 % (42-75); PLATELET COUNT 244 10^3/uL (130-400)
[2023-06-12] MEDS ORDERED: NS 100 ML (IVPB) BAG IV ONE (20:30)
[2023-06-12] MEDS ORDERED: IOHEXOL 350 MG/ML 100 ML (OMNIPAQUE 350) VIAL IV ONE (20:30)
[2023-06-12 20:41] LABS: ALANINE AMINOTRANSFERASE 23 U/L (0-55); ALBUMIN 3.7 GM/DL (3.2-4.5); ALKALINE PHOSPHATASE 139 U/L (40-136); BILIRUBIN,TOTAL 0.7 MG/DL (0.1-1.0); BUN/CREATININE RATIO 17; CALCIUM 8.7 MG/DL (8.5-10.1); CARBON DIOXIDE 23 MMOL/L (21-32); CHLORIDE 101 MMOL/L (98-107); CREATININE SERUM 1.23 MG/DL (0.60-1.30); GFR ESTIMATED 44; GLUCOSE 123 MG/DL (70-105); POTASSIUM 3.7 MMOL/L (3.6-5.0); SODIUM 137 MMOL/L (135-145)
--- NOTE | 2023-06-12 20:43 | Diagnostic Imaging Report ---
PROCEDURE: CT head and CT cervical spine without contrast. TECHNIQUE: Multiple contiguous axial images were obtained through the brain and cervical spine without the use of intravenous contrast. Sagittal and coronal reformations through the cervical spine were then performed. Auto Exposure Controls were utilized during the CT exam to meet ALARA standards for radiation dose reduction. INDICATION: Fall, head and neck injury. COMPARISON: 02/12/2023. FINDINGS: Ventricles and cortical sulci are age-appropriate. There is no midline shift or mass effect. No acute intracranial hemorrhage is seen. There is no CT evidence of acute territorial ischemia. There are areas of hypoattenuation in the white matter which are likely from chronic microvascular disease. There are senescent calcifications in the basal ganglia. The calvarium appears intact. Visualized paranasal sinuses are clear. Straightening of the cervical spine is noted, but there is no spondylolisthesis. There are moderate to severe degenerative changes throughout the cervical spine. No acute fracture is seen. No bony fragment or hyperdense fluid collection is seen in the spinal canal. Surrounding soft tissues demonstrate no acute abnormality. IMPRESSION: 1. No acute intracranial hemorrhage or calvarium fracture. 2. Degenerative changes throughout the cervical spine with no acute fracture seen. Dictated by: Dictated on workstation # [id number]
[2023-06-12 21:29] VITALS: BP 119/69
== END 2023-06-12 21:29 | disposition home or self-care (01) ==
LOC: EDUNIT# 19:52 → ER 19:54
DX: S00.511A Abrasion of lip, initial encounter (principal); R55 Syncope and collapse; I45.10 Unspecified right bundle-branch block; W19.XXXA Unspecified fall, initial encounter
CPT/HCPCS: 36415; 70450; 72125; 80053; 84484; 85025; 93005; 96360

== ENCOUNTER → 2023-06-26 | Outpatient (CLI) | payer MEDICARE, MEDICAID ==
[2023-06-26 15:55] LABS: ABG BASE EXCESS 4.2 MMOL/L (-2.5-2.5); ABG OXYGEN SATURATION 98 % (94-100); ABG PCO2 40 MMHG (35-45); ABG PH 7.46 (7.37-7.43); ABG PO2 81 MMHG (79-93); ABG TCO2 29.6 MMOL/L (21.0-31.0)
[2023-06-26 15:56] LABS: VENTILATOR NO
== END ==
LOC: RT 14:40
PROVIDERS: ATTEND Nurse Practitioner Community Health
DX: R09.02 Hypoxemia (principal)
CPT/HCPCS: 36600; 82805